=== PATIENT | female | born 1945 | race Caucasian/White ===

== ENCOUNTER 2016-08-27 07:08 | Emergency (ER) | payer MEDICARE, BC ==
[2016-08-27] MEDS ORDERED: Zofran 4 MG/2 ML VIAL IV ONE (07:31)
[2016-08-27] MEDS ORDERED: Sodium Chloride 0.9% 1000 ML 1,000 ML ONE (07:37)
[2016-08-27] MEDS ORDERED: Zofran 4 MG/2 ML VIAL ONE (07:37)
--- NOTE | 2016-08-27 07:38 | ERPHSYRPT ---
- History of Present Illness Time Seen by Provider: 08/27/16 07:25 Historian: patient Exam Limitations: no limitations Patient Subjective Stated Complaint: PT STATES SHE WAS AWAKENED THIS MORNING AT 0200 WITH EPIGASTRIC PAIN. PT STATES SHE HAS A BURNING PAIN AND IS NAUSEATED. Triage Nursing Assessment: PT PINK, WARM, DRY. ABDOMEN SOFT. LUNG SOUNDS CLEAR AND EQUAL. BOWEL SOUNDS PRESENT. Physician History: This is a 71-year-old white female arrives with complaint of pain in the epigastric region described as burning onset at 2:00 this morning associated with nausea no vomiting no diarrhea she denies chest pain she denies shortness of breath Past medical history includes coronary artery disease, hyperlipidemia, high blood pressure old chart shows myocardial infarction but patient denies this, asthma, arthritis, ulcers, breast cancer Past surgical history includes cardiac catheter, bariatric surgery, cholecystectomy, hernia repair, hysterectomy, mastectomy, 2 disks fusion on her neck Timing/Duration: today (2:00 this morning) Activities at Onset: rest Quality: burning Abdominal Pain Onset Location: epigastric Pain Radiation: no radiation Severity of Pain-Max: moderate Severity of Pain-Current: mild Modifying Factors: Improves With: nothing Associated Symptoms: heartburn, nausea, No back, No chest pain, No diaphoresis, No diarrhea, No fever/chills, No fatigue, No headache, No loss of appetite, No neck pain, No rash, No shortness of breath, No syncope, No vomiting, No weakness Previous symptoms: other (patient with history of ulcers) Allergies/Adverse Reactions: naproxen [From Naprosyn] Allergy (Mild, Verified 08/27/16 07:19) Rash adhesive tape Adverse Reaction (Mild, Verified 08/27/16 07:19) BLISTERS Home Medications: Nifedipine [Procardia Xl] 60 mg PO DAILY 11/14/15 [History] Omeprazole [Prilosec] 40 mg PO DAILY 11/14/15 [History] Sertraline HCl 50 mg [Zoloft 50 mg Tablet] 50 mg PO DAILY 11/14/15 [History] Cholecalciferol (Vitamin D3) [Vitamin D] 5,000 unit PO DAILY 01/21/16 [ History] Cyanocobalamin/Folic Acid [Vitamin K76-Nlsse Acid Tablet] 1 each PO DAILY [History] Ped Multivit #43/Iron Fumarate [Flintstones Complete Chew Tab] 36 mg PO DAILY [History] Hx Tetanus, Diphtheria Vaccination/Date Given: Yes (UP TO DATE) Hx Influenza Vaccination/Date Given: Yes Hx Pneumococcal Vaccination/Date Given: Yes Immunizations Up to Date: Yes - Review of Systems Constitutional: No Fever, No Chills Eyes: No Symptoms Ears, Nose, & Throat: No Symptoms Respiratory: No Cough, No Dyspnea Cardiac: No Chest Pain, No Edema, No Syncope Abdominal/Gastrointestinal: Abdominal Pain, Nausea, No Vomiting, No Diarrhea, No Constipation, No Hematemesis, No Hematochezia, No Melena, No Dysphagia, No Appetite Changes Genitourinary Symptoms: No Dysuria Musculoskeletal: No Back Pain, No Neck Pain Skin: No Rash Neurological: No Dizziness, No Focal Weakness, No Sensory Changes Psychological: No Symptoms Endocrine: No Symptoms All Other Systems: Reviewed and Negative - Past Medical History Pertinent Past Medical History: Yes Neurological History: No Pertinent History ENT History: No Pertinent History Cardiac History: Coronary Artery Disease, High Cholesterol, Hypertension Respiratory History: Asthma Endocrine Medical History: No Pertinent History Musculoskeletal History: Arthritis GI Medical History: GERD History: No Pertinent History Psycho-Social History: No Pertinent History Female Reproductive Disorders: Breast Cancer - Past Surgical History Past Surgical History: Yes Neuro Surgical History: No Pertinent History Cardiac: Cardiac Catheterization Respiratory: No Pertinent History Gastrointestinal: Cholecystectomy, Hernia Repair Genitourinary: No Pertinent History Musculoskeletal: Orthopedic Surgery, Other Female Surgical History: Hysterectomy, Mastectomy Other Surgical History: 2 disc fusions in neck, left mastectomy. BERIATRIC SURGERY - Social History Smoking Status: Never smoker Exposure to second hand smoke: No Drug Use: none Patient Lives Alone: No - Nursing Vital Signs Nursing Vital Signs: Initial Vital Signs Temperature 98.8 F Temperature Source Oral Pulse Rate [Bilateral Radial] 79 Pulse Rate 54 Respiratory Rate 16 Blood Pressure [Right Arm] 143/69 Pain Intensity 2 - Physical Exam General Appearance: mild distress Eye Exam: PERRL/EOMI, eyes nml inspection Ears, Nose, Throat Exam: normal ENT inspection, pharynx normal, moist mucous membranes Neck Exam: normal inspection, non-tender, supple, full range of motion Respiratory Exam: normal breath sounds, lungs clear, No respiratory distress Cardiovascular Exam: regular rate/rhythm, normal heart sounds, normal peripheral pulses, capillary refill <2 sec, No murmur, No friction rub, No gallop, No tachycardia, No bradycardia, No irregular, No capillary refill 2-3 sec, No capillary refill >3 sec Gastrointestinal/Abdomen Exam: soft, normal bowel sounds, tenderness ( epigastric tenderness with palpation) Back Exam: normal inspection, normal range of motion, No CVA tenderness, No vertebral tenderness Extremity Exam: normal inspection, normal range of motion, pelvis stable Neurologic Exam: alert, oriented x 3, cooperative, normal mood/affect, nml cerebellar function, sensation nml, No motor deficits Skin Exam: normal color, warm, dry SpO2 Interpretation: normal (100%) SpO2: 100 Oxygen Delivery: Room Air - Course Nursing assessment & vital signs reviewed: Yes EKG Interpreted by Me: RATE (73 bpm), Sinus Rhythm, Left [place] Deviation, Other ( EKG, sinus rhythm 73 bpm left anterior fascicular block left axis deviation no no acute changes as compared to 01/27/2016) Ordered Tests: Active Orders 24 hr Category Date Time Status Lung Splitter STAT Care 08/27/16 07:21 Active EKG-ER Only STAT Care 08/27/16 07:21 Active IV Insertion STAT Care 08/27/16 07:48 Active Pulse Oximetry (ED) STAT Care 08/27/16 07:21 Active AMYLASE Stat Lab 08/27/16 07:40 Completed CBC W DIFF Stat Lab 08/27/16 07:40 Completed CMP Stat Lab 08/27/16 07:40 Completed LIPASE Stat Lab 08/27/16 07:40 Completed TROPONIN Stat Lab 08/27/16 07:40 Completed UA W/ MICROSCOPIC Stat Lab 08/27/16 08:15 Results Medication Summary Generic Name Dose Route Start Last Admin Trade Name Freq PRN Reason Stop Dose Admin Sodium Chloride 1,000 mls @ 100 mls/hr 08/27/16 07:45 08/27/16 07:40 Sodium Chloride 0.9% 1000 Ml IV 09/26/16 07:44 100 mls/hr .Q10H TONJA Administration Discontinued Medications Generic Name Dose Route Start Last Admin Trade Name Freq PRN Reason Stop Dose Admin Ondansetron HCl 4 mg 08/27/16 07:31 08/27/16 07:40 Zofran 4 Mg/2 Ml Vial IV 08/27/16 07:32 4 mg STAT ONE Administration Ondansetron HCl Confirm 08/27/16 07:37 Zofran 4 Mg/2 Ml Vial Administered 08/27/16 07:38 Dose 4 mg .ROUTE .K-MED ONE Pantoprazole Sodium 40 mg 08/27/16 08:46 08/27/16 08:54 Protonix 40 Mg Iv IV 08/27/16 08:47 40 mg STAT ONE Administration Pantoprazole Sodium Confirm 08/27/16 08:52 Protonix 40 Mg Iv Administered 08/27/16 08:53 Dose 40 mg IV .K-MED ONE Lab/Rad Data: Laboratory Result Diagrams 08/27/16 07:40 08/27/16 07:40 Laboratory Results 08/27/16 08/27/16 08/27/16 Range/Units 08:15 07:40 07:40 WBC 5.6 (4.0-10.5) K/mm3 RBC 3.95 L (4.1-5.4) M/mm3 Hgb 12.7 (12.0-16.0) gm/dl Hct 37.7 (35-47) % MCV 95.4 (78-100) fl MCH 32.1 H (26-32) pg MCHC 33.7 (32-36) g/dl RDW 12.9 (11.5-14.0) % Plt Count 204 (150-450) K/mm3 MPV 9.6 H (6-9.5) fl Gran % 72.9 H (36.0-66.0) % Lymphocytes % 20.0 L (24.0-44.0) % Monocytes % 4.7 (0.0-12.0) % Eosinophils % 2.2 (0.00-5.0) % Basophils % 0.2 (0.0-0.4) % Basophils # 0.01 (0-0.4) Sodium 142 (136-145) mEq/L Potassium 4.0 (3.5-5.1) mEq/L Chloride 108 H (98-107) mEq/L Carbon Dioxide 24.6 (21-32) mEq/L Anion Gap 13.6 (5-15) MEQ/L BUN 23 H (9-20) mg/dL Creatinine 1.18 (0.55-1.30) mg/dl Estimated GFR 48 ML/MIN Glucose 114 H (70-110) MG/DL Calcium 9.2 (8.5-10.1) mg/dL Total Bilirubin 0.40 (0.2-1.0) mg/dL AST 32 (15-37) U/L ALT 32 (12-78) U/L Alkaline Phosphatase 119 H (46-116) U/L Troponin I < 0.017 (0.000-0.056) ng/ml Serum Total Protein 6.7 (6.4-8.2) gm/dL Albumin 3.5 (3.4-5.0) g/dL Amylase 65 (25-115) U/L Lipase 273 (73-393) U/L Ur Collection Type VOID Urine Color YELLOW (YELLOW) Urine Appearance HAZY (CLEAR) Urine pH 5.0 (5-6) Ur Specific Carey 1.020 (1.005-1.025) Urine Protein NEGATIVE (Negative) Urine Ketones NEGATIVE (NEGATIVE) Urine Blood 50 (0-5) Reyes/ul Urine Nitrite NEGATIVE (NEGATIVE) Urine Bilirubin NEGATIVE (NEGATIVE) Urine Urobilinogen NORMAL (0-1) mg/dL Ur Leukocyte Esterase NEGATIVE (NEGATIVE) Urine Microscopic RBC 2-5 (0-2) /HPF Urine Microscopic WBC 0-2 (0-5) /HPF Ur Epithelial Cells RARE (FEW) /HPF Urine Bacteria RARE (NEGATIVE) /HPF Urine Glucose NEGATIVE (NEGATIVE) mg/dL Specimen Received 08/27/16 0815 - Progress Progress: improved Progress Note: 08/27/16 08:46 Patient feeling better Slight epigastric pain now with palpation. Labs essentially normal. Patient does not want to wait for repeat troponin and initial torponin is normal. Will give patient Protonix 40 mg IV Will consider discharge with Zofran patient plans to follow-uop with her physician in [place] 08/27/16 08:47 08/27/16 08:52 - Departure Time of Disposition: 08:51 Departure Disposition: Home Clinical Impression: Epigastric abdominal pain Condition: Fair Critical Care Time: No Referrals: NICOLÁS VENEGAS [Primary Care Provider] - Additional Instructions: Return home. Plenty of fluids, clear fluids only 24-48 hours if abdominal pain. Continue Prilosec as prescribed by your family doctor/pneumatic deicer inspector. Zofran 4 mg orally every 4-6 hours as needed for nausea and vomiting. Return for acute distress or for severe symptoms. Prescriptions: Ondansetron [Zofran Odt] 4 mg PO Q4-6HPRN PRN #10 tab.rapdis PRN Reason: nausea and vomiting
[2016-08-27] MEDS ORDERED: Sodium Chloride 0.9% 1000 ML 1,000 ML IV SCH (07:45)
[2016-08-27 08:14] LABS: ALBUMIN 3.5 g/dL (3.4-5.0); ALKALINE PHOSPHATASE 119 U/L (46-116); ANION GAP 13.6 MEQ/L (5-15); BLOOD UREA NITROGEN 23 mg/dL (9-20); CHLORIDE 108 mEq/L (98-107); Carbon Dioxide 24.6 mEq/L (21-32); Glucose 114 MG/DL (70-110); LIPASE 273 U/L (73-393); SGOT/AST 32 U/L (15-37); SGPT/ALT 32 U/L (12-78); SODIUM 142 mEq/L (136-145); Total Protein 6.7 gm/dL (6.4-8.2)
[2016-08-27 08:15] LABS: TROPONIN < 0.017 ng/ml (0.000-0.056)
[2016-08-27 08:29] LABS: Bilirubin NEGATIVE (NEGATIVE); Blood 50 Ery/ul (0-5); COMPLETE URINE MICROSCOPIC? YES; Collection Type VOID; Glucose NEGATIVE (NEGATIVE); Leukocyte Esterase NEGATIVE (NEGATIVE)
[2016-08-27 08:35] LABS: BASOPHIL % 0.2 % (0.0-0.4); Eosinophil % 2.2 % (0.00-5.0); Granulocytes % 72.9 % (36.0-66.0); Mean Cell Volume 95.4 fl (78-100); Mean Platelet Volume 9.6 fl (6-9.5); Monocytes % 4.7 % (0.0-12.0); Platelet Count 204 K/mm3 (150-450); Red Blood Count 3.95 M/mm3 (4.1-5.4); Red Cell Distribution Width 12.9 % (11.5-14.0); White Blood Count 5.6 K/mm3 (4.0-10.5)
[2016-08-27 08:36] LABS: Mean Corpuscular Hemoglobin 32.1 pg (26-32)
[2016-08-27 08:36] LABS: Bacteria RARE /HPF (NEGATIVE); Epithelial Cells RARE /HPF (FEW); WBC 0-2 /HPF (0-5)
[2016-08-27] MEDS ORDERED: PROTONIX 40 MG IV IV ONE ×2 (08:46→08:52)
[2016-08-27 09:19] LABS: ADD URINE CULTURE? NO (NO)
[2016-08-27 09:27] VITALS: BP 142/81; PULSE 56; O2SAT 98
== END 2016-08-27 09:29 | disposition home or self-care (01) ==
LOC: ED 07:08
DX: R10.13 Epigastric pain (principal); Z79.899 Other long term (current) drug therapy; J44.9 Chronic obstructive pulmonary disease, unspecified; E78.00 Pure hypercholesterolemia, unspecified; I10 Essential (primary) hypertension
CPT/HCPCS: 36000; 36415; 80053; 81000; 82150; 83690; 84484; 85025; 93005; 93041; 96360; 96361; 96374; 96375; 99284; J2405

== ENCOUNTER 2017-01-21 16:00 | Observation (INO) | payer MEDICARE, BC ==
[2017-01-21] MEDS ORDERED: DUONEB 0.5-3 MG/3 ml Neb IH PRN (16:50)
[2017-01-21] MEDS ORDERED: MEDICATION INTERVENTION MC PRN (17:08)
[2017-01-21 17:30] LABS: A-aADO2 19; ARTERIAL BLD GAS O2 SATURATION 98.1 % (95-100); ARTERIAL BLOOD GAS BASE EXCESS -1.8 (-2.0-2.0); ARTERIAL BLOOD GAS FIO2 21 %; ARTERIAL BLOOD GAS PO2 92 mmHg (75-100); ARTERIAL BLOOD GAS pH 7.45 (7.35-7.45)
[2017-01-21 17:40] LABS: Mean Cell Volume 96.5 fl (78-100); Mean Platelet Volume 9.4 fl (6-9.5); Platelet Count 182 K/mm3 (150-450); Red Blood Count 3.67 M/mm3 (4.1-5.4); Red Cell Distribution Width 13.4 % (11.5-14.0); White Blood Count 6.4 K/mm3 (4.0-10.5)
[2017-01-21 17:42] LABS: Mean Corpuscular Hemoglobin 32.1 pg (26-32)
[2017-01-21] MEDS: Sodium Chloride 0.9% 1000 ML 1,000 ML IV SCH (17:53)
[2017-01-21] MEDS: ROCEPHIN 1 Gm-D5w 50 ml Bag** 1 G/50 ML IVPB IV SCH (17:53)
[2017-01-21] MEDS: solu-MEDROL 125 MG IV SCH ×2 (17:55→22:44)
[2017-01-21 18:03] LABS: ALBUMIN 3.9 g/dL (3.4-5.0); ANION GAP 13.6 MEQ/L (5-15); BILIRUBIN,TOTAL 0.3 mg/dL (0.2-1.0); Carbon Dioxide 22.9 mEq/L (21-32); Potassium 4.4 mEq/L (3.5-5.1); Total Protein 6.6 gm/dL (6.4-8.2)
[2017-01-21] MEDS: DUONEB 0.5-3 MG/3 ml Neb IH SCH (19:39)
[2017-01-22] MEDS: MOTRIN 400 MG PO PRN ×4 (03:28→21:38)
[2017-01-22] MEDS: solu-MEDROL 125 MG IV SCH ×3 (05:55→21:36)
[2017-01-22] MEDS: DUONEB 0.5-3 MG/3 ml Neb IH SCH ×4 (06:40→20:53)
[2017-01-22] MEDS: THERAGRAN MULTIVITAMIN PO SCH (08:06)
[2017-01-22] MEDS: Protonix 40MG Tablet PO SCH (08:07)
[2017-01-22] MEDS: Adalat CC 30 MG TABLET PO SCH (08:07)
[2017-01-22] MEDS: VITAMIN D PO SCH (08:07)
[2017-01-22] MEDS: ZOLOFT 50 MG TABLET PO SCH (08:07)
--- NOTE | 2017-01-22 08:40 | XRAY ---
Indication: Cough. Pneumonia. Comparison: January 27, 2016. PA/lateral chest unchanged and clear with incidental right lung calcified granuloma and small focal right hemidiaphragm elevation. Heart is not enlarged. Bony thorax intact again with lower cervical fusion surgery. No new/acute findings.
[2017-01-22] MEDS ORDERED: NON-FORMULARY ITEM (Cyanocobalamin/Folic Acid [Vitamin B12-Folic Acid Tablet] 1 EACH) PO SCH (10:00)
[2017-01-22] MEDS ORDERED: NIFEDIPINE 60 MG PO SCH (10:00)
[2017-01-22] MEDS ORDERED: NON-FORMULARY ITEM (Omeprazole [Prilosec] 40 MG) PO SCH (10:00)
[2017-01-22] MEDS ORDERED: IRON FUMARATE PO SCH (10:00)
[2017-01-22] MEDS ORDERED: [UNRECOGNIZED DRUG - OTHER] PO SCH (10:00)
[2017-01-22] MEDS: ROCEPHIN 1 Gm-D5w 50 ml Bag** 1 G/50 ML IVPB IV SCH (10:12)
[2017-01-22] MEDS: Sodium Chloride 0.9% 1000 ML 1,000 ML IV SCH (15:20)
--- NOTE | 2017-01-22 16:45 | PCM.NOTE ---
Date and Time: 01/22/171643 Subjective Assessment: c/o shortness of breath - Review of Systems Constitutional: No Fever, No Chills Eyes: No Symptoms Ears, Nose, & Throat: No Symptoms Respiratory: No Cough, No Short Of Breath Cardiac: No Chest Pain, No Edema, No Syncope Abdominal/Gastrointestinal: No Abdominal Pain, No Nausea, No Vomiting, No Diarrhea Genitourinary Symptoms: No Dysuria Musculoskeletal: No Back Pain, No Neck Pain Skin: No Rash Neurological: No Dizziness, No Focal Weakness, No Sensory Changes Psychological: No Symptoms Endocrine: No Symptoms Hematologic/Lymphatic: No Symptoms Immunological/Allergic: No Symptoms Objective Exam General Appearance: no apparent distress, alert Neurologic Exam: alert, oriented x 3, cooperative, normal mood/affect, nml cerebellar function, sensation nml, No motor deficits Skin Exam: normal color, warm, dry Eye Exam: PERRL, EOMI, eyes nml inspection Ears, Nose, Throat Exam: normal ENT inspection, pharynx normal, moist mucous membranes Neck Exam: normal inspection, non-tender, supple, full range of motion Respiratory Exam: normal breath sounds, lungs clear, No respiratory distress Cardiovascular Exam: regular rate/rhythm, normal heart sounds Gastrointestinal/Abdomen Exam: soft, No tenderness, No mass Extremity Exam: normal inspection, normal range of motion Back Exam: normal inspection, normal range of motion, No CVA tenderness, No vertebral tenderness Pelvic Exam: deferred Rectal Exam: deferred OBJECTIVE DATA Vital Signs: Vital Signs - 24 hr Temp Pulse Resp BP BP Pulse Ox 01/22/17 15:16 100 H 20 98 01/22/17 12:00 22 01/22/17 11:58 97.9 F 104 H 22 139/66 169/76 97 01/22/17 11:04 98 H 18 97 01/22/17 08:00 97.4 F 102 H 20 139/66 147/70 97 01/22/17 06:41 88 16 95 01/22/17 04:00 97.6 F 69 20 139/66 97 01/22/17 03:33 61 18 96 01/22/17 00:00 97.9 F 78 20 139/66 139/66 95 01/21/17 21:54 64 20 96 01/21/17 20:00 98.0 F 62 16 154/68 154/68 96 01/21/17 17:45 53 L 16 98 11/15/17 17:22 97.6 F 52 L 20 170/71 94 L Pain Assessment - Last Documented Pain Intensity 8 Pain Scale Used 0-10 Pain Scale Intake and Output: Intake & Output 01/20/17 01/21/17 01/22/17 01/23/17 11:59 11:59 11:59 11:59 Intake Total 2692 440 Balance 2692 440 Weight 96.615 kg Lab Results: Lab Results-Last 24 Hours 01/21/17 01/21/17 01/21/17 Range/Units 16:37 17:15 17:15 WBC 6.4 (4.0-10.5) K/mm3 RBC 3.67 L (4.1-5.4) M/mm3 Hgb 11.8 L (12.0-16.0) gm/dl Hct 35.4 (35-47) % MCV 96.5 (78-100) fl MCH 32.1 H (26-32) pg MCHC 33.3 (32-36) g/dl RDW 13.4 (11.5-14.0) % Plt Count 182 (150-450) K/mm3 MPV 9.4 (6-9.5) fl Puncture Site RIGHT BRACHIAL pCO2 31 L (35-45) mmHg pO2 92 (75-100) mmHg Base Excess -1.8 (-2.0-2.0) O2 Saturation 94.9 (94-100) g/dF ABG pH 7.45 (7.35-7.45) ABG HCO3 21.5 L (22-28) ABG O2 Sat (Measured) 98.1 (95-100) % Hernan Test NOT APPLICABLE A-a Gradient 19 a/A Ratio 0.83 Hemoglobin 11.1 Carboxyhemoglobin 1.8 (0.0-6.9) % THgb Methemoglobin 1.4 (1.4-1.5) % Potassium 4.1 4.4 (3.5-5.1) Temperature 37.0 C POC O2 Flow Rate 21 % Sodium 141 (136-145) mEq/L Chloride 109 H (98-107) mEq/L Carbon Dioxide 22.9 (21-32) mEq/L Anion Gap 13.6 (5-15) MEQ/L BUN 26 H (9-20) mg/dL Creatinine 1.33 H (0.55-1.30) mg/dl Estimated GFR 42 ML/MIN Glucose 85 (70-110) MG/DL Calcium 8.9 (8.5-10.1) mg/dL Total Bilirubin 0.30 (0.2-1.0) mg/dL AST 26 (15-37) U/L ALT 24 (12-78) U/L Alkaline Phosphatase 116 (46-116) U/L Troponin I (0.000-0.056) ng/ml NT-Pro-B Natriuret Pep 247 H (0-125) pg/ml Serum Total Protein 6.6 (6.4-8.2) gm/dL Albumin 3.9 (3.4-5.0) g/dL 01/21/ Range/Units 17:15 WBC (4.0-10.5) K/mm3 RBC (4.1-5.4) M/mm3 Hgb (12.0-16.0) gm/dl Hct (35-47) % MCV (78-100) fl MCH (26-32) pg MCHC (32-36) g/dl RDW (11.5-14.0) % Plt Count (150-450) K/mm3 MPV (6-9.5) fl Puncture Site pCO2 (35-45) mmHg pO2 (75-100) mmHg Base Excess (-2.0-2.0) O2 Saturation (94-100) g/dF ABG pH (7.35-7.45) ABG HCO3 (22-28) ABG O2 Sat (Measured) (95-100) % Hernan Test A-a Gradient a/A Ratio Hemoglobin Carboxyhemoglobin (0.0-6.9) % THgb Methemoglobin (1.4-1.5) % Potassium (3.5-5.1) Temperature C POC O2 Flow Rate % Sodium (136-145) mEq/L Chloride (98-107) mEq/L Carbon Dioxide (21-32) mEq/L Anion Gap (5-15) MEQ/L BUN (9-20) mg/dL Creatinine (0.55-1.30) mg/dl Estimated GFR ML/MIN Glucose (70-110) MG/DL Calcium (8.5-10.1) mg/dL Total Bilirubin (0.2-1.0) mg/dL AST (15-37) U/L ALT (12-78) U/L Alkaline Phosphatase (46-116) U/L Troponin I < 0.017 (0.000-0.056) ng/ml NT-Pro-B Natriuret Pep (0-125) pg/ml Serum Total Protein (6.4-8.2) gm/dL Albumin (3.4-5.0) g/dL Radiology Exams: Radiology Procedures Category Date Time Status CHEST 2 VIEWS (PA AND LAT) Urgent Exams 01/21/17 17:00 Completed Assessment/Plan (1) Exacerbation of asthma Current Visit: Yes Status: Acute Qualifiers: Asthma severity: moderate Asthma persistence: unspecified Qualified Code( s): J45.901 - Unspecified asthma with (acute) exacerbation Code(s): J45.901 - UNSPECIFIED ASTHMA WITH (ACUTE) EXACERBATION
[2017-01-22] MEDS: PULMICORT 0.5 MG/2 ML RESPULES IH SCH (20:54)
[2017-01-23] MEDS: MOTRIN 400 MG PO PRN (05:07)
[2017-01-23] MEDS: solu-MEDROL 125 MG IV SCH (05:55)
[2017-01-23] MEDS: DUONEB 0.5-3 MG/3 ml Neb IH SCH (06:56)
[2017-01-23] MEDS: PULMICORT 0.5 MG/2 ML RESPULES IH SCH (06:57)
[2017-01-23 07:58] VITALS: BP 139/66; PULSE 66; O2SAT 99
--- NOTE | 2017-01-23 08:53 | PCM.DS ---
Discharge Summary Date of Admission: 01/21/17 16:20 Admitting Physician: NICOLÁS VENEGAS Primary Care Provider: NICOLÁS VENEGAS Allergies Allergies naproxen [From Naprosyn] Allergy (Mild, Verified 08/27/16 07:19) Rash adhesive tape Adverse Reaction (Mild, Verified 08/27/16 07:19) BLISTERS Hospital Summary - Hospital Course Hospital Course: Chief Complaint Diagnosis pneumonia Allergies Allergy/AdvReac Type Severity Reaction Status Date / Time naproxen [From Naprosyn] Allergy Mild Rash Verified 08/27/16 07:19 adhesive tape AdvReac Mild Verified 08/27/16 07:19 Vital Signs (Last 24 hours) Temp Pulse Resp BP BP Pulse Ox 01/23/17 07:57 98.0 F 66 16 139/66 160/72 99 01/23/17 07:01 68 18 97 01/23/17 04:00 98.1 F 71 17 138/64 96 01/23/17 00:00 98.0 F 78 16 144/65 97 01/22/17 20:56 68 18 95 01/22/17 20:39 97.8 F 69 18 181/75 96 01/22/17 20:00 18 01/22/17 16:00 97.8 F 98 H 20 139/66 161/72 98 01/22/17 15:16 100 H 20 98 01/22/17 12:00 22 01/22/17 11:58 97.9 F 104 H 22 139/66 169/76 97 01/22/17 11:04 98 H 18 97 Current Medications Generic Name Dose Route Start Last Admin Trade Name Freq PRN Reason Stop Dose Admin Albuterol/Ipratropium 3 ml 01/21/17 19:00 01/23/17 06:56 Duoneb 0.5-3 Mg/3 Ml Neb IH 02/20/17 18:59 3 ml QIDRT TONJA Administration Albuterol/Ipratropium 3 ml 01/21/17 16:50 01/22/17 03:31 Duoneb 0.5-3 Mg/3 Ml Neb IH 02/20/17 16:49 3 ml Q4HPRN PRN Administration SHORTNESS OF BREATH/WHEEZING Budesonide 0.5 mg 01/22/17 19:00 01/23/17 06:57 Pulmicort 0.5 Mg/2 Ml Respules IH 02/21/17 18:59 0.5 mg BIDRT TONJA Administration Cholecalciferol 5,000 unit 01/22/17 10:00 01/22/17 08:07 Vitamin D PO 02/21/17 09:59 5,000 unit DAILY TONJA Administration Ceftriaxone Sodium/Dextrose 1 g in 50 mls @ 100 mls/hr 01/21/17 17:00 10:12 Rocephin 1 Gm-D5w 50 Ml Bag IV 02/20/17 16:59 100 mls/hr Q24H10 TONJA Administration Sodium Chloride 1,000 mls @ 50 mls/hr 01/21/17 16:45 01/22/17 15:20 Sodium Chloride 0.9% 1000 Ml IV 02/20/17 16:44 50 mls/hr .Q20H TONJA Administration Ibuprofen 400 mg 01/21/17 18:01 01/23/17 05:07 Motrin 400 Mg PO 02/20/17 18:00 400 mg TIDP PRN Administration PAIN Methylprednisolone Sodium Succinate 60 mg 01/21/17 17:00 01/23/17 05:55 Solu-Medrol 125 Mg IV 02/20/17 16:59 60 mg Q8HT TONJA Administration Multivitamins 1 tab 01/22/17 10:00 01/22/17 08:06 Theragran Multivitamin PO 02/21/17 09:59 1 tab DAILY TONJA Administration Nifedipine 60 mg 01/22/17 10:00 01/22/17 08:07 Adalat Cc 30 Mg Tablet PO 02/21/17 09:59 60 mg DAILY TONJA Administration Pantoprazole Sodium 40 mg 01/22/17 10:00 01/22/17 08:07 Protonix 40mg Tablet PO 02/21/17 09:59 40 mg DAILY TONJA Administration Sertraline HCl 50 mg 01/22/17 10:00 01/22/17 08:07 Zoloft 50 Mg Tablet PO 02/21/17 09:59 50 mg DAILY TONJA Administration Intake & Output (Last 24 hours) 01/20/17 01/21/17 01/22/17 01/23/17 11:59 11:59 11:59 11:59 Intake Total 2692 3300 Balance 2692 3300 Weight 96.615 kg Orders (Last 24 hours) Category Date Time Status Budesonide 0.5 mg/2 ml [Pulmicort 0.5 mg/2 ml Med 01/22/17 19:00 Active Respules] 0.5 mg IH BIDRT Cholecalciferol (Vitamin D3) [Vitamin D] Med 01/22/17 10:00 Active 5,000 unit PO DAILY Multivitamins,Therapeutic Tab* [Theragran Multivitamin* Med 01/22/17 10:00 Active ] 1 tab PO DAILY Nifedipine Xl 30 mg [Adalat CC 30 MG TABLET] Med 01/22/17 10:00 Active 60 mg PO DAILY PANTOPRAZOLE 40 mg Tablet [Protonix 40MG Tablet] Med 01/22/17 10:00 Active 40 mg PO DAILY Sertraline HCl 50 mg [Zoloft 50 mg Tablet] Med 01/22/17 10:00 Active 50 mg PO DAILY Patient is doing much better, breathing is easier, will discharge her home today - Vitals & Intake/Output Vital Signs: Vital Signs Temperature 98.0 F 01/23/17 07:57 Pulse Rate 66 01/23/17 07:57 Respiratory Rate 16 01/23/17 07:57 Blood Pressure 139/66 01/23/17 07:57 O2 Sat by Pulse Oximetry 99 01/23/17 07:57 Intake & Output: Intake & Output 01/20/17 01/21/17 01/22/17 01/23/17 11:59 11:59 11:59 11:59 Intake Total 2692 3300 Balance 2692 3300 Weight 96.615 kg - Lab Result Diagrams: 01/21/17 17:15 01/21/17 17:15 - Radiology Exams Ordered Rad Exams-Entire Visit: Radiology Procedures Category Date Time Status CHEST 2 VIEWS (PA AND LAT) Urgent Exams 01/21/17 17:00 Completed - Procedures and Test Procedures and Tests throughout Hospitalization: Therapy Orders & Screens 01/21/17 16:35 EKG ROUTINE Comment: 01/21/17 17:43 RT Screen per Nursing Assess ONCE Comment: Protocol Order Physician Instructions: Greater than 3 points order RT Admission Screen Reason For Exam: Triggered on Admission Diagnosis: pneumonia Diagnosis: pneumonia Pneumonia: Yes Home O2: No Asthma: Yes CHF: No Home CPAP/BIPAP: No Home Nebs/MDI: No Total Points: 7 01/21/17 17:45 Respiratory Nebulizer UD Comment: Diagnosis: pneumonia Discharge Exam General Appearance: no apparent distress, alert Neurologic Exam: alert, oriented x 3, cooperative, normal mood/affect, nml cerebellar function, sensation nml, No motor deficits Skin Exam: normal color, warm, dry Eye Exam: PERRL, EOMI, eyes nml inspection Ears, Nose, Throat Exam: normal ENT inspection, pharynx normal, moist mucous membranes Neck Exam: normal inspection, non-tender, supple, full range of motion Respiratory Exam: normal breath sounds, lungs clear, No respiratory distress Cardiovascular Exam: regular rate/rhythm, normal heart sounds Gastrointestinal/Abdomen Exam: soft, No tenderness, No mass Extremity Exam: normal inspection, normal range of motion Back Exam: normal inspection, normal range of motion, No CVA tenderness, No vertebral tenderness Pelvic Exam: deferred Rectal Exam: deferred Final Diagnosis/Problem List - Final Discharge Diagnosis/Problem (1) Exacerbation of asthma Current Visit: Yes Status: Resolved Assessment & Plan: Last Vital Signs Temp 98.0 F 01/23/17 07:57 Pulse 66 01/23/17 07:57 Resp 16 01/23/17 07:57 BP 139/66 01/23/17 07:57 Pulse Ox 99 01/23/17 07:57 Allergies naproxen [From Naprosyn] Allergy (Mild, Verified 08/27/16 07:19) Rash adhesive tape Adverse Reaction (Mild, Verified 08/27/16 07:19) BLISTERS Active Medications Albuterol/Ipratropium (Duoneb 0.5-3 Mg/3 Ml Neb) 3 ml IH QIDRT TONJA Stop: 02/20/17 18:59 Last Admin: 01/23/17 06:56 Dose: 3 ml Albuterol/Ipratropium (Duoneb 0.5-3 Mg/3 Ml Neb) 3 ml IH Q4HPRN PRN PRN Reason: SHORTNESS OF BREATH/WHEEZING Stop: 02/20/17 16:49 Last Admin: 01/22/17 03:31 Dose: 3 ml Budesonide (Pulmicort 0.5 Mg/2 Ml Respules) 0.5 mg IH BIDRT TONJA Stop: 02/21/17 18:59 Last Admin: 01/23/17 06:57 Dose: 0.5 mg Cholecalciferol (Vitamin D) 5,000 unit PO DAILY TONJA Stop: 02/21/17 09:59 Last Admin: 01/22/17 08:07 Dose: 5,000 unit Ceftriaxone Sodium/Dextrose (Rocephin 1 Gm-D5w 50 Ml Bag) 1 g in 50 mls @ 100 mls/hr IV Q24H10 TONJA Stop: 02/20/17 16:59 Last Admin: 01/22/17 10:12 Dose: 100 mls/hr Sodium Chloride (Sodium Chloride 0.9% 1000 Ml) 1,000 mls @ 50 mls/hr IV .Q20H TONJA Stop: 02/20/17 16:44 Last Admin: 01/22/17 15:20 Dose: 50 mls/hr Ibuprofen (Motrin 400 Mg) 400 mg PO TIDP PRN PRN Reason: PAIN Stop: 02/20/17 18:00 Last Admin: 01/23/17 05:07 Dose: 400 mg Methylprednisolone Sodium Succinate (Solu-Medrol 125 Mg) 60 mg IV Q8HT [facility] Stop: 02/20/17 16:59 Last Admin: 01/23/17 05:55 Dose: 60 mg Multivitamins (Theragran Multivitamin) 1 tab PO DAILY [facility] Stop: 02/21/17 09:59 Last Admin: 01/22/17 08:06 Dose: 1 tab Nifedipine (Adalat Cc 30 Mg Tablet) 60 mg PO DAILY [facility] Stop: 02/21/17 09:59 Last Admin: 01/22/17 08:07 Dose: 60 mg Pantoprazole Sodium (Protonix 40mg Tablet) 40 mg PO DAILY [facility] Stop: 02/21/17 09:59 Last Admin: 01/22/17 08:07 Dose: 40 mg Sertraline HCl (Zoloft 50 Mg Tablet) 50 mg PO DAILY [facility] Stop: 02/21/17 09:59 Last Admin: 01/22/17 08:07 Dose: 50 mg Intake & Output 01/22/17 01/23/17 11:59 11:59 Intake Total 4082 3300 Balance 2692 3300 Weight 96.615 kg Orders 01/22/17 19:00 Budesonide 0.5 mg/2 ml [Pulmicort 0.5 mg/2 ml Respules] 0.5 mg IH BIDRT - Discharge Discharge Date: 01/23/17 Disposition: Home, Self-Care Condition: Stable Prescriptions: New Levofloxacin [Levaquin] 500 mg PO DAILY #5 tablet Methylprednisolone Packet [Medrol Dosepack] 4 mg PO UD #30 packet Budesonide [Pulmicort Flexhaler] 90 mcg IH BID #1 [email or web address] Continue Sertraline HCl 50 mg [Zoloft 50 mg Tablet] 50 mg PO DAILY Nifedipine [Procardia Xl] 60 mg PO DAILY Omeprazole [Prilosec] 40 mg PO DAILY Cholecalciferol (Vitamin D3) [Vitamin D] 5,000 unit PO DAILY Ped Multivit 43/Iron Fumarate [Flintstones Complete Chew Tab] 3 tab PO DAILY Cyanocobalamin/Folic Acid [Vitamin R93-Mwjqt Acid Tablet] 1 each PO DAILY Follow up with: NICOLÁS VENEGAS [Primary Care Provider] - 1 Week
[2017-01-23] MEDS: Adalat CC 30 MG TABLET PO SCH (09:22)
[2017-01-23] MEDS: ZOLOFT 50 MG TABLET PO SCH (09:22)
[2017-01-23] MEDS: ROCEPHIN 1 Gm-D5w 50 ml Bag** 1 G/50 ML IVPB IV SCH (09:23)
[2017-01-23] MEDS: VITAMIN D PO SCH (09:23)
[2017-01-23] MEDS: Protonix 40MG Tablet PO SCH (09:23)
[2017-01-23] MEDS: THERAGRAN MULTIVITAMIN PO SCH (09:23)
== END 2017-01-23 10:30 | disposition home or self-care (01) ==
LOC: MED SURG 16:20
PROVIDERS: ADMIT General Practice; ATTEND General Practice
DX: J45.901 Unspecified asthma with (acute) exacerbation (principal); I11.0 Hypertensive heart disease with heart failure; I50.9 Heart failure, unspecified; E78.5 Hyperlipidemia, unspecified; F41.9 Anxiety disorder, unspecified; Z85.3 Personal history of malignant neoplasm of breast; Z85.828 Personal history of other malignant neoplasm of skin; K21.9 Gastro-esophageal reflux disease without esophagitis; J18.0 Bronchopneumonia, unspecified organism; J06.9 Acute upper respiratory infection, unspecified; R53.83 Other fatigue; F32.9 Major depressive disorder, single episode, unspecified; E55.9 Vitamin D deficiency, unspecified
CPT/HCPCS: 36415; 36600; 71020; 80053; 82375; 82803; 83880; 84484; 85027; 93005; 94640; 94760; G0378; J0696; J2930; A9270-GY

== ENCOUNTER 2017-11-04 14:23 | Inpatient (IN) | payer MEDICARE, BC ==
[2017-11-04 15:21] LABS: A-aADO2 17; ABG HEMOGLOBIN 11.3; ABG POTASSIUM 4.7 (3.5-5.1); ARTERIAL BLD GAS O2 SATURATION 97.6 % (95-100); ARTERIAL BLOOD GAS BASE EXCESS -2.5 (-2.0-2.0); ARTERIAL BLOOD GAS FIO2 21 %; ARTERIAL BLOOD GAS PCO2 34 mmHg (35-45); ARTERIAL BLOOD GAS PO2 90 mmHg (75-100); ARTERIAL BLOOD GAS pH 7.41 (7.35-7.45); CARBOXYHEMOGLOBIN 1.3 % THgb (0.0-6.9); HCO3- 21.6 (22-28); HGB O2 SAT 95.1 g/dF (94-100); Lactic Acid 1.5 (0.4-2.0); Methhemoglobin 1.2 % (1.4-1.5); paO2 pAO1 0.84
[2017-11-04 15:22] LABS: ABG SITE LEFT BRACHIAL; ALLEN TEST OK? Yes
[2017-11-04] MEDS ORDERED: MEDICATION INTERVENTION PO SCH (16:15)
[2017-11-04] MEDS ORDERED: DUONEB 0.5-3 MG/3 ml Neb IH ONE (16:16)
[2017-11-04] MEDS ORDERED: DUONEB 0.5-3 MG/3 ml Neb IH PRN (16:23)
[2017-11-04 16:36] LABS: Hematocrit 35.3 % (35-47); Hemoglobin 11.9 gm/dl (12.0-16.0); Mean Corpuscular Hgb Concent. 33.7 g/dl (32-36); Mean Platelet Volume 9.4 fl (6-9.5); Platelet Count 181 K/mm3 (150-450); Red Blood Count 3.64 M/mm3 (4.1-5.4); Red Cell Distribution Width 12.9 % (11.5-14.0); White Blood Count 6.3 K/mm3 (4.0-10.5)
[2017-11-04 16:42] LABS: INFLUENZA A NEGATIVE (NEGATIVE); INFLUENZA B NEGATIVE (NEGATIVE); RESPIRATORY SYNCTIAL VIRUS NEGATIVE (Negative)
[2017-11-04 16:47] LABS: Mean Corpuscular Hemoglobin 32.6 pg (26-32)
--- NOTE | 2017-11-04 16:48 | XRAY ---
Indication: Short of breath and productive cough. Comparison: January 21, 2017. PA/lateral chest again demonstrates normal heart and lungs with incidental right lung calcified granuloma. Bony thorax intact again with mild degenerative changes, lower cervical fusion surgery, and surgical clips overlying the left breast. No new/acute findings. Impression: Stable nonacute chest with chronic features.
[2017-11-04 17:00] LABS: ALBUMIN 3.8 g/dL (3.5-5.0); ALKALINE PHOSPHATASE 97 U/L (38-126); ANION GAP 11.6 MEQ/L (5-15); BLOOD UREA NITROGEN 25 mg/dL (7-17); CHLORIDE 110 mmol/L (98-107); Calcium 9.1 mg/dL (8.4-10.2); Carbon Dioxide 23 mmol/L (22-30); Creatinine 1 1.11 mg/dL (0.52-1.04); Glucose 102 mg/dL (74-106); NT PRO BNP 135 pg/mL (0-900); Potassium 4.8 mmol/L (3.5-5.1); SGOT/AST 24 U/L (14-36); SGPT/ALT 17 U/L (0-35); SODIUM 140 mmol/L (137-145); Total Protein 6.2 g/dL (6.3-8.2)
[2017-11-04 17:12] LABS: TROPONIN < 0.012 ng/mL (0.000-0.034)
[2017-11-04] MEDS: solu-MEDROL 40 MG IV SCH (17:24)
[2017-11-04] MEDS: Sodium Chloride 0.9% 1000 ML 1,000 ML IV SCH (17:24)
[2017-11-05] MEDS: solu-MEDROL 40 MG IV SCH ×3 (00:52→16:25)
[2017-11-05] MEDS ORDERED: TYLENOL 325 MG PO ONE (03:25)
[2017-11-05] MEDS: VITAMIN D PO SCH (08:28)
[2017-11-05] MEDS: Protonix 40MG Tablet PO SCH (08:29)
[2017-11-05] MEDS: TYLENOL 325 MG PO PRN ×2 (08:29→16:25)
[2017-11-05] MEDS: Adalat CC 30 MG TABLET PO SCH (08:29)
[2017-11-05] MEDS: ZOLOFT 50 MG TABLET PO SCH (08:29)
[2017-11-05] MEDS: THERAGRAN MULTIVITAMIN PO SCH (08:30)
[2017-11-05] MEDS ORDERED: [UNRECOGNIZED DRUG - OTHER] PO SCH (10:00)
[2017-11-05] MEDS ORDERED: NON-FORMULARY ITEM (Omeprazole [Prilosec] 40 MG) PO SCH (10:00)
[2017-11-05] MEDS ORDERED: NON-FORMULARY ITEM (Cyanocobalamin/Folic Acid [Vitamin B12-Folic Acid Tablet] 1 EACH) PO SCH (10:00)
[2017-11-05] MEDS ORDERED: IRON FUMARATE PO SCH (10:00)
[2017-11-05] MEDS ORDERED: NIFEDIPINE 60 MG PO SCH (10:00)
[2017-11-05] MEDS: Sodium Chloride 0.9% 1000 ML 1,000 ML IV SCH (11:43)
[2017-11-05] MEDS: TORAdol 30 mg Injection IV PRN ×2 (13:40→22:55)
[2017-11-05] MEDS: ROCEPHIN 1 Gm-D5w 50 ml Bag** 1 G/50 ML IVPB IV SCH (17:34)
--- NOTE | 2017-11-05 21:32 | PCM.NOTE ---
Date and Time: 11/05/172129 Subjective Assessment: c/o shortness of breath - Review of Systems Constitutional: No Fever, No Chills Eyes: No Symptoms Ears, Nose, & Throat: No Symptoms Respiratory: Orthopnea, Short Of Breath, Wheezing, No Cough Cardiac: No Chest Pain, No Edema, No Syncope Abdominal/Gastrointestinal: No Abdominal Pain, No Nausea, No Vomiting, No Diarrhea Genitourinary Symptoms: No Dysuria Musculoskeletal: No Back Pain, No Neck Pain Skin: No Rash Neurological: No Dizziness, No Focal Weakness, No Sensory Changes Psychological: No Symptoms Endocrine: No Symptoms Hematologic/Lymphatic: No Symptoms Immunological/Allergic: No Symptoms Objective Exam General Appearance: no apparent distress, alert Neurologic Exam: alert, oriented x 3, cooperative, normal mood/affect, nml cerebellar function, sensation nml, No motor deficits Skin Exam: normal color, warm, dry Eye Exam: PERRL, EOMI, eyes nml inspection Ears, Nose, Throat Exam: normal ENT inspection, pharynx normal, moist mucous membranes Neck Exam: normal inspection, non-tender, supple, full range of motion Respiratory Exam: respiratory distress, diminished breath sounds, crackles/rales , rhonchi, wheezing Cardiovascular Exam: regular rate/rhythm, normal heart sounds Gastrointestinal/Abdomen Exam: soft, No tenderness, No mass Extremity Exam: normal inspection, normal range of motion Back Exam: normal inspection, normal range of motion, No CVA tenderness, No vertebral tenderness Pelvic Exam: deferred Rectal Exam: deferred OBJECTIVE DATA Vital Signs: Vital Signs - 24 hr Temp Pulse Resp BP Pulse Ox 11/05/17 20:00 63 16 96 11/05/17 19:48 97.9 F 61 19 144/68 98 11/05/17 16:00 98.7 F 63 16 149/65 97 11/05/17 12:00 16 11/05/17 11:29 98.5 F 67 16 151/75 98 11/05/17 08:00 16 11/05/17 07:19 98.1 F 60 16 174/77 93 L 11/05/17 04:00 98.1 F 61 18 166/72 96 11/05/17 00:00 97.6 F 66 18 143/65 95 Pain Assessment - Last Documented Pain Intensity 2 Pain Scale Used 0-10 Pain Scale Intake and Output: Intake & Output 0811/04/17 11/05/17 11/06/17 11:59 11:59 11:59 11:59 Intake Total 1986 5307 Output Total 2450 700 Balance 121 577 Weight 97 kg Radiology Exams: Radiology Procedures Category Date Time Status CHEST 2 VIEWS (PA AND LAT) Routine Exams 11/04/17 15:15 Completed Multi-Disciplinary Progress Notes: Multi-Disciplinary Progress Notes 11/05/17 12:15 (created 11/05/17 14:40) Case Management Note by Celia Munoz DR. ROUNDED AND EVALUATED, DISCUSSED DX PNEUMONIA AND TREATMENT. PT REPORTS THAT HER ARM IS SORE FROM ALL THE IV STICKS, HAS MULTIPLE BRUISES. DR. BIRMINGHAM DISCUSSED WITH PT THAT THEY WOULD HAVE SURGEON LOOK AT HER FOR POSSIBLE PAC PLACEMENT. PT REPORTS THAT SHE IS STILL NOT FEELING WELL TODAY, REPORTS THAT SHE WAS MORE SICK THAN SHE THOUGHT. DR. BIRMINGHAM DISCUSSED 1-2 DAYS MORE OF I.V. ABX. PT IS AGREEMENT WITH THIS PLAN. DENIES ADDNL NEEDS AT THIS TIME. PLANS TO RETURN HOME TO PRE EPISODIC LEVEL OF FNX ON DISCHARGE. WILL FOLLOW FOR ALL DC NEEDS. Initialized on 11/05/17 14:40 - END OF NOTE Assessment/Plan (1) Exacerbation of asthma Current Visit: No Status: Resolved Qualifiers: Asthma severity: moderate Asthma persistence: unspecified Qualified Code( s): J45.901 - Unspecified asthma with (acute) exacerbation Assessment & Plan: Chief Complaint Diagnosis Bronchial Pneumonia, FAILED OUTPATIENT Allergies Allergy/AdvReac Type Severity Reaction Status Date / Time naproxen [From Naprosyn] Allergy Mild Rash Verified 08/27/16 07:19 adhesive tape AdvReac Mild Verified 08/27/16 07:19 Vital Signs (Last 24 hours) Temp Pulse Resp BP Pulse Ox 11/05/17 20:00 63 16 96 11/05/17 19:48 97.9 F 61 19 144/68 98 11/05/17 16:00 98.7 F 63 16 149/65 97 11/05/17 12:00 16 11/05/17 11:29 98.5 F 67 16 151/75 98 11/05/17 08:00 16 11/05/17 07:19 98.1 F 60 16 174/77 93 L 11/05/17 04:00 98.1 F 61 18 166/72 96 11/05/17 00:00 97.6 F 66 18 143/65 95 Current Medications Generic Name Dose Route Start Last Admin Trade Name Freq PRN Reason Stop Dose Admin Acetaminophen 650 mg 11/05/17 08:02 11/05/17 16:25 Tylenol 325 Mg PO 12/05/17 08:01 650 mg Q4H PRN PRN Administration PAIN AND/OR FEVER Albuterol/Ipratropium 3 ml 11/04/17 16:23 11/04/17 16:20 Duoneb 0.5-3 Mg/3 Ml Neb IH 12/04/17 16:22 3 ml QIDPRN PRN Administration SHORTNESS OF BREATH/WHEEZING Cholecalciferol 5,000 unit 11/05/17 10:00 11/05/17 08:28 Vitamin D PO 12/05/17 09:59 4,000 unit DAILY TONJA Administration Ceftriaxone Sodium/Dextrose 1 g in 50 mls @ 100 mls/hr 11/05/17 17:00 17:34 Rocephin 1 Gm-D5w 50 Ml Bag IV 12/05/17 16:59 100 mls/hr Q24H10 TONJA Administration Sodium Chloride 1,000 mls @ 100 mls/hr 11/04/17 16:30 11/05/17 11:43 Sodium Chloride 0.9% 1000 Ml IV 12/04/17 16:29 100 mls/hr .Q10H TONJA Administration Ketorolac Tromethamine 30 mg 11/05/17 13:23 11/05/17 13:40 Toradol 30 Mg Injection IV 11/10/17 13:22 30 mg Q8HPRN PRN Administration HEADACHE Methylprednisolone Sodium Succinate 40 mg 11/04/17 16:30 11/05/17 16:25 Solu-Medrol 40 Mg IV 12/04/17 16:29 40 mg Q8H TONJA Administration Miscellaneous Information 1 each 11/04/17 16:15 Medication Intervention PO 12/04/17 16:14 .RN TO CHECK ON TONJA Multivitamins Therapeutic 1 tab 11/05/17 10:00 11/05/17 08:30 Theragran Multivitamin PO 12/05/17 09:59 1 tab DAILY TONJA Administration Nifedipine 60 mg 11/05/17 10:00 11/05/17 08:29 Adalat Cc 30 Mg Tablet PO 12/05/17 09:59 60 mg DAILY TONJA Administration Pantoprazole Sodium 40 mg 11/05/17 10:00 11/05/17 08:29 Protonix 40mg Tablet PO 12/05/17 09:59 40 mg DAILY TONJA Administration Sertraline HCl 50 mg 11/05/17 10:00 11/05/17 08:29 Zoloft 50 Mg Tablet PO 12/05/17 09:59 50 mg DAILY TONJA Administration Discontinued Medications Generic Name Dose Route Start Last Admin Trade Name Freq PRN Reason Stop Dose Admin Acetaminophen 650 mg 11/05/17 03:25 11/05/17 03:27 Tylenol 325 Mg PO 11/05/17 03:26 650 mg ONCE ONE Administration Albuterol/Ipratropium Confirm 11/04/17 16:16 Duoneb 0.5-3 Mg/3 Ml Neb Administered 11/04/17 16:17 Dose 3 ml IH .STK-MED ONE Intake & Output (Last 24 hours) 11/03/17 11/04/17 11/05/17 11/06/17 11:59 11:59 11:59 11:59 Intake Total 2571 1277 Output Total 2450 700 Balance 121 577 Weight 97 kg Orders (Last 24 hours) Category Date Time Status Admission Status Change [Change to Full Admit] ROUTINE Care 11/05/17 12:15 Active Consult Surgery ROUTINE Cons 11/05/17 13:24 Active Regular Diet Diet 11/05/17 Dinner Active Acetaminophen 325 mg [Tylenol 325 mg] Med 11/05/17 03:25 Discontinued 650 mg PO ONCE ONE Acetaminophen 325 mg [Tylenol 325 mg] Med 11/05/17 08:02 Active 650 mg PO Q4H PRN PRN Ceftriaxone 1 GM/50 ML PREMIX* [ROCEPHIN 1 Gm-D5w 50 ml Med 11/05/17 17:00 Active Bag] 1 g in 50 ml IV Q24H10 Cholecalciferol (Vitamin D3) [Vitamin D] Med 11/05/17 10:00 Active 5,000 unit PO DAILY KETOROLAC trometh 30 mg Inj [TORAdol 30 mg Injection Med 11/05/17 13:23 Active ] 30 mg IV Q8HPRN PRN Multivitamins,Therapeutic Tab* [Theragran Multivitamin* Med 11/05/17 10:00 Active ] 1 tab PO DAILY Nifedipine Xl 30 mg [Adalat CC 30 MG TABLET] Med 11/05/17 10:00 Active 60 mg PO DAILY PANTOPRAZOLE 40 mg Tablet [Protonix 40MG Tablet] Med 11/05/17 10:00 Active 40 mg PO DAILY Sertraline HCl 50 mg [Zoloft 50 mg Tablet] Med 11/05/17 10:00 Active 50 mg PO DAILY Patient Care Notes (Last 24 hours) 11/05/17 15:54 Nursing Note by Josselyn Mccall Dr to see pt for possible Port a cath placement. MD states he does not suggest port at this time. Initialized on 11/05/17 15:54 - END OF NOTE 11/05/17 12:15 (created 11/05/17 14:40) Case Management Note by Celia Munoz DR. ROUNDED AND EVALUATED, DISCUSSED DX PNEUMONIA AND TREATMENT. PT REPORTS THAT HER ARM IS SORE FROM ALL THE IV STICKS, HAS MULTIPLE BRUISES. DR. BIRMINGHAM DISCUSSED WITH PT THAT THEY WOULD HAVE SURGEON LOOK AT HER FOR POSSIBLE PAC PLACEMENT. PT REPORTS THAT SHE IS STILL NOT FEELING WELL TODAY, REPORTS THAT SHE WAS MORE SICK THAN SHE THOUGHT. DR. BIRMINGHAM DISCUSSED 1-2 DAYS MORE OF I.V. ABX. PT IS AGREEMENT WITH THIS PLAN. DENIES ADDNL NEEDS AT THIS TIME. PLANS TO RETURN HOME TO PRE EPISODIC LEVEL OF FNX ON DISCHARGE. WILL FOLLOW FOR ALL DC NEEDS. Initialized on 11/05/17 14:40 - END OF NOTE Code(s): J45.901 - UNSPECIFIED ASTHMA WITH (ACUTE) EXACERBATION
[2017-11-06] MEDS: solu-MEDROL 40 MG IV SCH ×3 (01:24→17:01)
[2017-11-06] MEDS: TYLENOL 325 MG PO PRN (07:03)
[2017-11-06] MEDS: Sodium Chloride 0.9% 1000 ML 1,000 ML IV SCH (08:58)
[2017-11-06] MEDS: ROCEPHIN 1 Gm-D5w 50 ml Bag** 1 G/50 ML IVPB IV SCH (08:59)
[2017-11-06] MEDS: VITAMIN D PO SCH (09:00)
[2017-11-06] MEDS: THERAGRAN MULTIVITAMIN PO SCH (09:01)
[2017-11-06] MEDS: ZOLOFT 50 MG TABLET PO SCH (09:01)
[2017-11-06] MEDS: Protonix 40MG Tablet PO SCH (09:01)
[2017-11-06] MEDS: Adalat CC 30 MG TABLET PO SCH (09:01)
[2017-11-06] MEDS: TORAdol 30 mg Injection IV PRN (09:05)
[2017-11-06 16:24] VITALS: BP 193/87; PULSE 58; O2SAT 95
--- NOTE | 2017-11-11 10:24 | DS ---
DISCHARGE DIAGNOSES: 1) ACUTE BRONCHOPNEUMONIA. 2) ASTHMA EXACERBATION, CLINICALLY IMPROVED. 3) HISTORY OF HYPERTENSION. 4) DYSTHYMIC DISORDER. 5) OBESITY. HOSPITAL COURSE: Jacey Nayak is a 72 year-old woman with past medical history of asthma, hypertension, dysthymic disorder and obesity. She was seen for office visit on 11/04/2017 with symptoms of worsening shortness of breath, cough, fatigue and dizziness. She was admitted for further work up and management of the same. Upon admission she was placed on nebulization, IV steroids and broad spectrum IV antibiotic. Lab work up on admission showed CBC with hemoglobin 11.9 otherwise unremarkable. ABG showed pH of 7.41, pCO2 34, pO2 of 90. CMP showed BUN 25, creatinine 1.11, chloride 110. Troponin was less than 0.012. BNP 135. Flu A/B and respiratory syncytial virus were negative. Chest x-ray showed stable nonacute chest with chronic features. EKG showed sinus bradycardia at 63 beats/minute, left anterior fascicular block. During her further course was essentially more or less unremarkable. She improved clinically. Symptoms of dizziness had resolved. PHYSICAL EXAMINATION: At the time of this evaluation she is alert, awake and comfortable. She states her shortness of breath has improved. Complains of occasional dry cough. Overall feeling much better and is wishing to go home. She states she has ambulated comfortably. VITAL SIGNS: Blood pressure 185/79, heart rate 54, respiratory rate 16, temperature 98.2F. Oxygen saturation 96%. HEENT: Normocephalic. No pallor or icterus is noted. NECK: No JVD is present. CVS: S1, S2 present. RESPIRATORY: Breath sounds are bilaterally diminished and clear to auscultation. ABDOMEN: Obese, soft, nontender. NEURO: She is alert, oriented x3. EXTREMITIES: No edema on bilateral lower extremities. LABORATORY DATA AND TESTS: There were no new labs today. Medications were reviewed. ASSESSMENT: As outlined in discharge diagnosis. PLAN: A patient with prior history of asthma, hypertension, congestive heart failure, gastroesophageal reflux disease admitted with bronchopneumonia/asthma exacerbation. She underwent work up and treatment as noted. She has improved clinically, remained hemodynamically stable. She ambulated with stable oxygen saturation. Her symptoms of dizziness have resolved. She is otherwise and is wishing to go home. She is being discharged home in stable condition. Please refer to discharge medication list from 11/06/2017 for details of medications on discharge. I have advised the patient to follow up with me next week. Compliance with diet and medications was stressed. Complete cessation of smoking was stressed. I have advised to return to the Emergency [facility] if any new signs and symptoms or reappearance of previous signs and symptoms are noted. The patient's clinical condition, work-up results and plan of management including plan after discharge was discussed with her and her family. They seem to be in understanding and agreement.
== END 2017-11-06 17:10 | disposition home or self-care (01) | DRG 204 ==
LOC: MED SURG 14:48 → OBSVTOIN 11-05 12:15
PROVIDERS: ADMIT General Practice; ATTEND General Practice
DX: J80 Acute respiratory distress syndrome (principal); J45.901 Unspecified asthma with (acute) exacerbation; I10 Essential (primary) hypertension; E66.9 Obesity, unspecified; F34.1 Dysthymic disorder; I11.0 Hypertensive heart disease with heart failure; I50.9 Heart failure, unspecified; K21.9 Gastro-esophageal reflux disease without esophagitis; E78.5 Hyperlipidemia, unspecified; F32.9 Major depressive disorder, single episode, unspecified; F41.9 Anxiety disorder, unspecified; Z85.3 Personal history of malignant neoplasm of breast; Z85.828 Personal history of other malignant neoplasm of skin
CPT/HCPCS: 36415; 36600; 71046; 80053; 82375; 82803; 83605; 83880; 84484; 85027; 87631; 93005; 94150; 94640; 94760; G0378; J0696; J1885; J2920; A9270-GY

== ENCOUNTER 2018-09-02 16:18 | Observation (INO) | payer MEDICARE, BC ==
[2018-09-02] MEDS ORDERED: Zofran 4 MG/2 ML VIAL IV PRN (17:12)
[2018-09-02] MEDS ORDERED: FEVERALL 650 MG PR PRN (17:12)
[2018-09-02] MEDS ORDERED: MEDICATION INTERVENTION MC SCH (17:30)
[2018-09-02 17:36] LABS: BASOPHIL % 0.2 % (0.0-0.4); Basophil (Absolute #) 0.02 (0-0.4); Eosinophil % 3.5 % (0.00-5.0); Eosinophil (Absolute #) 0.29 (0-0.5); Granulocyte Absolute (ANC) 5.72 (1.4-6.9); Granulocytes % 68.2 % (36.0-66.0); Hematocrit 36.7 % (35-47); Lymphocyte (Absolute #) 1.84 (1.0-4.6); Mean Cell Volume 99.2 fl (78-100); Mean Corpuscular Hemoglobin 32.4 pg (26-32); Mean Corpuscular Hgb Concent. 32.7 g/dl (32-36); Mean Platelet Volume 9.4 fl (6-9.5); Monocyte (Absolute #) 0.51 (0.0-1.3); Monocytes % 6.1 % (0.0-12.0); Platelet Count 182 K/mm3 (150-450); White Blood Count 8.4 K/mm3 (4.0-10.5)
[2018-09-02] MEDS: Sodium Chloride 0.9% 1000 ML 1,000 ML IV SCH (17:50)
[2018-09-02] MEDS: ROCEPHIN 1 Gm-D5w 50 ml Bag** 1 G/50 ML IVPB IV SCH (17:52)
[2018-09-02] MEDS: solu-MEDROL 40 MG IV SCH (17:52)
[2018-09-02 17:56] LABS: ANION GAP 12.9 MEQ/L (5-15); BILIRUBIN,TOTAL 0.4 mg/dL (0.2-1.3); Calcium 9.7 mg/dL (8.4-10.2); Potassium 4.7 mmol/L (3.5-5.1); Total Protein 6.8 g/dL (6.3-8.2)
[2018-09-02] MEDS ORDERED: PROVENTIL 2.5 MG/3 ML NEB IH SCH (19:00)
[2018-09-02] MEDS ORDERED: NON-FORMULARY ITEM (Vit C/E/Zn/Coppr/Lutein/Zeaxan [Preservision Areds 2 Softgel] 1 CAP) PO SCH (22:00)
[2018-09-02] MEDS: Ocuvite Tablet PO SCH (22:16)
[2018-09-02] MEDS: DUONEB 0.5-3 MG/3 ml Neb IH SCH (22:20)
[2018-09-03] MEDS: DUONEB 0.5-3 MG/3 ml Neb IH SCH ×4 (01:35→19:46)
[2018-09-03] MEDS: solu-MEDROL 40 MG IV SCH ×4 (02:25→21:22)
[2018-09-03] MEDS: TYLENOL 325 MG PO PRN ×3 (02:28→11:49)
[2018-09-03] MEDS ORDERED: Zithromax 500 MG/ 250 ML NaCl Premix 500 MG/250 ML IVPB IV ONE (05:57)
[2018-09-03] MEDS: Robitussin AC Syrup Unit Dose Cup PO PRN ×3 (06:16→22:31)
[2018-09-03] MEDS: Flonase NASAL NS SCH (06:18)
--- NOTE | 2018-09-03 08:40 | XRAY ---
Indication: Cough. Short of breath. Comparison: July 05, 2017. PA/lateral chest remains clear again with incidental right lung calcified granuloma. Heart and mediastinal structures within normal limits again with calcified nodes. Bony thorax intact again with mild degenerative changes, cervical fusion surgery, and left breast surgical clips. Impression: Stable nonacute chest with chronic features.
[2018-09-03] MEDS: VITAMIN D PO SCH (09:10)
[2018-09-03] MEDS: ZOLOFT 50 MG TABLET PO SCH (09:10)
[2018-09-03] MEDS: Ocuvite Tablet PO SCH ×2 (09:10→21:22)
[2018-09-03] MEDS: THERAGRAN MULTIVITAMIN PO SCH (09:11)
[2018-09-03] MEDS: Acidophilus TABLET PO SCH (09:11)
[2018-09-03] MEDS: Calcium 500MG W/Vit D Tablet PO SCH (09:11)
[2018-09-03] MEDS: FEOSOL 325 MG PO SCH (09:11)
[2018-09-03] MEDS: Adalat CC 30 MG TABLET PO SCH (09:11)
[2018-09-03] MEDS: ROCEPHIN 1 Gm-D5w 50 ml Bag** 1 G/50 ML IVPB IV SCH (09:12)
[2018-09-03] MEDS: Protonix 40MG Tablet PO SCH (09:12)
[2018-09-03] MEDS: ENOXAPARIN SODIUM SQ SCH (09:12)
[2018-09-03] MEDS ORDERED: [UNRECOGNIZED DRUG - OTHER] PO SCH (10:00)
[2018-09-03] MEDS ORDERED: NON-FORMULARY ITEM (Omeprazole [Prilosec] 40 MG) PO SCH (10:00)
[2018-09-03] MEDS ORDERED: NON-FORMULARY ITEM (Calcium Carbonate [Calcium] 600 MG) PO SCH (10:00)
[2018-09-03] MEDS ORDERED: NON-FORMULARY ITEM (Biotin [Biotin] 10,000 MCG) PO SCH (10:00)
[2018-09-03] MEDS ORDERED: NON-FORMULARY ITEM (L.Acidoph,Paracasei, B.Lactis [Probiotic] 1 CAP) PO SCH (10:00)
[2018-09-03] MEDS ORDERED: IRON FUMARATE PO SCH (10:00)
[2018-09-03] MEDS ORDERED: NIFEDIPINE 60 MG PO SCH (10:00)
--- NOTE | 2018-09-03 13:05 | PCM.NOTE ---
Date and Time: 09/03/18 1303 Subjective Assessment: doing ok - Review of Systems Constitutional: No Fever, No Chills Eyes: No Symptoms Ears, Nose, & Throat: No Symptoms Respiratory: Short Of Breath, Wheezing, No Cough Cardiac: No Chest Pain, No Edema, No Syncope Abdominal/Gastrointestinal: No Abdominal Pain, No Nausea, No Vomiting, No Diarrhea Genitourinary Symptoms: No Dysuria Musculoskeletal: No Back Pain, No Neck Pain Skin: No Rash Neurological: No Dizziness, No Focal Weakness, No Sensory Changes Psychological: No Symptoms Endocrine: No Symptoms Hematologic/Lymphatic: No Symptoms Immunological/Allergic: No Symptoms Objective Exam General Appearance: no apparent distress, alert Neurologic Exam: alert, oriented x 3, cooperative, normal mood/affect, nml cerebellar function, sensation nml, No motor deficits Skin Exam: normal color, warm, dry Eye Exam: PERRL, EOMI, eyes nml inspection Ears, Nose, Throat Exam: normal ENT inspection, pharynx normal, moist mucous membranes Neck Exam: normal inspection, non-tender, supple, full range of motion Respiratory Exam: diminished breath sounds, No respiratory distress Cardiovascular Exam: regular rate/rhythm, normal heart sounds Gastrointestinal/Abdomen Exam: soft, No tenderness, No mass Extremity Exam: normal inspection, normal range of motion Back Exam: normal inspection, normal range of motion, No CVA tenderness, No vertebral tenderness Pelvic Exam: deferred Rectal Exam: deferred OBJECTIVE DATA Vital Signs: Vital Signs - 24 hr Temp Pulse Resp BP Pulse Ox 09/03/18 08:33 62 18 98 09/03/18 07:35 98.1 F 74 18 181/87 96 09/03/18 04:00 97.6 F 78 20 136/66 97 09/03/18 01:35 69 20 97 09/03/18 00:00 98.1 F 69 17 132/69 97 09/02/18 20:00 98.4 F 69 16 134/63 98 09/02/18 17:14 87 20 98 09/02/18 16:33 98.6 F 78 18 125/64 98 Pain Assessment - Last Documented Pain Intensity 5 Pain Scale Used 0-10 Pain Scale Intake and Output: Intake & Output 09/01/18 09/02/18 09/03/18 09/04/18 11:59 11:59 11:59 11:59 Intake Total 1100 Output Total 2200 Balance -1100 Weight 97.9 kg Lab Results: Lab Results-Last 24 Hours 09/02/18 09/02/18 Range/Units 17:30 17:30 WBC 8.4 (4.0-10.5) K/mm3 RBC 3.70 L (4.1-5.4) M/mm3 Hgb 12.0 (12.0-16.0) gm/dl Hct 36.7 (35-47) % MCV 99.2 (78-100) fl MCH 32.4 H (26-32) pg MCHC 32.7 (32-36) g/dl RDW 13.0 (11.5-14.0) % Plt Count 182 (150-450) K/mm3 MPV 9.4 (6-9.5) fl Gran % 68.2 H (36.0-66.0) % Eos # (Auto) 0.29 (0-0.5) Absolute Lymphs (auto) 1.84 (1.0-4.6) Absolute Monos (auto) 0.51 (0.0-1.3) Lymphocytes % 22.0 L (24.0-44.0) % Monocytes % 6.1 (0.0-12.0) % Eosinophils % 3.5 (0.00-5.0) % Basophils % 0.2 (0.0-0.4) % Absolute Granulocytes 5.72 (1.4-6.9) Basophils # 0.02 (0-0.4) Sodium 139 (137-145) mmol/L Potassium 4.7 (3.5-5.1) mmol/L Chloride 108 H (98-107) mmol/L Carbon Dioxide 23 (22-30) mmol/L Anion Gap 12.9 (5-15) MEQ/L BUN 26 H (7-17) mg/dL Creatinine 1.00 (0.52-1.04) mg/dL Estimated GFR 58.1 ML/MIN Glucose 96 (74-106) mg/dL Calcium 9.7 (8.4-10.2) mg/dL Total Bilirubin 0.40 (0.2-1.3) mg/dL AST 27 (14-36) U/L ALT 20 (0-35) U/L Alkaline Phosphatase 131 H (38-126) U/L NT-Pro-B Natriuret Pep 300 (0-900) pg/mL Serum Total Protein 6.8 (6.3-8.2) g/dL Albumin 4.0 (3.5-5.0) g/dL Radiology Exams: Radiology Procedures Category Date Time Status CHEST 2 VIEWS (PA AND LAT) Stat Exams 09/02/18 17:45 Completed Assessment/Plan (1) Exacerbation of asthma Current Visit: Yes Status: Acute Qualifiers: Asthma severity: moderate Asthma persistence: unspecified Qualified Code( s): J45.901 - Unspecified asthma with (acute) exacerbation Assessment & Plan: Last Vital Signs Temp 98.1 F 09/03/18 07:35 Pulse 62 09/03/18 08:33 Resp 18 09/03/18 08:33 BP 181/87 09/03/18 07:35 Pulse Ox 98 09/03/18 08:33 Allergies naproxen [From Naprosyn] Allergy (Mild, Verified 08/27/16 07:19) Rash adhesive tape Adverse Reaction (Mild, Verified 08/27/16 07:19) BLISTERS Active Medications Acetaminophen (Feverall 650 Mg) 650 mg RI Q4H PRN PRN PRN Reason: PAIN AND/OR FEVER Stop: 10/02/18 17:11 Acetaminophen (Tylenol 325 Mg) 650 mg PO Q4H PRN PRN PRN Reason: PAIN AND/OR FEVER Stop: 10/03/18 02:25 Last Admin: 09/03/18 11:49 Dose: 650 mg Albuterol/Ipratropium (Duoneb 0.5-3 Mg/3 Ml Neb) 3 ml IH Q6HRT [facility] Stop: 10/02/18 18:59 Last Admin: 09/03/18 08:28 Dose: 3 ml Calcium Carbonate (Calcium 500mg W/Vit D Tablet) 1 tab PO DAILY [facility] Stop: 10/03/18 09:59 Last Admin: 09/03/18 09:11 Dose: 1 tab Cholecalciferol (Vitamin D) 5,000 unit PO DAILY [facility] Stop: 10/03/18 09:59 Last Admin: 09/03/18 09:10 Dose: 5,000 unit Enoxaparin Sodium (Enoxaparin Sodium) 40 mg SQ DAILY [facility] Stop: 10/03/18 09:59 Last Admin: 09/03/18 09:12 Dose: 40 mg Ferrous Sulfate (Feosol 325 Mg) 325 mg PO DAILY [facility] Stop: 10/03/18 09:59 Last Admin: 09/03/18 09:11 Dose: 325 mg Fluticasone Propionate (Flonase Nasal) 1 gm NS DAILY TONJA Stop: 10/03/18 09:59 Last Admin: 09/03/18 06:18 Dose: 1 gm Guaifenesin/Codeine Phosphate (Robitussin Ac Syrup Unit Dose Cup) 5 ml PO Q4H PRN PRN PRN Reason: COUGH Stop: 10/03/18 05:49 Last Admin: 09/03/18 06:16 Dose: 5 ml Ceftriaxone Sodium/Dextrose (Rocephin 1 Gm-D5w 50 Ml Bag) 1 g in 50 mls @ 100 mls/hr IV Q24H10 [facility] Stop: 10/02/18 17:29 Last Admin: 09/03/18 09:12 Dose: 100 mls/hr Sodium Chloride (Sodium Chloride 0.9% 1000 Ml) 1,000 mls @ 100 mls/hr IV .Q10H [facility] Stop: 10/02/18 17:14 Last Admin: 09/02/18 17:50 Dose: 100 mls/hr Azithromycin (Zithromax 500 Mg/ 250 Ml Nacl Premix) 500 mg in 250 mls @ 250 mls /hr IV Q24H [facility] Stop: 10/04/18 05:59 Lactobacillus Acidophilus (Acidophilus Tablet) 2 tab PO DAILY [facility] Stop: 10/03/18 09:59 Last Admin: 09/03/18 09:11 Dose: 2 tab Methylprednisolone Sodium Succinate (Solu-Medrol 40 Mg) 40 mg IV Q8HT [facility]ON[facility] Stop: 10/02/18 17:14 Last Admin: 09/03/18 05:38 Dose: 40 mg Miscellaneous Information (Medication Intervention) 0 each MC .RN TO CHECK WITH PT [facility] Stop: 10/02/18 17:29 Multivitamins Therapeutic (Theragran Multivitamin) 1 tab PO DAILY [facility] Stop: 10/03/18 09:59 Last Admin: 09/03/18 09:11 Dose: 1 tab Multivitamins/Minerals (Ocuvite Tablet) 1 tab PO BID [facility] Stop: 10/02/18 21:59 Last Admin: 09/03/18 09:10 Dose: 1 tab Nifedipine (Adalat Cc 30 Mg Tablet) 60 mg PO DAILY [facility] Stop: 10/03/18 09:59 Last Admin: 09/03/18 09:11 Dose: 60 mg Ondansetron HCl (Zofran 4 Mg/2 Ml Vial) 4 mg IV Q6H PRN PRN PRN Reason: NAUSEA/VOMITING Stop: 10/02/18 17:11 Pantoprazole Sodium (Protonix 40mg Tablet) 40 mg PO DAILY [facility] Stop: 10/03/18 09:59 Last Admin: 09/03/18 09:12 Dose: 40 mg Fluticasone/Salmeterol (Advair Hfa 115/21 Common Canister*) 2 puff IH BIDRT [facility] Stop: 10/03/18 06:59 Sertraline HCl (Zoloft 50 Mg Tablet) 100 mg PO DAILY [facility] Stop: 10/03/18 09:59 Last Admin: 09/03/18 09:10 Dose: 100 mg Intake & Output 09/03/18 09/04/18 11:59 11:59 Intake Total 1100 Output Total 2200 Balance -1100 Weight 97.9 kg Orders 09/02/18 16:51 Inspector Wire Rope/Discharge Plan 09/02/18 17:12 Place in Observation ROUTINE Acetaminophen 650 mg [Feverall 650 mg] 650 mg RI Q4H PRN PRN Ondansetron HCl 4 mg/2 ml [Zofran 4 MG/2 ML VIAL] 4 mg IV Q6H PRN PRN Oxygen Nasal Cannula 2 lpm 09/02/18 17:14 Up Ad Ольга TOLERATED Peak Expiratory Flow Rate ONCE Pulse Oximetry .spot check Respiratory Therapy Assessment DAILY 09/02/18 17:15 Methylprednisolone Sod Suc 40M [solu-MEDROL 40 MG] 40 mg IV Q8HT NaCl 0.9% 1000 ml [Sodium Chloride 0.9% 1000 ML] 1,000 ml IV 100 mls/hr 09/02/18 17:19 Miscellaneous Nursing Order ROUTINE 09/02/18 17:30 Ceftriaxone 1 GM/50 ML PREMIX* [ROCEPHIN 1 Gm-D5w 50 ml Bag] 1 g in 50 ml IV Q24H10 Medication Intervention 0 each MC .RN TO CHECK WITH PT 09/02/18 19:00 Albuterol/Ipratropium 3ml Neb* [DUONEB 0.5-3 MG/3 ml Neb] 3 ml IH Q6HRT 09/02/18 22:00 Beta-Carotene(A) W-C & E/Min [Ocuvite Tablet] 1 tab PO BID 09/02/18 Dinner Regular Diet 09/03/18 02:26 Acetaminophen 325 mg [Tylenol 325 mg] 650 mg PO Q4H PRN PRN 09/03/18 05:50 Guaifenesin/Codeine 5 ml [Robitussin AC Syrup Unit Dose Cup] 5 ml PO Q4H PRN PRN 09/03/18 07:00 Fluticasone/Salmeterol 115/21 [Advair Hfa 115/21 Common canister*] 2 puff IH BIDRT 09/03/18 10:00 Calcium Carb/Vitamin D 500 mg* [Calcium 500MG W/Vit D Tablet] 1 tab PO DAILY Cholecalciferol (Vitamin D3) [Vitamin D] 5,000 unit PO DAILY Enoxaparin Sodium [Enoxaparin Sodium] 40 mg SQ DAILY Ferrous Sulfate 325 mg [Feosol 325 mg] 325 mg PO DAILY Fluticasone Propionate [Flonase NASAL] 1 gm NS DAILY Lactobacillus Acidophilus [Acidophilus TABLET] 2 tab PO DAILY Multivitamins,Therapeutic Tab* [Theragran Multivitamin] 1 tab PO DAILY Nifedipine Xl 30 mg [Adalat CC 30 MG TABLET] 60 mg PO DAILY PANTOPRAZOLE 40 mg Tablet [Protonix 40MG Tablet] 40 mg PO DAILY Sertraline HCl 50 mg [Zoloft 50 mg Tablet] 100 mg PO DAILY 09/04/18 06:00 Azithromycin 500 mg/250 ml [Zithromax 500 MG/ 250 ML NaCl Premix] 500 mg in 250 ml IV Q24H Lab Tests 09/02/18 09/02/18 17:30 17:30 WBC 8.4 RBC 3.70 L Hgb 12.0 Hct 36.7 MCV 99.2 MCH 32.4 H MCHC 32.7 RDW 13.0 Plt Count 182 MPV 9.4 Gran % 68.2 H Eos # (Auto) 0.29 Absolute Lymphs (auto) 1.84 Absolute Monos (auto) 0.51 Lymphocytes % 22.0 L Monocytes % 6.1 Eosinophils % 3.5 Basophils % 0.2 Absolute Granulocytes 5.72 Basophils # 0.02 Sodium 139 Potassium 4.7 Chloride 108 H Carbon Dioxide 23 Anion Gap 12.9 BUN 26 H Creatinine 1.00 Estimated GFR 58.1 Glucose 96 Calcium 9.7 Total Bilirubin 0.40 AST 27 ALT 20 Alkaline Phosphatase 131 H NT-Pro-B Natriuret Pep 300 Serum Total Protein 6.8 Albumin 4.0 Code(s): J45.901 - UNSPECIFIED ASTHMA WITH (ACUTE) EXACERBATION
[2018-09-03] MEDS: Sodium Chloride 0.9% 1000 ML 1,000 ML IV SCH (17:02)
[2018-09-03] MEDS: Advair Hfa 115/21 Common canister IH SCH (19:47)
[2018-09-03] MEDS ORDERED: Zithromax 500 MG/ 250 ML NaCl Premix 500 MG/250 ML IVPB IV SCH (22:00)
[2018-09-04] MEDS: Sodium Chloride 0.9% 1000 ML 1,000 ML IV SCH (01:49)
[2018-09-04] MEDS ORDERED: Zithromax 500 MG/ 250 ML NaCl Premix 500 MG/250 ML IVPB IV SCH (06:00)
[2018-09-04] MEDS: solu-MEDROL 40 MG IV SCH (06:23)
[2018-09-04] MEDS: Flonase NASAL NS SCH (06:28)
[2018-09-04] MEDS: Adalat CC 30 MG TABLET PO SCH (09:16)
[2018-09-04] MEDS: ENOXAPARIN SODIUM SQ SCH (09:16)
[2018-09-04] MEDS: THERAGRAN MULTIVITAMIN PO SCH (09:16)
[2018-09-04] MEDS: VITAMIN D PO SCH (09:16)
[2018-09-04] MEDS: Acidophilus TABLET PO SCH (09:16)
[2018-09-04] MEDS: FEOSOL 325 MG PO SCH (09:17)
[2018-09-04] MEDS: Ocuvite Tablet PO SCH (09:17)
[2018-09-04] MEDS: ZOLOFT 50 MG TABLET PO SCH (09:17)
[2018-09-04] MEDS: Calcium 500MG W/Vit D Tablet PO SCH (09:17)
[2018-09-04] MEDS: Protonix 40MG Tablet PO SCH (09:17)
[2018-09-04] MEDS: ROCEPHIN 1 Gm-D5w 50 ml Bag** 1 G/50 ML IVPB IV SCH (09:18)
[2018-09-04] MEDS: Advair Hfa 115/21 Common canister IH SCH (09:23)
[2018-09-04] MEDS: DUONEB 0.5-3 MG/3 ml Neb IH SCH (09:23)
[2018-09-04 09:37] VITALS: O2SAT 96
--- NOTE | 2018-09-04 10:31 | PCM.DS ---
Discharge Summary Date of Admission: 09/02/18 16:18 Admitting Physician: JENELLE BIRMINGHAM Primary Care Provider: JENELLE BIRMINGHAM Allergies Allergies naproxen [From Naprosyn] Allergy (Mild, Verified 08/27/16 07:19) Rash adhesive tape Adverse Reaction (Mild, Verified 08/27/16 07:19) BLISTERS Hospital Summary - Hospital Course Hospital Course: Last Vital Signs Temp 98.1 F 09/04/18 07:37 Pulse 81 09/04/18 09:28 Resp 18 09/04/18 09:28 BP 170/75 09/04/18 07:37 Pulse Ox 96 09/04/18 09:28 Allergies naproxen [From Naprosyn] Allergy (Mild, Verified 08/27/16 07:19) Rash adhesive tape Adverse Reaction (Mild, Verified 08/27/16 07:19) BLISTERS Active Medications Acetaminophen (Feverall 650 Mg) 650 mg ND Q4H PRN PRN PRN Reason: PAIN AND/OR FEVER Stop: 10/02/18 17:11 Acetaminophen (Tylenol 325 Mg) 650 mg PO Q4H PRN PRN PRN Reason: PAIN AND/OR FEVER Stop: 10/03/18 02:25 Last Admin: 09/03/18 11:49 Dose: 650 mg Albuterol/Ipratropium (Duoneb 0.5-3 Mg/3 Ml Neb) 3 ml IH Q6HRT [facility] Stop: 10/02/18 18:59 Last Admin: 09/04/18 09:23 Dose: 3 ml Calcium Carbonate (Calcium 500mg W/Vit D Tablet) 1 tab PO DAILY [facility] Stop: 10/03/18 09:59 Last Admin: 09/04/18 09:17 Dose: 1 tab Cholecalciferol (Vitamin D) 5,000 unit PO DAILY [facility] Stop: 10/03/18 09:59 Last Admin: 09/04/18 09:16 Dose: 5,000 unit Enoxaparin Sodium (Enoxaparin Sodium) 40 mg SQ DAILY [facility] Stop: 10/03/18 09:59 Last Admin: 09/04/18 09:16 Dose: 40 mg Ferrous Sulfate (Feosol 325 Mg) 325 mg PO DAILY [facility] Stop: 07/28/19 09:59 Last Admin: 09/04/18 09:17 Dose: 325 mg Fluticasone Propionate (Flonase Nasal) 1 gm NS DAILY [facility] Stop: 10/03/18 09:59 Last Admin: 09/04/18 06:28 Dose: 1 gm Guaifenesin/Codeine Phosphate (Robitussin Ac Syrup Unit Dose Cup) 5 ml PO Q4H PRN PRN PRN Reason: COUGH Stop: 10/03/18 05:49 Last Admin: 09/03/18 22:31 Dose: 5 ml Ceftriaxone Sodium/Dextrose (Rocephin 1 Gm-D5w 50 Ml Bag) 1 g in 50 mls @ 100 mls/hr IV Q24H10 [facility] Stop: 10/02/18 17:29 Last Admin: 09/04/18 09:18 Dose: 100 mls/hr Sodium Chloride (Sodium Chloride 0.9% 1000 Ml) 1,000 mls @ 100 mls/hr IV .Q10H [facility] Stop: 10/02/18 17:14 Last Admin: 09/04/18 01:49 Dose: 100 mls/hr Azithromycin (Zithromax 500 Mg/ 250 Ml Nacl Premix) 500 mg in 250 mls @ 250 mls /hr IV Q24H [facility] Stop: 10/04/18 05:59 Last Admin: 09/04/18 06:23 Dose: 250 mls/hr Lactobacillus Acidophilus (Acidophilus Tablet) 2 tab PO DAILY [facility] Stop: 10/03/18 09:59 Last Admin: 09/04/18 09:16 Dose: 2 tab Methylprednisolone Sodium Succinate (Solu-Medrol 40 Mg) 40 mg IV Q8HT [facility] Stop: 10/02/18 17:14 Last Admin: 09/04/18 06:23 Dose: 40 mg Miscellaneous Information (Medication Intervention) 0 each MC .RN TO CHECK WITH PT [facility] Stop: 10/02/18 17:29 Multivitamins Therapeutic (Theragran Multivitamin) 1 tab PO DAILY [facility] Stop: 10/03/18 09:59 Last Admin: 09/04/18 09:16 Dose: 1 tab Multivitamins/Minerals (Ocuvite Tablet) 1 tab PO BID [facility] Stop: 10/02/18 21:59 Last Admin: 09/04/18 09:17 Dose: 1 tab Nifedipine (Adalat Cc 30 Mg Tablet) 60 mg PO DAILY [facility] Stop: 10/03/18 09:59 Last Admin: 09/04/18 09:16 Dose: 60 mg Ondansetron HCl (Zofran 4 Mg/2 Ml Vial) 4 mg IV Q6H PRN PRN PRN Reason: NAUSEA/VOMITING Stop: 10/02/18 17:11 Pantoprazole Sodium (Protonix 40mg Tablet) 40 mg PO DAILY [facility] Stop: 10/03/18 09:59 Last Admin: 09/04/18 09:17 Dose: 40 mg Fluticasone/Salmeterol (Advair Hfa 115/21 Common Canister*) 2 puff IH BIDRT [facility] Stop: 10/03/18 06:59 Last Admin: 09/04/18 09:23 Dose: 2 puff Sertraline HCl (Zoloft 50 Mg Tablet) 100 mg PO DAILY [facility] Stop: 10/03/18 09:59 Last Admin: 09/04/18 09:17 Dose: 100 mg Intake & Output 09/03/18 09/04/18 11:59 11:59 Intake Total 1100 2983 Output Total 2200 1300 Balance -1100 1683 Weight 97.9 kg Orders 09/03/18 10:00 Calcium Carb/Vitamin D 500 mg* [Calcium 500MG W/Vit D Tablet] 1 tab PO DAILY Cholecalciferol (Vitamin D3) [Vitamin D] 5,000 unit PO DAILY Enoxaparin Sodium [Enoxaparin Sodium] 40 mg SQ DAILY Ferrous Sulfate 325 mg [Feosol 325 mg] 325 mg PO DAILY Fluticasone Propionate [Flonase NASAL] 1 gm NS DAILY Lactobacillus Acidophilus [Acidophilus TABLET] 2 tab PO DAILY Multivitamins,Therapeutic Tab* [Theragran Multivitamin] 1 tab PO DAILY Nifedipine Xl 30 mg [Adalat CC 30 MG TABLET] 60 mg PO DAILY PANTOPRAZOLE 40 mg Tablet [Protonix 40MG Tablet] 40 mg PO DAILY Sertraline HCl 50 mg [Zoloft 50 mg Tablet] 100 mg PO DAILY 09/04/18 06:00 Azithromycin 500 mg/250 ml [Zithromax 500 MG/ 250 ML NaCl Premix] 500 mg in 250 ml IV Q24H - Vitals & Intake/Output Vital Signs: Vital Signs Temperature 98.1 F 09/04/18 07:37 Pulse Rate 81 09/04/18 09:28 Respiratory Rate 18 09/04/18 09:28 Blood Pressure 170/75 09/04/18 07:37 O2 Sat by Pulse Oximetry 96 09/04/18 09:28 Intake & Output: Intake & Output 09/01/18 09/02/18 09/03/18 09/04/18 11:59 11:59 11:59 11:59 Intake Total 1100 2983 Output Total 2200 1300 Balance -1100 1683 Weight 97.9 kg - Lab Result Diagrams: 09/02/18 17:30 09/02/18 17:30 - Radiology Exams Ordered Rad Exams-Entire Visit: Radiology Procedures Category Date Time Status CHEST 2 VIEWS (PA AND LAT) Stat Exams 09/02/18 17:45 Completed - Procedures and Test Procedures and Tests throughout Hospitalization: Therapy Orders & Screens 09/02/18 16:51 RT Screen per Nursing Assess ONCE Comment: Protocol Order Physician Instructions: Greater than 3 points order RT Admission Screen Reason For Exam: Triggered on Admission Diagnosis: asthma Diagnosis: asthma Pneumonia: No Home O2: No Asthma: Yes CHF: No Home CPAP/BIPAP: No Home Nebs/MDI: Yes Total Points: 9 09/02/18 17:12 Oxygen Nasal Cannula 2 lpm Comment: Diagnosis: asthma Respiratory Therapy Consult ROUTINE Comment: Reason For Exam: Diagnosis: asthma 09/02/18 17:14 Peak Expiratory Flow Rate ONCE Comment: Reason For Exam: Diagnosis: asthma Respiratory Therapy Assessment DAILY Comment: Diagnosis: asthma Discharge Exam General Appearance: no apparent distress, alert Neurologic Exam: alert, oriented x 3, cooperative, normal mood/affect, nml cerebellar function, sensation nml, No motor deficits Eye Exam: PERRL, EOMI, eyes nml inspection Ears, Nose, Throat Exam: normal ENT inspection, pharynx normal, moist mucous membranes Neck Exam: normal inspection, non-tender, supple, full range of motion Respiratory Exam: normal breath sounds, lungs clear, No respiratory distress Cardiovascular Exam: regular rate/rhythm, normal heart sounds Gastrointestinal/Abdomen Exam: soft, No tenderness, No mass Pelvic Exam: deferred Rectal Exam: deferred Back Exam: normal inspection, normal range of motion, No CVA tenderness, No vertebral tenderness Extremity Exam: normal inspection, normal range of motion Skin Exam: normal color, warm, dry Final Diagnosis/Problem List - Final Discharge Diagnosis/Problem (1) Exacerbation of asthma Current Visit: Yes Status: Resolved Assessment & Plan: Chief Complaint Diagnosis asthma Allergies Allergy/AdvReac Type Severity Reaction Status Date / Time naproxen [From Naprosyn] Allergy Mild Rash Verified 08/27/16 07:19 adhesive tape AdvReac Mild Verified 08/27/16 07:19 Vital Signs (Last 24 hours) Temp Pulse Resp BP Pulse Ox 09/04/18 09:28 81 18 96 09/04/18 07:37 98.1 F 69 16 170/75 92 L 09/04/18 03:53 98.0 F 69 18 178/80 94 L 09/03/18 23:45 97.9 F 70 18 176/83 93 L 09/03/18 20:00 97.9 F 63 19 180/92 94 L 09/03/18 19:48 75 18 96 09/03/18 16:00 98.5 F 75 18 176/76 94 L 09/03/18 13:16 73 18 97 09/03/18 12:00 98.8 F 87 18 176/72 95 Home Medications Medication Instructions Recorded Confirmed Last Taken Type Albuterol Common Canister 2 puff IH Q4-6HPRN PRN 09/02/18 09/02/18 Unknown History [Proventil Common Canister] Biotin 10,000 mcg PO DAILY 09/02/18 09/02/18 09/02/18 History Calcium Carbonate [Calcium] 600 mg PO DAILY 09/02/18 09/02/18 09/02/18 History Ferrous Sulfate [Iron] 325 mg PO DAILY 09/02/18 09/02/18 09/02/18 History Fluticasone/Vilanterol [Breo 1 puff IH DAILY 09/02/18 09/02/18 09/02/18 History Ellipta 100-25 Mcg INH] L.acidoph,Paracasei, B.lactis 1 cap PO DAILY 09/02/18 09/02/18 09/02/18 History [Probiotic] Sertraline HCl 100 mg PO DAILY 09/02/18 09/02/18 09/02/18 History Vit C/E/Zn/Coppr/Lutein/Zeaxan 1 cap PO BID 09/02/18 09/02/18 09/02/18 History [Preservision Areds 2 Softgel] Current Medications Generic Name Dose Route Start Last Admin Trade Name Freq PRN Reason Stop Dose Admin Acetaminophen 650 mg 09/02/18 17:12 Feverall 650 Mg ND 10/02/18 17:11 Q4H PRN PRN PAIN AND/OR FEVER Acetaminophen 650 mg 09/03/18 02:26 09/03/18 11:49 Tylenol 325 Mg PO 10/03/18 02:25 650 mg Q4H PRN PRN Administration PAIN AND/OR FEVER Albuterol/Ipratropium 3 ml 09/02/18 19:00 09/04/18 09:23 Duoneb 0.5-3 Mg/3 Ml Neb IH 10/02/18 18:59 3 ml Q6HRT [facility] Administration Calcium Carbonate 1 tab 09/03/18 10:00 09/04/18 09:17 Calcium 500mg W/Vit D Tablet PO 10/03/18 09:59 1 tab DAILY [facility] Administration Cholecalciferol 5,000 unit 09/03/18 10:00 09/04/18 09:16 Vitamin D PO 10/03/18 09:59 5,000 unit DAILY [facility] Administration Enoxaparin Sodium 40 mg 09/03/18 10:00 09/04/18 09:16 Enoxaparin Sodium SQ 10/03/18 09:59 40 mg DAILY [facility] Administration Ferrous Sulfate 325 mg 09/03/18 10:00 09/04/18 09:17 Feosol 325 Mg PO 10/03/18 09:59 325 mg DAILY [facility] Administration Fluticasone Propionate 1 gm 09/03/18 10:00 09/04/18 06:28 Flonase Nasal NS 10/03/18 09:59 1 gm DAILY [facility] Administration Guaifenesin/Codeine Phosphate 5 ml 09/03/18 05:50 09/03/18 22:31 Robitussin Ac Syrup Unit Dose Cup PO 10/03/18 05:49 5 ml Q4H PRN PRN Administration COUGH Ceftriaxone Sodium/Dextrose 1 g in 50 mls @ 100 mls/hr 09/02/18 17:30 09:18 Rocephin 1 Gm-D5w 50 Ml Bag IV 10/02/18 17:29 100 mls/hr Q24H10 [facility] Administration Sodium Chloride 1,000 mls @ 100 mls/hr 09/02/18 17:15 09/04/18 01:49 Sodium Chloride 0.9% 1000 Ml IV 10/02/18 17:14 100 mls/hr .Q10H [facility] Administration Azithromycin 500 mg in 250 mls @ 250 mls/hr 09/04/18 06:00 09/04/18 06:23 Zithromax 500 Mg/ 250 Ml Nacl Premix IV 10/04/18 05:59 250 mls/hr Q24H [facility] Administration Lactobacillus Acidophilus 2 tab 09/03/18 10:00 09/04/18 09:16 Acidophilus Tablet PO 10/03/18 09:59 2 tab DAILY [facility] Administration Methylprednisolone Sodium Succinate 40 mg 09/02/18 17:15 09/04/18 06:23 Solu-Medrol 40 Mg IV 10/02/18 17:14 40 mg Q8HT [facility] Administration Miscellaneous Information 0 each 09/02/18 17:30 Medication Intervention MC 10/02/18 17:29 .RN TO CHECK WITH PT [facility] Multivitamins Therapeutic 1 tab 09/03/18 10:00 09/04/18 09:16 Theragran Multivitamin PO 10/03/18 09:59 1 tab DAILY [facility] Administration Multivitamins/Minerals 1 tab 09/02/18 22:00 09/04/18 09:17 Ocuvite Tablet PO 10/02/18 21:59 1 tab BID [facility] Administration Nifedipine 60 mg 09/03/18 10:00 09/04/18 09:16 Adalat Cc 30 Mg Tablet PO 10/03/18 09:59 60 mg DAILY [facility] Administration Ondansetron HCl 4 mg 09/02/18 17:12 Zofran 4 Mg/2 Ml Vial IV 10/02/18 17:11 Q6H PRN PRN NAUSEA/VOMITING Pantoprazole Sodium 40 mg 09/03/18 10:00 09/04/18 09:17 Protonix 40mg Tablet PO 10/03/18 09:59 40 mg DAILY [facility] Administration Fluticasone/Salmeterol 2 puff 09/03/18 07:00 09/04/18 09:23 Advair Hfa 115/21 Common Canister* IH 10/03/18 06:59 2 puff BIDRT [facility] Administration Sertraline HCl 100 mg 09/03/18 10:00 09/04/18 09:17 Zoloft 50 Mg Tablet PO 10/03/18 09:59 100 mg DAILY [facility] Administration Discontinued Medications Generic Name Dose Route Start Last Admin Trade Name Faustoq PRN Reason Stop Dose Admin Albuterol Sulfate 2.5 mg 09/02/18 19:00 09/02/18 17:13 Proventil 2.5 Mg/3 Ml Neb IH 10/02/18 18:59 2.5 mg Q4HRT [facility] Administration Azithromycin 500 mg in 250 mls @ 250 mls/hr 09/03/18 22:00 09/03/18 06:17 Zithromax 500 Mg/ 250 Ml Nacl Premix IV 10/03/18 21:59 250 mls/hr Q24H22 [facility] Administration Azithromycin Confirm 09/03/18 05:57 Zithromax 500 Mg/ 250 Ml Nacl Premix Administered 09/03/18 05:58 Dose 500 mg in 250 mls @ ud IV .STK-MED ONE Intake & Output (Last 24 hours) 09/01/18 09/02/18 09/03/18 09/04/18 11:59 11:59 11:59 11:59 Intake Total 1100 2983 Output Total 2200 1300 Balance -1100 1683 Weight 97.9 kg Orders (Last 24 hours) Category Date Time Status Azithromycin 500 mg/250 ml [Zithromax 500 MG/ 250 ML Med 09/04/18 06:00 Active NaCl Premix] 500 mg in 250 ml IV Q24H Azithromycin 500 mg/250 ml [Zithromax 500 MG/ 250 ML Med 09/03/18 22:00 Discontinued NaCl Premix] 500 mg in 250 ml IV Q24H22 Calcium Carb/Vitamin D 500 mg* [Calcium 500MG W/Vit D Med 09/03/18 10:00 Active Tablet] 1 tab PO DAILY Cholecalciferol (Vitamin D3) [Vitamin D] Med 09/03/18 10:00 Active 5,000 unit PO DAILY Enoxaparin Sodium [Enoxaparin Sodium] Med 09/03/18 10:00 Active 40 mg SQ DAILY Ferrous Sulfate 325 mg [Feosol 325 mg] Med 09/03/18 10:00 Active 325 mg PO DAILY Fluticasone Propionate [Flonase NASAL] Med 09/03/18 10:00 Active 1 gm NS DAILY Lactobacillus Acidophilus [Acidophilus TABLET] Med 09/03/18 10:00 Active 2 tab PO DAILY Multivitamins,Therapeutic Tab* [Theragran Multivitamin* Med 09/03/18 10:00 Active ] 1 tab PO DAILY Nifedipine Xl 30 mg [Adalat CC 30 MG TABLET] Med 09/03/18 10:00 Active 60 mg PO DAILY PANTOPRAZOLE 40 mg Tablet [Protonix 40MG Tablet] Med 09/03/18 10:00 Active 40 mg PO DAILY Sertraline HCl 50 mg [Zoloft 50 mg Tablet] Med 09/03/18 10:00 Active 100 mg PO DAILY Code(s): J45.901 - UNSPECIFIED ASTHMA WITH (ACUTE) EXACERBATION - Discharge Discharge Date: 09/04/18 Disposition: Home, Self-Care Condition: Stable Prescriptions: New Codeine Phosphate/Guaifenesin [Cheratussin AC Syrup] 5 ml PO QIDPRN PRN #120 liquid PRN Reason: Cough Levofloxacin [Levaquin] 500 mg PO DAILY #5 tablet Continue Nifedipine [Procardia Xl] 60 mg PO DAILY Omeprazole [Prilosec] 40 mg PO DAILY Cholecalciferol (Vitamin D3) [Vitamin D] 5,000 unit PO DAILY Ped Multivit 43/Iron Fumarate [Flintstones Complete Chew Tab] 2 tab PO DAILY Sertraline HCl 100 mg PO DAILY Fluticasone/Vilanterol [Breo Ellipta 100-25 Mcg INH] 1 puff IH DAILY L.acidoph,Paracasei, B.lactis [Probiotic] 1 cap PO DAILY Vit C/E/Zn/Coppr/Lutein/Zeaxan [Preservision Areds 2 Softgel] 1 cap PO BID Biotin 10,000 mcg PO DAILY Ferrous Sulfate [Iron] 325 mg PO DAILY Albuterol Common Canister [Proventil Common Canister] 2 puff IH Q4- 6HPRN PRN PRN Reason: SOB/Wheezing Calcium Carbonate [Calcium] 600 mg PO DAILY Follow up with: JENELLE BIRMINGHAM MD [Primary Care Provider] - 1 Week
[2018-09-04 13:17] VITALS: BP 173/76; PULSE 79
== END 2018-09-04 12:45 | disposition home or self-care (01) ==
LOC: MED SURG 16:18
PROVIDERS: ADMIT General Practice; ATTEND General Practice
DX: J45.901 Unspecified asthma with (acute) exacerbation (principal); I10 Essential (primary) hypertension; Z79.899 Other long term (current) drug therapy
CPT/HCPCS: 36415; 71046; 80053; 83880; 85025; 94150; 94640; 94760; G0378; J0456; J0696; J1650; J2920; J7609; A9270-GY

== ENCOUNTER 2019-03-09 09:18 | Emergency (ER) | payer MEDICARE, BC ==
--- NOTE | 2019-03-09 09:25 | ERPHSYRPT ---
- History of Present Illness Time Seen by Provider: 03/09/19 09:25 Source: patient Exam Limitations: no limitations Physician History: The patient is a 74-year-old female who presents with a chief complaint of a cough and shortness of breath. She reports having was described as flulike illness for the past week to include cough, rhinorrhea, sinus congestion, sore throat and wheezing. She reportedly has been using albuterol neb at home every 4 hours for relief and her last albuterol neb reportedly was prior to arrival to the emergency department. Chief been on a oral steroids recently nor has she been hospitalized recently for her asthma. The patient denies cigarette smoking. She reports that her influenza vaccine this year he is up-to-date. She denies having chest pain, nausea, vomiting, diarrhea, dizziness or syncope. Associated Symptoms: shortness of breath, cough, chills, fever (Subjective fever ), headaches, No nausea, No vomiting, No abdominal pain, No chest pain Allergies/Adverse Reactions: naproxen [From Naprosyn] Allergy (Mild, Verified 03/09/19 09:37) Rash adhesive tape Adverse Reaction (Mild, Verified 08/27/16 07:19) BLISTERS Home Medications: Nifedipine [Procardia Xl] 60 mg PO DAILY 11/14/15 [History] Omeprazole [Prilosec] 40 mg PO DAILY 11/14/15 [History] Cholecalciferol (Vitamin D3) [Vitamin D] 5,000 unit PO DAILY 01/21/16 [ History] Albuterol Common Canister [Proventil Common Canister] 2 puff IH Q4-6HPRN PRN 09/02/18 [History] Biotin 10,000 mcg PO DAILY 09/02/18 [History] Ferrous Sulfate [Iron] 325 mg PO DAILY 09/02/18 [History] Sertraline HCl 100 mg PO DAILY 09/02/18 [History] Vit C/E/Zn/Coppr/Lutein/Zeaxan [Preservision Areds 2 Softgel] 2 cap PO BID 09/02 [History] Budesonide/Formoterol Fumarate [Symbicort 80-4.5 Mcg Inhaler] 1 inh PO DAILY 03/28 [History] Hx Tetanus, Diphtheria Vaccination/Date Given: Yes (UP TO DATE) Hx Influenza Vaccination/Date Given: Yes Hx Pneumococcal Vaccination/Date Given: Yes - Review of Systems Constitutional: Fever, Chills, Fatigue Eyes: No Symptoms Ears, Nose, & Throat: Nose Congestion, Throat Pain Respiratory: Cough, Dyspnea, Wheezing, No Dyspnea on Exertion (URIBE) Cardiac: No Chest Pain, No Edema, No Palpitations, No Syncope Abdominal/Gastrointestinal: No Abdominal Pain, No Nausea, No Vomiting Genitourinary Symptoms: No Dysuria, No Frequency, No Hematuria Musculoskeletal: Myalgias Neurological: No Symptoms Psychological: No Symptoms Endocrine: No Symptoms Hematologic/Lymphatic: No Symptoms Immunological/Allergic: No Symptoms All Other Systems: Reviewed and Negative - Past Medical History Pertinent Past Medical History: Yes Neurological History: No Pertinent History ENT History: Cataracts Cardiac History: Hypertension, Myocardial Infarction (MS) Respiratory History: Asthma, Bronchitis, Pneumonia Endocrine Medical History: No Pertinent History Musculoskeletal History: Arthritis GI Medical History: No Pertinent History, Hernia, Polyps History: No Pertinent History Psycho-Social History: Anxiety, Depression Female Reproductive Disorders: Breast Cancer Other Medical History: carpal syndrome - Past Surgical History Past Surgical History: No (hysterectomy, Breast L Ca) Neuro Surgical History: No Pertinent History Cardiac: No Pertinent History, Cardiac Catheterization Respiratory: No Pertinent History Gastrointestinal: Appendectomy, Cholecystectomy, Hernia Repair Genitourinary: No Pertinent History Musculoskeletal: Orthopedic Surgery Female Surgical History: Hysterectomy, Mastectomy Other Surgical History: mastecomy.barriactric surgery. neck'C5,C6 fussion. - Social History Smoking Status: Never smoker Exposure to second hand smoke: Yes Drug Use: none Patient Lives Alone: No - Nursing Vital Signs Nursing Vital Signs: Initial Vital Signs Temperature 97.8 F 03/09/19 09:22 Pulse Rate 76 03/09/19 09:22 Respiratory Rate 24 03/09/19 09:22 Blood Pressure 156/63 03/09/19 09:22 O2 Sat by Pulse Oximetry 100 03/09/19 09:22 Pain Scale Pain Intensity 0 - Physical Exam General Appearance: no apparent distress Eye Exam: PERRL/EOMI Ears, Nose, Throat Exam: normal ENT inspection, TMs normal, pharynx normal, moist mucous membranes, No TM abnormal (R), No TM abnormal (L), No pharyngeal erythema, No tonsillar exudate Neck Exam: normal inspection, non-tender, supple Respiratory Exam: normal breath sounds, lungs clear, airway intact, No respiratory distress, No diminished breath sounds, No accessory muscle use, No prolonged expirations, No crackles/rales, No rhonchi, No wheezing Cardiovascular Exam: regular rate/rhythm, normal heart sounds, normal peripheral pulses, capillary refill <2 sec, No murmur, No friction rub, No gallop, No tachycardia Gastrointestinal/Abdomen Exam: soft Back Exam: normal inspection Extremity Exam: normal inspection Neurologic Exam: alert, oriented x 3, cooperative Skin Exam: normal color, warm, dry, No rash, No petechiae SpO2 Interpretation: normal O2 Delivery: Room Air - Course Nursing assessment & vital signs reviewed: Yes - Radiology Exams Chest X-ray Interpretation: Interpreted by me, Reviewed by me, Teleradiologist Report (No evidence of PNA), No Pneumonia (No active process identified) Ordered Tests: Medication Summary Discontinued Medications Generic Name Dose Route Start Last Admin Trade Name Freq PRN Reason Stop Dose Admin Prednisone 40 mg 03/09/19 09:32 03/09/19 09:44 Deltasone 20 Mg PO 03/09/19 09:33 40 mg ONCE STA Administration Prednisone Confirm 03/09/19 09:42 Deltasone 20 Mg Administered 03/09/19 09:43 Dose 40 mg .ROUTE .STK-MED ONE - Progress Progress: unchanged Discussed with DrMamie: Matilda Counseled pt/family regarding: diagnosis, need for follow-up - Departure Departure Disposition: Home, Extended Care Facility Clinical Impression: Viral syndrome Condition: Stable Critical Care Time: No Referrals: JENELLE BIRMINGHAM MD [Primary Care Provider] - Instructions: Asthma in Adults, Viral Syndrome (DC) Additional Instructions: Please follow-up with your primary care provider as scheduled. Plan of Treatment: Nontoxic in appearance. No obvious increased work of breathing or hypoxia. Patient with flu-like illness well over 48 hrs. Antivirals will likely not be beneficial at this point. CXR reviewed and with no evidence of PNA. The was given a dose of prednisone in the ED and dischaged home with a prednisone burst. She stated she did not need a refill on her albuterol nebs and will f/u as scheduled with her PCP. Prescriptions: Prednisone 10 mg [Deltasone 10 mg] 40 mg PO DAILY 4 Days #16 tablet
[2019-03-09] MEDS ORDERED: DELTASONE 20 MG PO STA (09:32)
[2019-03-09] MEDS ORDERED: DELTASONE 20 MG ONE (09:42)
[2019-03-09 11:17] VITALS: BP 126/68; PULSE 68; O2SAT 99
--- NOTE | 2019-03-09 19:32 | XRAY ---
Indication: Cough one week. Comparison: September 02, 2018. PA/lateral chest again demonstrates normal heart and lungs with right lung calcified granuloma. Bony thorax intact again with mild degenerative changes, lower cervical fusion, and left breast surgical clips. Impression: Stable nonacute chest with chronic features. Comment: Preliminary interpretation was made by [facility]. No critical discrepancy.
== END 2019-03-09 11:23 | disposition home or self-care (01) ==
LOC: ED 09:18
DX: B34.9 Viral infection, unspecified (principal); I10 Essential (primary) hypertension; Z79.899 Other long term (current) drug therapy; Z85.3 Personal history of malignant neoplasm of breast
CPT/HCPCS: 71046; 99283; A9270-GY

== ENCOUNTER 2020-10-20 16:04 | Emergency (ER) | payer MEDICARE, BC ==
[2020-10-20] MEDS ORDERED: Zofran 4 MG/2 ML VIAL IV ONE (16:53)
[2020-10-20] MEDS ORDERED: MORPHINE SULFATE 4 MG INJ IV ONE (16:53)
--- NOTE | 2020-10-20 16:58 | ERPHSYRPT ---
- History of Present Illness Time Seen by Provider: 10/20/20 16:07 Historian: patient Exam Limitations: no limitations Patient Subjective Stated Complaint: L flank pain. "I think its my kidneys" Triage Nursing Assessment: pt to ED c/o L flank pain onset yesterday. denies hx kidney stones or freq UTI. only associated urinary sx reported "I'm not going a lot." rates 8/10 sharp pain that radiates to L leg. Physician History: 75 years old female with history of hypertension, GERD presented in the ER with chief complaint of left flank pain since yesterday, continuous, moderate to severe sharp nature pain in the left flank with radiation to left lower leg, aggravated with movement palpation and no significant relieving factors. Denies any associated urinary symptoms except he has a decreased urine output. Denies any associated nausea vomiting fever chills. Denies any fall or trauma, pushing pulling, or lifting heavy objects. No history of UTI or kidney stones. Timing/Duration: yesterday, constant, gradual onset, worse Activities at Onset: rest Quality: sharpness Abdominal Pain Onset Location: flank Pain Radiation: other Severity of Pain-Max: severe Severity of Pain-Current: severe Modifying Factors: Worsens With: movement, palpation Associated Symptoms: back, No fever/chills, No weakness Previous symptoms: no prior history Allergies/Adverse Reactions: naproxen [From Naprosyn] Allergy (Mild, Verified 10/20/20 16:32) Rash adhesive tape Adverse Reaction (Mild, Verified 10/20/20 16:32) BLISTERS Home Medications: Nifedipine [Procardia Xl] 60 mg PO DAILY 11/14/15 [History] Omeprazole [Prilosec] 40 mg PO DAILY 11/14/15 [History] Cholecalciferol (Vitamin D3) [Vitamin D] 5,000 unit PO DAILY 01/21/16 [History] Albuterol Common Canister [Ventolin Common Canister] 2 puff IH Q4-6HPRN PRN 09/02/18 [History] Biotin 10,000 mcg PO DAILY 09/02/18 [History] Ferrous Sulfate [Iron] 325 mg PO DAILY 09/02/18 [History] Sertraline HCl 100 mg PO DAILY 09/02/18 [History] Vit C/E/Zn/Coppr/Lutein/Zeaxan [Preservision Areds 2 Softgel] 2 cap PO BID 09/02/18 [History] Budesonide/Formoterol Fumarate [Symbicort 80-4.5 Mcg Inhaler] 1 inh PO DAILY 03/09/19 [History] Hx Tetanus, Diphtheria Vaccination/Date Given: Yes (UP TO DATE) Hx Influenza Vaccination/Date Given: Yes Hx Pneumococcal Vaccination/Date Given: Yes Immunizations Up to Date: Yes Travel Risk - International Travel Have you traveled outside of the country in past 3 weeks: No - Coronavirus Screening Are you exhibiting any of the following symptoms?: No Close contact with a COVID-19 positive Pt in past 14-21 Days: No - Vaccine Status Have you recieved a Covid-19 vaccination: Yes 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: [employer] - Vaccination Dates Date of 2cond Vaccination (if applicable): months ago - Review of Systems Constitutional: No Symptoms Eyes: No Symptoms Ears, Nose, & Throat: No Symptoms Respiratory: No Symptoms Cardiac: No Symptoms Abdominal/Gastrointestinal: Abdominal Pain Genitourinary Symptoms: No Symptoms Musculoskeletal: Back Pain Skin: No Symptoms Neurological: No Symptoms Psychological: No Symptoms Endocrine: No Symptoms Hematologic/Lymphatic: No Symptoms Immunological/Allergic: No Symptoms - Past Medical History Pertinent Past Medical History: Yes Neurological History: No Pertinent History ENT History: Cataracts Cardiac History: Hypertension, Myocardial Infarction ([place]) Respiratory History: Asthma, Bronchitis, Pneumonia Endocrine Medical History: No Pertinent History Musculoskeletal History: Arthritis GI Medical History: No Pertinent History, Hernia, Polyps History: No Pertinent History Psycho-Social History: Anxiety, Depression Female Reproductive Disorders: Breast Cancer Other Medical History: carpal syndrome - Past Surgical History Past Surgical History: Yes (hysterectomy, Breast L Ca) Neuro Surgical History: No Pertinent History Cardiac: No Pertinent History, Cardiac Catheterization Respiratory: No Pertinent History Gastrointestinal: Appendectomy, Cholecystectomy, Hernia Repair Genitourinary: No Pertinent History Musculoskeletal: Orthopedic Surgery Female Surgical History: Hysterectomy, Mastectomy Other Surgical History: mastecomy.barriactric surgery. neck'C5,C6 fussion. - Social History Smoking Status: Never smoker Exposure to second hand smoke: No Drug Use: none Patient Lives Alone: Yes - Female History Hx Now: No - Nursing Vital Signs Nursing Vital Signs: Initial Vital Signs Temperature 98.7 F 10/20/20 16:25 Pulse Rate 69 10/20/20 16:25 Respiratory Rate 20 10/20/20 16:25 Blood Pressure 187/74 10/20/20 16:25 O2 Sat by Pulse Oximetry 100 10/20/20 16:25 Pain Scale Pain Intensity 3 - Physical Exam General Appearance: no apparent distress, alert Eye Exam: PERRL/EOMI, eyes nml inspection Ears, Nose, Throat Exam: normal ENT inspection, pharynx normal Neck Exam: normal inspection, supple, full range of motion Respiratory Exam: normal breath sounds, lungs clear Cardiovascular Exam: regular rate/rhythm, normal heart sounds Gastrointestinal/Abdomen Exam: soft, normal bowel sounds Back Exam: normal inspection, muscle spasm (Lumbar paraspinal and sacroiliac area tenderness.) Extremity Exam: normal inspection, normal range of motion Neurologic Exam: alert, oriented x 3, cooperative Skin Exam: normal color SpO2 Interpretation: normal SpO2: 100 O2 Delivery: Room Air Ordered Tests: Medication Summary Discontinued Medications Generic Name Dose Route Start Last Admin Trade Name Freq PRN Reason Stop Dose Admin Morphine Sulfate 4 mg 10/20/20 16:53 10/20/20 17:13 Morphine Sulfate 4 Mg Inj IV 10/20/20 16:54 4 mg STAT ONE Administration Morphine Sulfate Confirm 10/20/20 17:09 Morphine Sulfate 4 Mg Inj Administered 10/20/20 17:10 Dose 4 mg .ROUTE .STK-MED ONE Ondansetron HCl 4 mg 10/20/20 16:53 10/20/20 17:12 Zofran 4 Mg/2 Ml Vial IV 10/20/20 16:54 4 mg STAT ONE Administration Ondansetron HCl Confirm 10/20/20 17:09 Zofran 4 Mg/2 Ml Vial Administered 10/20/20 17:10 Dose 4 mg .ROUTE .STK-MED ONE Lab/Rad Data: Laboratory Result Diagrams 10/20/20 17:33 10/20/20 17:33 Laboratory Results 10/20/20 10/20/20 10/20/20 Range/Units 17:33 17:33 17:33 WBC 8.0 (4.0-10.5) K/mm3 RBC 3.07 L (4.1-5.4) M/mm3 Hgb 9.6 L (12.0-16.0) gm/dl Hct 31.5 L (35-47) % MCV 102.6 H (78-100) fl MCH 31.3 (26-32) pg MCHC 30.5 L (32-36) g/dl RDW 13.1 (11.5-14.0) % Plt Count 191 (150-450) K/mm3 MPV 9.6 (7.5-11.0) fl Gran % 70.5 H (36.0-66.0) % Eos # (Auto) 0.17 (0-0.5) Absolute Lymphs (auto) 1.57 (1.0-4.6) Absolute Monos (auto) 0.61 (0.0-1.3) Lymphocytes % 19.6 L (24.0-44.0) % Monocytes % 7.6 (0.0-12.0) % Eosinophils % 2.1 (0.00-5.0) % Basophils % 0.2 (0.0-0.4) % Absolute Granulocytes 5.66 (1.4-6.9) Basophils # 0.02 (0-0.4) Sodium 138 (137-145) mmol/L Potassium 4.5 (3.5-5.1) mmol/L Chloride 110 H (98-107) mmol/L Carbon Dioxide 19 L (22-30) mmol/L Anion Gap 13.7 (5-15) MEQ/L BUN 32 H (7-17) mg/dL Creatinine 1.28 H (0.52-1.04) mg/dL Estimated GFR 43.4 ML/MIN Glucose 91 (74-106) mg/dL Calcium 8.9 (8.4-10.2) mg/dL Total Bilirubin 0.30 (0.2-1.3) mg/dL AST 27 (14-36) U/L ALT 17 (0-35) U/L Alkaline Phosphatase 133 H (38-126) U/L Serum Total Protein 6.7 (6.3-8.2) g/dL Albumin 3.8 (3.5-5.0) g/dL Lipase 278 (23-300) U/L Urine Color YELLOW (YELLOW) Urine Appearance SLIGHTLY CLOUDY (CLEAR) Urine pH 5.0 (5-6) Ur Specific [place] 1.012 (1.005-1.025) Urine Protein NEGATIVE (Negative) Urine Ketones NEGATIVE (NEGATIVE) Urine Blood NEGATIVE (0-5) Reyes/ul Urine Nitrite NEGATIVE (NEGATIVE) Urine Bilirubin NEGATIVE (NEGATIVE) Urine Urobilinogen NEGATIVE (0-1) mg/dL Ur Leukocyte Esterase NEGATIVE (NEGATIVE) Urine WBC (Auto) 3-5 (0-5) /HPF Urine RBC (Auto) NONE (0-2) /HPF U Epithel Cells (Auto) RARE (FEW) /HPF Urine Bacteria (Auto) NONE (NEGATIVE) /HPF Urine Mucus (Auto) SLIGHT (NEGATIVE) /HPF Urine Culture Reflexed NO (NO) Urine Glucose NEGATIVE (NEGATIVE) mg/dL - Progress Progress: improved, pain not gone completely, re-examined Progress Note: 10/20/20 19:01 She is given symptomatic treatment for pain and fluids., On reevaluation feeling better. Work-up is essentially unremarkable including CT. I believe her symptoms are more secondary to musculoskeletal pain. Negative neuro exam in lower extremities and patient is ambulatory in the ER. I recommended supportive/symptomatic care and outpatient follow-up discussed signs symptoms of worsening needing return to ER which she seems understanding Counseled pt/family regarding: lab results, diagnosis, need for follow-up, rad results - Departure Departure Disposition: Home Clinical Impression: Left flank pain Condition: Stable Critical Care Time: No Referrals: JENELLE BIRMINGHAM MD [Primary Care Provider] - Follow Up with PCP/3 days Instructions: Flank Pain, Back Muscle Strain ([place]) Additional Instructions: Take pain medications only as needed. Follow-up with your primary care for reevaluation. Use cane or walker for ambulation to avoid a fall. Return to ER for worsening back pain, numbness tingling weakness of lower extremities/loss of bowel or bladder control. Prescriptions: Hydrocodone/APAP 5/325 [[place] 5/325 mg] 1 each PO Q6H PRN PRN #10 tablet MDD 3 PRN Reason: Pain
[2020-10-20] MEDS ORDERED: Zofran 4 MG/2 ML VIAL ONE (17:09)
[2020-10-20] MEDS ORDERED: MORPHINE SULFATE 4 MG INJ ONE (17:09)
[2020-10-20 17:38] LABS: Absolute Neutrophil Ct (ANC) 5.66 (1.4-6.9); BASOPHIL % 0.2 % (0.0-0.4); Basophil (Absolute #) 0.02 (0-0.4); Eosinophil % 2.1 % (0.00-5.0); Eosinophil (Absolute #) 0.17 (0-0.5); Hematocrit 31.5 % (35-47); Hemoglobin 9.6 gm/dl (12.0-16.0); Lymphocyte (Absolute #) 1.57 (1.0-4.6); Lymphocytes % 19.6 % (24.0-44.0); Mean Cell Volume 102.6 fl (78-100); Mean Corpuscular Hemoglobin 31.3 pg (26-32); Mean Corpuscular Hgb Concent. 30.5 g/dl (32-36); Mean Platelet Volume 9.6 fl (7.5-11.0); Monocyte (Absolute #) 0.61 (0.0-1.3); Monocytes % 7.6 % (0.0-12.0); Neutrophil % 70.5 % (36.0-66.0); Platelet Count 191 K/mm3 (150-450); Red Blood Count 3.07 M/mm3 (4.1-5.4); Red Cell Distribution Width 13.1 % (11.5-14.0)
[2020-10-20 17:48] LABS: ALBUMIN 3.8 g/dL (3.5-5.0); ANION GAP 13.7 MEQ/L (5-15); BILIRUBIN,TOTAL 0.3 mg/dL (0.2-1.3); Calcium 8.9 mg/dL (8.4-10.2); Creatinine 1 1.28 mg/dL (0.52-1.04); EST GLOMERULAR FILTRATION RATE 43.4 ML/MIN; Potassium 4.5 mmol/L (3.5-5.1); Total Protein 6.7 g/dL (6.3-8.2)
[2020-10-20 17:52] LABS: Appearance SLIGHTLY CLOUDY (CLEAR); Bilirubin NEGATIVE (NEGATIVE); Blood NEGATIVE Ery/ul (0-5); Epithelial Cells RARE /HPF (FEW); Glucose NEGATIVE (NEGATIVE); Ketones NEGATIVE (NEGATIVE); Leukocyte Esterase NEGATIVE (NEGATIVE); Mucus SLIGHT /HPF (NEGATIVE); Nitrite NEGATIVE (NEGATIVE); Protein,Urine Dip NEGATIVE (Negative); Specific Gravity 1.012 (1.005-1.025); Urobilinogen NEGATIVE mg/dL (0-1)
[2020-10-20 18:18] VITALS: PULSE 80
[2020-10-20 19:03] VITALS: O2SAT 100
[2020-10-20 19:08] VITALS: BP 163/67
--- NOTE | 2020-10-20 20:24 | XRAY ---
Indication: Left flank pain. Multiple contiguous axial images obtained through the abdomen and pelvis without contrast. Comparison: None Lung bases demonstrates right lower lobe and right infrahilar chunky calcified granulomas. No infiltrate or effusion. Heart is not enlarged. There has been gastric bypass surgery. Noncontrasted stomach and bowel loops nonobstructed. Appendix not seen. Mild diffuse scattered colonic fecal debris throughout. Previous cholecystectomy and hysterectomy. No free fluid/air. Splenic calcified granuloma. Remaining liver, pancreas, spleen, adrenal glands, kidneys, ureters, and bladder appear unremarkable for noncontrast exam. Osseous structures intact with mild degenerative changes throughout the thoracolumbar spine and minimal 2-3 mm L4 spondylolisthesis. Impression: 1. Mild diffuse fecal stasis, chronic bony findings, and old granulomatous disease. 2. Remaining CT abdomen/pelvis without contrast exam is negative. Comment: Preliminary interpretation made by [facility]. No critical discrepancy.
== END 2020-10-20 19:16 | disposition home or self-care (01) ==
LOC: ED 16:04
DX: R10.9 Unspecified abdominal pain (principal)
CPT/HCPCS: 36000; 36415; 74176; 80053; 81001; 83690; 85025; 96374; 96375; 99284; J2270; J2405

== ENCOUNTER 2021-02-06 10:21 | Inpatient (IN) | payer MEDICARE, BC ==
[2021-02-06] MEDS ORDERED: Pepcid 20 MG VIAL IV ONE ×2 (10:31→10:33)
[2021-02-06] MEDS ORDERED: BENADRYL 50 MG/ML IV ONE (10:31)
[2021-02-06] MEDS ORDERED: solu-MEDROL 125 MG, Sterile H2O 10 ml 2 ML IV ONE ×2 (10:31)
[2021-02-06] MEDS ORDERED: Racepinephrine INH Solution 2.25% IH ONE ×2 (10:32→10:34)
[2021-02-06] MEDS ORDERED: BENADRYL 50 MG/ML ONE (10:33)
[2021-02-06] MEDS ORDERED: solu-MEDROL ONE ×2 (10:34→17:45)
[2021-02-06] MEDS ORDERED: Sterile H2O 10 ml IJ ONE (10:34)
--- NOTE | 2021-02-06 11:41 | ERPHSYRPT ---
- History of Present Illness Time Seen by Provider: 02/06/21 10:25 Source: patient Exam Limitations: no limitations Patient Subjective Stated Complaint: pt here for allergic reaction a new medication, trilogy mecidation she has been on meds for a week now , woke up this am with swollen tongue Triage Nursing Assessment: pt has swelling to tongue, and sob, resp easy,skin w/d/p. face mask in place, no drooling, chest clear Physician History: 76 years old female with history of asthma on albuterol/Trelegy for a week woke up this morning with right side tongue swelling and some swelling/soreness in the throat, constant, gradually worsening without any difficulty breathing. Because of swollen tongue has difficulty talking/articulation. Has been having minimal productive cough of clear sputum without fever chills. Denies any chest pain or palpitations. No previous history of angioedema. Timing/Duration: today, constant, worse Severity: moderate Modifying Factors: Improves With: nothing Associated Symptoms: denies symptoms Allergies/Adverse Reactions: naproxen [From Naprosyn] Allergy (Mild, Verified 02/06/21 10:30) Rash fluticasone furoate [From Trelegy Ellipta] Adverse Reaction (Severe, Verified 02/06/21 13:21) Anaphylactic Reaction umeclidinium [From Trelegy Ellipta] Adverse Reaction (Severe, Verified 02/06/21 13:21) Anaphylactic Reaction vilanterol [From Trelegy Ellipta] Adverse Reaction (Severe, Verified 02/06/21 13:21) Anaphylactic Reaction adhesive tape Adverse Reaction (Mild, Verified 02/06/21 10:30) BLISTERS Home Medications: Omeprazole [Prilosec] 40 mg PO DAILY 11/14/15 [History] Cholecalciferol (Vitamin D3) [Vitamin D] 5,000 unit PO DAILY 01/21/16 [History] Albuterol Common Canister [Ventolin Common Canister] 2 puff IH Q4-6HPRN PRN 09/02/18 [History] Ferrous Sulfate [Iron] 325 mg PO DAILY 09/02/18 [History] Sertraline HCl 100 mg PO DAILY 09/02/18 [History] Vit C/E/Zn/Coppr/Lutein/Zeaxan [Preservision Areds 2 Softgel] 2 cap PO BID 09/02/18 [History] Amlodipine Besylate/Benazepril [Amlodipine-Benazepril 2.5-10] 1 tab PO DAILY 02/06/21 [History] Budesonide/Formoterol Fumarate [Budesonide-Formoterol 80-4.5] 1 adh.patch IH TID 02/06/21 [History] Hx Tetanus, Diphtheria Vaccination/Date Given: Yes (UP TO DATE) Hx Influenza Vaccination/Date Given: Yes Hx Pneumococcal Vaccination/Date Given: Yes Immunizations Up to Date: Yes Travel Risk - International Travel Have you traveled outside of the country in past 3 weeks: No - Coronavirus Screening Are you exhibiting any of the following symptoms?: No Close contact with a COVID-19 positive Pt in past 14-21 Days: No - Vaccine Status Have you recieved a Covid-19 vaccination: Yes 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 - Review of Systems Constitutional: No Symptoms Eyes: No Symptoms Ears, Nose, & Throat: Mouth Swelling, Throat Swelling Respiratory: Cough Cardiac: No Symptoms Abdominal/Gastrointestinal: No Symptoms Genitourinary Symptoms: No Symptoms Musculoskeletal: No Symptoms - Past Medical History Pertinent Past Medical History: Yes Neurological History: No Pertinent History ENT History: Cataracts Cardiac History: Hypertension, Myocardial Infarction ([place]) Respiratory History: Asthma, Pneumonia Endocrine Medical History: No Pertinent History Musculoskeletal History: Arthritis GI Medical History: No Pertinent History, Hernia, Polyps History: No Pertinent History Psycho-Social History: Anxiety, Depression Female Reproductive Disorders: Breast Cancer Other Medical History: Heart attack is disagreed on by different doctors. Cholecystectomy, Hysterectomy, Mastectomy with reconstruction, Gastric bypass - Past Surgical History Past Surgical History: Yes (hysterectomy, Breast L Ca) Neuro Surgical History: No Pertinent History Cardiac: No Pertinent History, Cardiac Catheterization Respiratory: No Pertinent History Gastrointestinal: Appendectomy, Cholecystectomy, Hernia Repair Genitourinary: No Pertinent History Musculoskeletal: Orthopedic Surgery Female Surgical History: Hysterectomy, Mastectomy Other Surgical History: mastecomy.barriactric surgery. neck'C5,C6 fussion. - Social History Smoking Status: Never smoker Exposure to second hand smoke: No Drug Use: none Patient Lives Alone: Yes - Female History Hx Last Menstrual Period: psot Hx Now: No - Nursing Vital Signs Nursing Vital Signs: Initial Vital Signs Temperature 97.3 F 02/06/21 10:22 Pulse Rate 68 02/06/21 10:22 Respiratory Rate 18 02/06/21 10:22 Blood Pressure 156/73 02/06/21 10:22 O2 Sat by Pulse Oximetry 100 02/06/21 10:22 Pain Scale Pain Intensity 2 - Physical Exam SpO2: 100 Procedures - Central Line Time Of Procedure: 13:28 Timeout: Performed Central Line Lumen: triple Lumen Size: 7 Tam[place] Central Line Procedure: chlorahexadine prep Central Line Postion: femoral (R) Ultrasound Guided Placement: Yes Complications: none Central Line Post Position: sutured, good blood return - Intubation Time of Intubation: 13:02 Intubation Indications: airway protection Intubation Method: glidescope Tube Size (cm): 7.5 Medications: Etomidate, Succinylcholine Endotracheal Tube Confirmation: bilateral breath sounds, positive end tidal CO2, good rise & fall of chest, stable or inc of O2 sat Intubation Complications: no complications Performed By: ED Physician Post Intubation Xray: Yes Ordered Tests: Active Orders 24 hr Category Date Time Status IV Insertion STAT Care 02/06/21 10:31 Active Oxygen-ED Only Nasal Cannula 2 lpm Care 02/06/21 10:31 Active POCT Glucose Check STAT Care 02/06/21 10:31 Active CHEST 1 VIEW (PORTABLE) Stat Exams 02/06/21 11:23 Completed CHEST 1 VIEW (PORTABLE) Stat Exams 02/06/21 13:03 Completed CBC W DIFF Stat Lab 02/06/21 11:52 Completed CMP Stat Lab 02/06/21 11:52 Completed Respiratory Therapy Assessment DAILY RT 02/06/21 10:39 Completed Transfer Order Routine Transfer 02/06/21 Ordered Medication Summary Generic Name Dose Route Start Last Admin Trade Name Freq PRN Reason Stop Dose Admin Fentanyl Citrate 1,500 mcg/ 150 mls @ 8.754 mls/hr 02/06/21 13:30 02/06/21 13:55 Sodium Chloride IV 02/11/21 13:29 1 mcg/kg/hr .Q17H9M TONJA 8.754 mls/hr Administration Protocol 1 MCG/KG/HR Discontinued Medications Generic Name Dose Route Start Last Admin Trade Name Freq PRN Reason Stop Dose Admin Methylprednisolone Sodium 0 mg 02/06/21 10:31 02/06/21 10:35 Succinate 125 mg/ Sterile IV 02/06/21 10:32 125 mg Water 2 ml STAT ONE Administration Diphenhydramine HCl 25 mg 02/06/21 10:31 02/06/21 10:36 Diphenhydramine Hcl 50 Mg/Ml Vial IV 02/06/21 10:32 25 mg STAT ONE Administration Diphenhydramine HCl Confirm 02/06/21 10:33 Diphenhydramine Hcl 50 Mg/Ml Vial Administered 02/06/21 10:34 Dose 50 mg .ROUTE .STK-MED ONE Epinephrine 0.5 ml 02/06/21 10:32 02/06/21 10:40 Racepinephrine Inh Goldie 0.5 Ml Neb IH 02/06/21 10:33 0.5 ml STAT ONE Administration Epinephrine Confirm 02/06/21 10:34 Racepinephrine Inh Goldie 0.5 Ml Neb Administered 02/06/21 10:35 Dose 0.5 ml IH .STK-MED ONE Famotidine 20 mg 02/06/21 10:31 02/06/21 10:36 Famotidine 20 Mg/1 Vial IV 02/06/21 10:32 20 mg STAT ONE Administration Famotidine Confirm 02/06/21 10:33 Famotidine 20 Mg/1 Vial Administered 02/06/21 10:34 Dose 20 mg IV .STK-MED ONE Fentanyl Citrate Confirm 02/06/21 13:11 Fentanyl Citrate 100 Mcg/2 Ml* Vial Administered 02/06/21 13:12 Dose 100 mcg .ROUTE .STK-MED ONE Fentanyl Citrate Confirm 02/06/21 13:16 Fentanyl Citrate 100 Mcg/2 Ml* Vial Administered 02/06/21 13:17 Dose 100 mcg .ROUTE .STK-MED ONE Propofol Confirm 02/06/21 12:59 Propofol 1000 Mg/100 Ml Bottle Administered 02/06/21 13:00 Dose 100 mls @ ud IV .STK-MED ONE Methylprednisolone Sodium Succinate Confirm 02/06/21 10:34 Methylprednis Sod Succ 125 Mg/2 Ml Vial Administered 02/06/21 10:35 Dose 125 mg .ROUTE .STK-MED ONE Sterile Water Confirm 02/06/21 10:34 Water For Injection,Sterile 10 Ml Vial Administered 02/06/21 10:35 Dose 10 ml IJ .STK-MED ONE Lab/Rad Data: Laboratory Result Diagrams 02/06/21 11:52 02/06/21 11:52 Laboratory Results 02/06/21 02/06/21 02/06/21 Range/Units 12:18 11:52 11:52 WBC 7.3 (4.0-10.5) K/mm3 RBC 3.10 L (4.1-5.4) M/mm3 Hgb 9.4 L (12.0-16.0) gm/dl Hct 31.4 L (35-47) % MCV 101.3 H (78-100) fl MCH 30.3 (26-32) pg MCHC 29.9 L (32-36) g/dl RDW 15.2 H (11.5-14.0) % Plt Count 167 (150-450) K/mm3 MPV 9.9 (7.5-11.0) fl Gran % 63.3 (36.0-66.0) % Eos # (Auto) 0.15 (0-0.5) Absolute Lymphs (auto) 1.84 (1.0-4.6) Absolute Monos (auto) 0.67 (0.0-1.3) Lymphocytes % 25.3 (24.0-44.0) % Monocytes % 9.2 (0.0-12.0) % Eosinophils % 2.1 (0.00-5.0) % Basophils % 0.1 (0.0-0.4) % Absolute Granulocytes 4.59 (1.4-6.9) Basophils # 0.01 (0-0.4) Sodium 139 (137-145) mmol/L Potassium 4.9 (3.5-5.1) mmol/L Chloride 114 H (98-107) mmol/L Carbon Dioxide 18 L (22-30) mmol/L Anion Gap 11.6 (5-15) MEQ/L BUN 30 H (7-17) mg/dL Creatinine 1.39 H (0.52-1.04) mg/dL Estimated GFR 39.4 ML/MIN Glucose 86 (74-106) mg/dL Calcium 8.7 (8.4-10.2) mg/dL Total Bilirubin 0.40 (0.2-1.3) mg/dL AST 20 (14-36) U/L ALT 15 (0-35) U/L Alkaline Phosphatase 97 (38-126) U/L Serum Total Protein 5.5 L (6.3-8.2) g/dL Albumin 3.1 L (3.5-5.0) g/dL Influenza Type A Ag NEGATIVE (NEGATIVE) Influenza Type B Ag NEGATIVE (NEGATIVE) RSV (PCR) NEGATIVE (Negative) SARS-CoV-2 (PCR) NEGATIVE (NEGATIVE) - Progress Progress: improved, re-examined Progress Note: 02/06/21 12:02 She is given Solu-Medrol/Benadryl/Pepcid and racemic epi, on reevaluation feeling some improvement. No difficulty breathing. Posterior pharynx well visible. Discussed with , patient is admitted for observation. 02/06/21 13:56 On reevaluation patient reported increased swelling of tongue and it did look getting worse. Went over risk and benefits of intubation and patient is electively intubated to protect airway. Central line is placed as patient is a hard stick. Family is counseled. Discussed with again, reviewed changes in status and agreed with keeping patient in here and Dr. Alegria draw off worker would be consulted. Discussed with : Matilda Will see patient in: hospital (observation) Counseled pt/family regarding: lab results, diagnosis, need for follow-up, rad results - Departure Departure Disposition: Observation Clinical Impression: Angioedema Qualifiers: Encounter type: initial encounter Qualified Code(s): T78.3XXA - Angioneurotic edema, initial encounter Condition: Stable Critical Care Time: Yes Critical Care Time(excluding separately billable procedures): Critical 30-74 mins Referrals: JENELLE BIRMINGHAM MD [Primary Care Provider] - Follow up/PCP as directed
--- NOTE | 2021-02-06 11:41 | XRAY ---
Indication: Short of breath and hoarseness. Right tongue swelling. Comparison: March 09, 2019. Portable chest remains clear again with incidental right lung calcified granuloma. Heart not enlarged. Bony thorax intact again with osteopenia, degenerative changes, lower cervical fusion, and left breast surgical clips. Impression: Continued nonacute chest with chronic features.
[2021-02-06 12:12] LABS: Absolute Neutrophil Ct (ANC) 4.59 (1.4-6.9); BASOPHIL % 0.1 % (0.0-0.4); Basophil (Absolute #) 0.01 (0-0.4); Eosinophil % 2.1 % (0.00-5.0); Eosinophil (Absolute #) 0.15 (0-0.5); Hematocrit 31.4 % (35-47); Hemoglobin 9.4 gm/dl (12.0-16.0); Lymphocyte (Absolute #) 1.84 (1.0-4.6); Lymphocytes % 25.3 % (24.0-44.0); Mean Cell Volume 101.3 fl (78-100); Mean Corpuscular Hemoglobin 30.3 pg (26-32); Mean Corpuscular Hgb Concent. 29.9 g/dl (32-36); Mean Platelet Volume 9.9 fl (7.5-11.0); Monocyte (Absolute #) 0.67 (0.0-1.3); Monocytes % 9.2 % (0.0-12.0); Neutrophil % 63.3 % (36.0-66.0); Platelet Count 167 K/mm3 (150-450); Red Cell Distribution Width 15.2 % (11.5-14.0); White Blood Count 7.3 K/mm3 (4.0-10.5)
[2021-02-06 12:17] LABS: ALBUMIN 3.1 g/dL (3.5-5.0); ANION GAP 11.6 MEQ/L (5-15); BILIRUBIN,TOTAL 0.4 mg/dL (0.2-1.3); Calcium 8.7 mg/dL (8.4-10.2); Creatinine 1 1.39 mg/dL (0.52-1.04); EST GLOMERULAR FILTRATION RATE 39.4 ML/MIN; Potassium 4.9 mmol/L (3.5-5.1); Total Protein 5.5 g/dL (6.3-8.2)
[2021-02-06] MEDS ORDERED: DIPRIVAN 200 MG/20 ML IV ONE (12:50)
[2021-02-06] MEDS ORDERED: Quelicin Fliptop 200 MG/10 ML ONE (12:50)
[2021-02-06] MEDS ORDERED: Amidate 20 MG/10 ML IV ONE (12:50)
[2021-02-06 12:58] LABS: INFLUENZA A NEGATIVE (NEGATIVE); INFLUENZA B NEGATIVE (NEGATIVE); RESPIRATORY SYNCTIAL VIRUS NEGATIVE (Negative); SARS-CoV-2 Xpert Express NEGATIVE (NEGATIVE)
[2021-02-06] MEDS ORDERED: Propofol 1000 mg/100 ml Bottle 100 ML IV ONE (12:59)
[2021-02-06] MEDS ORDERED: SUBLIMAZE 100 MCG/2 ML ONE ×2 (13:11→13:16)
--- NOTE | 2021-02-06 13:29 | XRAY ---
Indication: Tube placement. Comparison: Taken earlier in the day. Portable chest demonstrates new endotracheal tube tip 4 cm above tosha. Also new NG tube folded distally with tip directed superiorly in the distal esophagus. Recommend readjustment. Remaining heart and lungs unchanged again with incidental old granulomatous disease.
[2021-02-06] MEDS: SUBLIMAZE 1000 Mcg/ 20 Ml*** 1,500 MCG in Sodium Chloride 0.9% 150 ML 120 ML IV SCH (13:55)
[2021-02-06] MEDS ORDERED: Sodium Chloride 0.9% 1000 ML 1,000 ML ONE (13:57)
[2021-02-06] MEDS ORDERED: Sodium Chloride 0.9% 1000 ML 1,000 ML IV SCH (14:15)
[2021-02-06] MEDS ORDERED: Sodium Chloride 0.9% 1000 ML 1,000 ML IV STA (14:29)
[2021-02-06] MEDS ORDERED: TYLENOL 325 MG PO PRN (14:46)
[2021-02-06] MEDS ORDERED: Racepinephrine INH Solution 2.25% IH PRN (14:46)
[2021-02-06 15:19] LABS: A-aADO2 122; ABG HEMOGLOBIN 9.3; ABG POTASSIUM 4.8 (3.5-5.1); ARTERIAL BLD GAS TIDAL VOLUME 550 cc; ARTERIAL BLOOD GAS BASE EXCESS -8.8 (-2.0-2.0); ARTERIAL BLOOD GAS FIO2 50 %; ARTERIAL BLOOD GAS PCO2 34 mmHg (35-45); ARTERIAL BLOOD GAS PO2 192 mmHg (75-100); ARTERIAL BLOOD GAS VENT MODE A/C; CARBOXYHEMOGLOBIN 1.2 % THgb (0.0-6.9); HCO3- 16.7 (22-28); HGB O2 SAT 95.5 g/dF (94-100); Methhemoglobin 1.4 % (1.4-1.5)
[2021-02-06 15:20] LABS: ABG SITE RIGHT BRACHIAL; ALLEN TEST OK? YES
[2021-02-06] MEDS: solu-MEDROL 80 MG, Sterile H2O 10 ml 2 ML IV SCH ×2 (18:05)
[2021-02-06] MEDS: Propofol 1000 mg/100 ml Bottle 100 ML IV PRN ×2 (18:07→23:22)
[2021-02-06] MEDS: BENADRYL 50 MG/ML IV PRN (21:51)
[2021-02-06] MEDS: Pepcid 20 MG VIAL IV SCH (21:51)
[2021-02-06] MEDS: Sodium Chloride 0.9% 10 ML FLUSH Syringe IV SCH (21:52)
[2021-02-07] MEDS: DUONEB 0.5-3 MG/3 ml Neb IH SCH ×6 (00:01→19:01)
[2021-02-07] MEDS: solu-MEDROL 80 MG, Sterile H2O 10 ml 2 ML IV SCH ×4 (00:25→05:48)
[2021-02-07] MEDS: Propofol 1000 mg/100 ml Bottle 100 ML IV PRN ×4 (05:11→20:18)
[2021-02-07] MEDS: BENADRYL 50 MG/ML IV PRN ×3 (05:46→19:57)
[2021-02-07 06:05] LABS: Basophil (Absolute #) 0 (0-0.4); Eosinophil (Absolute #) 0 (0-0.5); Hematocrit 31.3 % (35-47); Hemoglobin 9.3 gm/dl (12.0-16.0); Lymphocyte (Absolute #) 0.67 (1.0-4.6); Lymphocytes % 10.4 % (24.0-44.0); Mean Cell Volume 101.3 fl (78-100); Mean Corpuscular Hemoglobin 30.1 pg (26-32); Mean Corpuscular Hgb Concent. 29.7 g/dl (32-36); Mean Platelet Volume 9.9 fl (7.5-11.0); Monocytes % 1.5 % (0.0-12.0); Neutrophil % 88.1 % (36.0-66.0); Platelet Count 154 K/mm3 (150-450); Red Blood Count 3.09 M/mm3 (4.1-5.4); Red Cell Distribution Width 14.9 % (11.5-14.0); White Blood Count 6.5 K/mm3 (4.0-10.5)
[2021-02-07 06:22] LABS: ANION GAP 12.7 MEQ/L (5-15); Creatinine 1 1.31 mg/dL (0.52-1.04); EST GLOMERULAR FILTRATION RATE 42.2 ML/MIN
--- NOTE | 2021-02-07 08:50 | XRAY ---
Indication: Patient on ventilator. Comparison: One day earlier. Portable chest demonstrates interval manipulation of NG tube with tip now in stomach. Stable endotracheal tube tip 4 cm above tosha. Remaining heart and lungs unremarkable again with incidental old granulomatous disease. No new/acute abnormalities.
[2021-02-07] MEDS ORDERED: Sodium Chloride 0.9% 1000 ML 1,000 ML ONE (09:19)
[2021-02-07] MEDS: Sodium Chloride 0.9% 10 ML FLUSH Syringe IV SCH ×3 (09:36→21:24)
[2021-02-07] MEDS ORDERED: VENTOLIN COMMON CANISTER IH PRN (09:37)
[2021-02-07] MEDS: Pepcid 20 MG VIAL IV SCH ×2 (09:37→21:24)
[2021-02-07] MEDS ORDERED: AMLODIPINE BESYLATE PO SCH ×2 (10:00)
[2021-02-07] MEDS ORDERED: [UNRECOGNIZED DRUG - OTHER] PO SCH ×2 (10:00)
[2021-02-07] MEDS ORDERED: NON-FORMULARY ITEM (Sertraline Hcl [Sertraline Hcl] 100 MG Tablet) PO SCH (10:00)
[2021-02-07] MEDS ORDERED: MEDICATION INTERVENTION PO SCH ×2 (10:00)
[2021-02-07] MEDS ORDERED: NON-FORMULARY ITEM (Multivitamin [Multivitamin] 1 EACH Tablet) PO SCH (10:00)
[2021-02-07] MEDS ORDERED: CYANOCOBALAMIN 5000 MCG PO SCH (10:00)
[2021-02-07] MEDS ORDERED: Cyanocobalamin B-12 1000 MCG/ML IM SCH (10:00)
[2021-02-07] MEDS ORDERED: NON-FORMULARY ITEM (Omeprazole [Prilosec] 40 MG Cap) PO SCH (10:00)
[2021-02-07] MEDS ORDERED: NON-FORMULARY ITEM (Vit C/E/Zn/Coppr/Lutein/Zeaxan [Preservision Areds 2 Softgel] 1 EACH C PO SCH (10:00)
--- NOTE | 2021-02-07 11:08 | CONS ---
CONSULT DATE: 02/06/2021 HISTORY: Jacey Nayak is a 76-year-old woman with history of obstructive airways disease, who has been experiencing recent exacerbation. She was seen and started on Trelegy by her primary care provider, Dr. Vega. She called her daughter this morning waking her up reporting her tongue was swollen. She was brought to the emergency room where she was intubated for airway protection. The patient is being treated with steroids and Benadryl with clinical improvement already. She is currently sedated with Diprivan and Fentanyl, appears comfortable without obvious tongue swelling. PAST MEDICAL HISTORY: Positive for history of asthma, hypertension, gastroesophageal reflux. PAST SURGICAL HISTORY: No recent surgeries. She has had mastectomy, bariatric surgery and neck fusion of C5-C6. PERSONAL AND SOCIAL HISTORY: She is a nonsmoker. MEDICATIONS: Home and current medications are reviewed. ALLERGIES: NOTED. PHYSICAL EXAMINATION: This is an elderly woman who is intubated, sedated but arousable. Vital signs noted. HEENT: Normocephalic. Oral exam is limited. ET tube is in place. NECK: Supple. No swelling is noted. CVS: First and second heart sounds are normal, regular, rhythmic. RESPIRATORY: Shows diminished breath sounds. No rhonchi heard. Chest is fairly clear. ABDOMEN: Soft. EXTREMITIES: No edema is noted. LABORATORY DATA AND TESTS: White count 7.3, hemoglobin 9.4, hematocrit 31.4, PLT 167,000. Sodium 139, potassium 4.9, chloride 114, bicarb 18, BUN 30, creatinine 1.4. The pH is 7.30, pCO2 of 34 and pO2 of 192. COVID test and influenza are negative. Chest x-ray noted. ASSESSMENT: This is a 76-year-old woman admitted with: 1) Acute respiratory failure. 2) Anaphylactoid reaction with swelling of tongue; secondary to new initiation of Trelegy? 3) History of hypertension. RECOMMENDATIONS: 1) The patient remains calm, comfortable. 2) Continue IV steroids, Benadryl and Pepcid. 3) Deep vein thrombosis prophylaxis. 4) Will reduce and hold sedation in the morning followed by awakening trials. Will check for ET tube leak test, if positive will extubate. The patient will certainly have to hold Trelegy for the time being and may require allergy testing down the road. 5) Further recommendations awaiting clinical improvement this was discussed with the patient's daughter.
[2021-02-07] MEDS ORDERED: Zofran 4 MG/2 ML VIAL IV PRN (11:09)
[2021-02-07 11:57] LABS: A-aADO2 59; ABG HEMOGLOBIN 9.7; ABG SITE RIGHT RADIAL; ALLEN TEST OK? YES; ARTERIAL BLD GAS O2 SATURATION 97.9 % (95-100); ARTERIAL BLOOD GAS BASE EXCESS -7.9 (-2.0-2.0); ARTERIAL BLOOD GAS FIO2 35 %; ARTERIAL BLOOD GAS PCO2 31 mmHg (35-45); ARTERIAL BLOOD GAS PO2 152 mmHg (75-100); ARTERIAL BLOOD GAS VENT MODE CPAP; ARTERIAL BLOOD GAS pH 7.34 (7.35-7.45); CARBOXYHEMOGLOBIN 0.9 % THgb (0.0-6.9); HCO3- 16.7 (22-28); HGB O2 SAT 95.7 g/dF (94-100); Methhemoglobin 1.3 % (1.4-1.5)
[2021-02-07] MEDS ORDERED: Racepinephrine INH Solution 2.25% IH ONE (12:32)
[2021-02-07] MEDS: FEOSOL 325 MG PO SCH (13:03)
[2021-02-07] MEDS: Lotensin 10 MG PO SCH (13:03)
[2021-02-07] MEDS: NORVASC 5 MG PO SCH (13:03)
[2021-02-07] MEDS: Protonix 40MG Tablet PO SCH (13:04)
[2021-02-07] MEDS: Tums EX 750 MG PO SCH (13:04)
[2021-02-07] MEDS: Ocuvite Tablet PO SCH ×2 (13:04→23:20)
[2021-02-07] MEDS: VITAMIN D PO SCH (13:04)
[2021-02-07] MEDS: THERAGRAN MULTIVITAMIN PO SCH (13:04)
[2021-02-07] MEDS: ZOLOFT 50 MG TABLET PO SCH (13:04)
[2021-02-07] MEDS ORDERED: SUBLIMAZE 100 MCG/2 ML IV PRN (13:21)
[2021-02-07] MEDS ORDERED: DIPRIVAN 200 MG/20 ML IV PRN (13:21)
[2021-02-07] MEDS: solu-MEDROL IV SCH ×2 (13:33→17:41)
--- NOTE | 2021-02-07 18:54 | PCM.HP ---
History of Present Illness - Chief Complaint Chief Complaint: difficulty breathing and choking for 1 day History of Present Illness: is a 76 year old female.with history of asthma on albuterol/Trelegy for a week woke up this morning with right side tongue swelling and some swelling/soreness in the throat, constant, gradually worsening without any difficulty breathing. Because of swollen tongue has difficulty talking/articulation. Has been having minimal productive cough of clear sputum without fever chills. Denies any chest pain or palpitations. No previous history of angioedema. Timing/Duration: today, constant, worse Severity: moderate Modifying Factors: Improves With: nothing Associated Symptoms: denies symptoms - Review of Systems Constitutional: No Fever, No Chills Eyes: No Symptoms Ears, Nose, & Throat: Throat Pain, Throat Swelling, Painful Swallowing Respiratory: Short Of Breath, Stridor, Wheezing, No Cough Cardiac: No Chest Pain, No Edema, No Syncope Abdominal/Gastrointestinal: No Abdominal Pain, No Nausea, No Vomiting, No Diarrhea Genitourinary Symptoms: No Dysuria Musculoskeletal: No Back Pain, No Neck Pain Skin: No Rash Neurological: No Dizziness, No Focal Weakness, No Sensory Changes Psychological: No Symptoms Endocrine: No Symptoms Hematologic/Lymphatic: No Symptoms Immunological/Allergic: No Symptoms Medications & Allergies Home Medications: Home Medication List Omeprazole [Prilosec] 40 mg PO DAILY 11/14/15 [History Confirmed 02/06/21] Cholecalciferol (Vitamin D3) [Vitamin D] 5,000 unit PO DAILY 01/21/16 [History Confirmed 02/06/21] Albuterol Common Canister [Ventolin Common Canister] 2 puff IH Q4-6HPRN PRN 09/02/18 [History Confirmed 02/06/21] Ferrous Sulfate [Iron] 325 mg PO DAILY 09/02/18 [History Confirmed 02/06/21] Sertraline HCl 100 mg PO DAILY 09/02/18 [History Confirmed 02/06/21] Vit C/E/Zn/Coppr/Lutein/Zeaxan [Preservision Areds 2 Softgel] 2 cap PO BID 09/02/18 [History Confirmed 02/06/21] Amlodipine Besylate/Benazepril [Amlodipine-Benazepril 2.5-10] 1 tab PO DAILY 02/06/21 [History Confirmed 02/06/21] Amlodipine Besylate/Benazepril [Amlodipine-Benazepril 2.5-10] 1 tab PO DAILY 02/06/21 [History Confirmed 02/06/21] Budesonide/Formoterol Fumarate [Budesonide-Formoterol 80-4.5] 1 adh.patch IH TID 02/06/21 [History Confirmed 02/06/21] Calcium Carbonate [Tums] 600 mg PO DAILY 02/06/21 [History Confirmed 02/06/21] Cyanocobalamin (Vitamin B-12) [Cyanocobalamin Injection] 1,000 mcg IJ UD 02/06/21 [History Confirmed 02/06/21] Cyanocobalamin (Vitamin B-12) [Vitamin B12] 5,000 mcg PO DAILY 02/06/21 [History Confirmed 02/06/21] Multivitamin 1 each PO DAILY 02/06/21 [History Confirmed 02/06/21] Allergies/Adverse Reactions: Allergies Allergy/AdvReac Type Severity Reaction Status Date / Time naproxen [From Naprosyn] Allergy Mild Rash Verified 02/06/21 10:30 fluticasone furoate AdvReac Severe Anaphylactic Verified 02/06/21 13:21 [From Trelegy Ellipta] Reaction umeclidinium AdvReac Severe Anaphylactic Verified 02/06/21 13:21 [From Trelegy Ellipta] Reaction vilanterol AdvReac Severe Anaphylactic Verified 02/06/21 13:21 [From Trelegy Ellipta] Reaction adhesive tape AdvReac Mild Verified 02/06/21 10:30 - Past Medical History Past Medical History: Yes Neurological History: No Pertinent History ENT History: Cataracts Cardiac History: Hypertension, Myocardial Infarction (NH) Respiratory History: Asthma, Pneumonia Endocrine Medical History: No Pertinent History Musculoskelatal History: Arthritis GI Medical History: No Pertinent History, Hernia, Polyps History: No Pertinent History Pyscho-Social History: Anxiety, Depression Reproductive Disorders: Breast Cancer Comment: Heart attack is disagreed on by different doctors. Cholecystectomy, Hysterectomy, Mastectomy with reconstruction, Gastric bypass. HX RECALLED FROM PREVIOUS STAY - Female History Hx Last Menstrual Period: psot Are you now?: No - Past Surgical History Past Surgical History: Yes (hysterectomy, Breast L Ca) Neuro Surgical History: No Pertinent History Cardiac History: No Pertinent History, Cardiac Catheterization Respiratory Surgery: No Pertinent History GI Surgical History: Appendectomy, Cholecystectomy, Hernia Repair Genitourinary Surgical Hx: No Pertinent History Musculskeletal Surgical Hx: Orthopedic Surgery Female Surgical History: Hysterectomy, Mastectomy Other Surgical History: mastecomy.barriactric surgery. neck'C5,C6 fussion. HX RECALLED FROM PREVIOUS STAY - Social History Smoking Status: Unknown if ever smoked Exposure to second hand smoke: No Alcohol: None Drug Use: none - Physical Exam Vital Signs: Vital Signs - 24 hr Temp Pulse Resp BP Pulse Ox 02/07/21 18:00 47 L 14 151/57 98 02/07/21 17:00 97.6 F 47 L 14 160/63 95 02/07/21 16:00 48 L 14 147/61 100 02/07/21 15:00 48 L 14 137/56 100 02/07/21 14:00 53 L 14 143/60 100 02/07/21 13:57 60 14 100 02/07/21 13:00 56 L 16 145/65 100 02/07/21 12:00 56 L 16 180/71 100 02/07/21 11:00 55 L 15 146/67 100 02/07/21 10:00 51 L 12 154/57 100 02/07/21 09:00 54 L 16 163/75 100 02/07/21 08:27 51 L 12 153/69 100 02/07/21 08:00 96.9 F 53 L 18 147/60 99 02/07/21 07:29 56 L 02/07/21 07:00 96.8 F 53 L 16 147/60 98 02/07/21 06:00 97.2 F 54 L 16 158/66 98 02/07/21 05:51 49 L 14 99 02/07/21 05:00 49 L 20 165/72 98 02/07/21 04:00 48 L 14 164/69 98 02/07/21 03:00 49 L 14 169/68 98 02/07/21 02:00 50 L 14 177/80 99 02/07/21 01:00 51 L 14 157/66 02/07/21 00:05 49 L 14 99 02/07/21 00:01 51 L 02/07/21 00:00 97.3 F 51 L 14 170/68 02/06/21 23:00 49 L 14 172/78 02/06/21 22:00 50 L 14 169/69 99 02/06/21 21:00 46 L 14 159/64 02/06/21 20:00 97.2 F 46 L 14 149/70 99 02/06/21 19:00 48 L 14 163/70 99 General Appearance: severe distress, alert, anxiety Neurologic Exam: alert, oriented x 3, No motor deficits Eye Exam: PERRL/EOMI, eyes nml inspection Ears, Nose, Throat Exam: normal ENT inspection, TMs normal, pharynx normal, moist mucous membranes Neck Exam: normal inspection, non-tender, supple, full range of motion Respiratory Exam: diminished breath sounds, accessory muscle use, wheezing, No respiratory distress Cardiovascular Exam: normal peripheral pulses, tachycardia Gastrointestinal/Abdomen Exam: soft, normal bowel sounds, No tenderness, No mass Back Exam: normal inspection, normal range of motion, No CVA tenderness, No vertebral tenderness Extremity Exam: normal inspection, normal range of motion, pelvis stable Skin Exam: normal color, warm, dry, No rash Lymphatic Exam: No adenopathy Results - Labs Lab/Micro Results: Lab Results-Last 24 Hours 02/07/21 02/07/21 02/07/21 Range/Units 05:51 05:51 11:50 WBC 6.5 (4.0-10.5) K/mm3 RBC 3.09 L (4.1-5.4) M/mm3 Hgb 9.3 L (12.0-16.0) gm/dl Hct 31.3 L (35-47) % MCV 101.3 H (78-100) fl MCH 30.1 (26-32) pg MCHC 29.7 L (32-36) g/dl RDW 14.9 H (11.5-14.0) % Plt Count 154 (150-450) K/mm3 MPV 9.9 (7.5-11.0) fl Gran % 88.1 H (36.0-66.0) % Eos # (Auto) 0 (0-0.5) Absolute Lymphs (auto) 0.67 L (1.0-4.6) Absolute Monos (auto) 0.10 (0.0-1.3) Lymphocytes % 10.4 L (24.0-44.0) % Monocytes % 1.5 (0.0-12.0) % Eosinophils % 0.0 (0.00-5.0) % Basophils % 0.0 (0.0-0.4) % Absolute Granulocytes 5.70 (1.4-6.9) Basophils # 0 (0-0.4) Puncture Site RIGHT RADIAL pCO2 31 L (35-45) mmHg pO2 152 H* (75-100) mmHg Base Excess -7.9 L (-2.0-2.0) O2 Saturation 95.7 (94-100) g/dF ABG pH 7.34 L (7.35-7.45) ABG HCO3 16.7 L* (22-28) ABG O2 Sat (Measured) 97.9 (95-100) % Hernan Test YES A-a Gradient 59 a/A Ratio 0.72 Hemoglobin 9.7 Carboxyhemoglobin 0.9 (0.0-6.9) % THgb Methemoglobin 1.3 L (1.4-1.5) % Temperature 37.0 C POC O2 Flow Rate 35 % Vent Mode CPAP Inspiratory BiPAP 6 Expiratory BiPAP 4 Sodium 138 (137-145) mmol/L Potassium 5.0 5.0 (3.5-5.1) mmol/L Chloride 115 H (98-107) mmol/L Carbon Dioxide 16 L* (22-30) mmol/L Anion Gap 12.7 (5-15) MEQ/L BUN 30 H (7-17) mg/dL Creatinine 1.31 H (0.52-1.04) mg/dL Estimated GFR 42.2 ML/MIN Glucose 132 H (74-106) mg/dL Calcium 9.0 (8.4-10.2) mg/dL - Radiology Impressions Radiology Exams & Impressions: Radiology Procedures Category Date Time Status CHEST 1 VIEW (PORTABLE) Stat Exams 02/06/21 11:23 Completed CHEST 1 VIEW (PORTABLE) Stat Exams 02/06/21 13:03 Completed CHEST 1 VIEW (PORTABLE) Stat Exams 02/07/21 07:18 Completed RAD/CHEST 1 VIEW (PORTABLE) Indication: Short of breath and hoarseness. Right tongue swelling. Comparison: March 09, 2019. Portable chest remains clear again with incidental right lung calcified granuloma. Heart not enlarged. Bony thorax intact again with osteopenia, degenerative changes, lower cervical fusion, and left breast surgical clips. Impression: Continued nonacute chest with chronic features. - Other Procedures and Tests Respiratory Therapy 02/06/21 23:25 Respiratory Therapy Assessment DAILY Assessment/Plan (1) Angioedema Current Visit: Yes Status: Acute Qualifiers: Encounter type: initial encounter Qualified Code(s): T78.3XXA - Angioneurotic edema, initial encounter Assessment & Plan: Chief Complaint Diagnosis ANGIOEDEMA Allergies Allergy/AdvReac Type Severity Reaction Status Date / Time naproxen [From Naprosyn] Allergy Mild Rash Verified 02/06/21 10:30 fluticasone furoate AdvReac Severe Anaphylactic Verified 02/06/21 13:21 [From Trelegy Ellipta] Reaction umeclidinium AdvReac Severe Anaphylactic Verified 02/06/21 13:21 [From Trelegy Ellipta] Reaction vilanterol AdvReac Severe Anaphylactic Verified 02/06/21 13:21 [From Trelegy Ellipta] Reaction adhesive tape AdvReac Mild Verified 02/06/21 10:30 Vital Signs (Last 24 hours) Temp Pulse Resp BP Pulse Ox 02/07/21 18:00 47 L 14 151/57 98 02/07/21 17:00 97.6 F 47 L 14 160/63 95 02/07/21 16:00 48 L 14 147/61 100 02/07/21 15:00 48 L 14 137/56 100 02/07/21 14:00 53 L 14 143/60 100 02/07/21 13:57 60 14 100 02/07/21 13:00 56 L 16 145/65 100 02/07/21 12:00 56 L 16 180/71 100 02/07/21 11:00 55 L 15 146/67 100 02/07/21 10:00 51 L 12 154/57 100 02/07/21 09:00 54 L 16 163/75 100 02/07/21 08:27 51 L 12 153/69 100 02/07/21 08:00 96.9 F 53 L 18 147/60 99 02/07/21 07:29 56 L 02/07/21 07:00 96.8 F 53 L 16 147/60 98 02/07/21 06:00 97.2 F 54 L 16 158/66 98 02/07/21 05:51 49 L 14 99 02/07/21 05:00 49 L 20 165/72 98 02/07/21 04:00 48 L 14 164/69 98 02/07/21 03:00 49 L 14 169/68 98 02/07/21 02:00 50 L 14 177/80 99 02/07/21 01:00 51 L 14 157/66 02/07/21 00:05 49 L 14 99 02/07/21 00:01 51 L 02/07/21 00:00 97.3 F 51 L 14 170/68 02/06/21 23:00 49 L 14 172/78 02/06/21 22:00 50 L 14 169/69 99 02/06/21 21:00 46 L 14 159/64 02/06/21 20:00 97.2 F 46 L 14 149/70 99 02/06/21 19:00 48 L 14 163/70 99 Home Medications Medication Instructions Recorded Confirmed Last Taken Type Amlodipine Besylate/Benazepril 1 tab PO DAILY 02/06/21 02/06/21 Unknown History [Amlodipine-Benazepril 2.5-10] Amlodipine Besylate/Benazepril 1 tab PO DAILY 02/06/21 02/06/21 Unknown History [Amlodipine-Benazepril 2.5-10] Budesonide/Formoterol Fumarate 1 adh.patch IH TID 02/06/21 02/06/21 Unknown History [Budesonide-Formoterol 80-4.5] Calcium Carbonate [Tums] 600 mg PO DAILY 02/06/21 02/06/21 Unknown History Cyanocobalamin (Vitamin B-12) 1,000 mcg IJ UD 02/06/21 02/06/21 01/07/21 History [Cyanocobalamin Injection] Cyanocobalamin (Vitamin B-12) 5,000 mcg PO DAILY 02/06/21 02/06/21 Unknown History [Vitamin B12] Multivitamin 1 each PO DAILY 02/06/21 02/06/21 Unknown History Current Medications Generic Name Dose Route Start Last Admin Trade Name Freq PRN Reason Stop Dose Admin Acetaminophen 650 mg 02/06/21 14:46 Acetaminophen 325 Mg Tablet PO 03/08/21 14:45 Q4H PRN PRN PAIN AND/OR FEVER Albuterol Sulfate 2 puff 02/07/21 09:37 Albuterol Common Canister Inhaler IH 03/09/21 09:36 Q4H PRN PRN SOB/Wheezing Albuterol/Ipratropium 3 ml 02/06/21 14:46 02/07/21 13:56 Ipratropium/Albuterol Sulfate 3 Ml Ampul.[facility] 03/08/21 14:45 3 ml Q6HRT TONJA Administration Amlodipine Besylate 2.5 mg 02/07/21 10:00 02/07/21 13:03 Amlodipine Besylate 5 Mg Tablet PO 03/09/21 09:59 Not Given DAILY TONJA Benazepril HCl 10 mg 02/07/21 10:00 02/07/21 13:03 Benazepril Hcl 10 Mg Tablet PO 03/09/21 09:59 Not Given DAILY TONJA Calcium Carbonate/Glycine 750 mg 02/07/21 10:00 02/07/21 13:04 Calcium Carbonate 750 Mg 750 Mg Tab.Chew PO 03/09/21 09:59 Not Given DAILY TONJA Cholecalciferol 5,000 unit 02/07/21 10:00 02/07/21 13:04 Cholecalciferol (Vitamin D3) 1000 Unit Tablet PO 03/09/21 09:59 Not Given DAILY TONJA Cyanocobalamin 1,000 mcg 02/07/21 10:00 02/07/21 15:20 Cyanocobalamin 1000 Mcg/Ml Vial IM 03/09/21 09:59 1,000 mcg Q30D TONJA Administration Diphenhydramine HCl 25 mg 02/06/21 14:46 02/07/21 12:21 Diphenhydramine Hcl 50 Mg/Ml Vial IV 03/08/21 14:45 25 mg Q6H PRN PRN Administration Epinephrine 0.5 ml 02/06/21 14:46 Racepinephrine Inh Goldie 0.5 Ml [facility] 03/08/21 14:45 Q6H PRN PRN SHORTNESS OF BREATH Famotidine 20 mg 02/06/21 22:00 02/07/21 09:37 Famotidine 20 Mg/1 Vial IV 03/08/21 21:59 20 mg Q12HT TONJA Administration Ferrous Sulfate 325 mg 02/07/21 10:00 02/07/21 13:03 Ferrous Sulfate 325 Mg Tablet PO 03/09/21 09:59 Not Given DAILY TONJA Fentanyl Citrate 1,500 mcg/ 150 mls @ 8.754 mls/hr 02/06/21 13:30 02/06/21 13:55 Sodium Chloride IV 02/11/21 13:29 1 mcg/kg/hr .Q17H9M TONJA 8.754 mls/hr Administration Protocol 1 MCG/KG/HR Propofol 100 mls @ 15.606 mls/hr 02/06/21 15:09 02/07/21 15:20 Propofol 1000 Mg/100 Ml Bottle IV 03/08/21 15:08 35 mcg/kg/min .Q6H25M PRN 18.207 mls/hr SEDATION Administration Protocol 30 MCG/KG/MIN Methylprednisolone Sodium Succinate 80 mg 02/07/21 12:00 02/07/21 17:41 Methylprednis Sod Succ 125 Mg/2 Ml Vial IV 03/09/21 11:59 80 mg Q6HT TONJA Administration Miscellaneous Information 1 each 02/07/21 10:00 Medication Intervention 1 Each Each PO 03/09/21 09:59 .RN TO CHECK ON TONJA Miscellaneous Information 1 each 02/07/21 10:00 Medication Intervention 1 Each Each PO 03/09/21 09:59 .RT TO CHECK ON TONJA Multivitamins Therapeutic 1 tab 02/07/21 10:00 02/07/21 13:04 Multivitamins,Therapeutic 1 Tab Tab PO 03/09/21 09:59 Not Given DAILY TONJA Multivitamins/Minerals 2 tab 02/07/21 10:00 02/07/21 13:04 Beta-Carotene(A) W-C And E/Min 1 Tab Tablet PO 03/09/21 09:59 Not Given BID TONJA Ondansetron HCl 4 mg 02/07/21 11:09 02/07/21 11:29 Ondansetron Hcl 4 Mg/2 Ml Vial IV 03/09/21 11:08 4 mg Q4H PRN PRN Administration NAUSEA/VOMITING Pantoprazole Sodium 40 mg 02/07/21 10:00 02/07/21 13:04 Protonix (Pantoprazole) 40 Mg Tablet PO 03/09/21 09:59 Not Given DAILY TONJA Propofol 50 mg 02/07/21 13:21 02/07/21 13:29 Propofol 10 Mg/Ml 20ml Vial IV 03/09/21 13:20 50 mg .Q10MIN PRN Administration Sertraline HCl 100 mg 02/07/21 10:00 02/07/21 13:04 Sertraline Hcl 50 Mg Tab PO 03/09/21 09:59 Not Given DAILY TONJA Sodium Chloride 10 ml 02/06/21 22:00 02/07/21 17:57 Normal Saline 10 Ml Flush IV 03/08/21 21:59 10 ml Q8HT TONJA Administration Discontinued Medications Generic Name Dose Route Start Last Admin Trade Name Dom PRN Reason Stop Dose Admin Methylprednisolone Sodium 0 mg 02/06/21 10:31 02/06/21 10:35 Succinate 125 mg/ Sterile IV 02/06/21 10:32 125 mg Water 2 ml STAT ONE Administration Methylprednisolone Sodium 0 mg 02/06/21 18:00 02/07/21 05:48 Succinate 80 mg/ Sterile Water IV 03/08/21 17:59 80 mg 2 ml Q6HT TONJA Administration Diphenhydramine HCl 25 mg 02/06/21 10:31 02/06/21 10:36 Diphenhydramine Hcl 50 Mg/Ml Vial IV 02/06/21 10:32 25 mg STAT ONE Administration Diphenhydramine HCl Confirm 02/06/21 10:33 Diphenhydramine Hcl 50 Mg/Ml Vial Administered 02/06/21 10:34 Dose 50 mg .ROUTE .STK-MED ONE Epinephrine 0.5 ml 02/06/21 10:32 02/06/21 10:40 Racepinephrine Inh Goldie 0.5 Ml Neb IH 02/06/21 10:33 0.5 ml STAT ONE Administration Epinephrine Confirm 02/06/21 10:34 Racepinephrine Inh Goldie 0.5 Ml Neb Administered 02/06/21 10:35 Dose 0.5 ml IH .STK-MED ONE Epinephrine Confirm 02/07/21 12:32 Racepinephrine Inh Golide 0.5 Ml Neb Administered 02/07/21 12:33 Dose 0.5 ml IH .STK-MED ONE Etomidate 20 mg 02/06/21 12:50 Etomidate 20 Mg/10 Ml Amp IV 02/06/21 12:51 .STK-MED ONE Famotidine 20 mg 02/06/21 10:31 02/06/21 10:36 Famotidine 20 Mg/1 Vial IV 02/06/21 10:32 20 mg STAT ONE Administration Famotidine Confirm 02/06/21 10:33 Famotidine 20 Mg/1 Vial Administered 02/06/21 10:34 Dose 20 mg IV .STK-MED ONE Fentanyl Citrate Confirm 02/06/21 13:11 Fentanyl Citrate 100 Mcg/2 Ml* Vial Administered 02/06/21 13:12 Dose 100 mcg .ROUTE .STK-MED ONE Fentanyl Citrate Confirm 02/06/21 13:16 Fentanyl Citrate 100 Mcg/2 Ml* Vial Administered 02/06/21 13:17 Dose 100 mcg .ROUTE .STK-MED ONE Fentanyl Citrate 50 mcg 02/07/21 13:21 Fentanyl Citrate 100 Mcg/2 Ml* Vial IV 02/07/21 15:00 .Q15MIN PRN Propofol Confirm 02/06/21 12:59 Propofol 1000 Mg/100 Ml Bottle Administered 02/06/21 13:00 Dose 100 mls @ ud IV .STK-MED ONE Sodium Chloride Confirm 02/06/21 13:57 Sodium Chloride 0.9% 1000 Ml Administered 02/06/21 13:58 Dose 1,000 mls @ ud .ROUTE .STK-MED ONE Sodium Chloride 1,000 mls @ 100 mls/hr 02/06/21 14:15 02/06/21 14:28 Sodium Chloride 0.9% 1000 Ml IV 03/08/21 14:14 100 mls/hr .Q10H TONJA Administration Sodium Chloride 1,000 mls @ 999 mls/hr 02/06/21 14:29 02/06/21 14:29 Sodium Chloride 0.9% 1000 Ml IV 02/06/21 15:29 999 mls/hr .Q1H1M STA Administration Sodium Chloride Confirm 02/07/21 09:19 Sodium Chloride 0.9% 1000 Ml Administered 02/07/21 09:20 Dose 1,000 mls @ ud .ROUTE .STK-MED ONE Methylprednisolone Sodium Succinate Confirm 02/06/21 10:34 Methylprednis Sod Succ 125 Mg/2 Ml Vial Administered 02/06/21 10:35 Dose 125 mg .ROUTE .STK-MED ONE Methylprednisolone Sodium Succinate Confirm 02/06/21 17:45 Methylprednis Sod Succ 125 Mg/2 Ml Vial Administered 02/06/21 17:46 Dose 125 mg .ROUTE .STK-MED ONE Propofol 200 mg 02/06/21 12:50 Propofol 10 Mg/Ml 20ml Vial IV 02/06/21 12:51 .STK-MED ONE Sterile Water Confirm 02/06/21 10:34 Water For Injection,Sterile 10 Ml Vial Administered 02/06/21 10:35 Dose 10 ml IJ .STK-MED ONE Succinylcholine Chloride 1 mg 02/06/21 12:50 Succinylcholine Chloride 200mg/10 Ml Vial .ROUTE 02/06/21 12:51 .STK-MED ONE Intake & Output (Last 24 hours) 02/05/21 02/06/21 02/07/21 02/08/21 11:59 11:59 11:59 11:59 Intake Total 2299 2299 Output Total 1100 350 Balance 1199 1949 Weight 87.543 kg 87.3 kg Laboratory Results (Last 24 hours) 02/07/21 02/07/21 02/07/21 11:50 05:51 05:51 WBC 6.5 RBC 3.09 L Hgb 9.3 L Hct 31.3 L MCV 101.3 H MCH 30.1 MCHC 29.7 L RDW 14.9 H Plt Count 154 MPV 9.9 Gran % 88.1 H Eos # (Auto) 0 Absolute Lymphs (auto) 0.67 L Absolute Monos (auto) 0.10 Lymphocytes % 10.4 L Monocytes % 1.5 Eosinophils % 0.0 Basophils % 0.0 Absolute Granulocytes 5.70 Basophils # 0 Puncture Site RIGHT RADIAL pCO2 31 L pO2 152 H* Base Excess -7.9 L O2 Saturation 95.7 ABG pH 7.34 L ABG HCO3 16.7 L* ABG O2 Sat (Measured) 97.9 Hernan Test YES A-a Gradient 59 a/A Ratio 0.72 Hemoglobin 9.7 Carboxyhemoglobin 0.9 Methemoglobin 1.3 L Temperature 37.0 POC O2 Flow Rate 35 Vent Mode CPAP Inspiratory BiPAP 6 Expiratory BiPAP 4 Sodium 138 Potassium 5.0 5.0 Chloride 115 H Carbon Dioxide 16 L* Anion Gap 12.7 BUN 30 H Creatinine 1.31 H Estimated GFR 42.2 Glucose 132 H Calcium 9.0 Orders (Last 24 hours) Category Date Time Status Nursing [Miscellaneous Nursing Order] ROUTINE Care 02/06/21 22:00 Active Nursing [Miscellaneous Nursing Order] ROUTINE Care 02/07/21 06:00 Active CHEST 1 VIEW (PORTABLE) Stat Exams 02/07/21 07:18 Completed ARTERIAL BLOOD GASES Urgent Lab 02/07/21 11:50 Completed BMP AM.LAB Lab 02/07/21 05:51 Completed CBC W DIFF AM.LAB Lab 02/07/21 05:51 Completed Albuterol Common Canister [Ventolin Common Canister* Med 02/07/21 09:37 Active ] 2 puff IH Q4H PRN PRN Amlodipine Besylate 5 mg [Norvasc 5 mg] Med 02/07/21 10:00 Active 2.5 mg PO DAILY Benazepril HCl 10 mg [Lotensin 10 MG] Med 02/07/21 10:00 Active 10 mg PO DAILY Beta-Carotene(A) W-C & E/Min [Ocuvite Tablet] Med 02/07/21 10:00 Active 2 tab PO BID Calcium Carbonate 750 mg [Tums EX 750 MG] Med 02/07/21 10:00 Active 750 mg PO DAILY Cholecalciferol (Vitamin D3) [Vitamin D] Med 02/07/21 10:00 Active 5,000 unit PO DAILY Cyanocobalamin 1000 Mcg/ml [Cyanocobalamin B-12 1000 Med 02/07/21 10:00 Active MCG/ML] 1,000 mcg IM Q30D Epinephrine-Rac 2.25% [Racepinephrine INH Solution 2 Med 02/07/21 12:32 Discontinued .25%] 0.5 ml IH .STK-MED ONE Famotidine 20 mg Vial [Pepcid 20 MG VIAL] Med 02/06/21 22:00 Active 20 mg IV Q12HT Fentanyl Citrate 100 Mcg/2 ml* [Sublimaze 100 Mcg/2 ml* Med 02/07/21 13:21 Discontinued ] 50 mcg IV .Q15MIN PRN Ferrous Sulfate 325 mg [Feosol 325 mg] Med 02/07/21 10:00 Active 325 mg PO DAILY Medication Intervention Med 02/07/21 10:00 Active 1 each PO .RN TO CHECK ON Medication Intervention Med 02/07/21 10:00 Active 1 each PO .RT TO CHECK ON Methylprednis Sod Succ 125 mg* [solu-MEDROL] Med 02/07/21 12:00 Active 80 mg IV Q6HT Methylprednis Sod Succ 125 mg* [solu-MEDROL] 80 mg Med 02/06/21 18:00 Discontinued Water For Injection,Sterile [Sterile H2O 10 ml] 2 ml IV Q6HT Multivitamins,Therapeutic Tab* [Theragran Multivitamin* Med 02/07/21 10:00 Active ] 1 tab PO DAILY NaCl 0.9% 10 ML FLUSH [Sodium Chloride 0.9% 10 ML FLUSH Med 02/06/21 22:00 Active Syringe] 10 ml IV Q8HT NaCl 0.9% 1000 ml [Sodium Chloride 0.9% 1000 ML] 1,000 Med 02/07/21 09:19 Discontinued ml .ROUTE UD Ondansetron HCl 4 mg/2 ml [Zofran 4 MG/2 ML VIAL] Med 02/07/21 11:09 Active 4 mg IV Q4H PRN PRN PANTOPRAZOLE 40 mg Tablet [Protonix 40MG Tablet] Med 02/07/21 10:00 Active 40 mg PO DAILY Propofol 200 mg/20 ml [Diprivan 200 mg/20 ml] Med 02/07/21 13:21 Active 50 mg IV .Q10MIN PRN Sertraline HCl 50 mg [Zoloft 50 mg Tablet] Med 02/07/21 10:00 Active 100 mg PO DAILY Respiratory Therapy Assessment DAILY RT 02/06/21 23:25 Active Patient Care Notes (Last 24 hours) 02/07/21 17:17 Late Entry Note by Jade Weathers FAMILY REQUESTED TO BE TRANSFERRED OUT. THIS NURSE CALLED [facility] IN [place] WHO RESPONDED WITH NO THEY WEREN'T ABLE TO TAKE PATIENT. TRANSFER CENTER STATED THAT SHE WOULD BE PUT ON THE LIST AND STILL WAITING ON BED. Initialized on 02/07/21 17:17 - END OF NOTE 02/07/21 13:41 Respiratory Note by Sara Chiu This am decreased patient sedation and vent down to attempt extubation. Had checked air movement with cuff deflated twice while weaning. Both times could hear air movement with stethoscope and without Had weaned to 6 pressure support and 4 of peep with 35% patient was alert and oriented and abg were normal. Clement stated that airway felt more swollen but considered that it was just where she could now feel the tube since her sedation was decreased. Sent all results to Dr. Alegria who agreed to extubat and do a racemic treatment. Before extubating I suctioned patient and then deflated cuff on ET tube again and listened. I did not hear air movement with stethoscope or audilbe. I placed patient back on a rate on vent and listened a second time. Still did not hear air movement. At that time placed cuff back in tube and contacted dr. alegria who requested that she be placed back on sedation and a rate. the family had requested her to be transferred to [facility] and Dr. Alegria was okay with that or jesus haashley so that she could sese and ent. Nurse Jade was in room for this scenario and aware and was checking for a bed else where. [email or web address] remy Initialized on 02/07/21 13:41 - END OF NOTE 02/07/21 12:30 Nursing Note by Jade Weathers ATTEMPTED TO EXTUBATE PATIENT. AT 1215. PATIENT TOLERATED PROCEDURE FAIRLY. NO AIR MOVEMENT HEARD. PATIENT REMAINS INTUBATED, VITALS STABLE Initialized on 02/07/21 12:30 - END OF NOTE 02/07/21 10:59 Nursing Note by Jade Weathers ROUNDED WITH DR. [place] THIS AM, CONTINUE TO LET PULMONOGY WEAN PATIENT OFF VENT. ADDRESSED FAMILY CONCERNS WITH B/P. STATED THAT THEY WOULD ADDRESS THE BLOOD PRESSURE SITUATION WHEN PATIENT IS OFF THE VENT AND THAT BLOOD PRESSURE WAS STABLE FROM HIS STAND POINT. Initialized on 02/07/21 10:59 - END OF NOTE 02/07/21 06:30 (created 02/07/21 06:45) Nursing Note by Brigitte Kaiser This nurse stopped the Fentanyl drip at 0625. Nursing order stated to stop at 0600. Respiratory asked to wait until 0630 to stop the drip. Stopped drip will continue with the 35mcg of propofol at this time until ready to wean. Will continue to monitor the patient at this time. Initialized on 02/07/21 06:45 - END OF NOTE 02/06/21 19:51 Respiratory Note by Sanjana Kaiser PT CONTINUES TO REST ON SEDATION. B/S CLEAR DAUGHTERS AT BEDSIDE Initialized on 02/06/21 19:51 - END OF NOTE Code(s): T78.3XXA - ANGIONEUROTIC EDEMA, INITIAL ENCOUNTER (2) Acute respiratory distress syndrome Current Visit: Yes Status: Acute Code(s): J80 - ACUTE RESPIRATORY DISTRESS SYNDROME
[2021-02-07] MEDS: SUBLIMAZE 1000 Mcg/ 20 Ml*** 1,500 MCG in Sodium Chloride 0.9% 150 ML 120 ML IV SCH (20:54)
[2021-02-08] MEDS: solu-MEDROL IV SCH ×3 (00:53→11:57)
[2021-02-08] MEDS: DUONEB 0.5-3 MG/3 ml Neb IH SCH ×2 (01:10→07:54)
[2021-02-08] MEDS: Propofol 1000 mg/100 ml Bottle 100 ML IV PRN ×3 (01:31→13:09)
[2021-02-08] MEDS: Sodium Chloride 0.9% 10 ML FLUSH Syringe IV SCH (06:17)
--- NOTE | 2021-02-08 07:30 | PCM.NOTE ---
Date and Time: 02/08/21723 Subjective Assessment: failed intubation yesterday, Dr José Alegria advised ENT consult. We donothave a ENT consult on site and family have opted patient to be transferred to [place]. [facility] contacted. Awaiting bed. - Review of Systems Constitutional: No Fever, No Chills Eyes: No Symptoms Ears, Nose, & Throat: No Symptoms Respiratory: Other (intubated), No Cough, No Short Of Breath Cardiac: No Chest Pain, No Edema, No Syncope Abdominal/Gastrointestinal: No Abdominal Pain, No Nausea, No Vomiting, No Diarrhea Genitourinary Symptoms: No Dysuria Musculoskeletal: No Back Pain, No Neck Pain Skin: No Rash Neurological: No Dizziness, No Focal Weakness, No Sensory Changes Psychological: No Symptoms Endocrine: No Symptoms Hematologic/Lymphatic: No Symptoms Immunological/Allergic: No Symptoms Objective Exam General Appearance: no apparent distress, alert Neurologic Exam: alert, other (intubated), No motor deficits Skin Exam: normal color, warm, dry Eye Exam: PERRL, EOMI, eyes nml inspection Ears, Nose, Throat Exam: normal ENT inspection, pharynx normal, moist mucous membranes Neck Exam: normal inspection, non-tender, supple Respiratory Exam: wheezing, No respiratory distress Cardiovascular Exam: regular rate/rhythm, normal heart sounds Gastrointestinal/Abdomen Exam: soft, No tenderness, No mass Extremity Exam: normal inspection, normal range of motion Back Exam: normal inspection, normal range of motion, No CVA tenderness, No vertebral tenderness Pelvic Exam: deferred Rectal Exam: deferred OBJECTIVE DATA Vital Signs: Vital Signs - 24 hr Temp Pulse Resp BP Pulse Ox 02/08/21 06:00 43 L 14 153/60 99 02/08/21 05:00 45 L 14 144/58 99 02/08/21 04:00 46 L 14 140/52 99 02/08/21 03:00 97.1 F 46 L 14 139/56 98 02/08/21 02:00 50 L 14 131/52 99 02/08/21 01:10 49 L 14 99 02/08/21 01:00 48 L 14 154/60 99 02/08/21 00:01 46 L 02/08/21 00:00 97.2 F 46 L 14 153/59 99 02/07/21 23:00 47 L 14 147/61 99 02/07/21 22:00 46 L 16 145/58 100 02/07/21 21:00 49 L 16 141/55 97 02/07/21 20:00 51 L 14 144/73 02/07/21 19:20 51 L 14 98 02/07/21 19:01 51 L 14 98 02/07/21 19:00 97 F 48 L 14 152/58 97 02/07/21 18:00 47 L 14 151/57 98 02/07/21 17:00 97.6 F 47 L 14 160/63 95 02/07/21 16:00 48 L 14 147/61 100 02/07/21 15:00 48 L 14 137/56 100 02/07/21 14:00 53 L 14 143/60 100 02/07/21 13:57 60 14 100 02/07/21 13:00 56 L 16 145/65 100 02/07/21 12:00 56 L 16 180/71 100 02/07/21 11:00 55 L 15 146/67 100 02/07/21 10:00 51 L 12 154/57 100 02/07/21 09:00 54 L 16 163/75 100 02/07/21 08:27 51 L 12 153/69 100 02/07/21 08:00 96.9 F 53 L 18 147/60 99 02/07/21 07:29 56 L Pain Assessment - Last Documented Pain Intensity 0 Pain Scale Used FLACC Intake and Output: Intake & Output 02/05/21 02/06/21 02/07/21 02/08/21 11:59 11:59 11:59 11:59 Intake Total 2299 2693 Output Total 1100 850 Balance 1199 1843 Weight 87.543 kg 87.3 kg 87.5 kg Lab Results: Lab Results-Last 24 Hours 02/07/21 Range/Units 11:50 Puncture Site RIGHT RADIAL pCO2 31 L (35-45) mmHg pO2 152 H* (75-100) mmHg Base Excess -7.9 L (-2.0-2.0) O2 Saturation 95.7 (94-100) g/dF ABG pH 7.34 L (7.35-7.45) ABG HCO3 16.7 L* (22-28) ABG O2 Sat (Measured) 97.9 (95-100) % Hernan Test YES A-a Gradient 59 a/A Ratio 0.72 Hemoglobin 9.7 Carboxyhemoglobin 0.9 (0.0-6.9) % THgb Methemoglobin 1.3 L (1.4-1.5) % Potassium 5.0 (3.5-5.1) Temperature 37.0 C POC O2 Flow Rate 35 % Vent Mode CPAP Inspiratory BiPAP 6 Expiratory BiPAP 4 Radiology Exams: Radiology Procedures Category Date Time Status CHEST 1 VIEW (PORTABLE) Stat Exams 02/06/21 11:23 Completed CHEST 1 VIEW (PORTABLE) Stat Exams 02/06/21 13:03 Completed CHEST 1 VIEW (PORTABLE) Stat Exams 02/07/21 07:18 Completed RAD/CHEST 1 VIEW (PORTABLE) Indication: Patient on ventilator. Comparison: One day earlier. Portable chest demonstrates interval manipulation of NG tube with tip now in stomach. Stable endotracheal tube tip 4 cm above tosha. Remaining heart and lungs unremarkable again with incidental old granulomatous disease. No new/acute abnormalities. Multi-Disciplinary Progress Notes: Multi-Disciplinary Progress Notes 02/07/21 13:41 Respiratory Note by Sara Chiu This am decreased patient sedation and vent down to attempt extubation. Had checked air movement with cuff deflated twice while weaning. Both times could hear air movement with stethoscope and without Had weaned to 6 pressure support and 4 of peep with 35% patient was alert and oriented and abg were normal. Clement stated that airway felt more swollen but considered that it was just where she could now feel the tube since her sedation was decreased. Sent all results to Dr. Alegria who agreed to extubat and do a racemic treatment. Before extubating I suctioned patient and then deflated cuff on ET tube again and listened. I did not hear air movement with stethoscope or audilbe. I placed patient back on a rate on vent and listened a second time. Still did not hear air movement. At that time placed cuff back in tube and contacted dr. alegria who requested that she be placed back on sedation and a rate. the family had requested her to be transferred to [facility] and Dr. Alegria was okay with that or jesus haashley so that she could sese and ent. Nurse Hansen was in room for this scenario and aware and was checking for a bed else where. [email or web address] Initialized on 02/07/21 13:41 - END OF NOTE Assessment/Plan (1) Angioedema Current Visit: Yes Status: Acute Qualifiers: Encounter type: initial encounter Qualified Code(s): T78.3XXA - Angioneurotic edema, initial encounter Code(s): T78.3XXA - ANGIONEUROTIC EDEMA, INITIAL ENCOUNTER (2) Acute respiratory distress syndrome Current Visit: Yes Status: Acute Assessment & Plan: Last Vital Signs Temp 97.1 F 02/08/21 03:00 Pulse 43 L 02/08/21 06:00 Resp 14 02/08/21 06:00 BP 153/60 02/08/21 06:00 Pulse Ox 99 02/08/21 06:00 Allergies naproxen [From Naprosyn] Allergy (Mild, Verified 02/06/21 10:30) Rash fluticasone furoate [From Trelegy Ellipta] Adverse Reaction (Severe, Verified 02/06/21 13:21) Anaphylactic Reaction umeclidinium [From Trelegy Ellipta] Adverse Reaction (Severe, Verified 02/06/21 13:21) Anaphylactic Reaction vilanterol [From Trelegy Ellipta] Adverse Reaction (Severe, Verified 02/06/21 13:21) Anaphylactic Reaction adhesive tape Adverse Reaction (Mild, Verified 02/06/21 10:30) BLISTERS Active Medications Acetaminophen (Acetaminophen 325 Mg Tablet) 650 mg PO Q4H PRN PRN PRN Reason: PAIN AND/OR FEVER Stop: 03/08/21 14:45 Albuterol Sulfate (Albuterol Common Canister Inhaler) 2 puff IH Q4H PRN PRN PRN Reason: SOB/Wheezing Stop: 03/09/21 09:36 Albuterol/Ipratropium (Ipratropium/Albuterol Sulfate 3 Ml Ampul.Neb) 3 ml IH Q6HRT [facility] Stop: 03/08/21 14:45 Last Admin: 02/08/21 01:10 Dose: 3 ml Amlodipine Besylate (Amlodipine Besylate 5 Mg Tablet) 2.5 mg PO DAILY TONJA Stop: 03/09/21 09:59 Last Admin: 02/07/21 13:03 Dose: Not Given Artificial Tears (Lanolin/Min Oil/Petrolat Wht 3.5 Gm Tube) 1 gm OP BID [facility] Stop: 03/10/21 09:59 Benazepril HCl (Benazepril Hcl 10 Mg Tablet) 10 mg PO DAILY [facility] Stop: 03/09/21 09:59 Last Admin: 02/07/21 13:03 Dose: Not Given Calcium Carbonate/Glycine (Calcium Carbonate 750 Mg 750 Mg Tab.Chew) 750 mg PO DAILY [facility] Stop: 03/09/21 09:59 Last Admin: 02/07/21 13:04 Dose: Not Given Chlorhexidine Gluconate (Chlorhexidine Gluconate 15 Ml Mouthwash) 15 ml MM BID [facility] Stop: 03/10/21 09:59 Cholecalciferol (Cholecalciferol (Vitamin D3) 1000 Unit Tablet) 5,000 unit PO DAILY [facility] Stop: 03/09/21 09:59 Last Admin: 02/07/21 13:04 Dose: Not Given Cyanocobalamin (Cyanocobalamin 1000 Mcg/Ml Vial) 1,000 mcg IM Q30D [facility] Stop: 03/09/21 09:59 Last Admin: 02/07/21 15:20 Dose: 1,000 mcg Diphenhydramine HCl (Diphenhydramine Hcl 50 Mg/Ml Vial) 25 mg IV Q6H PRN PRN Stop: 03/08/21 14:45 Last Admin: 02/07/21 19:57 Dose: 25 mg Epinephrine (Racepinephrine Inh Goldie 0.5 Ml Neb) 0.5 ml IH Q6H PRN PRN PRN Reason: SHORTNESS OF BREATH Stop: 03/08/21 14:45 Famotidine (Famotidine 20 Mg/1 Vial) 20 mg IV Q12HT [facility] Stop: 03/08/21 21:59 Last Admin: 02/07/21 21:24 Dose: 20 mg Ferrous Sulfate (Ferrous Sulfate 325 Mg Tablet) 325 mg PO DAILY [facility] Stop: 03/09/21 09:59 Last Admin: 02/07/21 13:03 Dose: Not Given Fentanyl Citrate 1,500 mcg/ (Sodium Chloride) 150 mls @ 8.754 mls/hr IV .Q17H9M TONJA; Protocol Stop: 02/11/21 13:29 Last Admin: 02/07/21 20:54 Dose: 1 mcg/kg/hr, 8.754 mls/hr Propofol (Propofol 1000 Mg/100 Ml Bottle) 100 mls @ 15.606 mls/hr IV .Q6H25M PRN; Protocol PRN Reason: SEDATION Stop: 03/08/21 15:08 Last Admin: 02/08/21 06:20 Dose: 35 mcg/kg/min, 18.207 mls/hr Methylprednisolone Sodium Succinate (Methylprednis Sod Succ 125 Mg/2 Ml Vial) 80 mg IV Q6HT [facility] Stop: 03/09/21 11:59 Last Admin: 02/08/21 06:16 Dose: 80 mg Miscellaneous Information (Medication Intervention 1 Each Each) 1 each PO .RN TO CHECK ON [facility] Stop: 03/09/21 09:59 Miscellaneous Information (Medication Intervention 1 Each Each) 1 each PO .RT TO CHECK ON [facility] Stop: 03/09/21 09:59 Multivitamins Therapeutic (Multivitamins,Therapeutic 1 Tab Tab) 1 tab PO DAILY [facility] Stop: 03/09/21 09:59 Last Admin: 02/07/21 13:04 Dose: Not Given Multivitamins/Minerals (Beta-Carotene(A) W-C And E/Min 1 Tab Tablet) 2 tab PO BID [facility] Stop: 03/09/21 09:59 Last Admin: 02/07/21 23:20 Dose: Not Given Ondansetron HCl (Ondansetron Hcl 4 Mg/2 Ml Vial) 4 mg IV Q4H PRN PRN PRN Reason: NAUSEA/VOMITING Stop: 03/09/21 11:08 Last Admin: 02/07/21 11:29 Dose: 4 mg Pantoprazole Sodium (Protonix (Pantoprazole) 40 Mg Tablet) 40 mg PO DAILY [facility] Stop: 03/09/21 09:59 Last Admin: 02/07/21 13:04 Dose: Not Given Propofol (Propofol 10 Mg/Ml 20ml Vial) 50 mg IV .Q10MIN PRN Stop: 03/09/21 13:20 Last Admin: 02/07/21 13:29 Dose: 50 mg Sertraline HCl (Sertraline Hcl 50 Mg Tab) 100 mg PO DAILY [facility] Stop: 03/09/21 09:59 Last Admin: 02/07/21 13:04 Dose: Not Given Sodium Chloride (Normal Saline 10 Ml Flush) 10 ml IV Q8HT [facility] Stop: 03/08/21 21:59 Last Admin: 02/08/21 06:17 Dose: 10 ml Intake & Output 02/07/21 02/08/21 11:59 11:59 Intake Total 2803 7029 Output Total 5326 844 Balance 1199 1843 Weight 87.3 kg 87.5 kg Orders 02/07/21 09:37 Albuterol Common Canister [Ventolin Common Canister] 2 puff IH Q4H PRN PRN 02/07/21 10:00 Amlodipine Besylate 5 mg [Norvasc 5 mg] 2.5 mg PO DAILY Benazepril HCl 10 mg [Lotensin 10 MG] 10 mg PO DAILY Beta-Carotene(A) W-C & E/Min [Ocuvite Tablet] 2 tab PO BID [facility] Carbonate 750 mg [Tums EX 750 MG] 750 mg PO DAILY Cholecalciferol (Vitamin D3) [Vitamin D] 5,000 unit PO DAILY Cyanocobalamin 1000 Mcg/ml [Cyanocobalamin B-12 1000 MCG/ML] 1,000 mcg IM Q30D Ferrous Sulfate 325 mg [Feosol 325 mg] 325 mg PO DAILY Medication Intervention 1 each PO .RN TO CHECK ON Medication Intervention 1 each PO .RT TO CHECK ON Multivitamins,Therapeutic Tab* [Theragran Multivitamin] 1 tab PO DAILY PANTOPRAZOLE 40 mg Tablet [Protonix 40MG Tablet] 40 mg PO DAILY Sertraline HCl 50 mg [Zoloft 50 mg Tablet] 100 mg PO DAILY 02/07/21 11:09 Ondansetron HCl 4 mg/2 ml [Zofran 4 MG/2 ML VIAL] 4 mg IV Q4H PRN PRN 02/07/21 12:00 Methylprednis Sod Succ 125 mg* [solu-MEDROL] 80 mg IV Q6HT 02/07/21 13:21 Propofol 200 mg/20 ml [Diprivan 200 mg/20 ml] 50 mg IV .Q10MIN PRN 02/08/21 07:07 NPO (ED) STAT 02/08/21 07:15 ARTERIAL BLOOD GASES DAILY CBC DAILY CMP/HFII DAILY 02/08/21 10:00 Chlorhexidine Gluconate [Peridex] 15 ml MM BID Lanolin/Min Oil/Petrolat Wht [Lubrifresh P.M. 3.5 gm Ointment] 1 gm OP BID 02/09/21 07:15 ARTERIAL BLOOD GASES DAILY CBC DAILY CMP/HFII DAILY 02/10/21 07:15 ARTERIAL BLOOD GASES DAILY CBC DAILY CMP/HFII DAILY 02/11/21 07:15 ARTERIAL BLOOD GASES DAILY CBC DAILY CMP/HFII DAILY 02/12/21 07:15 ARTERIAL BLOOD GASES DAILY CBC DAILY CMP/HFII DAILY 02/13/21 07:15 ARTERIAL BLOOD GASES DAILY CBC DAILY CMP/HFII DAILY 02/14/21 07:15 ARTERIAL BLOOD GASES DAILY CBC DAILY CMP/HFII DAILY Lab Tests 02/07/21 11:50 Puncture Site RIGHT RADIAL pCO2 31 L pO2 152 H* Base Excess -7.9 L O2 Saturation 95.7 ABG pH 7.34 L ABG HCO3 16.7 L* ABG O2 Sat (Measured) 97.9 Hernan Test YES A-a Gradient 59 a/A Ratio 0.72 Hemoglobin 9.7 Carboxyhemoglobin 0.9 Methemoglobin 1.3 L Potassium 5.0 Temperature 37.0 POC O2 Flow Rate 35 Vent Mode CPAP Inspiratory BiPAP 6 Expiratory BiPAP 4 Code(s): J80 - ACUTE RESPIRATORY DISTRESS SYNDROME
[2021-02-08 07:53] LABS: Hematocrit 30.2 % (35-47); Hemoglobin 9.2 gm/dl (12.0-16.0); Mean Cell Volume 100.3 fl (78-100); Mean Corpuscular Hemoglobin 30.6 pg (26-32); Mean Corpuscular Hgb Concent. 30.5 g/dl (32-36); Mean Platelet Volume 9.6 fl (7.5-11.0); Platelet Count 159 K/mm3 (150-450); Red Blood Count 3.01 M/mm3 (4.1-5.4); Red Cell Distribution Width 14.8 % (11.5-14.0); White Blood Count 8.8 K/mm3 (4.0-10.5)
[2021-02-08 09:29] LABS: ALBUMIN 2.8 g/dL (3.5-5.0); ANION GAP 11.7 MEQ/L (5-15); BILIRUBIN,TOTAL 0.1 mg/dL (0.2-1.3); Calcium 8.6 mg/dL (8.4-10.2); Creatinine 1 1.7 mg/dL (0.52-1.04); EST GLOMERULAR FILTRATION RATE 31.2 ML/MIN; Potassium 5.3 mmol/L (3.5-5.1); Total Protein 5.2 g/dL (6.3-8.2)
[2021-02-08] MEDS ORDERED: Lubrifresh P.M. 3.5 gm Ointment OP SCH ×2 (10:00)
[2021-02-08] MEDS ORDERED: PERIDEX MM SCH (10:00)
[2021-02-08] MEDS: Pepcid 20 MG VIAL IV SCH (10:02)
[2021-02-08] MEDS: FEOSOL 325 MG PO SCH (10:36)
[2021-02-08] MEDS: VITAMIN D PO SCH (10:39)
[2021-02-08] MEDS: Tums EX 750 MG PO SCH (10:39)
[2021-02-08] MEDS: ZOLOFT 50 MG TABLET PO SCH (10:39)
[2021-02-08] MEDS: THERAGRAN MULTIVITAMIN PO SCH (10:39)
[2021-02-08] MEDS: Protonix 40MG Tablet PO SCH (10:39)
[2021-02-08] MEDS: Ocuvite Tablet PO SCH (10:39)
[2021-02-08] MEDS ORDERED: APRESOLINE 20 MG/ML INJ IV PRN (11:52)
[2021-02-08] MEDS: BENADRYL 50 MG/ML IV PRN (11:58)
[2021-02-08] MEDS: Lotensin 10 MG PO SCH (12:48)
[2021-02-08] MEDS: NORVASC 5 MG PO SCH (12:49)
[2021-02-08] MEDS ORDERED: DIPRIVAN 200 MG/20 ML IV PRN (13:13)
[2021-02-08] MEDS ORDERED: SUBLIMAZE 100 MCG/2 ML IV PRN (13:14)
[2021-02-08 14:14] LABS: VBG BASE EXCESS -7.9 (-2.0-2.0); VBG CARBOXYHEMOGLOBIN 0.9 % T HGB (0.0-6.9); VBG HCO3- 16.7 meq/L (22-28); VBG HEMOGLOBIN 9.3; VBG O2 SATURATION 96.1 (95-100); VBG POTASSIUM 5.2 (3.5-5.1)
[2021-02-08 14:15] LABS: VBG pH 7.34 (7.32-7.42)
[2021-02-08 16:08] VITALS: BP 117/39; PULSE 49; O2SAT 98
--- NOTE | 2021-02-10 07:58 | PCM.DS ---
Discharge Summary Date of Admission: 02/06/21 14:39 Admitting Physician: JENELLE BIRMINGHAM Consults: Consults on Case 02/06/21 16:46 Consult Pulmonology ROUTINE Primary Care Provider: JENELLE BIRMINGHAM Allergies Allergies naproxen [From Naprosyn] Allergy (Mild, Verified 02/06/21 10:30) Rash fluticasone furoate [From Trelegy Ellipta] Adverse Reaction (Severe, Verified 02/06/21 13:21) Anaphylactic Reaction umeclidinium [From Trelegy Ellipta] Adverse Reaction (Severe, Verified 02/06/21 13:21) Anaphylactic Reaction vilanterol [From Trelegy Ellipta] Adverse Reaction (Severe, Verified 02/06/21 13:21) Anaphylactic Reaction adhesive tape Adverse Reaction (Mild, Verified 02/06/21 10:30) BLISTERS Hospital Summary - Hospital Course Hospital Course: Chief Complaint Diagnosis difficulty breathing and choking for 1 day Allergies Allergy/AdvReac Type Severity Reaction Status Date / Time naproxen [From Naprosyn] Allergy Mild Rash Verified 02/06/21 10:30 fluticasone furoate AdvReac Severe Anaphylactic Verified 02/06/21 13:21 [From Trelegy Ellipta] Reaction umeclidinium AdvReac Severe Anaphylactic Verified 02/06/21 13:21 [From Trelegy Ellipta] Reaction vilanterol AdvReac Severe Anaphylactic Verified 02/06/21 13:21 [From Trelegy Ellipta] Reaction adhesive tape AdvReac Mild Verified 02/06/21 10:30 Home Medications Medication Instructions Recorded Confirmed Last Taken Type Amlodipine Besylate/Benazepril 1 tab PO DAILY 02/06/21 02/06/21 Unknown History [Amlodipine-Benazepril 2.5-10] Amlodipine Besylate/Benazepril 1 tab PO DAILY 02/06/21 02/06/21 Unknown History [Amlodipine-Benazepril 2.5-10] Budesonide/Formoterol Fumarate 1 adh.patch IH TID 02/06/21 02/06/21 Unknown History [Budesonide-Formoterol 80-4.5] Calcium Carbonate [Tums] 600 mg PO DAILY 02/06/21 02/06/21 Unknown History Cyanocobalamin (Vitamin B-12) 1,000 mcg IJ UD 02/06/21 02/06/21 01/07/21 History [Cyanocobalamin Injection] Cyanocobalamin (Vitamin B-12) 5,000 mcg PO DAILY 02/06/21 02/06/21 Unknown History [Vitamin B12] Multivitamin 1 each PO DAILY 02/06/21 02/06/21 Unknown History Current Medications Discontinued Medications Generic Name Dose Route Start Last Admin Trade Name Freq PRN Reason Stop Dose Admin Acetaminophen 650 mg 02/06/21 14:46 Acetaminophen 325 Mg Tablet PO 03/08/21 14:45 Q4H PRN PRN PAIN AND/OR FEVER Albuterol Sulfate 2 puff 02/07/21 09:37 Albuterol Common Canister Inhaler IH 03/09/21 09:36 Q4H PRN PRN SOB/Wheezing Albuterol/Ipratropium 3 ml 02/06/21 14:46 02/08/21 07:54 Ipratropium/Albuterol Sulfate 3 Ml Ampul.Neb IH 03/08/21 14:45 3 ml Q6HRT TONJA Administration Amlodipine Besylate 2.5 mg 02/07/21 10:00 02/08/21 12:49 Amlodipine Besylate 5 Mg Tablet PO 03/09/21 09:59 Not Given DAILY TONJA Artificial Tears 1 gm 02/08/21 10:00 02/08/21 10:52 Lanolin/Min Oil/Petrolat Wht 3.5 Gm Tube OP 03/10/21 09:59 1 gm BID TONJA Administration Artificial Tears 0 gm 02/08/21 10:00 02/08/21 12:48 Lanolin/Min Oil/Petrolat Wht 3.5 Gm Tube OP 03/10/21 09:59 1 gm BID TONJA Administration Benazepril HCl 10 mg 02/07/21 10:00 02/08/21 12:48 Benazepril Hcl 10 Mg Tablet PO 03/09/21 09:59 Not Given DAILY TONJA Calcium Carbonate/Glycine 750 mg 02/07/21 10:00 02/08/21 10:39 Calcium Carbonate 750 Mg 750 Mg Tab.Chew PO 03/09/21 09:59 Not Given DAILY TONJA Chlorhexidine Gluconate 15 ml 02/08/21 10:00 02/08/21 10:02 Chlorhexidine Gluconate 15 Ml Mouthwash MM 03/10/21 09:59 15 ml BID TONJA Administration Cholecalciferol 5,000 unit 02/07/21 10:00 02/08/21 10:39 Cholecalciferol (Vitamin D3) 1000 Unit Tablet PO 03/09/21 09:59 Not Given DAILY [facility] Methylprednisolone Sodium 0 mg 02/06/21 10:31 02/06/21 10:35 Succinate 125 mg/ Sterile IV 02/06/21 10:32 125 mg Water 2 ml STAT ONE Administration Methylprednisolone Sodium 0 mg 02/06/21 18:00 02/07/21 05:48 Succinate 80 mg/ Sterile Water IV 03/08/21 17:59 80 mg 2 ml Q6HT TONJA Administration Cyanocobalamin 1,000 mcg 02/07/21 10:00 02/07/21 15:20 Cyanocobalamin 1000 Mcg/Ml Vial IM 03/09/21 09:59 1,000 mcg Q30D TONJA Administration Diphenhydramine HCl 25 mg 02/06/21 10:31 02/06/21 10:36 Diphenhydramine Hcl 50 Mg/Ml Vial IV 02/06/21 10:32 25 mg STAT ONE Administration Diphenhydramine HCl Confirm 02/06/21 10:33 Diphenhydramine Hcl 50 Mg/Ml Vial Administered 02/06/21 10:34 Dose 50 mg .ROUTE .STK-MED ONE Diphenhydramine HCl 25 mg 02/06/21 14:46 02/08/21 11:58 Diphenhydramine Hcl 50 Mg/Ml Vial IV 03/08/21 14:45 25 mg Q6H PRN PRN Administration Epinephrine 0.5 ml 02/06/21 10:32 02/06/21 10:40 Racepinephrine Inh Goldie 0.5 Ml Neb IH 02/06/21 10:33 0.5 ml STAT ONE Administration Epinephrine Confirm 02/06/21 10:34 Racepinephrine Inh Goldie 0.5 Ml Neb Administered 02/06/21 10:35 Dose 0.5 ml IH .STK-MED ONE Epinephrine 0.5 ml 02/06/21 14:46 Racepinephrine Inh Goldie 0.5 Ml Neb IH 03/08/21 14:45 Q6H PRN PRN SHORTNESS OF BREATH Epinephrine Confirm 02/07/21 12:32 Racepinephrine Inh Goldie 0.5 Ml Neb Administered 02/07/21 12:33 Dose 0.5 ml IH .STK-MED ONE Etomidate 20 mg 02/06/21 12:50 Etomidate 20 Mg/10 Ml Amp IV 02/06/21 12:51 .STK-MED ONE Famotidine 20 mg 02/06/21 10:31 02/06/21 10:36 Famotidine 20 Mg/1 Vial IV 02/06/21 10:32 20 mg STAT ONE Administration Famotidine Confirm 02/06/21 10:33 Famotidine 20 Mg/1 Vial Administered 02/06/21 10:34 Dose 20 mg IV .STK-MED ONE Famotidine 20 mg 02/06/21 22:00 02/08/21 10:02 Famotidine 20 Mg/1 Vial IV 03/08/21 21:59 20 mg Q12HT TONJA Administration Fentanyl Citrate Confirm 02/06/21 13:11 Fentanyl Citrate 100 Mcg/2 Ml* Vial Administered 02/06/21 13:12 Dose 100 mcg .ROUTE .STK-MED ONE Fentanyl Citrate Confirm 02/06/21 13:16 Fentanyl Citrate 100 Mcg/2 Ml* Vial Administered 02/06/21 13:17 Dose 100 mcg .ROUTE .STK-MED ONE Fentanyl Citrate 50 mcg 02/07/21 13:21 Fentanyl Citrate 100 Mcg/2 Ml* Vial IV 02/07/21 15:00 .Q15MIN PRN Fentanyl Citrate 50 mcg 02/08/21 13:14 02/08/21 13:45 Fentanyl Citrate 100 Mcg/2 Ml* Vial IV 02/08/21 16:00 50 mcg .Q15MIN PRN Administration Ferrous Sulfate 325 mg 02/07/21 10:00 02/08/21 10:36 Ferrous Sulfate 325 Mg Tablet PO 03/09/21 09:59 Not Given DAILY [facility] Hydralazine HCl 20 mg 02/08/21 11:52 02/08/21 12:12 Hydralazine Hcl 20 Mg/Ml Vial IV 03/10/21 11:51 20 mg Q6HPRN PRN Administration HYPERTENSION Propofol Confirm 02/06/21 12:59 Propofol 1000 Mg/100 Ml Bottle Administered 02/06/21 13:00 Dose 100 mls @ ud IV .STK-MED ONE Fentanyl Citrate 1,500 mcg/ 150 mls @ 8.754 mls/hr 02/06/21 13:30 02/07/21 20:54 Sodium Chloride IV 02/11/21 13:29 1 mcg/kg/hr .Q17H9M TONJA 8.754 mls/hr Administration Protocol 1 MCG/KG/HR Sodium Chloride Confirm 02/06/21 13:57 Sodium Chloride 0.9% 1000 Ml Administered 02/06/21 13:58 Dose 1,000 mls @ ud .ROUTE .STK-MED ONE Sodium Chloride 1,000 mls @ 100 mls/hr 02/06/21 14:15 02/06/21 14:28 Sodium Chloride 0.9% 1000 Ml IV 03/08/21 14:14 100 mls/hr .Q10H TONJA Administration Sodium Chloride 1,000 mls @ 999 mls/hr 02/06/21 14:29 02/06/21 14:29 Sodium Chloride 0.9% 1000 Ml IV 02/06/21 15:29 999 mls/hr .Q1H1M STA Administration Propofol 100 mls @ 15.606 mls/hr 02/06/21 15:09 02/08/21 13:09 Propofol 1000 Mg/100 Ml Bottle IV 03/08/21 15:08 30 mcg/kg/min .Q6H25M PRN 15.606 mls/hr SEDATION Administration Protocol 30 MCG/KG/MIN Sodium Chloride Confirm 02/07/21 09:19 Sodium Chloride 0.9% 1000 Ml Administered 02/07/21 09:20 Dose 1,000 mls @ ud .ROUTE .STK-MED ONE Methylprednisolone Sodium Succinate Confirm 02/06/21 10:34 Methylprednis Sod Succ 125 Mg/2 Ml Vial Administered 02/06/21 10:35 Dose 125 mg .ROUTE .STK-MED ONE Methylprednisolone Sodium Succinate Confirm 02/06/21 17:45 Methylprednis Sod Succ 125 Mg/2 Ml Vial Administered 02/06/21 17:46 Dose 125 mg .ROUTE .STK-MED ONE Methylprednisolone Sodium Succinate 80 mg 02/07/21 12:00 02/08/21 11:57 Methylprednis Sod Succ 125 Mg/2 Ml Vial IV 03/09/21 11:59 80 mg Q6HT TONJA Administration Miscellaneous Information 1 each 02/07/21 10:00 Medication Intervention 1 Each Each PO 03/09/21 09:59 .RN TO CHECK ON [facility] Miscellaneous Information 1 each 02/07/21 10:00 Medication Intervention 1 Each Each PO 03/09/21 09:59 .RT TO CHECK ON [facility] Multivitamins Therapeutic 1 tab 02/07/21 10:00 02/08/21 10:39 Multivitamins,Therapeutic 1 Tab Tab PO 03/09/21 09:59 Not Given DAILY TONJA Multivitamins/Minerals 2 tab 02/07/21 10:00 02/08/21 10:39 Beta-Carotene(A) W-C And E/Min 1 Tab Tablet PO 03/09/21 09:59 Not Given BID TONJA Ondansetron HCl 4 mg 02/07/21 11:09 02/07/21 11:29 Ondansetron Hcl 4 Mg/2 Ml Vial IV 03/09/21 11:08 4 mg Q4H PRN PRN Administration NAUSEA/VOMITING Pantoprazole Sodium 40 mg 02/07/21 10:00 02/08/21 10:39 Protonix (Pantoprazole) 40 Mg Tablet PO 03/09/21 09:59 Not Given DAILY TONJA Propofol 200 mg 02/06/21 12:50 Propofol 10 Mg/Ml 20ml Vial IV 02/06/21 12:51 .STK-MED ONE Propofol 50 mg 02/07/21 13:21 02/07/21 13:29 Propofol 10 Mg/Ml 20ml Vial IV 03/09/21 13:20 50 mg .Q10MIN PRN Administration Propofol 50 mg 02/08/21 13:13 02/08/21 13:23 Propofol 10 Mg/Ml 20ml Vial IV 02/08/21 16:00 50 mg .Q10MIN PRN Administration Sertraline HCl 100 mg 02/07/21 10:00 02/08/21 10:39 Sertraline Hcl 50 Mg Tab PO 03/09/21 09:59 Not Given DAILY [facility]ONJA Sodium Chloride 10 ml 02/06/21 22:00 02/08/21 06:17 Normal Saline 10 Ml Flush IV 03/08/21 21:59 10 ml Q8HT TONJA Administration Sterile Water Confirm 02/06/21 10:34 Water For Injection,Sterile 10 Ml Vial Administered 02/06/21 10:35 Dose 10 ml IJ .STK-MED ONE Succinylcholine Chloride 1 mg 02/06/21 12:50 Succinylcholine Chloride 200mg/10 Ml Vial .ROUTE 02/06/21 12:51 .STK-MED ONE Intake & Output (Last 24 hours) 02/07/21 02/08/21 02/09/21 02/10/21 11:59 11:59 11:59 11:59 Intake Total 2299 2693 Output Total 1100 850 Balance 1199 1843 Weight 87.3 kg 87.5 kg 87.5 kg - Vitals & Intake/Output Vital Signs: Vital Signs Temperature 97.7 F 02/08/21 16:00 Pulse Rate 49 L 02/08/21 16:00 Respiratory Rate 14 02/08/21 16:00 Blood Pressure 117/39 02/08/21 16:00 O2 Sat by Pulse Oximetry 98 02/08/21 16:00 Intake & Output: Intake & Output 02/07/21 02/08/21 02/09/21 02/10/21 11:59 11:59 11:59 11:59 Intake Total 2299 2693 Output Total 1100 850 Balance 1199 1843 Weight 87.3 kg 87.5 kg 87.5 kg - Lab Result Diagrams: 02/08/21 07:50 02/08/21 07:50 - Procedures and Test Procedures and Tests throughout Hospitalization: Therapy Orders & Screens 02/06/21 10:39 Respiratory Therapy Assessment DAILY Comment: 02/06/21 15:17 Intubate Patient STAT Comment: Diagnosis: ANGIODEMA Ventilator Management Q4H Comment: Diagnosis: ANGIODEMA 02/06/21 15:23 Standby ROUTINE Comment: Diagnosis: ANGIODEMA 02/06/21 23:25 Respiratory Therapy Assessment DAILY Comment: Diagnosis: ANGIODEMA 02/08/21 08:00 Oxygen Non-rebreather 15% Comment: Diagnosis: difficulty breathing and choking for 1 day Discharge Exam General Appearance: moderate distress Neurologic Exam: other Eye Exam: eyes nml inspection Ears, Nose, Throat Exam: normal ENT inspection Neck Exam: normal inspection Respiratory Exam: diminished breath sounds Cardiovascular Exam: regular rate/rhythm Gastrointestinal/Abdomen Exam: soft Extremity Exam: normal inspection Skin Exam: normal color Final Diagnosis/Problem List - Final Discharge Diagnosis/Problem (1) Angioedema Status: Acute Code(s): T78.3XXA - ANGIONEUROTIC EDEMA, INITIAL ENCOUNTER (2) Acute respiratory distress syndrome Status: Acute Code(s): J80 - ACUTE RESPIRATORY DISTRESS SYNDROME - Discharge Discharge Date: 02/08/21 Disposition: DC TO OTHER HOSP Condition: Stable Prescriptions: No Action Omeprazole [Prilosec] 40 mg PO DAILY Cholecalciferol (Vitamin D3) [Vitamin D] 5,000 unit PO DAILY Sertraline HCl 100 mg PO DAILY Vit C/E/Zn/Coppr/Lutein/Zeaxan [Preservision Areds 2 Softgel] 2 cap PO BID Ferrous Sulfate [Iron] 325 mg PO DAILY Albuterol Common Canister [Ventolin Common Canister] 2 puff IH Q4-6HPRN PRN PRN Reason: SOB/Wheezing Amlodipine Besylate/Benazepril [Amlodipine-Benazepril 2.5-10] 1 tab PO DAILY Budesonide/Formoterol Fumarate [Budesonide-Formoterol 80-4.5] 1 adh.patch IH TID Cyanocobalamin (Vitamin B-12) [Vitamin B12] 5,000 mcg PO DAILY Calcium Carbonate [Tums] 600 mg PO DAILY Multivitamin 1 each PO DAILY Amlodipine Besylate/Benazepril [Amlodipine-Benazepril 2.5-10] 1 tab PO DAILY Cyanocobalamin (Vitamin B-12) [Cyanocobalamin Injection] 1,000 mcg IJ UD Instructions: Anaphylaxis
== END 2021-02-08 16:32 | DRG 915 ==
LOC: ED 10:21 → OBSVTOIN 14:39 → ICU 14:39
PROVIDERS: ADMIT General Practice; ATTEND General Practice
DX: T78.3XXA Angioneurotic edema, initial encounter (principal); J80 Acute respiratory distress syndrome; I10 Essential (primary) hypertension; I25.2 Old myocardial infarction; Z79.899 Other long term (current) drug therapy; Z20.828 Contact with and (suspected) exposure to other viral communicable diseases
CPT/HCPCS: 0241U; 31500; 36000; 36415; 36556; 36600; 51702; 71045; 80048; 80053; 82248; 82375; 82803; 82805; 85025; 85027; 93041; 94002; 94003; 94640; 94760; 94799; 96360; 96361; 96374; 96375; 99285; 99291; J0330; J0360; J1200; J2405; J2704; J2930; J3010; J3420; A9270-GY

== ENCOUNTER 2021-08-28 20:17 | Inpatient (IN) | payer MEDICARE, BC ==
[2021-08-28 21:25] LABS: Absolute Neutrophil Ct (ANC) 4.24 x10^3/uL (1.4-6.9); Basophil (Absolute #) 0.02 x10^3/uL (0-0.4); Eosinophil % 3.4 % (0.00-5.0); Eosinophil (Absolute #) 0.17 x10^3/uL (0-0.5); Hematocrit 32.2 % (35-47); Hemoglobin 10.5 g/dL (12.0-16.0); Lymphocyte (Absolute #) 0.36 x10^3/uL (1.0-4.6); Lymphocytes % 7.2 % (24.0-44.0); Mean Cell Volume 101.6 fL (78-100); Mean Corpuscular Hemoglobin 33.1 pg (26-32); Mean Corpuscular Hgb Concent. 32.6 g/dL (32-36); Mean Platelet Volume 9.3 fL (7.5-11.0); Monocyte (Absolute #) 0.22 x10^3/uL (0.0-1.3); Monocytes % 4.4 % (0.0-12.0); Neutrophil % 84.2 % (36.0-66.0); Platelet Count 141 x10^3/uL (150-450); Red Blood Count 3.17 x10^6/uL (4.1-5.4); Red Cell Distribution Width 13.4 % (11.5-14.0)
[2021-08-28 21:31] LABS: Appearance CLEAR (CLEAR); Bilirubin NEGATIVE (NEGATIVE); Dipstick done @ ? MAIN LAB; Glucose NEGATIVE (NEGATIVE); Ketones NEGATIVE (NEGATIVE); Nitrite NEGATIVE (NEGATIVE); Ph 5.5 (5-6); Protein,Urine Dip NEGATIVE (Negative); RBC NEGATIVE Ery/ul (0-5); Specific Gravity 1.015 (1.005-1.025); Urobilinogen 0.2 mg/dL (0-1)
--- NOTE | 2021-08-28 21:35 | ERPHSYRPT ---
- History of Present Illness Time Seen by Provider: 08/28/21 20:55 Source: patient Exam Limitations: no limitations Patient Subjective Stated Complaint: pt states "I have been weak for a week. I have been shaking today." Triage Nursing Assessment: pt came into the er via wheelchair; pt is axo x4; c/o weakness; pt denies pain; pt states chills; pt denies fever; pt febrile 101; clear lung sounds in all lobes; clear heart tones; c/o sorethroat; tonsils pink and moist no excudate present; hypertensive Physician History: Patient is a 76-year-old female presents to emergency department for evaluation of weakness chills sore throat that has been progressive over 1 week. Patient observed to be shaking in the treatment room. Patient states he feels cold. Triage vitals reveals a fever of 101. Patient denies cough. No diarrhea. No rash. No nausea no vomiting. No chest pain or shortness of breath. Patient denies history of the same. Patient's weakness is generalized. No focal or lateralizing symptoms. No numbness tingling or focal weakness. Daughter at bedside. They voiced no other complaints or concerns at this time. Timing/Duration: week(s) (1 week) Severity: moderate Modifying Factors: Improves With: nothing Associated Symptoms: No nausea, No vomiting, No abdominal pain, No shortness of breath, No loss of appetite, No syncope, No seizure Allergies/Adverse Reactions: naproxen [From Naprosyn] Allergy (Mild, Verified 08/28/21 20:37) Rash fluticasone furoate [From Trelegy Ellipta] Adverse Reaction (Severe, Verified 08/28/21 20:37) Anaphylactic Reaction umeclidinium [From Trelegy Ellipta] Adverse Reaction (Severe, Verified 08/28/21 20:37) Anaphylactic Reaction vilanterol [From Trelegy Ellipta] Adverse Reaction (Severe, Verified 08/28/21 20:37) Anaphylactic Reaction adhesive tape Adverse Reaction (Mild, Verified 08/28/21 20:37) BLISTERS lisinopril Adverse Reaction (Verified 08/28/21 20:43) Anaphylactic Reaction Home Medications: Omeprazole [Prilosec] 40 mg PO DAILY 11/14/15 [History] Cholecalciferol (Vitamin D3) [Vitamin D] 5,000 unit PO DAILY 01/21/16 [History] Albuterol Common Canister [Ventolin Common Canister] 2 puff IH Q4-6HPRN PRN 09/02/18 [History] Ferrous Sulfate [Iron] 325 mg PO DAILY 09/02/18 [History] Sertraline HCl 100 mg PO DAILY 09/02/18 [History] Vit C/E/Zn/Coppr/Lutein/Zeaxan [Preservision Areds 2 Softgel] 2 cap PO BID 09/02/18 [History] Amlodipine Besylate/Benazepril [Amlodipine-Benazepril 2.5-10] 1 tab PO DAILY 02/06/21 [History] Amlodipine Besylate/Benazepril [Amlodipine-Benazepril 2.5-10] 1 tab PO DAILY 02/06/21 [History] Budesonide/Formoterol Fumarate [Budesonide-Formoterol 80-4.5] 1 adh.patch IH TID 02/06/21 [History] Calcium Carbonate [Tums] 600 mg PO DAILY 02/06/21 [History] Cyanocobalamin (Vitamin B-12) [Cyanocobalamin Injection] 1,000 mcg IJ UD 02/06/21 [History] Cyanocobalamin (Vitamin B-12) [Vitamin B12] 5,000 mcg PO DAILY 02/06/21 [History] Multivitamin 1 each PO DAILY 02/06/21 [History] Hx Tetanus, Diphtheria Vaccination/Date Given: Yes (UP TO DATE) Hx Influenza Vaccination/Date Given: Yes Hx Pneumococcal Vaccination/Date Given: Yes Travel Risk - International Travel Have you traveled outside of the country in past 3 weeks: No - Coronavirus Screening Are you exhibiting any of the following symptoms?: Yes Symptoms: Headaches/Body Aches/Fatigue Close contact with a COVID-19 positive Pt in past 14-21 Days: No - Vaccine Status Have you recieved a Covid-19 vaccination: (unknown) [employer]: [employer] - Vaccination Dates Date of 2cond Vaccination (if applicable): 11/28 - Review of Systems Constitutional: No Symptoms, No Fever, No Chills Eyes: No Symptoms Ears, Nose, & Throat: No Symptoms Respiratory: No Symptoms, No Cough, No Dyspnea Cardiac: No Symptoms, No Chest Pain, No Edema, No Syncope Abdominal/Gastrointestinal: No Symptoms, No Abdominal Pain, No Nausea, No Vomiting, No Diarrhea Genitourinary Symptoms: No Symptoms, No Dysuria Musculoskeletal: No Symptoms, No Back Pain, No Neck Pain Skin: No Symptoms, No Rash Neurological: No Symptoms, No Dizziness, No Focal Weakness, No Sensory Changes Psychological: No Symptoms Endocrine: No Symptoms Hematologic/Lymphatic: No Symptoms Immunological/Allergic: No Symptoms All Other Systems: Reviewed and Negative - Past Medical History Pertinent Past Medical History: Yes Neurological History: TIA ENT History: Cataracts Cardiac History: Hypertension, Myocardial Infarction ([place]) Respiratory History: Asthma, Pneumonia Endocrine Medical History: No Pertinent History Musculoskeletal History: Arthritis GI Medical History: No Pertinent History, Hernia, Polyps History: No Pertinent History Psycho-Social History: Anxiety, Depression Female Reproductive Disorders: Breast Cancer Other Medical History: Heart attack is disagreed on by different doctors. Cholecystectomy, Hysterectomy, Mastectomy with reconstruction, Gastric bypass. HX RECALLED FROM PREVIOUS STAY - Past Surgical History Past Surgical History: Yes (hysterectomy, Breast L Ca) Neuro Surgical History: No Pertinent History Cardiac: Cardiac Catheterization Respiratory: No Pertinent History Gastrointestinal: Appendectomy, Cholecystectomy, Hernia Repair Genitourinary: No Pertinent History Musculoskeletal: Orthopedic Surgery Female Surgical History: Hysterectomy, Mastectomy Other Surgical History: mastecomy.barriactric surgery. neck'C5,C6 fussion. HX RECALLED FROM PREVIOUS STAY - Social History Smoking Status: Unknown if ever smoked Exposure to second hand smoke: No Drug Use: none Patient Lives Alone: Yes - Nursing Vital Signs Nursing Vital Signs: Initial Vital Signs Temperature 101 F 08/28/21 20:46 Pulse Rate 73 08/28/21 20:46 Respiratory Rate 20 08/28/21 20:46 Blood Pressure 172/97 08/28/21 20:46 O2 Sat by Pulse Oximetry 98 08/28/21 20:46 Pain Scale Pain Intensity 5 - Physical Exam General Appearance: no apparent distress, alert Eye Exam: PERRL/EOMI, eyes nml inspection Ears, Nose, Throat Exam: normal ENT inspection, TMs normal, moist mucous membranes, other (Erythematous oropharynx), No tonsillar exudate (No tonsillar exudate. No anterior cervical lymphadenopathy.) Neck Exam: normal inspection, non-tender, supple, full range of motion Respiratory Exam: normal breath sounds, lungs clear, airway intact, No chest tenderness, No respiratory distress Cardiovascular Exam: regular rate/rhythm, normal heart sounds, normal peripheral pulses Gastrointestinal/Abdomen Exam: soft, normal bowel sounds, No tenderness, No mass Back Exam: normal inspection, normal range of motion, No CVA tenderness, No vertebral tenderness Extremity Exam: normal inspection, normal range of motion, pelvis stable Neurologic Exam: alert, oriented x 3, cooperative, normal mood/affect, nml cerebellar function, nml station & gait, sensation nml, No motor deficits Skin Exam: normal color, warm, dry, No rash Lymphatic Exam: No adenopathy SpO2 Interpretation: normal SpO2: 97 O2 Delivery: Room Air - Course Nursing assessment & vital signs reviewed: Yes - Radiology Exams Chest X-ray Interpretation: Interpreted by me (Right lung granuloma. Left basilar atelectasis. No consolidation no infiltrate. Normal cardiac silhouette. Intact bony thorax) Ordered Tests: Active Orders 24 hr Category Date Time Status IV Insertion STAT Care 08/28/21 20:55 Active Pulse Oximetry (ED) STAT Care 08/28/21 20:55 Active CHEST 1 VIEW (PORTABLE) Stat Exams 08/28/21 20:55 Ordered BLOOD CULTURE Stat Lab 08/28/21 21:15 Received CBC W DIFF Stat Lab 08/28/21 20:55 Completed CMP Stat Lab 08/28/21 20:55 Completed Lactic Acid Stat Lab 08/28/21 20:55 Completed TROPONIN Q3H Lab 08/28/21 20:55 Completed TROPONIN Q3H Lab 08/29/21 00:00 Ordered TROPONIN Q3H Lab 08/29/21 03:00 Ordered TROPONIN Q3H Lab 08/29/21 06:00 Ordered TROPONIN Q3H Lab 08/29/21 09:00 Ordered UA W/RFX CULTURE Stat Lab 08/28/21 20:59 Completed Transfer Order Routine Transfer 08/28/21 Ordered Medication Summary Generic Name Dose Route Start Last Admin Trade Name Freq PRN Reason Stop Dose Admin Remdesivir 200 mg/ Sodium 250 mls @ 125 mls/hr 08/28/21 23:37 Chloride IV 08/29/21 01:36 ONCE ONE Discontinued Medications Generic Name Dose Route Start Last Admin Trade Name Freq PRN Reason Stop Dose Admin Acetaminophen Confirm 08/28/21 21:56 Acetaminophen 325 Mg Tablet Administered 08/28/21 21:57 Dose 975 mg .ROUTE .STK-MED ONE Acetaminophen 975 mg 08/28/21 22:00 08/28/21 22:01 Acetaminophen 325 Mg Tablet PO 08/28/21 22:01 975 mg STAT STA Administration Enoxaparin Sodium 40 mg 08/28/21 23:34 Enoxaparin Sodium 40 Mg/0.4 Ml Syringe SQ 08/28/21 23:35 STAT ONE Sodium Chloride 1,000 mls @ 999 mls/hr 08/28/21 21:54 08/28/21 22:58 Sodium Chloride 0.9% 1000 Ml IV 08/28/21 22:54 Infused .Q1H1M STA Infusion Sodium Chloride Confirm 08/28/21 21:56 Sodium Chloride 0.9% 1000 Ml Administered 08/28/21 21:57 Dose 1,000 mls @ ud .ROUTE .K-MED ONE Lab/Rad Data: Laboratory Result Diagrams 08/28/21 20:55 08/28/21 20:55 Laboratory Results 08/28/21 08/28/21 08/28/21 Range/Units 21:20 20:59 20:55 WBC (4.0-10.5) x10^3/uL RBC (4.1-5.4) x10^6/uL Hgb (12.0-16.0) g/dL Hct (35-47) % MCV (78-100) fL MCH (26-32) pg MCHC (32-36) g/dL RDW (11.5-14.0) % Plt Count (150-450) x10^3/uL MPV (7.5-11.0) fL Gran % (36.0-66.0) % Immature Gran % (Auto) (0.00-0.4) % Nucleat RBC Rel Count (0.00-0.1) % Eos # (Auto) (0-0.5) x10^3/uL Immature Gran # (Auto) (0.00-0.03) x10^3u/L Absolute Lymphs (auto) (1.0-4.6) x10^3/uL Absolute Monos (auto) (0.0-1.3) x10^3/uL Absolute Nucleated RBC (0.00-0.01) x10^3u/L Lymphocytes % (24.0-44.0) % Monocytes % (0.0-12.0) % Eosinophils % (0.00-5.0) % Basophils % (0.0-0.4) % Absolute Granulocytes (1.4-6.9) x10^3/uL Basophils # (0-0.4) x10^3/uL Sodium (137-145) mmol/L Potassium (3.5-5.1) mmol/L Chloride (98-107) mmol/L Carbon Dioxide (22-30) mmol/L Anion Gap (5-15) MEQ/L BUN (7-17) mg/dL Creatinine (0.52-1.04) mg/dL Estimated GFR ML/MIN Glucose (74-106) mg/dL Lactic Acid (0.4-2.0) Calcium (8.4-10.2) mg/dL Total Bilirubin (0.2-1.3) mg/dL AST (14-36) U/L ALT (0-35) U/L Alkaline Phosphatase (38-126) U/L Troponin I < 0.012 (0.000-0.034) ng/mL Serum Total Protein (6.3-8.2) g/dL Albumin (3.5-5.0) g/dL Urinalys Dipstick Clnc MAIN LAB Urine Color YELLOW (YELLOW) Urine Appearance CLEAR (CLEAR) Urine pH 5.5 (5-6) Ur Specific [place] 1.015 (1.005-1.025) POC Urine Protein Conf NEGATIVE (Negative) Urine Ketones NEGATIVE (NEGATIVE) Urine Nitrite NEGATIVE (NEGATIVE) Urine Bilirubin NEGATIVE (NEGATIVE) Urine Urobilinogen 0.2 (0-1) mg/dL Urine Leukocytes NEGATIVE (NEGATIVE) Urine WBC (Auto) NONE (0-5) /HPF Urine RBC (Auto) NONE (0-2) /HPF U Epithel Cells (Auto) NONE (FEW) /HPF Urine Bacteria (Auto) NONE (NEGATIVE) /HPF Urine RBC NEGATIVE (0-5) Reyes/ul Urine Mucus (Auto) SLIGHT (NEGATIVE) /HPF Ur Culture Indicated? NO Urine Glucose NEGATIVE (NEGATIVE) mg/dL Influenza Type A Ag NEGATIVE (NEGATIVE) Influenza Type B Ag NEGATIVE (NEGATIVE) RSV (PCR) NEGATIVE (Negative) SARS-CoV-2 (PCR) POSITIVE A (NEGATIVE) 06/22/22 06/22/22 06/22/22 Range/Units 20:55 20:55 20:55 WBC 5.0 (4.0-10.5) x10^3/uL RBC 3.17 L (4.1-5.4) x10^6/uL Hgb 10.5 L (12.0-16.0) g/dL Hct 32.2 L (35-47) % MCV 101.6 H (78-100) fL MCH 33.1 H (26-32) pg MCHC 32.6 (32-36) g/dL RDW 13.4 (11.5-14.0) % Plt Count 141 L (150-450) x10^3/uL MPV 9.3 (7.5-11.0) fL Gran % 84.2 H (36.0-66.0) % Immature Gran % (Auto) 0.4 (0.00-0.4) % Nucleat RBC Rel Count 0.0 (0.00-0.1) % Eos # (Auto) 0.17 (0-0.5) x10^3/uL Immature Gran # (Auto) 0.02 (0.00-0.03) x10^3u/L Absolute Lymphs (auto) 0.36 L (1.0-4.6) x10^3/uL Absolute Monos (auto) 0.22 (0.0-1.3) x10^3/uL Absolute Nucleated RBC 0.00 (0.00-0.01) x10^3u/L Lymphocytes % 7.2 L (24.0-44.0) % Monocytes % 4.4 (0.0-12.0) % Eosinophils % 3.4 (0.00-5.0) % Basophils % 0.4 (0.0-0.4) % Absolute Granulocytes 4.24 (1.4-6.9) x10^3/uL Basophils # 0.02 (0-0.4) x10^3/uL Sodium 137 (137-145) mmol/L Potassium 3.7 (3.5-5.1) mmol/L Chloride 109 H (98-107) mmol/L Carbon Dioxide 20 L (22-30) mmol/L Anion Gap 11.5 (5-15) MEQ/L BUN 51 H (7-17) mg/dL Creatinine 2.22 H (0.52-1.04) mg/dL Estimated GFR 22.9 ML/MIN Glucose 95 (74-106) mg/dL Lactic Acid 0.9 (0.4-2.0) Calcium 9.0 (8.4-10.2) mg/dL Total Bilirubin 0.30 (0.2-1.3) mg/dL AST 33 (14-36) U/L ALT 25 (0-35) U/L Alkaline Phosphatase 90 (38-126) U/L Troponin I (0.000-0.034) ng/mL Serum Total Protein 6.3 (6.3-8.2) g/dL Albumin 3.6 (3.5-5.0) g/dL Urinalys Dipstick Clnc Urine Color (YELLOW) Urine Appearance (CLEAR) Urine pH (5-6) Ur Specific [place] (1.005-1.025) POC Urine Protein Conf (Negative) Urine Ketones (NEGATIVE) Urine Nitrite (NEGATIVE) Urine Bilirubin (NEGATIVE) Urine Urobilinogen (0-1) mg/dL Urine Leukocytes (NEGATIVE) Urine WBC (Auto) (0-5) /HPF Urine RBC (Auto) (0-2) /HPF U Epithel Cells (Auto) (FEW) /HPF Urine Bacteria (Auto) (NEGATIVE) /HPF Urine RBC (0-5) Reyes/ul Urine Mucus (Auto) (NEGATIVE) /HPF Ur Culture Indicated? Urine Glucose (NEGATIVE) mg/dL Influenza Type A Ag (NEGATIVE) Influenza Type B Ag (NEGATIVE) RSV (PCR) (Negative) SARS-CoV-2 (PCR) (NEGATIVE) - Progress Progress: improved Progress Note: Patient reassessed. She feels better however she states she is too weak to go home. Work-up reveals dehydration acute renal injury. Patient is COVID- positive. Patient requesting admission. Case discussed with Dr. [place] who accepts admission to observation. Patient will be admitted to the COVID unit. Patient voices no other complaints or concerns at this time. Portions of this note were created with voice recognition technology. There may be grammatical, spelling, punctuation or sound alike errors 08/28/21 23:38 Counseled pt/family regarding: lab results, diagnosis - Departure Departure Disposition: Home Clinical Impression: Sore throat, Fever, Chills, Acute renal injury, Dehydration, COVID, Megaloblastic anemia Condition: Stable Critical Care Time: No Referrals: JENELLE BIRMINGHAM MD [Primary Care Provider] - Follow up/PCP as directed
[2021-08-28 21:38] LABS: Mucus SLIGHT /HPF (NEGATIVE)
[2021-08-28 21:39] LABS: Urine Cultured Indicated? NO
[2021-08-28 21:40] LABS: ALBUMIN 3.6 g/dL (3.5-5.0); ANION GAP 11.5 MEQ/L (5-15); BILIRUBIN,TOTAL 0.3 mg/dL (0.2-1.3); Creatinine 1 2.22 mg/dL (0.52-1.04); EST GLOMERULAR FILTRATION RATE 22.9 ML/MIN; Potassium 3.7 mmol/L (3.5-5.1); Total Protein 6.3 g/dL (6.3-8.2)
[2021-08-28] MEDS ORDERED: Sodium Chloride 0.9% 1000 ML 1,000 ML IV STA (21:54)
[2021-08-28] MEDS ORDERED: Sodium Chloride 0.9% 1000 ML 1,000 ML ONE (21:56)
[2021-08-28] MEDS ORDERED: TYLENOL 325 MG ONE (21:56)
[2021-08-28] MEDS ORDERED: TYLENOL 325 MG PO STA (22:00)
[2021-08-28 22:03] LABS: INFLUENZA A NEGATIVE (NEGATIVE); INFLUENZA B NEGATIVE (NEGATIVE); RESPIRATORY SYNCTIAL VIRUS NEGATIVE (Negative)
[2021-08-28 22:13] LABS: SARS-CoV-2 Xpert Express POSITIVE (NEGATIVE)
[2021-08-28] MEDS ORDERED: ENOXAPARIN SODIUM SQ ONE (23:34)
[2021-08-28] MEDS ORDERED: REMDESIVIR 200 MG in Sodium Chloride 0.9% 250 ML 250 ML IV ONE (23:37)
[2021-08-28 23:44] LABS: Slide Review 1 YES
[2021-08-29] MEDS ORDERED: TYLENOL 325 MG PO ONE (00:22)
[2021-08-29] MEDS ORDERED: Sodium Chloride 0.9% 250 ML 250 ML IV ONE (00:47)
[2021-08-29] MEDS ORDERED: REMDESIVIR IV ONE (00:47)
[2021-08-29] MEDS: Sodium Chloride 0.9% 1000 ML 1,000 ML IV SCH ×3 (00:50→20:41)
[2021-08-29] MEDS ORDERED: PROVENTIL 2.5 MG/3 ML NEB IH PRN (02:44)
[2021-08-29] MEDS: TYLENOL 325 MG PO PRN ×5 (02:57→20:41)
[2021-08-29 04:55] LABS: Absolute Neutrophil Ct (ANC) 3.29 x10^3/uL (1.4-6.9); Basophil (Absolute #) 0.01 x10^3/uL (0-0.4); Eosinophil % 3.1 % (0.00-5.0); Eosinophil (Absolute #) 0.13 x10^3/uL (0-0.5); Hematocrit 27.7 % (35-47); Hemoglobin 9.2 g/dL (12.0-16.0); Lymphocyte (Absolute #) 0.46 x10^3/uL (1.0-4.6); Lymphocytes % 11.1 % (24.0-44.0); Mean Cell Volume 99.6 fL (78-100); Mean Corpuscular Hemoglobin 33.1 pg (26-32); Mean Corpuscular Hgb Concent. 33.2 g/dL (32-36); Mean Platelet Volume 9.6 fL (7.5-11.0); Monocyte (Absolute #) 0.25 x10^3/uL (0.0-1.3); Neutrophil % 79.4 % (36.0-66.0); Platelet Count 127 x10^3/uL (150-450); Red Blood Count 2.78 x10^6/uL (4.1-5.4); Red Cell Distribution Width 13.2 % (11.5-14.0); White Blood Count 4.2 x10^3/uL (4.0-10.5)
[2021-08-29 05:11] LABS: ALBUMIN 2.8 g/dL (3.5-5.0); ANION GAP 10.5 MEQ/L (5-15); BILIRUBIN,TOTAL 0.2 mg/dL (0.2-1.3); Calcium 8.6 mg/dL (8.4-10.2); Creatinine 1 1.78 mg/dL (0.52-1.04); EST GLOMERULAR FILTRATION RATE 29.6 ML/MIN; Potassium 3.8 mmol/L (3.5-5.1); Total Protein 5.2 g/dL (6.3-8.2)
[2021-08-29 07:26] LABS: Slide Review 1 YES
--- NOTE | 2021-08-29 08:56 | XRAY ---
Indication: Pneumonia. Comparison: February 07, 2021. Portable chest remains clear again with incidental tiny calcified granulomas. Heart not enlarged. Bony thorax intact again with osteopenia, degenerative changes, and lower cervical fusion hardware. Impression: Continued nonacute chest with chronic features.
[2021-08-29] MEDS ORDERED: VENTOLIN COMMON CANISTER IH PRN (09:42)
[2021-08-29] MEDS ORDERED: ENOXAPARIN SODIUM SQ SCH (10:00)
[2021-08-29] MEDS ORDERED: NON-FORMULARY ITEM (Torsemide [Torsemide] 10 MG Tablet) PO SCH (10:00)
[2021-08-29] MEDS ORDERED: NON-FORMULARY ITEM (Multivitamin [Multivitamin] 1 EACH Tablet) PO SCH (10:00)
[2021-08-29] MEDS ORDERED: NON-FORMULARY ITEM (Sertraline Hcl [Sertraline Hcl] 100 MG Tablet) PO SCH (10:00)
[2021-08-29] MEDS ORDERED: NON-FORMULARY ITEM (Vit C/E/Zn/Coppr/Lutein/Zeaxan [Preservision Areds 2 Softgel] 1 EACH C PO SCH (10:00)
[2021-08-29] MEDS ORDERED: MEDICATION INTERVENTION MC SCH (10:15)
[2021-08-29] MEDS: VITAMIN D PO SCH (10:24)
[2021-08-29] MEDS: THERAGRAN MULTIVITAMIN PO SCH (10:24)
[2021-08-29] MEDS: ZOLOFT 50 MG TABLET PO SCH ×2 (10:24→10:51)
[2021-08-29] MEDS: Ocuvite Tablet PO SCH ×2 (10:24→20:40)
[2021-08-29] MEDS: Protonix 40MG Tablet PO SCH ×2 (10:24→20:41)
[2021-08-29] MEDS: FEOSOL 325 MG PO SCH (10:24)
[2021-08-29] MEDS: Tums EX 750 MG PO SCH (10:25)
[2021-08-29] MEDS: Pepcid 20 MG VIAL IV SCH ×2 (10:25→20:40)
[2021-08-29] MEDS: DEMADEX 20 MG PO SCH (10:27)
[2021-08-29] MEDS: Zofran 4 MG/2 ML VIAL IV PRN ×2 (12:00→23:46)
--- NOTE | 2021-08-29 12:16 | PCM.HP ---
History of Present Illness - Chief Complaint Chief Complaint: COVID-19, ACUTE RENAL FAILURE History of Present Illness: is a 76 year old female.presents to emergency department for evaluation of weakness chills sore throat that has been progressive over 1 week. Patient observed to be shaking in the treatment room. Patient states he feels cold. Triage vitals reveals a fever of 101. Patient denies cough. No diarrhea. No rash. No nausea no vomiting. No chest pain or shortness of breath. Patient denies history of the same. Patient's weakness is generalized. No focal or lateralizing symptoms. No numbness tingling or focal weakness. Daughter at bedside. They voiced no other complaints or concerns at this time. Timing/Duration: week(s) (1 week) Severity: moderate Modifying Factors: Improves With: nothing Associated Symptoms: No nausea, No vomiting, No abdominal pain, No shortness of breath, No loss of appetite, No syncope, No seizure - Review of Systems Constitutional: Fever, Chills, Weakness Eyes: No Symptoms Ears, Nose, & Throat: No Symptoms Respiratory: No Cough, No Short Of Breath Cardiac: No Chest Pain, No Edema, No Syncope Abdominal/Gastrointestinal: No Abdominal Pain, No Nausea, No Vomiting, No Diarrhea Genitourinary Symptoms: No Dysuria Musculoskeletal: No Back Pain, No Neck Pain Skin: No Rash Neurological: No Dizziness, No Focal Weakness, No Sensory Changes Psychological: No Symptoms Endocrine: No Symptoms Hematologic/Lymphatic: No Symptoms Immunological/Allergic: No Symptoms Medications & Allergies Home Medications: Home Medication List Cholecalciferol (Vitamin D3) [Vitamin D] 5,000 unit PO DAILY 01/21/16 [History Confirmed 08/29/21] Albuterol Common Canister [Ventolin Common Canister] 2 puff IH Q4-6HPRN PRN 09/02/18 [History Confirmed 02/06/21] Ferrous Sulfate [Iron] 325 mg PO DAILY 09/02/18 [History Confirmed 08/29/21] Vit C/E/Zn/Coppr/Lutein/Zeaxan [Preservision Areds 2 Softgel] 2 cap PO BID 09/02/18 [History Confirmed 08/29/21] Calcium Carbonate [Tums] 600 mg PO DAILY 02/06/21 [History Confirmed 08/29/21] Cyanocobalamin (Vitamin B-12) [Cyanocobalamin Injection] 1,000 mcg IJ UD 02/06/21 [History Confirmed 08/29/21] Multivitamin 1 each PO DAILY 02/06/21 [History Confirmed 08/29/21] Diltiazem HCl [Cardizem LA] 120 mg PO HS 08/29/21 [History Confirmed 08/29/21] Metoprolol Succinate 25 mg PO DAILY 08/29/21 [History Confirmed 08/29/21] PANTOPRAZOLE 40 mg Tablet [Protonix 40MG Tablet] 40 mg PO BID 08/29/21 [History Confirmed 08/29/21] Torsemide 10 mg PO DAILY 08/29/21 [History Confirmed 08/29/21] Allergies/Adverse Reactions: Allergies Allergy/AdvReac Type Severity Reaction Status Date / Time naproxen [From Naprosyn] Allergy Mild Rash Verified 08/28/21 20:37 fluticasone furoate AdvReac Severe Anaphylactic Verified 08/28/21 20:37 [From Trelegy Ellipta] Reaction umeclidinium AdvReac Severe Anaphylactic Verified 08/28/21 20:37 [From Trelegy Ellipta] Reaction vilanterol AdvReac Severe Anaphylactic Verified 08/28/21 20:37 [From Trelegy Ellipta] Reaction adhesive tape AdvReac Mild Verified 08/28/21 20:37 lisinopril AdvReac Anaphylactic Verified 08/28/21 20:43 Reaction - Past Medical History Past Medical History: Yes Neurological History: TIA ENT History: Cataracts Cardiac History: Hypertension, Myocardial Infarction (MD) Respiratory History: Asthma, Pneumonia Endocrine Medical History: No Pertinent History Musculoskelatal History: Arthritis GI Medical History: Hernia, Polyps History: No Pertinent History Pyscho-Social History: Anxiety, Depression Reproductive Disorders: Breast Cancer Comment: Heart attack is disagreed on by different doctors. Cholecystectomy, Hysterectomy, Mastectomy with reconstruction, Gastric bypass. HX RECALLED FROM PREVIOUS STAY - Female History Are you now?: No - Past Surgical History Past Surgical History: Yes (hysterectomy, Breast L Ca) Neuro Surgical History: No Pertinent History Cardiac History: Cardiac Catheterization Respiratory Surgery: No Pertinent History GI Surgical History: Appendectomy, Cholecystectomy, Hernia Repair Genitourinary Surgical Hx: No Pertinent History Musculskeletal Surgical Hx: Orthopedic Surgery Female Surgical History: Hysterectomy, Mastectomy Other Surgical History: mastecomy.barriactric surgery. neck'C5,C6 fussion. HX RECALLED FROM PREVIOUS STAY - Social History Smoking Status: Never smoker Exposure to second hand smoke: No Alcohol: None Drug Use: none - Physical Exam Vital Signs: Vital Signs - 24 hr Temp Pulse Resp BP Pulse Ox 08/29/21 12:00 98.2 F 63 16 145/67 96 08/29/21 10:00 60 13 98 08/29/21 09:45 16 08/29/21 08:00 98.4 F 66 16 149/62 98 08/29/21 07:32 68 16 98 08/29/21 06:00 16 08/29/21 04:00 97.9 F 16 97/47 95 08/29/21 02:45 83 18 95 08/29/21 02:00 99.1 F 78 12 125/62 99 08/29/21 01:46 100.4 F 91 H 18 155/71 98 08/29/21 00:22 98 08/29/21 00:03 87 16 141/76 96 08/28/21 23:39 97 08/28/21 23:00 84 16 98 08/28/21 22:00 88 16 142/71 97 08/28/21 21:21 76 18 97 08/28/21 20:59 98 08/28/21 20:46 101 F 73 20 172/97 98 General Appearance: no apparent distress, alert Neurologic Exam: alert, oriented x 3, cooperative, normal mood/affect, nml cerebellar function, nml station & gait, sensation nml, No motor deficits Eye Exam: PERRL/EOMI, eyes nml inspection Ears, Nose, Throat Exam: normal ENT inspection, TMs normal, pharynx normal, moist mucous membranes Neck Exam: normal inspection, non-tender, supple, full range of motion Respiratory Exam: normal breath sounds, lungs clear, No respiratory distress Cardiovascular Exam: regular rate/rhythm, normal heart sounds, normal peripheral pulses Gastrointestinal/Abdomen Exam: soft, normal bowel sounds, No tenderness, No mass Back Exam: normal inspection, normal range of motion, No CVA tenderness, No vertebral tenderness Extremity Exam: normal inspection, normal range of motion, pelvis stable Skin Exam: normal color, warm, dry, No rash Lymphatic Exam: No adenopathy Results - Labs Lab/Micro Results: Lab Results-Last 24 Hours 08/28/21 08/28/21 08/28/21 Range/Units 20:55 20:55 20:55 WBC 5.0 (4.0-10.5) x10^3/uL RBC 3.17 L (4.1-5.4) x10^6/uL Hgb 10.5 L (12.0-16.0) g/dL Hct 32.2 L (35-47) % MCV 101.6 H (78-100) fL MCH 33.1 H (26-32) pg MCHC 32.6 (32-36) g/dL RDW 13.4 (11.5-14.0) % Plt Count 141 L (150-450) x10^3/uL MPV 9.3 (7.5-11.0) fL Gran % 84.2 H (36.0-66.0) % Immature Gran % (Auto) 0.4 (0.00-0.4) % Nucleat RBC Rel Count 0.0 (0.00-0.1) % Eos # (Auto) 0.17 (0-0.5) x10^3/uL Immature Gran # (Auto) 0.02 (0.00-0.03) x10^3u/L Absolute Lymphs (auto) 0.36 L (1.0-4.6) x10^3/uL Absolute Monos (auto) 0.22 (0.0-1.3) x10^3/uL Absolute Nucleated RBC 0.00 (0.00-0.01) x10^3u/L Lymphocytes % 7.2 L (24.0-44.0) % Monocytes % 4.4 (0.0-12.0) % Eosinophils % 3.4 (0.00-5.0) % Basophils % 0.4 (0.0-0.4) % Absolute Granulocytes 4.24 (1.4-6.9) x10^3/uL Basophils # 0.02 (0-0.4) x10^3/uL Sodium 137 (137-145) mmol/L Potassium 3.7 (3.5-5.1) mmol/L Chloride 109 H (98-107) mmol/L Carbon Dioxide 20 L (22-30) mmol/L Anion Gap 11.5 (5-15) MEQ/L BUN 51 H (7-17) mg/dL Creatinine 2.22 H (0.52-1.04) mg/dL Estimated GFR 22.9 ML/MIN Glucose 95 (74-106) mg/dL Lactic Acid 0.9 (0.4-2.0) Calcium 9.0 (8.4-10.2) mg/dL Total Bilirubin 0.30 (0.2-1.3) mg/dL AST 33 (14-36) U/L ALT 25 (0-35) U/L Alkaline Phosphatase 90 (38-126) U/L Troponin I (0.000-0.034) ng/mL Serum Total Protein 6.3 (6.3-8.2) g/dL Albumin 3.6 (3.5-5.0) g/dL Urinalys Dipstick Clnc Urine Color (YELLOW) Urine Appearance (CLEAR) Urine pH (5-6) Ur Specific [place] (1.005-1.025) POC Urine Protein Conf (Negative) Urine Ketones (NEGATIVE) Urine Nitrite (NEGATIVE) Urine Bilirubin (NEGATIVE) Urine Urobilinogen (0-1) mg/dL Urine Leukocytes (NEGATIVE) Urine WBC (Auto) (0-5) /HPF Urine RBC (Auto) (0-2) /HPF U Epithel Cells (Auto) (FEW) /HPF Urine Bacteria (Auto) (NEGATIVE) /HPF Urine RBC (0-5) Reyes/ul Urine Mucus (Auto) (NEGATIVE) /HPF Ur Culture Indicated? Urine Glucose (NEGATIVE) mg/dL Influenza Type A Ag (NEGATIVE) Influenza Type B Ag (NEGATIVE) RSV (PCR) (Negative) SARS-CoV-2 (PCR) (NEGATIVE) Group A Strep Antibody (NEGATIVE) Slides for Path Review YES 08/28/21 08/28/21 08/28/21 Range/Units 20:55 20:59 21:20 WBC (4.0-10.5) x10^3/uL RBC (4.1-5.4) x10^6/uL Hgb (12.0-16.0) g/dL Hct (35-47) % MCV (78-100) fL MCH (26-32) pg MCHC (32-36) g/dL RDW (11.5-14.0) % Plt Count (150-450) x10^3/uL MPV (7.5-11.0) fL Gran % (36.0-66.0) % Immature Gran % (Auto) (0.00-0.4) % Nucleat RBC Rel Count (0.00-0.1) % Eos # (Auto) (0-0.5) x10^3/uL Immature Gran # (Auto) (0.00-0.03) x10^3u/L Absolute Lymphs (auto) (1.0-4.6) x10^3/uL Absolute Monos (auto) (0.0-1.3) x10^3/uL Absolute Nucleated RBC (0.00-0.01) x10^3u/L Lymphocytes % (24.0-44.0) % Monocytes % (0.0-12.0) % Eosinophils % (0.00-5.0) % Basophils % (0.0-0.4) % Absolute Granulocytes (1.4-6.9) x10^3/uL Basophils # (0-0.4) x10^3/uL Sodium (137-145) mmol/L Potassium (3.5-5.1) mmol/L Chloride (98-107) mmol/L Carbon Dioxide (22-30) mmol/L Anion Gap (5-15) MEQ/L BUN (7-17) mg/dL Creatinine (0.52-1.04) mg/dL Estimated GFR ML/MIN Glucose (74-106) mg/dL Lactic Acid (0.4-2.0) Calcium (8.4-10.2) mg/dL Total Bilirubin (0.2-1.3) mg/dL AST (14-36) U/L ALT (0-35) U/L Alkaline Phosphatase (38-126) U/L Troponin I < 0.012 (0.000-0.034) ng/mL Serum Total Protein (6.3-8.2) g/dL Albumin (3.5-5.0) g/dL Urinalys Dipstick Clnc MAIN LAB Urine Color YELLOW (YELLOW) Urine Appearance CLEAR (CLEAR) Urine pH 5.5 (5-6) Ur Specific [place] 1.015 (1.005-1.025) POC Urine Protein Conf NEGATIVE (Negative) Urine Ketones NEGATIVE (NEGATIVE) Urine Nitrite NEGATIVE (NEGATIVE) Urine Bilirubin NEGATIVE (NEGATIVE) Urine Urobilinogen 0.2 (0-1) mg/dL Urine Leukocytes NEGATIVE (NEGATIVE) Urine WBC (Auto) NONE (0-5) /HPF Urine RBC (Auto) NONE (0-2) /HPF U Epithel Cells (Auto) NONE (FEW) /HPF Urine Bacteria (Auto) NONE (NEGATIVE) /HPF Urine RBC NEGATIVE (0-5) Reyes/ul Urine Mucus (Auto) SLIGHT (NEGATIVE) /HPF Ur Culture Indicated? NO Urine Glucose NEGATIVE (NEGATIVE) mg/dL Influenza Type A Ag NEGATIVE (NEGATIVE) Influenza Type B Ag NEGATIVE (NEGATIVE) RSV (PCR) NEGATIVE (Negative) SARS-CoV-2 (PCR) POSITIVE A (NEGATIVE) Group A Strep Antibody (NEGATIVE) Slides for Path Review 08/28/21 08/29/21 08/29/21 Range/Units 22:50 00:42 04:24 WBC 4.2 (4.0-10.5) x10^3/uL RBC 2.78 L (4.1-5.4) x10^6/uL Hgb 9.2 L (12.0-16.0) g/dL Hct 27.7 L (35-47) % MCV 99.6 (78-100) fL MCH 33.1 H (26-32) pg MCHC 33.2 (32-36) g/dL RDW 13.2 (11.5-14.0) % Plt Count 127 L (150-450) x10^3/uL MPV 9.6 (7.5-11.0) fL Gran % 79.4 H (36.0-66.0) % Immature Gran % (Auto) 0.2 (0.00-0.4) % Nucleat RBC Rel Count 0.0 (0.00-0.1) % Eos # (Auto) 0.13 (0-0.5) x10^3/uL Immature Gran # (Auto) 0.01 (0.00-0.03) x10^3u/L Absolute Lymphs (auto) 0.46 L (1.0-4.6) x10^3/uL Absolute Monos (auto) 0.25 (0.0-1.3) x10^3/uL Absolute Nucleated RBC 0.00 (0.00-0.01) x10^3u/L Lymphocytes % 11.1 L (24.0-44.0) % Monocytes % 6.0 (0.0-12.0) % Eosinophils % 3.1 (0.00-5.0) % Basophils % 0.2 (0.0-0.4) % Absolute Granulocytes 3.29 (1.4-6.9) x10^3/uL Basophils # 0.01 (0-0.4) x10^3/uL Sodium (137-145) mmol/L Potassium (3.5-5.1) mmol/L Chloride (98-107) mmol/L Carbon Dioxide (22-30) mmol/L Anion Gap (5-15) MEQ/L BUN (7-17) mg/dL Creatinine (0.52-1.04) mg/dL Estimated GFR ML/MIN Glucose (74-106) mg/dL Lactic Acid (0.4-2.0) Calcium (8.4-10.2) mg/dL Total Bilirubin (0.2-1.3) mg/dL AST (14-36) U/L ALT (0-35) U/L Alkaline Phosphatase (38-126) U/L Troponin I < 0.012 (0.000-0.034) ng/mL Serum Total Protein (6.3-8.2) g/dL Albumin (3.5-5.0) g/dL Urinalys Dipstick Clnc Urine Color (YELLOW) Urine Appearance (CLEAR) Urine pH (5-6) Ur Specific [place] (1.005-1.025) POC Urine Protein Conf (Negative) Urine Ketones (NEGATIVE) Urine Nitrite (NEGATIVE) Urine Bilirubin (NEGATIVE) Urine Urobilinogen (0-1) mg/dL Urine Leukocytes (NEGATIVE) Urine WBC (Auto) (0-5) /HPF Urine RBC (Auto) (0-2) /HPF U Epithel Cells (Auto) (FEW) /HPF Urine Bacteria (Auto) (NEGATIVE) /HPF Urine RBC (0-5) Reyes/ul Urine Mucus (Auto) (NEGATIVE) /HPF Ur Culture Indicated? Urine Glucose (NEGATIVE) mg/dL Influenza Type A Ag (NEGATIVE) Influenza Type B Ag (NEGATIVE) RSV (PCR) (Negative) SARS-CoV-2 (PCR) (NEGATIVE) Group A Strep Antibody NOT DETECTED (NEGATIVE) Slides for Path Review YES 08/29/21 Range/Units 04:24 WBC (4.0-10.5) x10^3/uL RBC (4.1-5.4) x10^6/uL Hgb (12.0-16.0) g/dL Hct (35-47) % MCV (78-100) fL MCH (26-32) pg MCHC (32-36) g/dL RDW (11.5-14.0) % Plt Count (150-450) x10^3/uL MPV (7.5-11.0) fL Gran % (36.0-66.0) % Immature Gran % (Auto) (0.00-0.4) % Nucleat RBC Rel Count (0.00-0.1) % Eos # (Auto) (0-0.5) x10^3/uL Immature Gran # (Auto) (0.00-0.03) x10^3u/L Absolute Lymphs (auto) (1.0-4.6) x10^3/uL Absolute Monos (auto) (0.0-1.3) x10^3/uL Absolute Nucleated RBC (0.00-0.01) x10^3u/L Lymphocytes % (24.0-44.0) % Monocytes % (0.0-12.0) % Eosinophils % (0.00-5.0) % Basophils % (0.0-0.4) % Absolute Granulocytes (1.4-6.9) x10^3/uL Basophils # (0-0.4) x10^3/uL Sodium 137 (137-145) mmol/L Potassium 3.8 (3.5-5.1) mmol/L Chloride 112 H (98-107) mmol/L Carbon Dioxide 18 L (22-30) mmol/L Anion Gap 10.5 (5-15) MEQ/L BUN 48 H (7-17) mg/dL Creatinine 1.78 H (0.52-1.04) mg/dL Estimated GFR 29.6 ML/MIN Glucose 88 (74-106) mg/dL Lactic Acid (0.4-2.0) Calcium 8.6 (8.4-10.2) mg/dL Total Bilirubin 0.20 (0.2-1.3) mg/dL AST 30 (14-36) U/L ALT 22 (0-35) U/L Alkaline Phosphatase 83 (38-126) U/L Troponin I (0.000-0.034) ng/mL Serum Total Protein 5.2 L (6.3-8.2) g/dL Albumin 2.8 L (3.5-5.0) g/dL Urinalys Dipstick Clnc Urine Color (YELLOW) Urine Appearance (CLEAR) Urine pH (5-6) Ur Specific [place] (1.005-1.025) POC Urine Protein Conf (Negative) Urine Ketones (NEGATIVE) Urine Nitrite (NEGATIVE) Urine Bilirubin (NEGATIVE) Urine Urobilinogen (0-1) mg/dL Urine Leukocytes (NEGATIVE) Urine WBC (Auto) (0-5) /HPF Urine RBC (Auto) (0-2) /HPF U Epithel Cells (Auto) (FEW) /HPF Urine Bacteria (Auto) (NEGATIVE) /HPF Urine RBC (0-5) Reyes/ul Urine Mucus (Auto) (NEGATIVE) /HPF Ur Culture Indicated? Urine Glucose (NEGATIVE) mg/dL Influenza Type A Ag (NEGATIVE) Influenza Type B Ag (NEGATIVE) RSV (PCR) (Negative) SARS-CoV-2 (PCR) (NEGATIVE) Group A Strep Antibody (NEGATIVE) Slides for Path Review - Radiology Impressions Radiology Exams & Impressions: Radiology Procedures Category Date Time Status CHEST 1 VIEW (PORTABLE) Stat Exams 08/28/21 20:55 Completed RAD/CHEST 1 VIEW (PORTABLE) Indication: Pneumonia. Comparison: February 07, 2021. Portable chest remains clear again with incidental tiny calcified granulomas. Heart not enlarged. Bony thorax intact again with osteopenia, degenerative changes, and lower cervical fusion hardware. Impression: Continued nonacute chest with chronic features. - Other Procedures and Tests Respiratory Therapy 08/29/21 02:43 Oxygen Nasal Cannula 2 lpm 08/29/21 02:48 Respiratory Therapy Assessment DAILY Assessment/Plan (1) Acute renal injury Current Visit: Yes Status: Acute Assessment & Plan: Chief Complaint Diagnosis COVID-19, ACUTE RENAL FAILURE Allergies Allergy/AdvReac Type Severity Reaction Status Date / Time naproxen [From Naprosyn] Allergy Mild Rash Verified 08/28/21 20:37 fluticasone furoate AdvReac Severe Anaphylactic Verified 08/28/21 20:37 [From Trelegy Ellipta] Reaction umeclidinium AdvReac Severe Anaphylactic Verified 08/28/21 20:37 [From Trelegy Ellipta] Reaction vilanterol AdvReac Severe Anaphylactic Verified 08/28/21 20:37 [From Trelegy Ellipta] Reaction adhesive tape AdvReac Mild Verified 08/28/21 20:37 lisinopril AdvReac Anaphylactic Verified 08/28/21 20:43 Reaction Vital Signs (Last 24 hours) Temp Pulse Resp BP Pulse Ox 08/29/21 12:00 98.2 F 63 16 145/67 96 08/29/21 10:00 60 13 98 08/29/21 09:45 16 08/29/21 08:00 98.4 F 66 16 149/62 98 08/29/21 07:32 68 16 98 08/29/21 06:00 16 08/29/21 04:00 97.9 F 16 97/47 95 08/29/21 02:45 83 18 95 08/29/21 02:00 99.1 F 78 12 125/62 99 08/29/21 01:46 100.4 F 91 H 18 155/71 98 08/29/21 00:22 98 08/29/21 00:03 87 16 141/76 96 08/28/21 23:39 97 08/28/21 23:00 84 16 98 08/28/21 22:00 88 16 142/71 97 08/28/21 21:21 76 18 97 08/28/21 20:59 98 08/28/21 20:46 101 F 73 20 172/97 98 Home Medications Medication Instructions Recorded Confirmed Last Taken Type Diltiazem HCl [Cardizem LA] 120 mg PO HS 08/29/21 08/29/21 Unknown History Metoprolol Succinate 25 mg PO DAILY 08/29/21 08/29/21 Unknown History PANTOPRAZOLE 40 mg Tablet 40 mg PO BID 08/29/21 08/29/21 Unknown History [Protonix 40MG Tablet] Torsemide 10 mg PO DAILY 08/29/21 08/29/21 Unknown History Current Medications Generic Name Dose Route Start Last Admin Trade Name Freq PRN Reason Stop Dose Admin Acetaminophen 650 mg 08/29/21 02:52 08/29/21 08:19 Acetaminophen 325 Mg Tablet PO 09/28/21 02:51 650 mg Q4H PRN PRN Administration PAIN AND/OR FEVER Albuterol Sulfate 2.5 mg 08/29/21 02:44 Albuterol Sulfate 2.5 Mg/3 Ml Neb 09/28/21 02:43 Q4H PRN PRN SHORTNESS OF BREATH/WHEEZING Albuterol Sulfate 2 puff 08/29/21 09:42 Albuterol Common Canister Inhaler 09/28/21 09:41 Q4HPRN PRN SOB/Wheezing Calcium Carbonate/Glycine 750 mg 08/29/21 10:00 08/29/21 10:25 Calcium Carbonate 750 Mg 750 Mg Tab.Chew PO 09/28/21 09:59 750 mg DAILY TONJA Administration Cholecalciferol 5,000 unit 08/29/21 10:00 08/29/21 10:24 Cholecalciferol (Vitamin D3) 1000 Unit Tablet PO 09/28/21 09:59 5,000 unit DAILY TONJA Administration Cyanocobalamin 1,000 mcg 09/06/21 10:00 Cyanocobalamin 1000 Mcg/Ml Vial IM 10/06/21 09:59 Q30D TONJA Diltiazem HCl 120 mg 08/29/21 22:00 Diltiazem Hcl Cd 120 Mg Cap.Sr.24h PO 09/28/21 21:59 HS [facility] Enoxaparin Sodium 40 mg 08/29/21 22:00 Enoxaparin Sodium 40 Mg/0.4 Ml Syringe SQ 09/28/21 21:59 Q24H22 TONJA Famotidine 20 mg 08/29/21 10:00 08/29/21 10:25 Famotidine 20 Mg/1 Vial IV 09/28/21 09:59 20 mg Q12HT TONJA Administration Ferrous Sulfate 325 mg 08/29/21 10:00 08/29/21 10:24 Ferrous Sulfate 325 Mg Tablet PO 09/28/21 09:59 325 mg DAILY TONJA Administration Sodium Chloride 1,000 mls @ 125 mls/hr 08/29/21 00:22 08/29/21 00:50 Sodium Chloride 0.9% 1000 Ml IV 09/28/21 00:21 125 mls/hr .Q8H TONJA Administration Remdesivir 100 mg/ Sodium 100 mls @ 100 mls/hr 08/29/21 22:00 Chloride IV 09/01/21 22:59 Q24H22 TONJA Metoprolol Succinate 25 mg 08/29/21 10:00 Metoprolol Succinate 25 Mg Xl Tab PO 09/28/21 09:59 DAILY TONJA Multivitamins Therapeutic 1 tab 08/29/21 10:00 08/29/21 10:24 Multivitamins,Therapeutic 1 Tab Tab PO 09/28/21 09:59 1 tab DAILY TONJA Administration Multivitamins/Minerals 2 tab 08/29/21 10:00 08/29/21 10:24 Beta-Carotene(A) W-C And E/Min 1 Tab Tablet PO 09/28/21 09:59 2 tab BID TONJA Administration Ondansetron HCl 4 mg 08/29/21 00:22 08/29/21 12:00 Ondansetron Hcl 4 Mg/2 Ml Vial IV 09/28/21 00:21 4 mg Q6H PRN PRN Administration NAUSEA/VOMITING Pantoprazole Sodium 40 mg 08/29/21 10:00 08/29/21 10:24 Protonix (Pantoprazole) 40 Mg Tablet PO 09/28/21 09:59 40 mg BID TONJA Administration Sertraline HCl 100 mg 08/29/21 10:00 08/29/21 10:51 Sertraline Hcl 50 Mg Tab PO 09/28/21 09:59 Not Given DAILY TONJA Torsemide 10 mg 08/29/21 10:00 08/29/21 10:27 Torsemide 20 Mg Tablet PO 09/28/21 09:59 10 mg DAILY TONJA Administration Discontinued Medications Generic Name Dose Route Start Last Admin Trade Name Freq PRN Reason Stop Dose Admin Acetaminophen Confirm 08/28/21 21:56 Acetaminophen 325 Mg Tablet Administered 08/28/21 21:57 Dose 975 mg .ROUTE .STK-MED ONE Acetaminophen 975 mg 08/28/21 22:00 08/28/21 22:01 Acetaminophen 325 Mg Tablet PO 08/28/21 22:01 975 mg STAT STA Administration Acetaminophen 975 mg 08/29/21 00:22 08/29/21 02:51 Acetaminophen 325 Mg Tablet PO 08/29/21 00:23 Not Given STAT ONE Enoxaparin Sodium 40 mg 08/28/21 23:34 08/29/21 00:50 Enoxaparin Sodium 40 Mg/0.4 Ml Syringe SQ 08/28/21 23:35 40 mg STAT ONE Administration Enoxaparin Sodium 40 mg 08/29/21 10:00 08/29/21 11:09 Enoxaparin Sodium 40 Mg/0.4 Ml Syringe SQ 09/28/21 09:59 Not Given DAILY TONJA Sodium Chloride 1,000 mls @ 999 mls/hr 08/28/21 21:54 08/28/21 22:58 Sodium Chloride 0.9% 1000 Ml IV 08/28/21 22:54 Infused .Q1H1M STA Infusion Sodium Chloride Confirm 08/28/21 21:56 Sodium Chloride 0.9% 1000 Ml Administered 08/28/21 21:57 Dose 1,000 mls @ ud .ROUTE .STK-MED ONE Remdesivir 200 mg/ Sodium 250 mls @ 125 mls/hr 08/28/21 23:37 08/29/21 00:52 Chloride IV 08/29/21 01:36 125 mls/hr ONCE ONE Administration Sodium Chloride Confirm 08/29/21 00:47 Sodium Chloride 0.9% 250 Ml Administered 08/29/21 00:48 Dose 250 mls @ ud IV .STK-MED ONE Remdesivir 100 mg/ Sodium 100 mls @ 100 mls/hr 08/30/21 22:00 Chloride IV 09/02/21 22:59 Q24H TONJA Miscellaneous Information 1 each 08/29/21 10:15 Medication Intervention 1 Each Each 09/28/21 10:14 .RT TO CHECK TONJA Remdesivir Confirm 08/29/21 00:47 Remdesivir 100 Mg Vial Administered 08/29/21 00:48 Dose 200 mg IV .STK-MED ONE Intake & Output (Last 24 hours) 08/27/21 08/28/21 08/29/21 08/30/21 11:59 11:59 11:59 11:59 Intake Total 626 Output Total 950 Balance -324 Weight 85.3 kg Microbiology Results (Last 24 hours) 08/28/21 21:15 Blood Blood Culture Gram Stain - Pending 08/28/21 21:15 Blood Blood Culture - Pending 08/28/21 20:55 Blood Blood Culture Gram Stain - Pending 08/28/21 20:55 Blood Blood Culture - Pending Laboratory Results (Last 24 hours) 08/29/21 08/29/21 08/29/21 04:24 04:24 00:42 WBC 4.2 RBC 2.78 L Hgb 9.2 L Hct 27.7 L MCV 99.6 MCH 33.1 H MCHC 33.2 RDW 13.2 Plt Count 127 L MPV 9.6 Gran % 79.4 H Immature Gran % (Auto) 0.2 Nucleat RBC Rel Count 0.0 Eos # (Auto) 0.13 Immature Gran # (Auto) 0.01 Absolute Lymphs (auto) 0.46 L Absolute Monos (auto) 0.25 Absolute Nucleated RBC 0.00 Lymphocytes % 11.1 L Monocytes % 6.0 Eosinophils % 3.1 Basophils % 0.2 Absolute Granulocytes 3.29 Basophils # 0.01 Sodium 137 Potassium 3.8 Chloride 112 H Carbon Dioxide 18 L Anion Gap 10.5 BUN 48 H Creatinine 1.78 H Estimated GFR 29.6 Glucose 88 Lactic Acid Calcium 8.6 Total Bilirubin 0.20 AST 30 ALT 22 Alkaline Phosphatase 83 Troponin I < 0.012 Serum Total Protein 5.2 L Albumin 2.8 L Urinalys Dipstick Clnc Urine Color Urine Appearance Urine pH Ur Specific [place] POC Urine Protein Conf Urine Ketones Urine Nitrite Urine Bilirubin Urine Urobilinogen Urine Leukocytes Urine WBC (Auto) Urine RBC (Auto) U Epithel Cells (Auto) Urine Bacteria (Auto) Urine RBC Urine Mucus (Auto) Ur Culture Indicated? Urine Glucose Influenza Type A Ag Influenza Type B Ag RSV (PCR) SARS-CoV-2 (PCR) Group A Strep Antibody Slides for Path Review YES 08/28/21 08/28/21 08/28/21 22:50 21:20 20:59 WBC RBC Hgb Hct MCV MCH MCHC RDW Plt Count MPV Gran % Immature Gran % (Auto) Nucleat RBC Rel Count Eos # (Auto) Immature Gran # (Auto) Absolute Lymphs (auto) Absolute Monos (auto) Absolute Nucleated RBC Lymphocytes % Monocytes % Eosinophils % Basophils % Absolute Granulocytes Basophils # Sodium Potassium Chloride Carbon Dioxide Anion Gap BUN Creatinine Estimated GFR Glucose Lactic Acid Calcium Total Bilirubin AST ALT Alkaline Phosphatase Troponin I Serum Total Protein Albumin Urinalys Dipstick Clnc MAIN LAB Urine Color YELLOW Urine Appearance CLEAR Urine pH 5.5 Ur Specific [place] 1.015 POC Urine Protein Conf NEGATIVE Urine Ketones NEGATIVE Urine Nitrite NEGATIVE Urine Bilirubin NEGATIVE Urine Urobilinogen 0.2 Urine Leukocytes NEGATIVE Urine WBC (Auto) NONE Urine RBC (Auto) NONE U Epithel Cells (Auto) NONE Urine Bacteria (Auto) NONE Urine RBC NEGATIVE Urine Mucus (Auto) SLIGHT Ur Culture Indicated? NO Urine Glucose NEGATIVE Influenza Type A Ag NEGATIVE Influenza Type B Ag NEGATIVE RSV (PCR) NEGATIVE SARS-CoV-2 (PCR) POSITIVE A Group A Strep Antibody NOT DETECTED Slides for Path Review 08/28/21 08/28/21 08/28/21 20:55 20:55 20:55 WBC RBC Hgb Hct MCV MCH MCHC RDW Plt Count MPV Gran % Immature Gran % (Auto) Nucleat RBC Rel Count Eos # (Auto) Immature Gran # (Auto) Absolute Lymphs (auto) Absolute Monos (auto) Absolute Nucleated RBC Lymphocytes % Monocytes % Eosinophils % Basophils % Absolute Granulocytes Basophils # Sodium 137 Potassium 3.7 Chloride 109 H Carbon Dioxide 20 L Anion Gap 11.5 BUN 51 H Creatinine 2.22 H Estimated GFR 22.9 Glucose 95 Lactic Acid 0.9 Calcium 9.0 Total Bilirubin 0.30 AST 33 ALT 25 Alkaline Phosphatase 90 Troponin I < 0.012 Serum Total Protein 6.3 Albumin 3.6 Urinalys Dipstick Clnc Urine Color Urine Appearance Urine pH Ur Specific [place] POC Urine Protein Conf Urine Ketones Urine Nitrite Urine Bilirubin Urine Urobilinogen Urine Leukocytes Urine WBC (Auto) Urine RBC (Auto) U Epithel Cells (Auto) Urine Bacteria (Auto) Urine RBC Urine Mucus (Auto) Ur Culture Indicated? Urine Glucose Influenza Type A Ag Influenza Type B Ag RSV (PCR) SARS-CoV-2 (PCR) Group A Strep Antibody Slides for Path Review 08/28/21 20:55 WBC 5.0 RBC 3.17 L Hgb 10.5 L Hct 32.2 L MCV 101.6 H MCH 33.1 H MCHC 32.6 RDW 13.4 Plt Count 141 L MPV 9.3 Gran % 84.2 H Immature Gran % (Auto) 0.4 Nucleat RBC Rel Count 0.0 Eos # (Auto) 0.17 Immature Gran # (Auto) 0.02 Absolute Lymphs (auto) 0.36 L Absolute Monos (auto) 0.22 Absolute Nucleated RBC 0.00 Lymphocytes % 7.2 L Monocytes % 4.4 Eosinophils % 3.4 Basophils % 0.4 Absolute Granulocytes 4.24 Basophils # 0.02 Sodium Potassium Chloride Carbon Dioxide Anion Gap BUN Creatinine Estimated GFR Glucose Lactic Acid Calcium Total Bilirubin AST ALT Alkaline Phosphatase Troponin I Serum Total Protein Albumin Urinalys Dipstick Clnc Urine Color Urine Appearance Urine pH Ur Specific [place] [facility] Urine Protein Conf Urine Ketones Urine Nitrite Urine Bilirubin Urine Urobilinogen Urine Leukocytes Urine WBC (Auto) Urine RBC (Auto) U Epithel Cells (Auto) Urine Bacteria (Auto) Urine RBC Urine Mucus (Auto) Ur Culture Indicated? Urine Glucose Influenza Type A Ag Influenza Type B Ag RSV (PCR) SARS-CoV-2 (PCR) Group A Strep Antibody Slides for Path Review YES Orders (Last 24 hours) Category Date Time Status Bedrest with BRP/BSC ROUTINE Activity 08/29/21 00:22 Active Admission Status Change [Change to Full Admit] ROUTINE Care 08/29/21 08:50 Active IV Insertion STAT Care 08/28/21 20:55 Completed Isolation, Initiate & Maintain Q6H Care 08/29/21 00:22 Active Neuro Checks Q4H Care 08/29/21 00:[address] in Observation ROUTINE Care 08/29/21 00:22 Active Pulse Oximetry (ED) STAT Care 08/28/21 20:55 Completed Telemetry Q6H Care 08/29/21 00:22 Active Vital Signs Q2H Care 08/29/21 00:22 Active Used Car Lot [employer]/Discharge Plan ROUTINE Cons 08/29/21 02:12 Active House Regular Diet Diet 08/29/21 Breakfast Active CHEST 1 VIEW (PORTABLE) Stat Exams 08/28/21 20:55 Completed BLOOD CULTURE Stat Lab 08/28/21 21:15 Received CBC W DIFF AM.LAB Lab 08/29/21 04:24 Completed CBC W DIFF Stat Lab 08/28/21 20:55 Completed CMP AM.LAB Lab 08/29/21 04:24 Completed CMP Stat Lab 08/28/21 20:55 Completed COVID/FLU/RSV Panel Stat Lab 08/28/21 21:20 Completed Lactic Acid Stat Lab 08/28/21 20:55 Completed Strep Swab [Group A Strep] Stat Lab 08/28/21 22:50 Completed TROPONIN Q3H Lab 08/28/21 20:55 Completed TROPONIN Q3H Lab 08/29/21 00:42 Completed UA W/RFX CULTURE Stat Lab 08/28/21 20:59 Completed Acetaminophen 325 mg [Tylenol 325 mg] Med 08/29/21 02:52 Active 650 mg PO Q4H PRN PRN Acetaminophen 325 mg [Tylenol 325 mg] Med 08/28/21 21:56 Discontinued 975 mg .ROUTE .STK-MED ONE Acetaminophen 325 mg [Tylenol 325 mg] Med 08/29/21 00:22 Discontinued 975 mg PO STAT ONE Acetaminophen 325 mg [Tylenol 325 mg] Med 08/28/21 22:00 Discontinued 975 mg PO STAT STA Albuterol 2.5 mg/3 ml Neb [Proventil 2.5 mg/3 ml Neb Med 08/29/21 02:44 Active ] 2.5 mg IH Q4H PRN PRN Albuterol Common Canister [Ventolin Common Canister* Med 08/29/21 09:42 Active ] 2 puff IH Q4HPRN PRN Beta-Carotene(A) W-C & E/Min [Ocuvite Tablet] Med 08/29/21 10:00 Active 2 tab PO BID Calcium Carbonate 750 mg [Tums EX 750 MG] Med 08/29/21 10:00 Active 750 mg PO DAILY Cholecalciferol (Vitamin D3) [Vitamin D] Med 08/29/21 10:00 Active 5,000 unit PO DAILY Cyanocobalamin 1000 Mcg/ml [Cyanocobalamin B-12 1000 Med 09/06/21 10:00 Active MCG/ML] 1,000 mcg IM Q30D Diltiazem HCl Cd [Cardizem CD ] Med 08/29/21 22:00 Active 120 mg PO HS Enoxaparin Sodium [Enoxaparin Sodium] Med 08/29/21 10:00 Discontinued 40 mg SQ DAILY Enoxaparin Sodium [Enoxaparin Sodium] Med 08/29/21 22:00 Active 40 mg SQ Q24H22 Enoxaparin Sodium [Enoxaparin Sodium] Med 08/28/21 23:34 Discontinued 40 mg SQ STAT ONE Famotidine 20 mg Vial [Pepcid 20 MG VIAL] Med 08/29/21 10:00 Active 20 mg IV Q12HT Ferrous Sulfate 325 mg [Feosol 325 mg] Med 08/29/21 10:00 Active 325 mg PO DAILY Medication Intervention Med 08/29/21 10:15 Discontinued 1 each MC .RT TO CHECK Metoprolol Succinate 25 mg Xl* [Toprol-Xl 25MG Tablets* Med 08/29/21 10:00 Active ] 25 mg PO DAILY Multivitamins,Therapeutic Tab* [Theragran Multivitamin* Med 08/29/21 10:00 Active ] 1 tab PO DAILY NaCl 0.9% 1000 ml [Sodium Chloride 0.9% 1000 ML] 1,000 Med 08/28/21 21:56 Discontinued ml .ROUTE UD NaCl 0.9% 1000 ml [Sodium Chloride 0.9% 1000 ML] 1,000 Med 08/29/21 00:22 Active ml IV 125 mls/hr NaCl 0.9% 1000 ml [Sodium Chloride 0.9% 1000 ML] 1,000 Med 08/28/21 21:54 Discontinued ml IV 999 mls/hr NaCl 0.9% 250 ml [Sodium Chloride 0.9% 250 ML] 250 ml Med 08/29/21 00:47 Discontinued IV UD Ondansetron HCl 4 mg/2 ml [Zofran 4 MG/2 ML VIAL] Med 08/29/21 00:22 Active 4 mg IV Q6H PRN PRN PANTOPRAZOLE 40 mg Tablet [Protonix 40MG Tablet] Med 08/29/21 10:00 Active 40 mg PO BID Remdesivir Med 08/29/21 00:47 Discontinued 200 mg IV .STK-MED ONE Remdesivir 100 mg Med 08/30/21 22:00 Discontinued NaCl 0.9% [Sodium Chloride 0.9%] 100 ml IV Q24H Remdesivir 100 mg Med 08/29/21 22:00 Active NaCl 0.9% [Sodium Chloride 0.9%] 100 ml IV Q24H22 Remdesivir 200 mg Med 08/28/21 23:37 Discontinued NaCl 0.9% 250 ml [Sodium Chloride 0.9% 250 ML] 250 ml IV ONCE Sertraline HCl 50 mg [Zoloft 50 mg Tablet] Med 08/29/21 10:00 Active 100 mg PO DAILY Torsemide 20 mg [Demadex 20 mg] Med 08/29/21 10:00 Active 10 mg PO DAILY Oxygen Nasal Cannula 2 lpm RT 08/29/21 02:43 Active Pulse Oximetry ROUTINE RT 08/29/21 00:22 Active Respiratory Therapy Assessment DAILY RT 08/29/21 02:48 Active Respiratory Therapy Consult ROUTINE RT 08/29/21 00:22 Completed Patient Care Notes (Last 24 hours) 08/29/21 03:27 Nursing Note by Nettie Espana--Pt sleeping. O2 sat dropped to 88% on room air. 2L NC applied. Sats increased to 94% on 2L. Will cont to monitorl Initialized on 08/29/21 03:27 - END OF NOTE Code(s): N17.9 - ACUTE KIDNEY FAILURE, UNSPECIFIED (2) COVID Current Visit: Yes Status: Acute Code(s): U07.1 - COVID-19 (3) Dehydration Current Visit: Yes Status: Acute Code(s): E86.0 - DEHYDRATION
[2021-08-29] MEDS: Toprol-Xl 25MG Tablets PO SCH (13:59)
[2021-08-29] MEDS: ENOXAPARIN SODIUM SQ SCH (20:40)
[2021-08-29] MEDS: Cardizem CD PO SCH (20:41)
[2021-08-29] MEDS: REMDESIVIR 100 MG in Sodium Chloride 0.9% 100 ML IV SCH (20:45)
[2021-08-29] MEDS ORDERED: DILTIAZEM HCL 120 MG PO SCH (22:00)
[2021-08-30] MEDS: TYLENOL 325 MG PO PRN ×5 (01:38→21:07)
[2021-08-30] MEDS: Sodium Chloride 0.9% 1000 ML 1,000 ML IV SCH ×3 (03:17→15:05)
[2021-08-30] MEDS: Zofran 4 MG/2 ML VIAL IV PRN (09:35)
[2021-08-30] MEDS: VITAMIN D PO SCH (09:58)
[2021-08-30] MEDS: Protonix 40MG Tablet PO SCH ×2 (09:59→21:59)
[2021-08-30] MEDS: Toprol-Xl 25MG Tablets PO SCH (09:59)
[2021-08-30] MEDS: DEMADEX 20 MG PO SCH (10:00)
[2021-08-30] MEDS: FEOSOL 325 MG PO SCH (10:00)
[2021-08-30] MEDS: Ocuvite Tablet PO SCH ×2 (10:00→21:59)
[2021-08-30] MEDS: Pepcid 20 MG VIAL IV SCH ×2 (10:01→21:59)
[2021-08-30] MEDS: THERAGRAN MULTIVITAMIN PO SCH (10:01)
[2021-08-30] MEDS: Tums EX 750 MG PO SCH (10:02)
[2021-08-30 10:19] LABS: Hematocrit 33.4 % (35-47); Hemoglobin 10.6 g/dL (12.0-16.0); Mean Cell Volume 103.7 fL (78-100); Mean Corpuscular Hemoglobin 32.9 pg (26-32); Mean Corpuscular Hgb Concent. 31.7 g/dL (32-36); Mean Platelet Volume 9.9 fL (7.5-11.0); Platelet Count 100 x10^3/uL (150-450); Red Blood Count 3.22 x10^6/uL (4.1-5.4); Red Cell Distribution Width 13.2 % (11.5-14.0); White Blood Count 2.3 x10^3/uL (4.0-10.5)
[2021-08-30 10:27] LABS: ALBUMIN 3.1 g/dL (3.5-5.0); ANION GAP 12.6 MEQ/L (5-15); BILIRUBIN,TOTAL 0.3 mg/dL (0.2-1.3); Calcium 8.8 mg/dL (8.4-10.2); Creatinine 1 1.59 mg/dL (0.52-1.04); EST GLOMERULAR FILTRATION RATE 33.7 ML/MIN; Potassium 3.7 mmol/L (3.5-5.1); Total Protein 5.6 g/dL (6.3-8.2)
[2021-08-30] MEDS: REMDESIVIR 100 MG in Sodium Chloride 0.9% 100 ML IV SCH (21:58)
[2021-08-30] MEDS: ENOXAPARIN SODIUM SQ SCH (21:59)
[2021-08-30] MEDS: Cardizem CD PO SCH (21:59)
[2021-08-30] MEDS ORDERED: REMDESIVIR 100 MG in Sodium Chloride 0.9% 100 ML IV SCH (22:00)
[2021-08-31] MEDS: Sodium Chloride 0.9% 1000 ML 1,000 ML IV SCH (00:16)
[2021-08-31] MEDS: TYLENOL 325 MG PO PRN (03:44)
[2021-08-31 06:38] LABS: ALBUMIN 2.7 g/dL (3.5-5.0); ANION GAP 8.8 MEQ/L (5-15); BILIRUBIN,TOTAL 0.2 mg/dL (0.2-1.3); Calcium 8.1 mg/dL (8.4-10.2); Creatinine 1 1.51 mg/dL (0.52-1.04); EST GLOMERULAR FILTRATION RATE 35.8 ML/MIN; Potassium 3.5 mmol/L (3.5-5.1); Total Protein 5.1 g/dL (6.3-8.2)
--- NOTE | 2021-08-31 07:39 | PCM.DS ---
Discharge Summary Date of Admission: 08/29/21 08:50 Admitting Physician: JENELLE BIRMINGHAM Primary Care Provider: JENELLE BIRMINGHAM Allergies Allergies naproxen [From Naprosyn] Allergy (Mild, Verified 08/28/21 20:37) Rash fluticasone furoate [From Trelegy Ellipta] Adverse Reaction (Severe, Verified 08/28/21 20:37) Anaphylactic Reaction umeclidinium [From Trelegy Ellipta] Adverse Reaction (Severe, Verified 08/28/21 20:37) Anaphylactic Reaction vilanterol [From Trelegy Ellipta] Adverse Reaction (Severe, Verified 08/28/21 20:37) Anaphylactic Reaction adhesive tape Adverse Reaction (Mild, Verified 08/28/21 20:37) BLISTERS lisinopril Adverse Reaction (Verified 08/28/21 20:43) Anaphylactic Reaction Hospital Summary - Hospital Course Hospital Course: Chief Complaint Diagnosis COVID-19, ACUTE RENAL FAILURE Allergies Allergy/AdvReac Type Severity Reaction Status Date / Time naproxen [From Naprosyn] Allergy Mild Rash Verified 08/28/21 20:37 fluticasone furoate AdvReac Severe Anaphylactic Verified 08/28/21 20:37 [From Trelegy Ellipta] Reaction umeclidinium AdvReac Severe Anaphylactic Verified 08/28/21 20:37 [From Trelegy Ellipta] Reaction vilanterol AdvReac Severe Anaphylactic Verified 08/28/21 20:37 [From Trelegy Ellipta] Reaction adhesive tape AdvReac Mild Verified 08/28/21 20:37 lisinopril AdvReac Anaphylactic Verified 08/28/21 20:43 Reaction Vital Signs (Last 24 hours) Temp Pulse Resp BP Pulse Ox 08/31/21 06:00 57 L 16 94 L 08/31/21 04:00 57 L 16 90 L 08/31/21 02:00 96.2 F 44 L 16 151/62 95 08/30/21 23:59 46 L 17 92 L 08/30/21 22:00 59 L 18 92 L 08/30/21 20:00 97.3 F 49 L 18 175/71 93 L 08/30/21 19:35 58 L 16 96 08/30/21 18:00 53 L 18 90 L 08/30/21 16:00 98.6 F 45 L 18 159/69 98 08/30/21 14:00 64 15 92 L 08/30/21 12:00 98.6 F 44 L 18 176/73 96 08/30/21 10:00 75 18 95 08/30/21 08:00 100.0 F 53 L 16 179/74 95 Home Medications Medication Instructions Recorded Confirmed Last Taken Type Diltiazem HCl [Cardizem LA] 120 mg PO HS 08/29/21 08/29/21 Unknown History Metoprolol Succinate 25 mg PO DAILY 08/29/21 08/29/21 Unknown History PANTOPRAZOLE 40 mg Tablet 40 mg PO BID 08/29/21 08/29/21 Unknown History [Protonix 40MG Tablet] Torsemide 10 mg PO DAILY 08/29/21 08/29/21 Unknown History Current Medications Generic Name Dose Route Start Last Admin Trade Name Freq PRN Reason Stop Dose Admin Acetaminophen 650 mg 08/29/21 02:52 08/31/21 03:44 Acetaminophen 325 Mg Tablet PO 09/28/21 02:51 650 mg Q4H PRN PRN Administration PAIN AND/OR FEVER Albuterol Sulfate 2.5 mg 08/29/21 02:44 Albuterol Sulfate 2.5 Mg/3 Ml Neb 09/28/21 02:43 Q4H PRN PRN SHORTNESS OF BREATH/WHEEZING Albuterol Sulfate 2 puff 08/29/21 09:42 Albuterol Common Canister Inhaler 09/28/21 09:41 Q4HPRN PRN SOB/Wheezing Calcium Carbonate/Glycine 750 mg 08/29/21 10:00 08/30/21 10:02 Calcium Carbonate 750 Mg 750 Mg Tab.Chew PO 09/28/21 09:59 750 mg DAILY TONJA Administration Cholecalciferol 5,000 unit 08/29/21 10:00 08/30/21 09:58 Cholecalciferol (Vitamin D3) 1000 Unit Tablet PO 09/28/21 09:59 5,000 unit DAILY TONJA Administration Cyanocobalamin 1,000 mcg 09/06/21 10:00 Cyanocobalamin 1000 Mcg/Ml Vial IM 10/06/21 09:59 Q30D TONJA Diltiazem HCl 120 mg 08/29/21 22:00 08/30/21 21:59 Diltiazem Hcl Cd 120 Mg Cap.Sr.24h PO 09/28/21 21:59 120 mg HS TONJA Administration Enoxaparin Sodium 40 mg 08/29/21 22:00 08/30/21 21:59 Enoxaparin Sodium 40 Mg/0.4 Ml Syringe SQ 09/28/21 21:59 40 mg Q24H22 TONJA Administration Famotidine 20 mg 08/29/21 10:00 08/30/21 21:59 Famotidine 20 Mg/1 Vial IV 09/28/21 09:59 20 mg Q12HT TONJA Administration Ferrous Sulfate 325 mg 08/29/21 10:00 08/30/21 10:00 Ferrous Sulfate 325 Mg Tablet PO 09/28/21 09:59 325 mg DAILY TONJA Administration Sodium Chloride 1,000 mls @ 125 mls/hr 08/29/21 00:22 08/31/21 00:16 Sodium Chloride 0.9% 1000 Ml IV 09/28/21 00:21 125 mls/hr .Q8H TONJA Administration Remdesivir 100 mg/ Sodium 100 mls @ 100 mls/hr 08/29/21 22:00 08/30/21 21:58 Chloride IV 09/01/21 22:59 100 mls/hr Q24H22 TONJA Administration Metoprolol Succinate 25 mg 08/29/21 10:00 08/30/21 09:59 Metoprolol Succinate 25 Mg Xl Tab PO 09/28/21 09:59 25 mg DAILY TONJA Administration Multivitamins Therapeutic 1 tab 08/29/21 10:00 08/30/21 10:01 Multivitamins,Therapeutic 1 Tab Tab PO 09/28/21 09:59 1 tab DAILY TONJA Administration Multivitamins/Minerals 2 tab 08/29/21 10:00 08/30/21 21:59 Beta-Carotene(A) W-C And E/Min 1 Tab Tablet PO 09/28/21 09:59 2 tab BID TONJA Administration Ondansetron HCl 4 mg 08/29/21 00:22 08/30/21 09:35 Ondansetron Hcl 4 Mg/2 Ml Vial IV 09/28/21 00:21 4 mg Q6H PRN PRN Administration NAUSEA/VOMITING Pantoprazole Sodium 40 mg 08/29/21 10:00 08/30/21 21:59 Protonix (Pantoprazole) 40 Mg Tablet PO 09/28/21 09:59 40 mg BID TONJA Administration Torsemide 10 mg 08/29/21 10:00 08/30/21 10:00 Torsemide 20 Mg Tablet PO 09/28/21 09:59 10 mg DAILY TONJA Administration Discontinued Medications Generic Name Dose Route Start Last Admin Trade Name Dom PRN Reason Stop Dose Admin Acetaminophen Confirm 08/28/21 21:56 Acetaminophen 325 Mg Tablet Administered 08/28/21 21:57 Dose 975 mg .ROUTE .STK-MED ONE Acetaminophen 975 mg 08/28/21 22:00 08/28/21 22:01 Acetaminophen 325 Mg Tablet PO 08/28/21 22:01 975 mg STAT STA Administration Acetaminophen 975 mg 08/29/21 00:22 08/29/21 02:51 Acetaminophen 325 Mg Tablet PO 08/29/21 00:23 Not Given STAT ONE Enoxaparin Sodium 40 mg 08/28/21 23:34 08/29/21 00:50 Enoxaparin Sodium 40 Mg/0.4 Ml Syringe SQ 08/28/21 23:35 40 mg STAT ONE Administration Enoxaparin Sodium 40 mg 08/29/21 10:00 08/29/21 11:09 Enoxaparin Sodium 40 Mg/0.4 Ml Syringe SQ 09/28/21 09:59 Not Given DAILY TONJA Sodium Chloride 1,000 mls @ 999 mls/hr 08/28/21 21:54 08/28/21 22:58 Sodium Chloride 0.9% 1000 Ml IV 08/28/21 22:54 Infused .Q1H1M STA Infusion Sodium Chloride Confirm 08/28/21 21:56 Sodium Chloride 0.9% 1000 Ml Administered 08/28/21 21:57 Dose 1,000 mls @ ud .ROUTE .STK-MED ONE Remdesivir 200 mg/ Sodium 250 mls @ 125 mls/hr 08/28/21 23:37 08/29/21 00:52 Chloride IV 08/29/21 01:36 125 mls/hr ONCE ONE Administration Sodium Chloride Confirm 08/29/21 00:47 Sodium Chloride 0.9% 250 Ml Administered 08/29/21 00:48 Dose 250 mls @ ud IV .STK-MED ONE Remdesivir 100 mg/ Sodium 100 mls @ 100 mls/hr 08/30/21 22:00 Chloride IV 09/02/21 22:59 Q24H TONJA Miscellaneous Information 1 each 08/29/21 10:15 Medication Intervention 1 Each Each 09/28/21 10:14 .RT TO CHECK TONJA Remdesivir Confirm 08/29/21 00:47 Remdesivir 100 Mg Vial Administered 08/29/21 00:48 Dose 200 mg IV .STK-MED ONE Sertraline HCl 100 mg 08/29/21 10:00 08/29/21 10:51 Sertraline Hcl 50 Mg Tab PO 09/28/21 09:59 Not Given DAILY TONJA Intake & Output (Last 24 hours) 08/28/21 08/29/21 08/30/21 08/31/21 11:59 11:59 11:59 11:59 Intake Total 626 2289 3874 Output Total 950 1000 Balance -324 1289 3874 Weight 85.3 kg 85.3 kg Microbiology Results (Last 24 hours) 08/28/21 21:15 Blood Blood Culture Gram Stain - Pending 08/28/21 21:15 Blood Blood Culture - Preliminary NO GROWTH TO DATE 08/28/21 20:55 Blood Blood Culture Gram Stain - Pending 08/28/21 20:55 Blood Blood Culture - Preliminary NO GROWTH TO DATE Laboratory Results (Last 24 hours) 08/31/21 08/30/21 08/30/21 06:05 09:45 09:45 WBC 2.3 L RBC 3.22 L Hgb 10.6 L Hct 33.4 L MCV 103.7 H MCH 32.9 H MCHC 31.7 L RDW 13.2 Plt Count 100 L MPV 9.9 Sodium 138 140 Potassium 3.5 3.7 Chloride 114 H 112 H Carbon Dioxide 18 L 19 L Anion Gap 8.8 12.6 BUN 27 H 35 H Creatinine 1.51 H 1.59 H Estimated GFR 35.8 33.7 Glucose 78 138 H Calcium 8.1 L 8.8 Total Bilirubin 0.20 0.30 AST 84 H 51 H ALT 57 H 34 Alkaline Phosphatase 87 97 Serum Total Protein 5.1 L 5.6 L Albumin 2.7 L 3.1 L Orders (Last 24 hours) Category Date Time Status CBC Urgent Lab 08/30/21 09:45 Completed CMP AM.LAB Lab 08/31/21 06:05 Completed CMP Urgent Lab 08/30/21 09:45 Completed Cyanocobalamin 1000 Mcg/ml [Cyanocobalamin B-12 1000 Med 09/06/21 10:00 Active MCG/ML] 1,000 mcg IM Q30D Remdesivir 100 mg Med 08/30/21 22:00 Discontinued NaCl 0.9% [Sodium Chloride 0.9%] 100 ml IV Q24H Patient Care Notes (Last 24 hours) 08/30/21 08:26 Case Management Note by Erica Brewer S/W PATIENT- SHE CONTINUES TO DENY ANY NEW NEEDS AT TIME OF DC. SHE REPORTS HER KIDS CAN HELP HER IF NEEDED. PATIENT WILL NEED PULSE OX SENT HOME WITH HER AT TIME OF DC Initialized on 08/30/21 08:26 - END OF NOTE - Vitals & Intake/Output Vital Signs: Vital Signs Temperature 96.2 F 08/31/21 02:00 Pulse Rate 57 L 08/31/21 06:00 Respiratory Rate 16 08/31/21 06:00 Blood Pressure 151/62 08/31/21 02:00 O2 Sat by Pulse Oximetry 94 L 08/31/21 06:00 Intake & Output: Intake & Output 08/28/21 08/29/21 08/30/21 08/31/21 11:59 11:59 11:59 11:59 Intake Total 626 2289 3874 Output Total 950 1000 Balance -324 1289 3874 Weight 85.3 kg 85.3 kg - Lab Result Diagrams: 08/30/21 09:45 08/31/21 06:05 Lab Results-Last 24 Hrs: Lab Results-Last 24 Hours 08/30/21 08/30/21 08/31/21 Range/Units 09:45 09:45 06:05 WBC 2.3 L (4.0-10.5) x10^3/uL RBC 3.22 L (4.1-5.4) x10^6/uL Hgb 10.6 L (12.0-16.0) g/dL Hct 33.4 L (35-47) % MCV 103.7 H (78-100) fL MCH 32.9 H (26-32) pg MCHC 31.7 L (32-36) g/dL RDW 13.2 (11.5-14.0) % Plt Count 100 L (150-450) x10^3/uL MPV 9.9 (7.5-11.0) fL Sodium 140 138 (137-145) mmol/L Potassium 3.7 3.5 (3.5-5.1) mmol/L Chloride 112 H 114 H (98-107) mmol/L Carbon Dioxide 19 L 18 L (22-30) mmol/L Anion Gap 12.6 8.8 (5-15) MEQ/L BUN 35 H 27 H (7-17) mg/dL Creatinine 1.59 H 1.51 H (0.52-1.04) mg/dL Estimated GFR 33.7 35.8 ML/MIN Glucose 138 H 78 (74-106) mg/dL Calcium 8.8 8.1 L (8.4-10.2) mg/dL Total Bilirubin 0.30 0.20 (0.2-1.3) mg/dL AST 51 H 84 H (14-36) U/L ALT 34 57 H (0-35) U/L Alkaline Phosphatase 97 87 (38-126) U/L Serum Total Protein 5.6 L 5.1 L (6.3-8.2) g/dL Albumin 3.1 L 2.7 L (3.5-5.0) g/dL Micro Results-Entire Visit: Microbiology 08/28/21 21:15 Blood Culture - Preliminary Blood NO GROWTH TO DATE 08/28/21 20:55 Blood Culture - Preliminary Blood NO GROWTH TO DATE - Procedures and Test Procedures and Tests throughout Hospitalization: Therapy Orders & Screens 08/29/21 00:22 Respiratory Therapy Consult ROUTINE Comment: Reason For Exam: 08/29/21 02:43 Oxygen Nasal Cannula 2 lpm Comment: Diagnosis: Covid 08/29/21 02:48 Respiratory Therapy Assessment DAILY Comment: Diagnosis: Covid Discharge Exam General Appearance: no apparent distress, alert Neurologic Exam: alert, oriented x 3, cooperative, normal mood/affect, nml c erebellar function, sensation nml, No motor deficits Eye Exam: PERRL, EOMI, eyes nml inspection Ears, Nose, Throat Exam: normal ENT inspection, pharynx normal, moist mucous membranes Neck Exam: normal inspection, non-tender, supple, full range of motion Respiratory Exam: normal breath sounds, lungs clear, No respiratory distress Cardiovascular Exam: regular rate/rhythm, normal heart sounds Gastrointestinal/Abdomen Exam: soft, No tenderness, No mass Pelvic Exam: deferred Rectal Exam: deferred Back Exam: normal inspection, normal range of motion, No CVA tenderness, No ve rtebral tenderness Extremity Exam: normal inspection, normal range of motion Skin Exam: normal color, warm, dry Final Diagnosis/Problem List - Final Discharge Diagnosis/Problem (1) COVID Current Visit: Yes Status: Resolved Code(s): U07.1 - COVID-19 (2) Acute renal injury Current Visit: Yes Status: Resolved Code(s): N17.9 - ACUTE KIDNEY FAILURE, UNSPECIFIED (3) Dehydration Current Visit: Yes Status: Resolved Code(s): E86.0 - DEHYDRATION - Discharge Discharge Date: 08/31/21 Disposition: Home, Self-Care Condition: Stable Prescriptions: Continue Cholecalciferol (Vitamin D3) [Vitamin D] 5,000 unit PO DAILY Vit C/E/Zn/Coppr/Lutein/Zeaxan [Preservision Areds 2 Softgel] 2 cap PO BID Ferrous Sulfate [Iron] 325 mg PO DAILY Albuterol Common Canister [Ventolin Common Canister] 2 puff IH Q4-6HPRN PRN PRN Reason: SOB/Wheezing Calcium Carbonate [Tums] 600 mg PO DAILY Multivitamin 1 each PO DAILY Cyanocobalamin (Vitamin B-12) [Cyanocobalamin Injection] 1,000 mcg IJ UD Diltiazem HCl [Cardizem LA] 120 mg PO HS Metoprolol Succinate 25 mg PO DAILY PANTOPRAZOLE 40 mg Tablet [Protonix 40MG Tablet] 40 mg PO BID Torsemide 10 mg PO DAILY Follow up with: JENELLE BIRMINGHAM MD [Primary Care Provider] - 2 weeks
[2021-08-31 08:25] VITALS: PULSE 60; O2SAT 95
[2021-08-31 08:41] VITALS: BP 155/81
[2021-08-31] MEDS: VITAMIN D PO SCH (09:18)
[2021-08-31] MEDS: DEMADEX 20 MG PO SCH (09:19)
[2021-08-31] MEDS: THERAGRAN MULTIVITAMIN PO SCH (09:20)
[2021-08-31] MEDS: Ocuvite Tablet PO SCH (09:21)
[2021-08-31] MEDS: Toprol-Xl 25MG Tablets PO SCH (09:21)
[2021-08-31] MEDS: Protonix 40MG Tablet PO SCH (09:22)
[2021-08-31] MEDS: FEOSOL 325 MG PO SCH (09:22)
[2021-08-31] MEDS: Zofran 4 MG/2 ML VIAL IV PRN (09:23)
[2021-08-31] MEDS: Pepcid 20 MG VIAL IV SCH (09:23)
[2021-09-06] MEDS ORDERED: Cyanocobalamin B-12 1000 MCG/ML IM SCH (10:00)
== END 2021-08-31 10:10 | disposition home or self-care (01) | DRG 178 ==
LOC: ED 20:17 → MED SURG 08-29 00:21 → OBSVTOIN 08-29 08:50
PROVIDERS: ADMIT General Practice; ATTEND General Practice
DX: U07.1 COVID-19 (principal); N17.9 Acute kidney failure, unspecified; E86.0 Dehydration; I10 Essential (primary) hypertension; I25.2 Old myocardial infarction; Z20.828 Contact with and (suspected) exposure to other viral communicable diseases; Z79.899 Other long term (current) drug therapy; Z85.3 Personal history of malignant neoplasm of breast
CPT/HCPCS: 0241U; 36000; 36415; 71045; 80053; 81015; 83605; 84484; 85025; 85027; 87040; 87651; 94760; 94762; 96360; 99285; 93268; J0248; J1650; J2405; A9270-GY

== ENCOUNTER 2021-12-01 09:23 | Emergency (ER) | payer MEDICARE, BC ==
[2021-12-01 09:46] VITALS: O2SAT 100
[2021-12-01 10:11] LABS: Hematocrit 31.3 % (35-47); Hemoglobin 10.1 g/dL (12.0-16.0); Mean Cell Volume 102.3 fL (78-100); Mean Corpuscular Hgb Concent. 32.3 g/dL (32-36); Mean Platelet Volume 9.3 fL (7.5-11.0); Platelet Count 150 x10^3/uL (150-450); Red Blood Count 3.06 x10^6/uL (4.1-5.4); Red Cell Distribution Width 13.1 % (11.5-14.0); White Blood Count 6.2 x10^3/uL (4.0-10.5)
[2021-12-01] MEDS ORDERED: NORCO 7.5/325 MG TAB PO ONE (10:14)
--- NOTE | 2021-12-01 10:20 | ERPHSYRPT ---
- History of Present Illness Time Seen by Provider: 12/01/21 09:31 Source: patient Exam Limitations: no limitations Patient Subjective Stated Complaint: Wrist pain Triage Nursing Assessment: Patient ambulated back to ED and transferred self to bed. Patient A+O X 3. Patient's skin pink, warm and dry. Patient states she woke up yesterday with left sided wrist pain. Patient denies injury or trauma to left wrist. Patient's left wrist noted to be swollen. Patient complains of pain 6/10. Physician History: Patient woke up with left wrist pain. No falls no trauma. Feels it is slightly swollen. No other fevers or chills. Patient states that she has not immunocompromise. She has not tried anything to make it better or worse. She has no history of septic joint, gout, other neurological issues. Timing/Duration: yesterday Severity: mild Allergies/Adverse Reactions: naproxen [From Naprosyn] Allergy (Mild, Verified 12/01/21 09:31) Rash fluticasone furoate [From Trelegy Ellipta] Adverse Reaction (Severe, Verified 12/01/21 09:31) Anaphylactic Reaction umeclidinium [From Trelegy Ellipta] Adverse Reaction (Severe, Verified 12/01/21 09:31) Anaphylactic Reaction vilanterol [From Trelegy Ellipta] Adverse Reaction (Severe, Verified 12/01/21 09:31) Anaphylactic Reaction adhesive tape Adverse Reaction (Mild, Verified 12/01/21 09:31) BLISTERS lisinopril Adverse Reaction (Verified 12/01/21 09:31) Anaphylactic Reaction Home Medications: Cholecalciferol (Vitamin D3) [Vitamin D] 5,000 unit PO DAILY 01/21/16 [History] Albuterol Common Canister [Ventolin Common Canister] 2 puff IH Q4-6HPRN FL N 09/02/18 [History] Ferrous Sulfate [Iron] 325 mg PO DAILY 09/02/18 [History] Vit C/E/Zn/Coppr/Lutein/Zeaxan [Preservision Areds 2 Softgel] 2 cap PO BID 09/02/18 [History] Calcium Carbonate [Tums] 600 mg PO DAILY 02/06/21 [History] Cyanocobalamin (Vitamin B-12) [Cyanocobalamin Injection] 1,000 mcg IJ UD 02/06/21 [History] Multivitamin 1 each PO DAILY 02/06/21 [History] Diltiazem HCl [Cardizem LA] 120 mg PO HS 08/29/21 [History] Metoprolol Succinate 25 mg PO DAILY 08/29/21 [History] PANTOPRAZOLE 40 mg Tablet [Protonix 40MG Tablet] 40 mg PO BID 08/29/21 [History] Torsemide 10 mg PO DAILY 08/29/21 [History] Hx Tetanus, Diphtheria Vaccination/Date Given: Yes (UP TO DATE) Hx Influenza Vaccination/Date Given: Yes Hx Pneumococcal Vaccination/Date Given: Yes Immunizations Up to Date: Yes Travel Risk - International Travel Have you traveled outside of the country in past 3 weeks: No - Coronavirus Screening Are you exhibiting any of the following symptoms?: No Close contact with a COVID-19 positive Pt in past 14-21 Days: No - Vaccine Status Have you recieved a Covid-19 vaccination: Yes 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 - Vaccination Dates Date of 2cond Vaccination (if applicable): unknown - Review of Systems Constitutional: No Fever, No Chills Eyes: No Symptoms Ears, Nose, & Throat: No Symptoms Respiratory: No Cough, No Dyspnea Cardiac: No Chest Pain, No Edema, No Syncope Abdominal/Gastrointestinal: No Abdominal Pain, No Nausea, No Vomiting, No Diarrhea Genitourinary Symptoms: No Dysuria Musculoskeletal: No Symptoms (left wrist pain), No Back Pain, No Neck Pain Skin: No Rash Neurological: No Dizziness, No Focal Weakness, No Sensory Changes Psychological: No Symptoms Endocrine: No Symptoms All Other Systems: Reviewed and Negative - Past Medical History Pertinent Past Medical History: Yes Neurological History: No Pertinent History ENT History: Cataracts Cardiac History: Hypertension, Myocardial Infarction ([place]) Respiratory History: Asthma, Pneumonia Endocrine Medical History: No Pertinent History Musculoskeletal History: Arthritis GI Medical History: Hernia, Polyps History: No Pertinent History Psycho-Social History: Anxiety, Depression Female Reproductive Disorders: Breast Cancer Other Medical History: Heart attack is disagreed on by different doctors. Cholecystectomy, Hysterectomy, Mastectomy with reconstruction, Gastric bypass. HX RECALLED FROM PREVIOUS STAY - Past Surgical History Past Surgical History: Yes (hysterectomy, Breast L Ca) Neuro Surgical History: No Pertinent History Cardiac: No Pertinent History, Cardiac Catheterization Respiratory: No Pertinent History Gastrointestinal: Appendectomy, Cholecystectomy, Hernia Repair Genitourinary: No Pertinent History Musculoskeletal: Orthopedic Surgery Female Surgical History: Hysterectomy, Mastectomy Other Surgical History: mastecomy.barriactric surgery. neck'C5,C6 fussion. HX RECALLED FROM PREVIOUS STAY - Social History Smoking Status: Never smoker Exposure to second hand smoke: No Drug Use: none Patient Lives Alone: Yes - Nursing Vital Signs Nursing Vital Signs: Initial Vital Signs Temperature 97.5 F 12/01/21 09:32 Pulse Rate 55 L 12/01/21 09:32 Respiratory Rate 18 12/01/21 09:32 Blood Pressure 160/65 12/01/21 09:32 O2 Sat by Pulse Oximetry 100 12/01/21 09:32 Pain Scale Pain Intensity 6 - Physical Exam General Appearance: no apparent distress, alert Eye Exam: PERRL/EOMI, eyes nml inspection Ears, Nose, Throat Exam: normal ENT inspection, TMs normal, pharynx normal, moist mucous membranes Neck Exam: normal inspection, non-tender, supple, full range of motion Respiratory Exam: normal breath sounds, lungs clear, No respiratory distress Cardiovascular Exam: regular rate/rhythm, normal heart sounds, normal peripheral pulses Gastrointestinal/Abdomen Exam: soft, normal bowel sounds, No tenderness, No mass Back Exam: normal inspection, normal range of motion, No CVA tenderness, No vertebral tenderness Extremity Exam: normal inspection, normal range of motion, pelvis stable, other (Left wrist tenderness. Very minimal swelling. Full range of motion with minimal pain. No redness or warmth to the touch.) Neurologic Exam: alert, oriented x 3, cooperative, normal mood/affect, nml cerebellar function, nml station & gait, sensation nml, No motor deficits Skin Exam: normal color, warm, dry, No rash Lymphatic Exam: No adenopathy SpO2: 100 - Course Nursing assessment & vital signs reviewed: Yes Ordered Tests: Active Orders 24 hr Category Date Time Status WRIST (MIN 3 VIEWS) Stat Exams 12/01/21 10:08 Taken BMP Stat Lab 12/01/21 10:08 Completed CBC Stat Lab 12/01/21 10:08 Completed ESR [Erythrocyte Sedimentation Rate] Stat Lab 12/01/21 10:08 Completed Uric Acid Stat Lab 12/01/21 10:39 Completed Medication Summary Discontinued Medications Generic Name Dose Route Start Last Admin Trade Name Freq PRN Reason Stop Dose Admin Hydrocodone Bitart/Acetaminophen 1 tab 12/01/21 10:14 12/01/21 10:27 Hydrocodone /Apap 7.5/325 Mg 1 Each Tablet PO 12/01/21 10:15 1 tab STAT ONE Administration Lab/Rad Data: Laboratory Result Diagrams 12/01/21 10:08 12/01/21 10:08 Laboratory Results 12/01/21 12/01/21 12/01/21 Range/Units 10:39 10:08 10:08 WBC (4.0-10.5) x10^3/uL RBC (4.1-5.4) x10^6/uL Hgb (12.0-16.0) g/dL Hct (35-47) % MCV (78-100) fL MCH (26-32) pg MCHC (32-36) g/dL RDW (11.5-14.0) % Plt Count (150-450) x10^3/uL MPV (7.5-11.0) fL ESR 48 H (0-20) mm/hr Sodium 138 (137-145) mmol/L Potassium 4.1 (3.5-5.1) mmol/L Chloride 113 H (98-107) mmol/L Carbon Dioxide 19 L (22-30) mmol/L Anion Gap 9.8 (5-15) MEQ/L BUN 36 H (7-17) mg/dL Creatinine 1.99 H (0.52-1.04) mg/dL Estimated GFR 26.0 ML/MIN Glucose 93 (74-106) mg/dL Uric Acid 6.7 H (2.6-6.0) mg/dL Calcium 8.9 (8.4-10.2) mg/dL 12/01/21 Range/Units 10:08 WBC 6.2 (4.0-10.5) x10^3/uL RBC 3.06 L (4.1-5.4) x10^6/uL Hgb 10.1 L (12.0-16.0) g/dL Hct 31.3 L (35-47) % MCV 102.3 H (78-100) fL MCH 33.0 H (26-32) pg MCHC 32.3 (32-36) g/dL RDW 13.1 (11.5-14.0) % Plt Count 150 (150-450) x10^3/uL MPV 9.3 (7.5-11.0) fL ESR (0-20) mm/hr Sodium (137-145) mmol/L Potassium (3.5-5.1) mmol/L Chloride (98-107) mmol/L Carbon Dioxide (22-30) mmol/L Anion Gap (5-15) MEQ/L BUN (7-17) mg/dL Creatinine (0.52-1.04) mg/dL Estimated GFR ML/MIN Glucose (74-106) mg/dL Uric Acid (2.6-6.0) mg/dL Calcium (8.4-10.2) mg/dL - Progress Progress: improved Progress Note: 12/01/21 10:20 We will obtain an x-ray of the left wrist. Given that there was no trauma I will also obtain a CRP, ESR, CBC, BMP. Certainly gout or septic arthritis could be on her differential although less likely. 12/01/21 11:15 X-ray shows no obvious fractures. ESR slightly elevated. Uric acid slightly elevated. Patient has no leukocytosis. Patient does have elevated creatinine with a history of elevated creatinines. At this point in time differential diagnosis is septic joint versus gout versus soft tissue swelling from trauma. I did discuss the risks and benefits of obtaining a joint aspiration of fluid today. This would be looking for infection or gout. In the setting of infection this would lead us to a septic arthritis diagnosis with most likely admission for IV antibiotics. Ultimately, the patient decided she would rather have watchful waiting. She did not want to undergo a needle aspiration today. We will empirically treat her as gout today with splinting. She will have a reexam tomorrow morning at 8 AM with orthopedic surgery. She is welcome to return here at any point time for new or changing symptoms should she want to be treated for potential septic joint. Patient is with her adult daughter I did explain all of this to her as well. They understand the risks and benefits and would like to be discharged home today. Counseled pt/family regarding: lab results, diagnosis, need for follow-up - Departure Departure Disposition: Home Clinical Impression: Left wrist pain Condition: Stable Critical Care Time: No Referrals: JENELLE BIRMINGHAM MD [Primary Care Provider] - Follow up/PCP as directed Additional Instructions: You should go to [facility] tomorrow morning at 8 AM. You may return here at any point time for new or changing symptoms and reevaluation.
[2021-12-01 10:29] LABS: ANION GAP 9.8 MEQ/L (5-15); Calcium 8.9 mg/dL (8.4-10.2); Creatinine 1 1.99 mg/dL (0.52-1.04); Potassium 4.1 mmol/L (3.5-5.1)
[2021-12-01 11:18] VITALS: BP 130/74; PULSE 52
--- NOTE | 2021-12-01 18:44 | XRAY ---
Indication: Pain. No known injury. Comparison: None 3 view left wrist demonstrates osteopenia and moderate 1st metacarpal multangular degenerative changes with tiny heterotopic ossification. No other bony, articular, or soft tissue abnormalities. Comment: Preliminary interpretation made by [facility]. No critical discrepancy.
== END 2021-12-01 11:28 | disposition home or self-care (01) ==
LOC: ED 09:23
DX: M25.532 Pain in left wrist (principal); I10 Essential (primary) hypertension; Z79.899 Other long term (current) drug therapy
CPT/HCPCS: 29125; 36415; 73110; 80048; 84550; 85027; 85652; 86140; 99283; A9270-GY

== ENCOUNTER 2022-02-05 15:30 | Emergency (ER) | payer MEDICARE, BC ==
--- NOTE | 2022-02-05 15:36 | ERPHSYRPT ---
- History of Present Illness Time Seen by Provider: 02/05/22 15:36 Source: patient, family Exam Limitations: no limitations Physician History: This is a 77-year-old white female patient of Dr. [place] who fell prior to arrival and hit her head on the concrete. She tripped over a broom. She is not on any anticoagulation therapy. She has had cervical spine fusion in the past (C5-6). She has a history of hypertension, asthma, coronary disease, and anxiety. She has no visual changes. She did not lose consciousness per her report. Occurred: just prior to arrival Injuries/Pain Location: head Loss of Consciousness: no loss of consciousness Severity of Pain-Max: mild Severity of Pain-Current: mild Modifying Factors: Improves With: nothing Associated Symptoms (Fall): denies symptoms Allergies/Adverse Reactions: naproxen [From Naprosyn] Allergy (Mild, Verified 02/05/22 15:46) Rash fluticasone furoate [From Trelegy Ellipta] Adverse Reaction (Severe, Verified 02/05/22 15:46) Anaphylactic Reaction umeclidinium [From Trelegy Ellipta] Adverse Reaction (Severe, Verified 02/05/22 15:46) Anaphylactic Reaction vilanterol [From Trelegy Ellipta] Adverse Reaction (Severe, Verified 02/05/22 15:46) Anaphylactic Reaction adhesive tape Adverse Reaction (Mild, Verified 02/05/22 15:46) BLISTERS lisinopril Adverse Reaction (Verified 02/05/22 15:46) Anaphylactic Reaction Home Medications: Cholecalciferol (Vitamin D3) [Vitamin D] 5,000 unit PO DAILY 01/21/16 [History] Albuterol Common Canister [Ventolin Common Canister] 2 puff IH Q4-6HPRN PRN 09/02/18 [History] Ferrous Sulfate [Iron] 325 mg PO DAILY 09/02/18 [History] Vit C/E/Zn/Coppr/Lutein/Zeaxan [Preservision Areds 2 Softgel] 2 cap PO BID 09/02/18 [History] Calcium Carbonate [Tums] 600 mg PO DAILY 02/06/21 [History] Cyanocobalamin (Vitamin B-12) [Cyanocobalamin Injection] 1,000 mcg IJ UD 02/06/21 [History] Multivitamin 1 each PO DAILY 02/06/21 [History] Diltiazem HCl [Cardizem LA] 120 mg PO HS 08/29/21 [History] Metoprolol Succinate 25 mg PO DAILY 08/29/21 [History] PANTOPRAZOLE 40 mg Tablet [Protonix 40MG Tablet] 40 mg PO BID 08/29/21 [History] Torsemide 10 mg PO DAILY 08/29/21 [History] Hx Tetanus, Diphtheria Vaccination/Date Given: Yes (UP TO DATE) Hx Influenza Vaccination/Date Given: Yes Hx Pneumococcal Vaccination/Date Given: Yes Travel Risk - International Travel Have you traveled outside of the country in past 3 weeks: No - Coronavirus Screening Are you exhibiting any of the following symptoms?: No Close contact with a COVID-19 positive Pt in past 14-21 Days: No - Vaccine Status Have you recieved a Covid-19 vaccination: Yes Infection Prevention Specialist: Moderna - Vaccination Dates Date of 2cond Vaccination (if applicable): unknown - Review of Systems Constitutional: No Symptoms Eyes: No Symptoms Ears, Nose, & Throat: No Symptoms Respiratory: No Symptoms Cardiac: No Symptoms Abdominal/Gastrointestinal: No Symptoms Genitourinary Symptoms: No Symptoms Musculoskeletal: No Symptoms Skin: No Symptoms Neurological: No Symptoms Psychological: No Symptoms Endocrine: No Symptoms Hematologic/Lymphatic: No Symptoms Immunological/Allergic: No Symptoms All Other Systems: Reviewed and Negative - Past Medical History Pertinent Past Medical History: Yes Neurological History: No Pertinent History ENT History: Cataracts Cardiac History: Hypertension, Myocardial Infarction ([place]) Respiratory History: Asthma, Pneumonia Endocrine Medical History: No Pertinent History Musculoskeletal History: Arthritis GI Medical History: Hernia, Polyps History: No Pertinent History Psycho-Social History: Anxiety, Depression Female Reproductive Disorders: Breast Cancer Other Medical History: Heart attack is disagreed on by different doctors. Cholecystectomy, Hysterectomy, Mastectomy with reconstruction, Gastric bypass. HX RECALLED FROM PREVIOUS STAY - Past Surgical History Past Surgical History: Yes (hysterectomy, Breast L Ca) Neuro Surgical History: No Pertinent History Cardiac: No Pertinent History, Cardiac Catheterization Respiratory: No Pertinent History Gastrointestinal: Appendectomy, Cholecystectomy, Hernia Repair Genitourinary: No Pertinent History Musculoskeletal: Orthopedic Surgery Female Surgical History: Hysterectomy, Mastectomy Other Surgical History: mastecomy.barriactric surgery. neck'C5,C6 fussion. HX RECALLED FROM PREVIOUS STAY - Social History Smoking Status: Never smoker Exposure to second hand smoke: No Drug Use: none Patient Lives Alone: Yes - Nursing Vital Signs Nursing Vital Signs: Initial Vital Signs Temperature 97.0 F 02/05/22 15:46 Pulse Rate 80 02/05/22 15:46 Respiratory Rate 18 02/05/22 15:46 Blood Pressure 132/86 02/05/22 15:46 O2 Sat by Pulse Oximetry 99 02/05/22 15:46 Pain Scale Pain Intensity 6 - Tricia Coma Score Best Eye Response (Tricia): (4) open spontaneously Best Verbal Response (Bostic): (5) oriented Best Motor Response (Bostic): (6) obeys commands Bostic Total: 15 - Physical Exam General Appearance: no apparent distress, alert, anxiety Head Injury: contusions (With abrasion right forehead. No laceration present.) Eye Exam: PERRL/EOMI ( ), eyes nml inspection ENT Exam: airway nml, nml ext.inspection, No clear fluid (ears), No clear fluid (nose) Neck Exam: supple, trachea midline, full range of motion, normal alignment, normal inspection Respiratory/Chest Exam: normal breath sounds, No chest tenderness, No respiratory distress, No ecchymosis, No crepitus Cardiovascular Exam: normal heart sounds, regular rate/rhythm Gastrointestinal Exam: soft, normal bowel sounds, No tenderness Rectal Exam: not done Back Exam: normal inspection, normal range of motion, No CVA tenderness, No vertebral tenderness Extremity Exam: normal inspection, normal range of motion, capillary refill <3 sec, pelvis stable Neurologic Exam: alert, oriented x 3, cooperative, director of gift planning II-XII nml as tested, normal mood/affect, nml cerebellar function, nml station & gait, sensation nml Skin Exam: abrasion (Right forehead), other (Mild bruising and contusion right forehead. No bleeding) SpO2 Interpretation: normal O2 Delivery: Room Air - Course Nursing assessment & vital signs reviewed: Yes Ordered Tests: Active Orders 24 hr Category Date Time Status CERVICAL SPINE WO CONTRAST [CT] Stat Exams 02/05/22 15:46 Completed HEAD WITHOUT CONTRAST [CT] Stat Exams 02/05/22 15:45 Completed Medication Summary Discontinued Medications Generic Name Dose Route Start Last Admin Trade Name Freq PRN Reason Stop Dose Admin Hydrocodone Bitart/Acetaminophen 1 tab 02/05/22 17:30 Hydrocodone/Apap 5/325 1 Tab Tablet PO 02/05/22 17:31 STAT ONE - Progress Progress: unchanged, pain not gone completely Progress Note: 02/05/22 17:31 CT scan of the head without contrast shows no intracranial abnormality. There is no skull fracture present. CT scan of the cervical spine without evidence of acute fracture or subluxation. Counseled pt/family regarding: diagnosis, need for follow-up, rad results - Departure Departure Disposition: Home Clinical Impression: Head injury Condition: Stable Critical Care Time: No Referrals: JENELLE BIRMINGHAM MD [Primary Care Provider] - Follow up/PCP as directed Additional Instructions: Ice pack to head injury site 2-3 times a day for the next 48 hours. May apply antibiotic ointment of choice to the abrasion site 1-2 times a day. Keep abrasion site clean with soap and water. May use Tylenol for pain control.
--- NOTE | 2022-02-05 17:13 | XRAY ---
Exam: CT of the head without IV contrast from 02/05/2022. CTDI: 53.92 mGy Comparison: CT of the head without IV contrast 03/18/2019. Indication: 77-year-old female with fall/injury striking head. She has swelling and bruising on the right side of her forehead according to the information sheet. Technique: Non-IV contrast axial images were obtained through the brain. Reconstructed coronal and sagittal images were created and reviewed. Findings: The ventricles are within normal limits of size with the right lateral ventricle being slightly larger than the left lateral ventricle, representing no change. A small cavum septum pellucidum is seen between the frontal horns of the lateral ventricles representing a normal variant, also no change. There is no focal mass effect or midline shift. No acute intracranial bleed or abnormal extra-axial fluid collection is seen. Mild scattered deep white matter changes are seen, likely due to mild chronic small vessel ischemic white matter disease. This is unchanged. Ferreira matter-white matter differentiation is preserved. A low attenuation infarct is not seen. The cortical sulci and basilar cisterns appear unremarkable. The calvarium of the skull appears intact. 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 There is some minimal mucoperiosteal thickening within the inferior-posterior margin of the left maxillary sinus. This is probably chronic. No air-fluid level is seen. The remainder of the paranasal sinuses are unremarkable. Mild intracranial arterial calcifications are seen within the carotid siphons. The mastoid air cells are clear without effusion. The orbits appear grossly unremarkable. I note a mild scalp hematoma overlying the high right lateral frontal region. This is new since the previous CT exam. Impression: 1. I see no acute intracranial bleed. 2. Mild chronic deep white matter ischemic changes are again seen consistent with mild chronic microvascular disease. A discrete low attenuation infarct is not seen. 3. There is a mild scalp hematoma overlying the upper right lateral frontal region. No underlying fracture of the calvarium of the skull is seen. 4. 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 5. Minimal chronic appearing mucoperiosteal thickening is seen at the inferior-posterior margin of the left maxillary sinus. No air-fluid levels are seen.
[2022-02-05] MEDS ORDERED: NORCO 5/325 MG PO ONE ×2 (17:30→17:38)
--- NOTE | 2022-02-05 17:31 | XRAY ---
Exam: CT of the head without IV contrast from 02/05/2022. CTDI: 44.39 mGy Comparison: [None.] Indication: 77-year-old female fell today hitting head; has soft tissue swelling/knot in right frontal region. Technique: Non-IV contrast axial images were obtained through the cervical spine. Reconstructed coronal and sagittal images were created and reviewed. Findings: There appears to be surgical fusion at C6-C7 with an anterior metallic plate and 4 adjoining threaded screws. A spacer device is seen at C6-C7. There also appears to be bony fusion at C5-C6. The C2-C3, C3-C4, and C4-C5 interspaces are adequately maintained. Small anterior vertebral endplate spurs are seen at C3-C4 and C4-C5. The preodontoid space is normal. I see no evidence of acute cervical spine fracture or AP subluxation. No prevertebral soft tissue swelling is seen. No obvious significant cervical spine canal stenosis is seen. I note moderate degenerative changes of the upper cervical facet joints, most pronounced at C4-C5 on the right and at C3-C4 on the left. There is also mild osteoarthritic degenerative change of the right C3-C4 and C4-C5 uncovertebral joints. No cervical ribs are seen. There is moderate narrowing of the C2-C3 neural foramen bilaterally, moderate to marked narrowing of the C3-C4 neural foramen bilaterally, left greater than right, and mild narrowing of the right C4-C5 neural foramen due to spurring. The lower cervical neural foramen appear unremarkable. Some atherosclerotic vascular calcification is seen at both carotid bulbs. There appears to be a partially calcified lymph node within the base of the neck on the right on axial images #67 through #69. No abnormal cervical lymphadenopathy is seen. The thyroid gland appears grossly unremarkable. The visualized lung apices appear clear. Impression: 1. I see no acute cervical spine fracture or AP subluxation. 2. Evidence of prior surgical anterior fusion at C6-C7. There also appears to be bony fusion at C5-C6. 3. Degenerative changes are seen, primarily within the upper cervical spine. This causes some compromise of the C2-C3 through C4-C5 lateral neural foramen, as discussed above.
[2022-02-05] MEDS ORDERED: NORCO 5/325 MG ONE ×2 (17:33→17:38)
[2022-02-05 17:37] VITALS: BP 194/83; PULSE 63; O2SAT 100
== END 2022-02-05 17:53 | disposition home or self-care (01) ==
LOC: ED 15:30
DX: S09.90XA Unspecified injury of head, initial encounter (principal); W01.0XXA Fall on same level from slipping, tripping and stumbling without subsequent striking against object, initial encounter; I10 Essential (primary) hypertension; Z79.899 Other long term (current) drug therapy
CPT/HCPCS: 70450; 72125; 99283; A9270-GY

== ENCOUNTER 2022-02-26 23:24 | Observation (INO) | payer MEDICARE, BC ==
[2022-02-27 00:44] LABS: Absolute Neutrophil Ct (ANC) 5.18 x10^3/uL (1.4-6.9); Basophil (Absolute #) 0.03 x10^3/uL (0-0.4); Eosinophil % 2.9 % (0.00-5.0); Eosinophil (Absolute #) 0.23 x10^3/uL (0-0.5); Hematocrit 35.3 % (35-47); Hemoglobin 11.5 g/dL (12.0-16.0); Lymphocytes % 22.9 % (24.0-44.0); Mean Corpuscular Hemoglobin 32.6 pg (26-32); Mean Corpuscular Hgb Concent. 32.6 g/dL (32-36); Mean Platelet Volume 9.3 fL (7.5-11.0); Monocyte (Absolute #) 0.61 x10^3/uL (0.0-1.3); Monocytes % 7.8 % (0.0-12.0); Neutrophil % 65.7 % (36.0-66.0); Platelet Count 185 x10^3/uL (150-450); Red Blood Count 3.53 x10^6/uL (4.1-5.4); Red Cell Distribution Width 13.6 % (11.5-14.0); White Blood Count 7.9 x10^3/uL (4.0-10.5)
[2022-02-27 00:59] LABS: ANION GAP 10.8 MEQ/L (5-15); BILIRUBIN,TOTAL 0.3 mg/dL (0.2-1.3); Calcium 8.9 mg/dL (8.4-10.2); Creatinine 1 2.18 mg/dL (0.52-1.04); EST GLOMERULAR FILTRATION RATE 23.4 ML/MIN; Potassium 3.9 mmol/L (3.5-5.1); Total Protein 6.5 g/dL (6.3-8.2)
--- NOTE | 2022-02-27 01:34 | ERPHSYRPT ---
- History of Present Illness Time Seen by Provider: 02/26/22 23:45 Source: patient Exam Limitations: no limitations Patient Subjective Stated Complaint: pt states for the last week she has been having some weakness, shortness of breath and dizziness. states symptoms have b een getting worse and she passed out twice today after standing up Triage Nursing Assessment: pt alert and oriented answers questions approp. pt back to room per wheelchair, transfers to stretcher with assist of 1. skin warm and dry. heart rate 50, sinus anel on monitor. pupils equal and reactive. bilat upper and lower ext strength equal and wnl. no facial droop. Physician History: Patient is a 77-year-old female presents to our ED for evaluation of syncope x2. Patient states she has been feeling progressively weak over the past 7 days. Patient has been experiencing intermittent episodes of shortness of breath dizziness. Patient symptoms have been progressive leading up to today when she experienced syncope x2. No injury reported. No BHT. No neck pain. Cervical spine cleared clinically. Patient's daughter at bedside very concerned. EKG today observed a bradycardia in the 50s. Daughter states patient has never had a heart rate that low. It is unclear whether or not this bradycardia has contributed to patient's symptoms. Patient is currently on a beta-debra and a calcium channel debra. No chest pain. Patient voices no other complaints or concerns at this time. Portions of this note were created with voice recognition technology. There may be grammatical, spelling, punctuation or sound alike errors Timing/Duration: week(s) (1 week) Severity: moderate Modifying Factors: Improves With: nothing Associated Symptoms: denies symptoms Allergies/Adverse Reactions: naproxen [From Naprosyn] Allergy (Mild, Verified 02/27/22 00:04) Rash fluticasone furoate [From Trelegy Ellipta] Adverse Reaction (Severe, Verified 02/27/22 00:04) Anaphylactic Reaction umeclidinium [From Trelegy Ellipta] Adverse Reaction (Severe, Verified 02/27/22 00:04) Anaphylactic Reaction vilanterol [From Trelegy Ellipta] Adverse Reaction (Severe, Verified 02/27/22 00:04) Anaphylactic Reaction adhesive tape Adverse Reaction (Mild, Verified 02/27/22 00:04) BLISTERS lisinopril Adverse Reaction (Verified 02/27/22 00:04) Anaphylactic Reaction Home Medications: Cholecalciferol (Vitamin D3) [Vitamin D] 5,000 unit PO DAILY 01/21/16 [History] Albuterol Common Canister [Ventolin Common Canister] 2 puff IH Q4-6HPRN PRN 09/02/18 [History] Ferrous Sulfate [Iron] 325 mg PO DAILY 09/02/18 [History] Vit C/E/Zn/Coppr/Lutein/Zeaxan [Preservision Areds 2 Softgel] 2 cap PO BID 09/02/18 [History] Calcium Carbonate [Tums] 600 mg PO DAILY 02/06/21 [History] Cyanocobalamin (Vitamin B-12) [Cyanocobalamin Injection] 1,000 mcg IJ UD 02/06/21 [History] Multivitamin 1 each PO DAILY 02/06/21 [History] Diltiazem HCl [Cardizem LA] 120 mg PO HS 08/29/21 [History] Metoprolol Succinate 25 mg PO DAILY 08/29/21 [History] PANTOPRAZOLE 40 mg Tablet [Protonix 40MG Tablet] 40 mg PO BID 08/29/21 [History] Torsemide 10 mg PO DAILY 08/29/21 [History] Hx Tetanus, Diphtheria Vaccination/Date Given: Yes (UP TO DATE) Hx Influenza Vaccination/Date Given: No Hx Pneumococcal Vaccination/Date Given: Yes Immunizations Up to Date: Yes Travel Risk - International Travel Have you traveled outside of the country in past 3 weeks: No - Coronavirus Screening Are you exhibiting any of the following symptoms?: No Close contact with a COVID-19 positive Pt in past 14-21 Days: No - Vaccine Status Have you recieved a Covid-19 vaccination: Yes Paper Baler: Moderna - Vaccination Dates Date of 2cond Vaccination (if applicable): unknown - Review of Systems Constitutional: No Symptoms, No Fever, No Chills Eyes: No Symptoms Ears, Nose, & Throat: No Symptoms Respiratory: No Symptoms, No Cough, No Dyspnea Cardiac: No Symptoms, No Chest Pain, No Edema, No Syncope Abdominal/Gastrointestinal: No Symptoms, No Abdominal Pain, No Nausea, No Vomiting, No Diarrhea Genitourinary Symptoms: No Symptoms, No Dysuria Musculoskeletal: No Symptoms, No Back Pain, No Neck Pain Skin: No Symptoms, No Rash Neurological: No Symptoms, No Dizziness, No Focal Weakness, No Sensory Changes Psychological: No Symptoms Endocrine: No Symptoms Hematologic/Lymphatic: No Symptoms Immunological/Allergic: No Symptoms All Other Systems: Reviewed and Negative - Past Medical History Pertinent Past Medical History: Yes Neurological History: No Pertinent History ENT History: Cataracts Cardiac History: Hypertension Respiratory History: Asthma Endocrine Medical History: No Pertinent History Musculoskeletal History: Osteoarthritis GI Medical History: Hernia, Polyps History: No Pertinent History Psycho-Social History: Anxiety, Depression Female Reproductive Disorders: Breast Cancer Other Medical History: Heart attack is disagreed on by different doctors. hx of anemia. Cholecystectomy, Hysterectomy, Mastectomy with reconstruction, Gastric bypass. - Past Surgical History Past Surgical History: Yes (hysterectomy, Breast L Ca) Neuro Surgical History: No Pertinent History Cardiac: No Pertinent History, Cardiac Catheterization Respiratory: No Pertinent History Gastrointestinal: Appendectomy, Cholecystectomy, Hernia Repair Genitourinary: No Pertinent History Musculoskeletal: Orthopedic Surgery Female Surgical History: Hysterectomy, Mastectomy Other Surgical History: mastecomy.barriactric surgery. neck'C5,C6 fusion. - Social History Smoking Status: Never smoker Exposure to second hand smoke: No Drug Use: none Patient Lives Alone: Yes - Nursing Vital Signs Nursing Vital Signs: Initial Vital Signs Temperature 97.6 F 02/26/22 23:37 Pulse Rate 53 L 02/26/22 23:37 Respiratory Rate 16 02/26/22 23:37 Blood Pressure 134/74 02/26/22 23:37 O2 Sat by Pulse Oximetry 100 02/26/22 23:37 Pain Scale Pain Intensity 0 - Physical Exam General Appearance: no apparent distress, alert Eye Exam: PERRL/EOMI, eyes nml inspection Ears, Nose, Throat Exam: normal ENT inspection, TMs normal, pharynx normal, moist mucous membranes Neck Exam: normal inspection, non-tender, supple, full range of motion Respiratory Exam: normal breath sounds, lungs clear, airway intact, No respiratory distress Cardiovascular Exam: regular rate/rhythm, normal heart sounds, normal peripheral pulses Gastrointestinal/Abdomen Exam: soft, normal bowel sounds, No tenderness, No mass Back Exam: normal inspection, normal range of motion, No CVA tenderness, No vertebral tenderness Extremity Exam: normal inspection, normal range of motion, pelvis stable Neurologic Exam: alert, oriented x 3, cooperative, normal mood/affect, nml cerebellar function, nml station & gait, sensation nml, No motor deficits Skin Exam: normal color, warm, dry, No rash Lymphatic Exam: No adenopathy SpO2 Interpretation: normal SpO2: 100 O2 Delivery: Room Air - Course Nursing assessment & vital signs reviewed: Yes EKG Interpreted by Me: RATE (50), Sinus Rhythm, NORMAL AXIS, NORMAL INTERVALS - CT Exams Head CT Interpretation: Tele-radiologist Report (No acute intracranial abnormalities.) Ordered Tests: Active Orders 24 hr Category Date Time Status Head Up Operator Helper STAT Care 02/26/22 23:59 Active EKG-ER Only STAT Care 02/26/22 23:57 Active IV Insertion STAT Care 02/26/22 23:57 Active Pulse Oximetry (ED) STAT Care 02/26/22 23:57 Active HEAD WITHOUT CONTRAST [CT] Stat Exams 02/27/22 00:39 Taken TROPONIN Q4H Lab 02/27/22 03:59 Ordered TROPONIN Q4H Lab 02/27/22 07:59 Ordered TSH [TSH, 3RD Generation] Stat Lab 02/27/22 02:34 Ordered Transfer Order Routine Transfer 02/27/22 Ordered Medication Summary Generic Name Dose Route Start Last Admin Trade Name Freq PRN Reason Stop Dose Admin Remdesivir 200 mg/ Sodium 250 mls @ 125 mls/hr 02/27/22 02:58 Chloride IV 02/27/22 04:57 ONCE ONE Discontinued Medications Generic Name Dose Route Start Last Admin Trade Name Freq PRN Reason Stop Dose Admin Enoxaparin Sodium 40 mg 02/27/22 02:59 Enoxaparin Sodium 40 Mg/0.4 Ml Syringe SQ 02/27/22 03:00 STAT ONE Lab/Rad Data: Laboratory Result Diagrams 02/26/22 00:35 02/26/22 00:35 Laboratory Results 02/27/22 02/26/22 02/26/22 Range/Units 00:01 00:35 00:35 WBC (4.0-10.5) x10^3/uL RBC (4.1-5.4) x10^6/uL Hgb (12.0-16.0) g/dL Hct (35-47) % MCV (78-100) fL MCH (26-32) pg MCHC (32-36) g/dL RDW (11.5-14.0) % Plt Count (150-450) x10^3/uL MPV (7.5-11.0) fL Gran % (36.0-66.0) % Immature Gran % (Auto) (0.00-0.4) % Nucleat RBC Rel Count (0.00-0.1) % Eos # (Auto) (0-0.5) x10^3/uL Immature Gran # (Auto) (0.00-0.03) x10^3u/L Absolute Lymphs (auto) (1.0-4.6) x10^3/uL Absolute Monos (auto) (0.0-1.3) x10^3/uL Absolute Nucleated RBC (0.00-0.01) x10^3u/L Lymphocytes % (24.0-44.0) % Monocytes % (0.0-12.0) % Eosinophils % (0.00-5.0) % Basophils % (0.0-0.4) % Absolute Granulocytes (1.4-6.9) x10^3/uL Basophils # (0-0.4) x10^3/uL Sodium 136 L (137-145) mmol/L Potassium 3.9 (3.5-5.1) mmol/L Chloride 109 H (98-107) mmol/L Carbon Dioxide 20 L (22-30) mmol/L Anion Gap 10.8 (5-15) MEQ/L BUN 79 H (7-17) mg/dL Creatinine 2.18 H (0.52-1.04) mg/dL Estimated GFR 23.4 ML/MIN Glucose 100 (74-106) mg/dL Calcium 8.9 (8.4-10.2) mg/dL Total Bilirubin 0.30 (0.2-1.3) mg/dL AST 29 (14-36) U/L ALT 25 (0-35) U/L Alkaline Phosphatase 133 H (38-126) U/L Troponin I < 0.012 (0.000-0.034) ng/mL Serum Total Protein 6.5 (6.3-8.2) g/dL Albumin 4.0 (3.5-5.0) g/dL Influenza Type A Ag NEGATIVE (NEGATIVE) Influenza Type B Ag NEGATIVE (NEGATIVE) RSV (PCR) NEGATIVE (Negative) SARS-CoV-2 (PCR) POSITIVE A (NEGATIVE) 02/26/22 Range/Units 00:35 WBC 7.9 (4.0-10.5) x10^3/uL RBC 3.53 L (4.1-5.4) x10^6/uL Hgb 11.5 L (12.0-16.0) g/dL Hct 35.3 (35-47) % MCV 100.0 (78-100) fL MCH 32.6 H (26-32) pg MCHC 32.6 (32-36) g/dL RDW 13.6 (11.5-14.0) % Plt Count 185 (150-450) x10^3/uL MPV 9.3 (7.5-11.0) fL Gran % 65.7 (36.0-66.0) % Immature Gran % (Auto) 0.3 (0.00-0.4) % Nucleat RBC Rel Count 0.0 (0.00-0.1) % Eos # (Auto) 0.23 (0-0.5) x10^3/uL Immature Gran # (Auto) 0.02 (0.00-0.03) x10^3u/L Absolute Lymphs (auto) 1.80 (1.0-4.6) x10^3/uL Absolute Monos (auto) 0.61 (0.0-1.3) x10^3/uL Absolute Nucleated RBC 0.00 (0.00-0.01) x10^3u/L Lymphocytes % 22.9 L (24.0-44.0) % Monocytes % 7.8 (0.0-12.0) % Eosinophils % 2.9 (0.00-5.0) % Basophils % 0.4 (0.0-0.4) % Absolute Granulocytes 5.18 (1.4-6.9) x10^3/uL Basophils # 0.03 (0-0.4) x10^3/uL Sodium (137-145) mmol/L Potassium (3.5-5.1) mmol/L Chloride (98-107) mmol/L Carbon Dioxide (22-30) mmol/L Anion Gap (5-15) MEQ/L BUN (7-17) mg/dL Creatinine (0.52-1.04) mg/dL Estimated GFR ML/MIN Glucose (74-106) mg/dL Calcium (8.4-10.2) mg/dL Total Bilirubin (0.2-1.3) mg/dL AST (14-36) U/L ALT (0-35) U/L Alkaline Phosphatase (38-126) U/L Troponin I (0.000-0.034) ng/mL Serum Total Protein (6.3-8.2) g/dL Albumin (3.5-5.0) g/dL Influenza Type A Ag (NEGATIVE) Influenza Type B Ag (NEGATIVE) RSV (PCR) (Negative) SARS-CoV-2 (PCR) (NEGATIVE) - Progress Progress: improved Progress Note: Patient reassessed. She is stable. Patient is bradycardic with a heart rate of 50. Patient had 2 syncopal episodes. Daughter reported patient has been weak for the past 7 days. Patient currently COVID-positive. TSH pending. In light of patient's age risk factors and 2 syncopal episodes we will admit for further evaluation and treatment. Plan of care discussed with patient. She agrees to admission [facility] for further evaluation and treatment. Portions of this note were created with voice recognition technology. There may be grammatical, spelling, punctuation or sound alike errors 02/27/22 03:[address] Enrique Will see patient in: hospital (observation) Counseled pt/family regarding: lab results, diagnosis, need for follow-up, rad results - Departure Departure Disposition: Observation Clinical Impression: Bradycardia, Syncope, Creatinine elevation, Generalized weakness, SARS-CoV-2 positive Condition: Stable Critical Care Time: No Referrals: JENELLE BIRMINGHAM MD [Primary Care Provider] - Follow up/PCP as directed
[2022-02-27 01:53] LABS: INFLUENZA A NEGATIVE (NEGATIVE); INFLUENZA B NEGATIVE (NEGATIVE); RESPIRATORY SYNCTIAL VIRUS NEGATIVE (Negative)
[2022-02-27 02:05] LABS: SARS-CoV-2 Xpert Express POSITIVE (NEGATIVE)
[2022-02-27] MEDS ORDERED: REMDESIVIR 200 MG in Sodium Chloride 0.9% 250 ML 250 ML IV ONE (02:58)
[2022-02-27] MEDS ORDERED: ENOXAPARIN SODIUM SQ ONE (02:59)
[2022-02-27] MEDS ORDERED: MAALOX ES 30 ML UNIT DOSE PO PRN (04:05)
[2022-02-27] MEDS ORDERED: Senokot-S Tablet PO PRN (04:05)
[2022-02-27] MEDS ORDERED: TYLENOL 325 MG PO PRN (04:05)
[2022-02-27] MEDS ORDERED: Zofran 4 MG/2 ML VIAL IV PRN (04:05)
[2022-02-27] MEDS ORDERED: MILK OF MAGNESIA 30 ML PO PRN (04:05)
--- NOTE | 2022-02-27 08:42 | PCM.HP ---
History of Present Illness - Chief Complaint Chief Complaint: Syncope History of Present Illness: is a 77 year old female who has been weak for the last several days, she had 2 syncopal episodes at home so came to ER for evaluation. she feels tired and found to be bradycardic. - Review of Systems Constitutional: No Fever, No Chills Respiratory: No Cough Cardiac: Syncope, No Chest Pain, No Edema, No Palpitations Abdominal/Gastrointestinal: No Abdominal Pain, No Nausea, No Vomiting, No Diarrhea Genitourinary Symptoms: No Dysuria Skin: No Symptoms Medications & Allergies Home Medications: Home Medication List Ferrous Sulfate [Iron] 325 mg PO DAILY 09/02/18 [History Confirmed 02/27/22] Vit C/E/Zn/Coppr/Lutein/Zeaxan [Preservision Areds 2 Softgel] 2 cap PO BID 09/02/18 [History Confirmed 02/27/22] Cyanocobalamin (Vitamin B-12) [Cyanocobalamin Injection] 1,000 mcg IJ UD 02/06/21 [History Confirmed 02/27/22] Multivitamin 1 each PO DAILY 02/06/21 [History Confirmed 02/27/22] Diltiazem HCl [Cardizem LA] 120 mg PO HS 08/29/21 [History Confirmed 02/27/22] Metoprolol Succinate 12.5 mg PO DAILY 08/29/21 [History Confirmed 02/27/22] PANTOPRAZOLE 40 mg Tablet [Protonix 40MG Tablet] 40 mg PO BID 08/29/21 [History Confirmed 02/27/22] Torsemide 10 mg PO DAILY 08/29/21 [History Confirmed 02/27/22] Allergies/Adverse Reactions: Allergies Allergy/AdvReac Type Severity Reaction Status Date / Time naproxen [From Naprosyn] Allergy Mild Rash Verified 02/27/22 00:04 fluticasone furoate AdvReac Severe Anaphylactic Verified 02/27/22 00:04 [From Trelegy Ellipta] Reaction umeclidinium AdvReac Severe Anaphylactic Verified 02/27/22 00:04 [From Trelegy Ellipta] Reaction vilanterol AdvReac Severe Anaphylactic Verified 02/27/22 00:04 [From Trelegy Ellipta] Reaction adhesive tape AdvReac Mild Verified 02/27/22 00:04 lisinopril AdvReac Anaphylactic Verified 02/27/22 00:04 Reaction - Past Medical History Past Medical History: Yes Neurological History: TIA ENT History: Cataracts Cardiac History: Hypertension Respiratory History: Asthma Endocrine Medical History: No Pertinent History Musculoskelatal History: Osteoarthritis GI Medical History: Hernia, Polyps History: No Pertinent History Pyscho-Social History: Anxiety, Depression Reproductive Disorders: Breast Cancer Comment: Heart attack is disagreed on by different doctors. hx of anemia. Cholecystectomy, Hysterectomy, Mastectomy with reconstruction, Gastric bypass. - Female History Are you now?: No - Past Surgical History Past Surgical History: Yes (hysterectomy, Breast L Ca) Neuro Surgical History: No Pertinent History Cardiac History: No Pertinent History, Cardiac Catheterization Respiratory Surgery: No Pertinent History GI Surgical History: Appendectomy, Cholecystectomy, Hernia Repair Genitourinary Surgical Hx: No Pertinent History Musculskeletal Surgical Hx: Orthopedic Surgery Female Surgical History: Hysterectomy, Mastectomy Other Surgical History: mastecomy.barriactric surgery. neck'C5,C6 fusion. - Social History Smoking Status: Never smoker Exposure to second hand smoke: No Alcohol: None Drug Use: none - Physical Exam Vital Signs: Vital Signs - 24 hr Temp Pulse Resp BP Pulse Ox 02/27/22 08:00 15 02/27/22 07:23 97.9 F 53 L 15 114/59 96 02/27/22 06:30 96 02/27/22 05:06 97.9 F 51 L 18 159/70 96 02/27/22 03:08 51 L 16 142/71 98 02/27/22 03:03 100 02/27/22 02:00 50 L 12 140/64 99 02/27/22 01:11 50 L 16 166/87 100 02/27/22 00:06 55 L 15 157/52 02/26/22 23:59 100 02/26/22 23:37 97.6 F 53 L 16 134/74 100 General Appearance: no apparent distress Neurologic Exam: alert, oriented x 3 Neck Exam: normal inspection, non-tender, supple, full range of motion Respiratory Exam: normal breath sounds, lungs clear, No respiratory distress Cardiovascular Exam: bradycardia Extremity Exam: normal inspection, normal range of motion, pelvis stable Skin Exam: normal color, warm, dry, No rash Results - Labs Lab/Micro Results: Lab Results-Last 24 Hours 02/26/22 02/26/22 02/26/22 Range/Units 00:35 00:35 00:35 WBC 7.9 (4.0-10.5) x10^3/uL RBC 3.53 L (4.1-5.4) x10^6/uL Hgb 11.5 L (12.0-16.0) g/dL Hct 35.3 (35-47) % MCV 100.0 (78-100) fL MCH 32.6 H (26-32) pg MCHC 32.6 (32-36) g/dL RDW 13.6 (11.5-14.0) % Plt Count 185 (150-450) x10^3/uL MPV 9.3 (7.5-11.0) fL Gran % 65.7 (36.0-66.0) % Immature Gran % (Auto) 0.3 (0.00-0.4) % Nucleat RBC Rel Count 0.0 (0.00-0.1) % Eos # (Auto) 0.23 (0-0.5) x10^3/uL Immature Gran # (Auto) 0.02 (0.00-0.03) x10^3u/L Absolute Lymphs (auto) 1.80 (1.0-4.6) x10^3/uL Absolute Monos (auto) 0.61 (0.0-1.3) x10^3/uL Absolute Nucleated RBC 0.00 (0.00-0.01) x10^3u/L Lymphocytes % 22.9 L (24.0-44.0) % Monocytes % 7.8 (0.0-12.0) % Eosinophils % 2.9 (0.00-5.0) % Basophils % 0.4 (0.0-0.4) % Absolute Granulocytes 5.18 (1.4-6.9) x10^3/uL Basophils # 0.03 (0-0.4) x10^3/uL Sodium 136 L (137-145) mmol/L Potassium 3.9 (3.5-5.1) mmol/L Chloride 109 H (98-107) mmol/L Carbon Dioxide 20 L (22-30) mmol/L Anion Gap 10.8 (5-15) MEQ/L BUN 79 H (7-17) mg/dL Creatinine 2.18 H (0.52-1.04) mg/dL Estimated GFR 23.4 ML/MIN Glucose 100 (74-106) mg/dL Calcium 8.9 (8.4-10.2) mg/dL Total Bilirubin 0.30 (0.2-1.3) mg/dL AST 29 (14-36) U/L ALT 25 (0-35) U/L Alkaline Phosphatase 133 H (38-126) U/L Troponin I < 0.012 (0.000-0.034) ng/mL Serum Total Protein 6.5 (6.3-8.2) g/dL Albumin 4.0 (3.5-5.0) g/dL TSH 3rd Generation (0.47-4.68) mIU/L Influenza Type A Ag (NEGATIVE) Influenza Type B Ag (NEGATIVE) RSV (PCR) (Negative) SARS-CoV-2 (PCR) (NEGATIVE) 02/27/22 02/27/22 02/27/22 Range/Units 00:01 02:34 04:25 WBC (4.0-10.5) x10^3/uL RBC (4.1-5.4) x10^6/uL Hgb (12.0-16.0) g/dL Hct (35-47) % MCV (78-100) fL MCH (26-32) pg MCHC (32-36) g/dL RDW (11.5-14.0) % Plt Count (150-450) x10^3/uL MPV (7.5-11.0) fL Gran % (36.0-66.0) % Immature Gran % (Auto) (0.00-0.4) % Nucleat RBC Rel Count (0.00-0.1) % Eos # (Auto) (0-0.5) x10^3/uL Immature Gran # (Auto) (0.00-0.03) x10^3u/L Absolute Lymphs (auto) (1.0-4.6) x10^3/uL Absolute Monos (auto) (0.0-1.3) x10^3/uL Absolute Nucleated RBC (0.00-0.01) x10^3u/L Lymphocytes % (24.0-44.0) % Monocytes % (0.0-12.0) % Eosinophils % (0.00-5.0) % Basophils % (0.0-0.4) % Absolute Granulocytes (1.4-6.9) x10^3/uL Basophils # (0-0.4) x10^3/uL Sodium (137-145) mmol/L Potassium (3.5-5.1) mmol/L Chloride (98-107) mmol/L Carbon Dioxide (22-30) mmol/L Anion Gap (5-15) MEQ/L BUN (7-17) mg/dL Creatinine (0.52-1.04) mg/dL Estimated GFR ML/MIN Glucose (74-106) mg/dL Calcium (8.4-10.2) mg/dL Total Bilirubin (0.2-1.3) mg/dL AST (14-36) U/L ALT (0-35) U/L Alkaline Phosphatase (38-126) U/L Troponin I < 0.012 (0.000-0.034) ng/mL Serum Total Protein (6.3-8.2) g/dL Albumin (3.5-5.0) g/dL TSH 3rd Generation 1.190 (0.47-4.68) mIU/L Influenza Type A Ag NEGATIVE (NEGATIVE) Influenza Type B Ag NEGATIVE (NEGATIVE) RSV (PCR) NEGATIVE (Negative) SARS-CoV-2 (PCR) POSITIVE A (NEGATIVE) - Radiology Impressions Radiology Exams & Impressions: Radiology Procedures Category Date Time Status CHEST 1 VIEW (PORTABLE) Routine Exams 02/27/22 08:39 Ordered ECHO W/2D AND DOPPLER [US] Routine Exams 02/27/22 08:39 Ordered HEAD WITHOUT CONTRAST [CT] Stat Exams 02/27/22 00:39 Taken Assessment/Plan (1) Syncope Current Visit: Yes Status: Acute Assessment & Plan: will r/o ND, check echo. will hold cardizem and metoprolol due to bradycardia at this time. will replace with amlodipine Code(s): R55 - SYNCOPE AND COLLAPSE (2) Bradycardia Current Visit: Yes Status: Acute Assessment & Plan: secondary to covid most likely, hold beta debra and cardizem Code(s): R00.1 - BRADYCARDIA, UNSPECIFIED (3) SARS-CoV-2 positive Current Visit: Yes Status: Acute Assessment & Plan: minimal symptoms, no oxygen. check chest xray Code(s): U07.1 - COVID-19
--- NOTE | 2022-02-27 08:50 | XRAY ---
Indication: Syncope. Multiple contiguous axial images obtained through the head without contrast. Comparison: February 05, 2022 Again age-appropriate global atrophy and mild periventricular degenerative micro-ischemia. No acute intracranial hemorrhage, abnormal extra-axial fluid collection, or mass effect. Fourth ventricle is midline without hydrocephalus. Bony calvarium intact again with incidental hyperostosis frontalis interna. Visualized paranasal sinuses and mastoid air cells are clear. Impression: Continued nonacute senile brain. Comment: Preliminary interpretation made by [facility]. No critical discrepancy.
--- NOTE | 2022-02-27 09:06 | XRAY ---
Indication: Cough and short of breath. Suspect Covid 19. Comparison: August 28, 2021 Portable chest remains inflated and clear again with incidental right lung calcified granuloma. Heart not enlarged again with subcarinal calcified nodes. Bony thorax intact again with osteopenia, degenerative changes, lower cervical fusion hardware, and surgical clips overlying left chest. Impression: Continued nonacute chest with chronic features.
[2022-02-27] MEDS ORDERED: ENOXAPARIN SODIUM SQ SCH ×2 (10:00→22:00)
[2022-02-27] MEDS: Protonix 40MG Tablet PO SCH ×2 (10:48→22:03)
[2022-02-28 06:13] LABS: Absolute Neutrophil Ct (ANC) 2.81 x10^3/uL (1.4-6.9); Basophil (Absolute #) 0.03 x10^3/uL (0-0.4); Eosinophil % 4.1 % (0.00-5.0); Eosinophil (Absolute #) 0.23 x10^3/uL (0-0.5); Hematocrit 36.7 % (35-47); Hemoglobin 11.6 g/dL (12.0-16.0); Lymphocyte (Absolute #) 2.12 x10^3/uL (1.0-4.6); Lymphocytes % 38.1 % (24.0-44.0); Mean Cell Volume 102.5 fL (78-100); Mean Corpuscular Hemoglobin 32.4 pg (26-32); Mean Corpuscular Hgb Concent. 31.6 g/dL (32-36); Mean Platelet Volume 9.4 fL (7.5-11.0); Monocyte (Absolute #) 0.36 x10^3/uL (0.0-1.3); Monocytes % 6.5 % (0.0-12.0); Neutrophil % 50.6 % (36.0-66.0); Platelet Count 153 x10^3/uL (150-450); Red Blood Count 3.58 x10^6/uL (4.1-5.4); Red Cell Distribution Width 13.6 % (11.5-14.0); White Blood Count 5.6 x10^3/uL (4.0-10.5)
[2022-02-28 06:35] LABS: Risk Ratio 2.7
[2022-02-28 06:38] LABS: ALBUMIN 3.5 g/dL (3.5-5.0); ANION GAP 9.5 MEQ/L (5-15); BILIRUBIN,TOTAL 0.4 mg/dL (0.2-1.3); Calcium 8.9 mg/dL (8.4-10.2); Creatinine 1 1.62 mg/dL (0.52-1.04); EST GLOMERULAR FILTRATION RATE 32.9 ML/MIN; MAGNESIUM 2.5 mg/dL (1.6-2.3); Potassium 4.5 mmol/L (3.5-5.1); Total Protein 6.2 g/dL (6.3-8.2)
[2022-02-28 06:54] VITALS: BP 141/96; PULSE 48
[2022-02-28 07:31] VITALS: O2SAT 96
--- NOTE | 2022-02-28 09:01 | PCM.DS ---
Discharge Summary Date of Admission: 02/27/22 03:46 Admitting Physician: MANDA CARDENAS Primary Care Provider: VINNIE,JENELLE Allergies Allergies naproxen [From Naprosyn] Allergy (Mild, Verified 02/27/22 00:04) Rash fluticasone furoate [From Trelegy Ellipta] Adverse Reaction (Severe, Verified 02/27/22 00:04) Anaphylactic Reaction umeclidinium [From Trelegy Ellipta] Adverse Reaction (Severe, Verified 02/27/22 00:04) Anaphylactic Reaction vilanterol [From Trelegy Ellipta] Adverse Reaction (Severe, Verified 02/27/22 00:04) Anaphylactic Reaction adhesive tape Adverse Reaction (Mild, Verified 02/27/22 00:04) BLISTERS lisinopril Adverse Reaction (Verified 02/27/22 00:04) Anaphylactic Reaction Hospital Summary - Hospital Course Hospital Course: patient admitted with syncopal episode, found to have covid-19 and bradycardia. discontinued her metoprolol and cardizem, she has minimal respiratory symptoms and no oxygen requirement. she is feeling much more alert and better with the change in her meds. prelim echo shows normal EF and no effusion, formal read is pending by cardiology. - Vitals & Intake/Output Vital Signs: Vital Signs Temperature 97.1 F 02/28/22 06:53 Pulse Rate 48 L 02/28/22 06:53 Respiratory Rate 15 02/28/22 06:53 Blood Pressure 141/96 02/28/22 06:53 O2 Sat by Pulse Oximetry 96 02/28/22 07:30 Intake & Output: Intake & Output 02/25/22 02/26/22 02/27/22 02/28/22 11:59 11:59 11:59 11:59 Intake Total 360 600 Output Total 600 Balance 360 0 Weight 77.5 kg 77.5 kg - Lab Result Diagrams: 02/28/22 06:05 02/28/22 06:05 Lab Results-Last 24 Hrs: Lab Results-Last 24 Hours 02/28/22 02/28/22 02/28/22 Range/Units 06:05 06:05 06:05 WBC 5.6 (4.0-10.5) x10^3/uL RBC 3.58 L (4.1-5.4) x10^6/uL Hgb 11.6 L (12.0-16.0) g/dL Hct 36.7 (35-47) % MCV 102.5 H (78-100) fL MCH 32.4 H (26-32) pg MCHC 31.6 L (32-36) g/dL RDW 13.6 (11.5-14.0) % Plt Count 153 (150-450) x10^3/uL MPV 9.4 (7.5-11.0) fL Gran % 50.6 (36.0-66.0) % Immature Gran % (Auto) 0.2 (0.00-0.4) % Nucleat RBC Rel Count 0.0 (0.00-0.1) % Eos # (Auto) 0.23 (0-0.5) x10^3/uL Immature Gran # (Auto) 0.01 (0.00-0.03) x10^3u/L Absolute Lymphs (auto) 2.12 (1.0-4.6) x10^3/uL Absolute Monos (auto) 0.36 (0.0-1.3) x10^3/uL Absolute Nucleated RBC 0.00 (0.00-0.01) x10^3u/L Lymphocytes % 38.1 (24.0-44.0) % Monocytes % 6.5 (0.0-12.0) % Eosinophils % 4.1 (0.00-5.0) % Basophils % 0.5 (0.0-0.4) % Absolute Granulocytes 2.81 (1.4-6.9) x10^3/uL Basophils # 0.03 (0-0.4) x10^3/uL Sodium 139 (137-145) mmol/L Potassium 4.5 (3.5-5.1) mmol/L Chloride 115 H (98-107) mmol/L Carbon Dioxide 18 L (22-30) mmol/L Anion Gap 9.5 (5-15) MEQ/L BUN 62 H (7-17) mg/dL Creatinine 1.62 H (0.52-1.04) mg/dL Estimated GFR 32.9 ML/MIN Glucose 92 (74-106) mg/dL Calcium 8.9 (8.4-10.2) mg/dL Magnesium 2.5 H (1.6-2.3) mg/dL Total Bilirubin 0.40 (0.2-1.3) mg/dL AST 34 (14-36) U/L ALT 27 (0-35) U/L Alkaline Phosphatase 112 (38-126) U/L Serum Total Protein 6.2 L (6.3-8.2) g/dL Albumin 3.5 (3.5-5.0) g/dL Triglycerides 81 (30-150) mg/dL Cholesterol 146 (50-200) mg/dL LDL Cholesterol 55 (30-100) mg/dL HDL Cholesterol 54 (40-60) mg/dL Heart Disease Risk Ratio 2.7 - Radiology Exams Ordered Rad Exams-Entire Visit: Radiology Procedures Category Date Time Status CHEST 1 VIEW (PORTABLE) Routine Exams 02/27/22 08:39 Completed ECHO W/2D AND DOPPLER [US] Routine Exams 02/27/22 08:39 Taken HEAD WITHOUT CONTRAST [CT] Stat Exams 02/27/22 00:39 Completed - Procedures and Test Procedures and Tests throughout Hospitalization: Therapy Orders & Screens 02/27/22 04:05 EKG Q8HX2,QAMX3,PRN Comment: Discharge Exam General Appearance: no apparent distress Respiratory Exam: normal breath sounds, lungs clear, No respiratory distress Cardiovascular Exam: bradycardia Gastrointestinal/Abdomen Exam: soft, No tenderness, No mass Extremity Exam: normal inspection, normal range of motion Skin Exam: normal color, warm, dry Final Diagnosis/Problem List - Final Discharge Diagnosis/Problem (1) Syncope Current Visit: Yes Status: Acute Assessment & Plan: secondary to covid and bradycardia, will d/c metoprolol and cardizem. will f/u with Dr Crystal as outpatient Code(s): R55 - SYNCOPE AND COLLAPSE (2) Bradycardia Current Visit: Yes Status: Acute Code(s): R00.1 - BRADYCARDIA, UNSPECIFIED (3) SARS-CoV-2 positive Current Visit: Yes Status: Acute Code(s): U07.1 - COVID-19 - Discharge Disposition: Home, Self-Care Condition: Stable Prescriptions: Continue Vit C/E/Zn/Coppr/Lutein/Zeaxan [Preservision Areds 2 Softgel] 2 cap PO BID Ferrous Sulfate [Iron] 325 mg PO DAILY Multivitamin 1 each PO DAILY Cyanocobalamin (Vitamin B-12) [Cyanocobalamin Injection] 1,000 mcg IJ UD PANTOPRAZOLE 40 mg Tablet [Protonix 40MG Tablet] 40 mg PO BID Torsemide 10 mg PO DAILY Discontinued Diltiazem HCl [Cardizem LA] 120 mg PO HS Metoprolol Succinate 12.5 mg PO DAILY Instructions: COVID-19 (DC) Follow up with: Marin Crystal MD [CONSULTING PHYSICIAN] - Call for Appointment JENELLE BIRMINGHAM MD [Primary Care Provider] - Call for Appointment
[2022-02-28] MEDS: Protonix 40MG Tablet PO SCH (09:05)
[2022-02-28] MEDS ORDERED: FLUZONE HIGH-DOSE QUAD 2022-23 IM ONE (10:00)
== END 2022-02-28 11:23 | disposition home or self-care (01) ==
LOC: ED 23:24 → INTOOBSV 02-27 03:46 → MED SURG 02-27 03:46
PROVIDERS: ADMIT Family Medicine; ATTEND General Practice
DX: R55 Syncope and collapse (principal); R00.1 Bradycardia, unspecified; U07.1 COVID-19; I10 Essential (primary) hypertension; Z79.899 Other long term (current) drug therapy; Z20.828 Contact with and (suspected) exposure to other viral communicable diseases; Z85.3 Personal history of malignant neoplasm of breast
CPT/HCPCS: 0241U; 36000; 36415; 70450; 71045; 80053; 80061; 83721; 83735; 84443; 84484; 85025; 93005; 93041; 93306; 94760; 94762; 99284; 93268; J0248; J1650; J2405; A9270-GY; G0378

== ENCOUNTER 2022-05-19 17:44 | Emergency (ER) | payer MEDICARE, BC ==
--- NOTE | 2022-05-19 18:16 | ERPHSYRPT ---
- History of Present Illness Time Seen by Provider: 05/19/22 18:00 Source: patient, family Exam Limitations: no limitations Patient Subjective Stated Complaint: High Blood Pressure. Patient states that she has had a headache for a few hours today and noticed that her B/P was high approx 20 minutes prior to coming to the ER. Patient states Dr. Birmingham stopped her Toprol approx one month ago to see if she could go without it. Also recently stopped her torsemide. Triage Nursing Assessment: Patient ambulated back to ER. No SOB. She is alert and oriented. RM WNL. Skin tone normal. Physician History: Patient is a 77-year-old female who presents with a complaint of headache and increased blood pressure. She has been treated for her blood pressure for an extended period of time approximately 1 month ago her negotiations director whose name she cannot remember stop Toprol because she was getting a heart rate into the 40s at times. Her family doctor also recently stopped her turosemide because she was getting dehydrated. Timing/Duration: today Severity: moderate Modifying Factors: Improves With: medication, acetaminophen (Patient did take Tylenol about 2 PM and 5 PM for headache.) Allergies/Adverse Reactions: naproxen [From Naprosyn] Allergy (Mild, Verified 05/19/22 17:50) Rash fluticasone furoate [From Trelegy Ellipta] Adverse Reaction (Severe, Verified 05/19/22 17:50) Anaphylactic Reaction umeclidinium [From Trelegy Ellipta] Adverse Reaction (Severe, Verified 05/19/22 17:50) Anaphylactic Reaction vilanterol [From Trelegy Ellipta] Adverse Reaction (Severe, Verified 05/19/22 17:50) Anaphylactic Reaction adhesive tape Adverse Reaction (Mild, Verified 05/19/22 17:50) BLISTERS lisinopril Adverse Reaction (Verified 05/19/22 17:50) Anaphylactic Reaction Home Medications: Ferrous Sulfate [Iron] 325 mg PO DAILY 09/02/18 [History] Vit C/E/Zn/Coppr/Lutein/Zeaxan [Preservision Areds 2 Softgel] 2 cap PO BID 09/02/18 [History] Cyanocobalamin (Vitamin B-12) [Cyanocobalamin Injection] 1,000 mcg IJ UD 02/06/21 [History] Multivitamin 1 each PO DAILY 02/06/21 [History] PANTOPRAZOLE 40 mg Tablet [Protonix 40MG Tablet] 40 mg PO BID 08/29/21 [History] Hx Tetanus, Diphtheria Vaccination/Date Given: Yes Hx Influenza Vaccination/Date Given: Yes Hx Pneumococcal Vaccination/Date Given: Yes Immunizations Up to Date: Yes Travel Risk - International Travel Have you traveled outside of the country in past 3 weeks: No - Coronavirus Screening Are you exhibiting any of the following symptoms?: No Close contact with a COVID-19 positive Pt in past 14-21 Days: No - Vaccine Status Have you recieved a Covid-19 vaccination: Yes Supply Crib 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: Moderna - Vaccination Dates Date of 2cond Vaccination (if applicable): unknown - Review of Systems Constitutional: No Fever, No Chills Eyes: No Symptoms Ears, Nose, & Throat: No Symptoms Respiratory: No Cough, No Dyspnea Cardiac: No Chest Pain, No Edema, No Syncope Abdominal/Gastrointestinal: No Abdominal Pain, No Nausea, No Vomiting, No Diarrhea Genitourinary Symptoms: No Dysuria Musculoskeletal: No Back Pain, No Neck Pain Skin: No Rash Neurological: No Dizziness, No Focal Weakness, No Sensory Changes Psychological: No Symptoms Endocrine: No Symptoms All Other Systems: Reviewed and Negative - Past Medical History Pertinent Past Medical History: Yes Neurological History: TIA ENT History: Cataracts Cardiac History: Hypertension Respiratory History: Asthma Endocrine Medical History: No Pertinent History Musculoskeletal History: Osteoarthritis GI Medical History: Hernia, Polyps History: No Pertinent History Psycho-Social History: Anxiety, Depression Female Reproductive Disorders: Breast Cancer Other Medical History: Heart attack is disagreed on by different doctors. hx of anemia. Cholecystectomy, Hysterectomy, Mastectomy with reconstruction, Gastric bypass. - Past Surgical History Past Surgical History: Yes Neuro Surgical History: No Pertinent History Cardiac: Cardiac Catheterization Respiratory: No Pertinent History Gastrointestinal: Cholecystectomy, Hernia Repair Genitourinary: No Pertinent History Musculoskeletal: Orthopedic Surgery Female Surgical History: Hysterectomy, Mastectomy Other Surgical History: barriactric surgery. neck'C5,C6 fusion. - Social History Smoking Status: Never smoker Exposure to second hand smoke: No Drug Use: none Patient Lives Alone: No - Nursing Vital Signs Nursing Vital Signs: Initial Vital Signs Temperature 98.3 F 05/19/22 17:51 Pulse Rate 64 05/19/22 17:51 Respiratory Rate 18 05/19/22 17:51 Blood Pressure 187/72 05/19/22 17:51 O2 Sat by Pulse Oximetry 99 05/19/22 17:51 Pain Scale Pain Intensity 4 - Physical Exam General Appearance: mild distress, alert Eye Exam: PERRL/EOMI, eyes nml inspection Ears, Nose, Throat Exam: normal ENT inspection, TMs normal, pharynx normal, moist mucous membranes Neck Exam: normal inspection, non-tender, supple, full range of motion Respiratory Exam: normal breath sounds, lungs clear, No respiratory distress Cardiovascular Exam: regular rate/rhythm, normal heart sounds, normal peripheral pulses Gastrointestinal/Abdomen Exam: soft, normal bowel sounds, No tenderness, No mass Back Exam: normal inspection, normal range of motion, No CVA tenderness, No vertebral tenderness Extremity Exam: normal inspection, normal range of motion, pelvis stable Neurologic Exam: alert, oriented x 3, cooperative, normal mood/affect, nml cerebellar function, nml station & gait, sensation nml, No motor deficits Skin Exam: normal color, warm, dry, No rash Lymphatic Exam: No adenopathy SpO2: 99 - Course Nursing assessment & vital signs reviewed: Yes EKG Interpreted by Me: RATE (56), Sinus Rhythm, NORMAL AXIS, Other (Borderline prolonged FL interval LVH by voltage and nonspecific ST-T wave changes) Ordered Tests: Active Orders 24 hr Category Date Time Status EKG-ER Only STAT Care 05/19/22 18:21 Active CBC W DIFF Stat Lab 05/19/22 18:35 Completed CMP Stat Lab 05/19/22 18:35 Completed CULTURE,URINE Stat Lab 05/19/22 18:51 Received TROPONIN Q4H Lab 05/19/22 18:35 Completed TROPONIN Q4H Lab 05/19/22 22:30 Ordered TROPONIN Q4H Lab 05/20/22 02:30 Ordered UA W/RFX UR CULTURE Stat Lab 05/19/22 18:51 Completed Medication Summary Discontinued Medications Generic Name Dose Route Start Last Admin Trade Name Freq PRN Reason Stop Dose Admin Amlodipine Besylate 10 mg 05/19/22 18:22 05/19/22 18:50 Amlodipine Besylate 5 Mg Tablet PO 05/19/22 18:23 Not Given STAT ONE Clonidine 0.1 mg 05/19/22 18:23 05/19/22 18:43 Clonidine Hcl 0.1 Mg Tablet PO 05/19/22 18:24 0.1 mg STAT ONE Administration Clonidine Confirm 05/19/22 18:42 Clonidine Hcl 0.1 Mg Tablet Administered 05/19/22 18:43 Dose 0.1 mg .ROUTE .STK-MED ONE Clonidine 0.1 mg 05/19/22 19:05 05/19/22 19:19 Clonidine Hcl 0.1 Mg Tablet PO 05/19/22 19:06 0.1 mg STAT ONE Administration Clonidine Confirm 05/19/22 19:19 Clonidine Hcl 0.1 Mg Tablet Administered 05/19/22 19:20 Dose 0.1 mg .ROUTE .STK-MED ONE Clonidine 0.1 mg 05/19/22 19:59 05/19/22 20:27 Clonidine Hcl 0.1 Mg Tablet PO 05/19/22 20:00 0.1 mg STAT ONE Administration Clonidine Confirm 05/19/22 20:26 Clonidine Hcl 0.1 Mg Tablet Administered 05/19/22 20:27 Dose 0.1 mg .ROUTE .STK-MED ONE Metoprolol Tartrate 25 mg 05/19/22 20:07 Metoprolol Tartrate 25 Mg Tab PO 05/19/22 20:08 STAT ONE Lab/Rad Data: Laboratory Result Diagrams 05/19/22 18:35 05/19/22 18:35 Laboratory Results 05/19/22 05/19/22 05/19/22 Range/Units 20:00 18:51 18:35 WBC (4.0-10.5) x10^3/uL RBC (4.1-5.4) x10^6/uL Hgb (12.0-16.0) g/dL Hct (35-47) % MCV (78-100) fL MCH (26-32) pg MCHC (32-36) g/dL RDW (11.5-14.0) % Plt Count (150-450) x10^3/uL MPV (7.5-11.0) fL Gran % (36.0-66.0) % Immature Gran % (Auto) (0.00-0.4) % Nucleat RBC Rel Count (0.00-0.1) % Eos # (Auto) (0-0.5) x10^3/uL Immature Gran # (Auto) (0.00-0.03) x10^3u/L Absolute Lymphs (auto) (1.0-4.6) x10^3/uL Absolute Monos (auto) (0.0-1.3) x10^3/uL Absolute Nucleated RBC (0.00-0.01) x10^3u/L Lymphocytes % (24.0-44.0) % Monocytes % (0.0-12.0) % Eosinophils % (0.00-5.0) % Basophils % (0.0-0.4) % Absolute Granulocytes (1.4-6.9) x10^3/uL Basophils # (0-0.4) x10^3/uL Sodium (137-145) mmol/L Potassium (3.5-5.1) mmol/L Chloride (98-107) mmol/L Carbon Dioxide (22-30) mmol/L Anion Gap (5-15) MEQ/L BUN (7-17) mg/dL Creatinine (0.52-1.04) mg/dL Estimated GFR ML/MIN Glucose (74-106) mg/dL Calcium (8.4-10.2) mg/dL Total Bilirubin (0.2-1.3) mg/dL AST (14-36) U/L ALT (0-35) U/L Alkaline Phosphatase (38-126) U/L Troponin I < 0.012 (0.000-0.034) ng/mL Serum Total Protein (6.3-8.2) g/dL Albumin (3.5-5.0) g/dL Urine Color Yellow (Yellow) Urine Appearance Clear (Clear) Urine pH 5.0 (4.6-8.0) Ur Specific [place] 1.015 (1.005-1.030) Urine Protein Negative (Negative) Urine Glucose (UA) Negative (Negative) mg/dL Urine Ketones Negative (Negative) Urine Blood Negative (Negative) Urine Nitrite Positive A (Negative) Urine Bilirubin Negative (Negative) Urine Urobilinogen 0.2 (0.2) mg/dL Ur Leukocyte Esterase Negative (Negative) U Hyaline Cast (Auto) NONE SEEN (0-2) /LPF Urine Microscopic RBC 0-2 (0-5) /HPF Urine Microscopic WBC 3-5 (0-5) /HPF Ur Epithelial Cells Rare (None Seen) /HPF Urine Bacteria Many A (None Seen) /HPF Urine Culture Reflexed YES (NO) Influenza Type A Ag NEGATIVE (NEGATIVE) Influenza Type B Ag NEGATIVE (NEGATIVE) RSV (PCR) NEGATIVE (Negative) SARS-CoV-2 (PCR) NEGATIVE (NEGATIVE) 05/19/22 05/19/22 Range/Units 18:35 18:35 WBC 5.6 (4.0-10.5) x10^3/uL RBC 2.87 L (4.1-5.4) x10^6/uL Hgb 9.4 L (12.0-16.0) g/dL Hct 30.1 L (35-47) % MCV 104.9 H (78-100) fL MCH 32.8 H (26-32) pg MCHC 31.2 L (32-36) g/dL RDW 12.4 (11.5-14.0) % Plt Count 164 (150-450) x10^3/uL MPV 9.2 (7.5-11.0) fL Gran % 59.5 (36.0-66.0) % Immature Gran % (Auto) 0.2 (0.00-0.4) % Nucleat RBC Rel Count 0.0 (0.00-0.1) % Eos # (Auto) 0.19 (0-0.5) x10^3/uL Immature Gran # (Auto) 0.01 (0.00-0.03) x10^3u/L Absolute Lymphs (auto) 1.64 (1.0-4.6) x10^3/uL Absolute Monos (auto) 0.41 (0.0-1.3) x10^3/uL Absolute Nucleated RBC 0.00 (0.00-0.01) x10^3u/L Lymphocytes % 29.1 (24.0-44.0) % Monocytes % 7.3 (0.0-12.0) % Eosinophils % 3.4 (0.00-5.0) % Basophils % 0.5 (0.0-0.4) % Absolute Granulocytes 3.36 (1.4-6.9) x10^3/uL Basophils # 0.03 (0-0.4) x10^3/uL Sodium 141 (137-145) mmol/L Potassium 4.8 (3.5-5.1) mmol/L Chloride 116 H (98-107) mmol/L Carbon Dioxide 19 L (22-30) mmol/L Anion Gap 10.2 (5-15) MEQ/L BUN 28 H (7-17) mg/dL Creatinine 1.54 H (0.52-1.04) mg/dL Estimated GFR 34.9 ML/MIN Glucose 107 H (74-106) mg/dL Calcium 8.1 L (8.4-10.2) mg/dL Total Bilirubin 0.20 (0.2-1.3) mg/dL AST 23 (14-36) U/L ALT 19 (0-35) U/L Alkaline Phosphatase 94 (38-126) U/L Troponin I (0.000-0.034) ng/mL Serum Total Protein 5.4 L (6.3-8.2) g/dL Albumin 3.0 L (3.5-5.0) g/dL Urine Color (Yellow) Urine Appearance (Clear) Urine pH (4.6-8.0) Ur Specific [place] (1.005-1.030) Urine Protein (Negative) Urine Glucose (UA) (Negative) mg/dL Urine Ketones (Negative) Urine Blood (Negative) Urine Nitrite (Negative) Urine Bilirubin (Negative) Urine Urobilinogen (0.2) mg/dL Ur Leukocyte Esterase (Negative) U Hyaline Cast (Auto) (0-2) /LPF Urine Microscopic RBC (0-5) /HPF Urine Microscopic WBC (0-5) /HPF Ur Epithelial Cells (None Seen) /HPF Urine Bacteria (None Seen) /HPF Urine Culture Reflexed (NO) Influenza Type A Ag (NEGATIVE) Influenza Type B Ag (NEGATIVE) RSV (PCR) (Negative) SARS-CoV-2 (PCR) (NEGATIVE) - Progress Progress: improved Medical Desision Making - Independent Historian Additional History obtained from: Child - Risk of complications Low Risk: Low risk of morbidity from additional dx testing or treatment - Departure Departure Disposition: Home Clinical Impression: Hypertension Condition: Stable Critical Care Time: No Referrals: JENELLE BIRMINGHAM MD [Primary Care Provider] - Follow up/PCP as directed Instructions: Malignant Hypertension (DC) Prescriptions: Metoprolol Tartrate 25 mg [Lopressor 25MG Tab] 25 mg PO BID 30 Days #60 tab
[2022-05-19] MEDS ORDERED: NORVASC 5 MG PO ONE (18:22)
[2022-05-19] MEDS ORDERED: CLONIDINE 0.1 MG TABLET PO ONE ×3 (18:23→19:59)
[2022-05-19 18:41] LABS: Absolute Neutrophil Ct (ANC) 3.36 x10^3/uL (1.4-6.9); BASOPHIL % 0.5 % (0.0-0.4); Basophil (Absolute #) 0.03 x10^3/uL (0-0.4); Eosinophil % 3.4 % (0.00-5.0); Eosinophil (Absolute #) 0.19 x10^3/uL (0-0.5); Hematocrit 30.1 % (35-47); Hemoglobin 9.4 g/dL (12.0-16.0); IMMATURE GRAN # 0.01 x10^3u/L (0.00-0.03); IMMATURE GRAN % 0.2 % (0.00-0.4); Lymphocyte (Absolute #) 1.64 x10^3/uL (1.0-4.6); Lymphocytes % 29.1 % (24.0-44.0); Mean Cell Volume 104.9 fL (78-100); Mean Corpuscular Hemoglobin 32.8 pg (26-32); Mean Corpuscular Hgb Concent. 31.2 g/dL (32-36); Mean Platelet Volume 9.2 fL (7.5-11.0); Monocyte (Absolute #) 0.41 x10^3/uL (0.0-1.3); Monocytes % 7.3 % (0.0-12.0); Neutrophil % 59.5 % (36.0-66.0); Platelet Count 164 x10^3/uL (150-450); Red Blood Count 2.87 x10^6/uL (4.1-5.4); Red Cell Distribution Width 12.4 % (11.5-14.0); White Blood Count 5.6 x10^3/uL (4.0-10.5)
[2022-05-19] MEDS ORDERED: CLONIDINE 0.1 MG TABLET ONE ×3 (18:42→20:26)
[2022-05-19 18:51] LABS: ANION GAP 10.2 MEQ/L (5-15); BILIRUBIN,TOTAL 0.2 mg/dL (0.2-1.3); Calcium 8.1 mg/dL (8.4-10.2); Creatinine 1 1.54 mg/dL (0.52-1.04); EST GLOMERULAR FILTRATION RATE 34.9 ML/MIN; Potassium 4.8 mmol/L (3.5-5.1); Total Protein 5.4 g/dL (6.3-8.2)
[2022-05-19 19:06] LABS: Appearance Clear (Clear); Bacteria Many /HPF (None Seen); Bilirubin Negative (Negative); Blood Negative (Negative); Epithelial Cells Rare /HPF (None Seen); Glucose, Urine Negative (Negative); Hyaline Casts NONE SEEN /LPF (0-2); Ketones Negative (Negative); Leukocyte Esterase Negative (Negative); Nitrite Positive (Negative); Protein,Urine Dip Negative (Negative); RBC 0-2 /HPF (0-5); Specific Gravity 1.015 (1.005-1.030); Urobilinogen 0.2 mg/dL (0.2)
[2022-05-19 19:08] LABS: ADD URINE CULTURE? YES (NO)
[2022-05-19] MEDS ORDERED: Lopressor 25MG Tab PO ONE (20:07)
[2022-05-19 20:40] LABS: INFLUENZA A NEGATIVE (NEGATIVE); INFLUENZA B NEGATIVE (NEGATIVE); RESPIRATORY SYNCTIAL VIRUS NEGATIVE (Negative); SARS-CoV-2 Xpert Express NEGATIVE (NEGATIVE)
[2022-05-19] MEDS ORDERED: Lopressor 25MG Tab ONE (21:13)
[2022-05-19] MEDS ORDERED: Lopressor 50 MG ONE (21:15)
[2022-05-19 21:21] VITALS: O2SAT 99
[2022-05-19 21:22] VITALS: BP 176/71; PULSE 54
== END 2022-05-19 21:26 | disposition home or self-care (01) ==
LOC: ED 17:44
DX: I10 Essential (primary) hypertension (principal); R51.9 Headache, unspecified; Z79.899 Other long term (current) drug therapy; Z20.828 Contact with and (suspected) exposure to other viral communicable diseases
CPT/HCPCS: 0241U; 36415; 80053; 81001; 84484; 85025; 87077; 87086; 87186; 93005; 99283; A9270-GY

== ENCOUNTER 2022-06-23 17:58 | Emergency (ER) | payer MEDICARE, BC ==
--- NOTE | 2022-06-23 18:04 | ERPHSYRPT ---
- History of Present Illness Time Seen by Provider: 06/23/22 18:04 Source: patient, family (Additional history obtained from the patient's daughter) Exam Limitations: no limitations Physician History: This is a 77-year-old white female patient of Dr. Birmingham and presents with left forearm redness, warmth. Patient has very sensitive skin. She does have a history of hypertension. She has not injured the area. Is very localized. Patient has no chest pain or shortness of breath. Timing/Duration: yesterday Quality: itchy Severity: mild Location: extremities (Right anterior forearm) Possible Causes: other (Cellulitis) Associated Symptoms: denies symptoms Allergies/Adverse Reactions: naproxen [From Naprosyn] Allergy (Mild, Verified 06/23/22 18:04) Rash fluticasone furoate [From Trelegy Ellipta] Adverse Reaction (Severe, Verified 06/23/22 18:04) Anaphylactic Reaction umeclidinium [From Trelegy Ellipta] Adverse Reaction (Severe, Verified 06/23/22 18:04) Anaphylactic Reaction vilanterol [From Trelegy Ellipta] Adverse Reaction (Severe, Verified 06/23/22 18:04) Anaphylactic Reaction adhesive tape Adverse Reaction (Mild, Verified 06/23/22 18:04) BLISTERS lisinopril Adverse Reaction (Verified 06/23/22 18:04) Anaphylactic Reaction Home Medications: Ferrous Sulfate [Iron] 325 mg PO DAILY 09/02/18 [History] Vit C/E/Zn/Coppr/Lutein/Zeaxan [Preservision Areds 2 Softgel] 2 cap PO BID 09/02/18 [History] Cyanocobalamin (Vitamin B-12) [Cyanocobalamin Injection] 1,000 mcg IJ UD 02/06/21 [History] Multivitamin 1 each PO DAILY 02/06/21 [History] PANTOPRAZOLE 40 mg Tablet [Protonix 40MG Tablet] 40 mg PO BID 08/29/21 [History] Hx Tetanus, Diphtheria Vaccination/Date Given: Yes Hx Influenza Vaccination/Date Given: Yes Hx Pneumococcal Vaccination/Date Given: Yes Travel Risk - International Travel Have you traveled outside of the country in past 3 weeks: No - Coronavirus Screening Are you exhibiting any of the following symptoms?: No Close contact with a COVID-19 positive Pt in past 14-21 Days: No - Vaccine Status Have you recieved a Covid-19 vaccination: Yes Fruit Raiser: Moderna - Vaccination Dates Date of 2cond Vaccination (if applicable): unknown - Review of Systems Constitutional: No Symptoms Eyes: No Symptoms Ears, Nose, & Throat: No Symptoms Respiratory: No Symptoms Cardiac: No Symptoms Abdominal/Gastrointestinal: No Symptoms Genitourinary Symptoms: No Symptoms Musculoskeletal: No Symptoms Skin: Cellulitis (Left anterior forearm), Other (No past.) Neurological: No Symptoms Psychological: No Symptoms Endocrine: No Symptoms Hematologic/Lymphatic: No Symptoms Immunological/Allergic: No Symptoms All Other Systems: Reviewed and Negative - Past Medical History Pertinent Past Medical History: Yes Neurological History: TIA ENT History: Cataracts Cardiac History: Hypertension Respiratory History: Asthma Endocrine Medical History: No Pertinent History Musculoskeletal History: Osteoarthritis GI Medical History: Hernia, Polyps History: No Pertinent History Psycho-Social History: Anxiety, Depression Female Reproductive Disorders: Breast Cancer Other Medical History: Heart attack is disagreed on by different doctors. hx of anemia. Cholecystectomy, Hysterectomy, Mastectomy with reconstruction, Gastric bypass. - Past Surgical History Past Surgical History: Yes Neuro Surgical History: No Pertinent History Cardiac: Cardiac Catheterization Respiratory: No Pertinent History Gastrointestinal: Cholecystectomy, Hernia Repair Genitourinary: No Pertinent History Musculoskeletal: Orthopedic Surgery Female Surgical History: Hysterectomy, Mastectomy Other Surgical History: barriactric surgery. neck'C5,C6 fusion. - Social History Smoking Status: Never smoker Exposure to second hand smoke: No Drug Use: none Patient Lives Alone: No - Nursing Vital Signs Nursing Vital Signs: Initial Vital Signs Temperature 98.1 F 06/23/22 18:05 Pulse Rate 64 06/23/22 18:05 Respiratory Rate 18 06/23/22 18:05 Blood Pressure 169/75 06/23/22 18:05 O2 Sat by Pulse Oximetry 96 06/23/22 18:05 Pain Scale Pain Intensity 0 - Physical Exam General Appearance: no apparent distress, alert, anxiety Eye Exam: PERRL/EOMI, eyes nml inspection Ears, Nose, Throat Exam: normal ENT inspection, moist mucous membranes Neck Exam: normal inspection, non-tender, supple, full range of motion Respiratory Exam: normal breath sounds, lungs clear, airway intact, No chest tenderness, No respiratory distress Cardiovascular Exam: regular rate/rhythm, normal heart sounds, normal peripheral pulses Gastrointestinal/Abdomen Exam: soft, normal bowel sounds, No tenderness Pelvic Exam: not done Rectal Exam: not done Back Exam: normal inspection, normal range of motion, No CVA tenderness Extremity Exam: normal range of motion, pelvis stable, inflammation (Localized area of cellulitis left anterior forearm) Neurologic Exam: alert, oriented x 3, cooperative, 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-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 nml as tested, normal mood/affect, nml cerebellar function, nml station & gait, sensation nml Skin Exam: other (See above extremity portion) Lymphatic Exam: No adenopathy SpO2 Interpretation: normal O2 Delivery: Room Air - Course Nursing assessment & vital signs reviewed: Yes Ordered Tests: Medication Summary Generic Name Dose Route Start Last Admin Trade Name Freq PRN Reason Stop Dose Admin Ceftriaxone Sodium 1,000 mg 06/23/22 18:21 Ceftriaxone Sodium 1000 Mg Inj Vial IM 06/23/22 18:22 STAT ONE - Progress Progress: unchanged Progress Note: 06/23/22 18:26 This patient's medical issue is 1 of low complexity. The level of complexity in the work-up performed is based on the past medical history, review of the patient's medication, review of the patient's drug allergies, history of present illness and physical findings on examination. No work-up is necessary. Patient has what appears to be cellulitis of her left anterior forearm. The area is encircled by the nurse as instructed by me. Patient is given an intramuscular dose of Rocephin 1 g. We will send a prescription of Levaquin 500 mg orally once a day for 7 days to the pharmacy of the patient's via computer. Counseled pt/family regarding: diagnosis, need for follow-up Medical Desision Making - Independent Historian Additional History obtained from: Child - Discussion of managment Agreed on:: Treatment plan, need for follow-up - Risk of complications The pt has a mod risk of morbidity or mortality based on: Need for prescription drug management - Departure Departure Disposition: Home Clinical Impression: Cellulitis of left forearm Condition: Stable Critical Care Time: No Referrals: JENELLE BIRMINGHAM MD [Primary Care Provider] - Follow up/PCP as directed Additional Instructions: Drink plenty fluids. Take your medication as prescribed. Make sure you keep the skin of your arms moist with unscented lotion twice a day. Take your antibiotics as prescribed. Follow-up with your primary care provider in the next 3 to 5 days for further evaluation management. Prescriptions: Levofloxacin [Levaquin 500 MG Tablet] 500 mg PO DAILY #7 tablet
[2022-06-23 18:13] VITALS: BP 169/75; PULSE 64; O2SAT 96
[2022-06-23] MEDS ORDERED: Rocephin 1000 MG INJ IM ONE (18:21)
[2022-06-23] MEDS ORDERED: Rocephin 1000 MG INJ ONE (18:31)
[2022-06-23] MEDS ORDERED: XYLOCAINE 1% HCL 20 ML MDV ONE (18:31)
== END 2022-06-23 18:56 | disposition home or self-care (01) ==
LOC: ED 17:58
DX: L03.114 Cellulitis of left upper limb (principal); M79.632 Pain in left forearm; I10 Essential (primary) hypertension; Z79.899 Other long term (current) drug therapy
CPT/HCPCS: 96372; 99282; J0696

== ENCOUNTER 2022-07-31 14:30 | Emergency (ER) | payer MEDICARE, BC ==
--- NOTE | 2022-07-31 14:37 | ERPHSYRPT ---
- History of Present Illness Time Seen by Provider: 07/31/22 14:37 Source: patient Exam Limitations: no limitations Physician History: This is a 77-year-old white female patient of Dr. Birmingham who has a history of hypertension and TIAs in the past. Patient states that she had noticed her blood pressure was rising last evening but felt it may be related that she had not taken her nighttime medicine yet. Therefore she took her metoprolol last night and then went to bed. She woke up this morning with a 4 out of 10 global headache. There were no visual changes. She denies chest pain. She denies shortness of breath. She has no abdominal pain. Her blood pressure was again elevated this morning and she took her metoprolol and then a second dose of it and the blood pressure readings were still elevated despite her treatment. Patient did forget to take her torsemide. Patient also has a history of anxiety, asthma and anemia. She has had a cardiac catheterization in the past but there has been no documentation of coronary artery disease. Timing/Duration: today Severity: mild Associated Symptoms: headaches, No abdominal pain, No shortness of breath, No chest pain Allergies/Adverse Reactions: naproxen [From Naprosyn] Allergy (Mild, Verified 07/31/22 14:36) Rash fluticasone furoate [From Trelegy Ellipta] Adverse Reaction (Severe, Verified 07/31/22 14:36) Anaphylactic Reaction umeclidinium [From Trelegy Ellipta] Adverse Reaction (Severe, Verified 07/31/22 14:36) Anaphylactic Reaction vilanterol [From Trelegy Ellipta] Adverse Reaction (Severe, Verified 07/31/22 14:36) Anaphylactic Reaction adhesive tape Adverse Reaction (Mild, Verified 07/31/22 14:36) BLISTERS lisinopril Adverse Reaction (Verified 07/31/22 14:36) Anaphylactic Reaction Home Medications: Ferrous Sulfate [Iron] 325 mg PO DAILY 09/02/18 [History] Vit C/E/Zn/Coppr/Lutein/Zeaxan [Preservision Areds 2 Softgel] 2 cap PO BID 09/02/18 [History] Cyanocobalamin (Vitamin B-12) [Cyanocobalamin Injection] 1,000 mcg IJ UD 02/06/21 [History] Multivitamin 1 each PO DAILY 02/06/21 [History] PANTOPRAZOLE 40 mg Tablet [Protonix 40MG Tablet] 40 mg PO BID 08/29/21 [History] Hx Tetanus, Diphtheria Vaccination/Date Given: Yes Hx Influenza Vaccination/Date Given: Yes Hx Pneumococcal Vaccination/Date Given: Yes Travel Risk - International Travel Have you traveled outside of the country in past 3 weeks: No - Coronavirus Screening Are you exhibiting any of the following symptoms?: No Close contact with a COVID-19 positive Pt in past 14-21 Days: No - Vaccine Status Have you recieved a Covid-19 vaccination: Yes City Constable: Moderna - Vaccination Dates Date of 2cond Vaccination (if applicable): unknown - Review of Systems Constitutional: No Symptoms Eyes: No Symptoms Ears, Nose, & Throat: No Symptoms Respiratory: No Symptoms Cardiac: No Symptoms Abdominal/Gastrointestinal: No Symptoms Genitourinary Symptoms: No Symptoms Musculoskeletal: No Symptoms Skin: No Symptoms Neurological: Headache Psychological: No Symptoms Endocrine: No Symptoms Hematologic/Lymphatic: No Symptoms Immunological/Allergic: No Symptoms All Other Systems: Reviewed and Negative - Past Medical History Pertinent Past Medical History: Yes Neurological History: TIA ENT History: Cataracts Cardiac History: Hypertension Respiratory History: Asthma Endocrine Medical History: No Pertinent History Musculoskeletal History: Osteoarthritis GI Medical History: Hernia, Polyps History: No Pertinent History Psycho-Social History: Anxiety, Depression Female Reproductive Disorders: Breast Cancer Other Medical History: Heart attack is disagreed on by different doctors. hx of anemia. Cholecystectomy, Hysterectomy, Mastectomy with reconstruction, Gastric bypass. - Past Surgical History Past Surgical History: Yes Neuro Surgical History: No Pertinent History Cardiac: Cardiac Catheterization Respiratory: No Pertinent History Gastrointestinal: Cholecystectomy, Hernia Repair Genitourinary: No Pertinent History Musculoskeletal: Orthopedic Surgery Female Surgical History: Hysterectomy, Mastectomy Other Surgical History: barriactric surgery. neck'C5,C6 fusion. - Social History Smoking Status: Never smoker Exposure to second hand smoke: No Drug Use: none Patient Lives Alone: No - Nursing Vital Signs Nursing Vital Signs: Initial Vital Signs Temperature 98.0 F 07/31/22 14:38 Pulse Rate 59 L 07/31/22 14:38 Respiratory Rate 18 07/31/22 14:38 Blood Pressure 198/79 07/31/22 14:38 O2 Sat by Pulse Oximetry 99 07/31/22 14:38 Pain Scale Pain Intensity 4 - Physical Exam General Appearance: no apparent distress, alert, anxiety Eye Exam: PERRL/EOMI, eyes nml inspection Ears, Nose, Throat Exam: normal ENT inspection, moist mucous membranes Neck Exam: normal inspection, non-tender, supple, full range of motion Respiratory Exam: normal breath sounds, lungs clear, airway intact, No chest tenderness, No respiratory distress Cardiovascular Exam: regular rate/rhythm, normal heart sounds, normal peripheral pulses Gastrointestinal/Abdomen Exam: soft, normal bowel sounds, No tenderness Pelvic Exam: not done Rectal Exam: not done Back Exam: normal inspection, normal range of motion, No CVA tenderness, No ve rtebral tenderness Extremity Exam: normal inspection, normal range of motion, pelvis stable Neurologic Exam: alert, oriented x 3, cooperative, 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 Patient has prolonged RI interval.) Ordered Tests: Active Orders 24 hr Category Date Time Status Steel Roller STAT Care 07/31/22 14:58 Active IV Insertion STAT Care 07/31/22 14:58 Active Pulse Oximetry (ED) STAT Care 07/31/22 14:58 Active HEAD WITHOUT CONTRAST [CT] Stat Exams 07/31/22 14:58 Completed CBC W DIFF Stat Lab 07/31/22 16:19 Completed CMP Stat Lab 07/31/22 16:19 Completed UA W/RFX UR CULTURE Stat Lab 07/31/22 16:19 Completed Medication Summary Discontinued Medications Generic Name Dose Route Start Last Admin Trade Name Freq PRN Reason Stop Dose Admin Hydralazine HCl 10 mg 07/31/22 15:31 07/31/22 15:59 Hydralazine Hcl 20 Mg/Ml Vial IV 07/31/22 15:32 10 mg STAT ONE Administration Hydralazine HCl Confirm 07/31/22 15:37 Hydralazine Hcl 20 Mg/Ml Vial Administered 07/31/22 15:38 Dose 20 mg .ROUTE .SocialSmack ONE Lab/Rad Data: Laboratory Result Diagrams 07/31/22 16:19 07/31/22 16:19 Laboratory Results 07/31/22 07/31/22 07/31/22 Range/Units 16:19 16:19 16:19 WBC 5.4 (4.0-10.5) x10^3/uL RBC 3.19 L (4.1-5.4) x10^6/uL Hgb 10.3 L (12.0-16.0) g/dL Hct 32.4 L (35-47) % MCV 101.6 H (78-100) fL MCH 32.3 H (26-32) pg MCHC 31.8 L (32-36) g/dL RDW 12.8 (11.5-14.0) % Plt Count 163 (150-450) x10^3/uL MPV 9.3 (7.5-11.0) fL Gran % 55.2 (36.0-66.0) % Immature Gran % (Auto) 0.2 (0.00-0.4) % Nucleat RBC Rel Count 0.0 (0.00-0.1) % Eos # (Auto) 0.22 (0-0.5) x10^3/uL Immature Gran # (Auto) 0.01 (0.00-0.03) x10^3u/L Absolute Lymphs (auto) 1.67 (1.0-4.6) x10^3/uL Absolute Monos (auto) 0.46 (0.0-1.3) x10^3/uL Absolute Nucleated RBC 0.00 (0.00-0.01) x10^3u/L Lymphocytes % 31.2 (24.0-44.0) % Monocytes % 8.6 (0.0-12.0) % Eosinophils % 4.1 (0.00-5.0) % Basophils % 0.7 (0.0-0.4) % Absolute Granulocytes 2.96 (1.4-6.9) x10^3/uL Basophils # 0.04 (0-0.4) x10^3/uL Sodium 141 (137-145) mmol/L Potassium 4.3 (3.5-5.1) mmol/L Chloride 114 H (98-107) mmol/L Carbon Dioxide 22 (22-30) mmol/L Anion Gap 10.2 (5-15) MEQ/L BUN 27 H (7-17) mg/dL Creatinine 1.21 H (0.52-1.04) mg/dL Estimated GFR 46.1 ML/MIN Glucose 85 (74-106) mg/dL Calcium 8.5 (8.4-10.2) mg/dL Total Bilirubin 0.30 (0.2-1.3) mg/dL AST 33 (14-36) U/L ALT 26 (0-35) U/L Alkaline Phosphatase 128 H (38-126) U/L Serum Total Protein 5.9 L (6.3-8.2) g/dL Albumin 3.3 L (3.5-5.0) g/dL Urine Color Yellow (Yellow) Urine Appearance Clear (Clear) Urine pH 5.5 (4.6-8.0) Ur Specific [place] 1.010 (1.005-1.030) Urine Protein Negative (Negative) Urine Glucose (UA) Negative (Negative) mg/dL Urine Ketones Negative (Negative) Urine Blood Negative (Negative) Urine Nitrite Negative (Negative) Urine Bilirubin Negative (Negative) Urine Urobilinogen 0.2 (0.2) mg/dL Ur Leukocyte Esterase Negative (Negative) U Hyaline Cast (Auto) NONE SEEN (0-2) /LPF Urine Microscopic RBC 0-2 (0-5) /HPF Urine Microscopic WBC 0-2 (0-5) /HPF Ur Epithelial Cells Rare (None Seen) /HPF Urine Bacteria None Seen (None Seen) /HPF Urine Culture Reflexed NO (NO) - Progress Progress: improved, re-examined Progress Note: 07/31/22 17:00 CT scan of head without contrast shows a nonacute senile brain. This was interpreted by the radiologist and I reviewed the impression 07/31/22 17:03 This patient's medical issue is 1 of moderate complexity. The level complexity and the work-up performed is based on the review of the patient's past medical history, review of the patient's medication list, review of the patient's drug allergy list, history present illness and physical findings on examination. This patient's work-up includes intravenous line placement, 10 mg intravenous hydralazine, CT scan of the head, CBC, CMP urinalysis and twelve-lead EKG. Patient responded well to the hydralazine dropping her systolic blood pressure from 198 down to 157. Patient's headache resolved. Patient has no chest pain or abdominal pain. Patient denies shortness of breath. I did place a call to her primary care doctor, Dr. Birmingham. I reviewed the patient's medication list, history of present illness complaint physical findings and result work-up. He does not feel that the patient needs to be admitted in the hospital. I do not either. He stated that the patient used to be on hydralazine and we will add hydralazine 25 mg orally 3 times a day. Patient is to call his office tomorrow to make arrange for follow-up appointment within the next 3 to 5 days. I will have her keep a daily log of morning noon and night blood pressure readings on the new, additional medication. He wants her to continue the metoprolol and the torsemide. Discussed with .: Matilda Counseled pt/family regarding: lab results, diagnosis, need for follow-up, rad results Medical Desision Making - Independent Historian Additional History obtained from: M[facility] nurse, Juice [employer] Team Member/EMT - Discussion of managment Care discussed with:: PCP Agreed on:: Treatment plan Will see patient: In office - Diagnostic Testing Diagnostic test were ordered, analyzed, and reviewed by me: Yes Radiological Interpretation: Reviewed by me, Teleradiologist Report - Risk of complications The pt has a mod risk of morbidity or mortality based on: Need for prescription drug management - Departure Departure Disposition: Extended Care Facility Clinical Impression: Hypertensive urgency Condition: Stable Critical Care Time: Yes Critical Care Time(excluding separately billable procedures): Critical 30-74 mins (40 minutes) Referrals: JENELLE BIRMINGHAM MD [Primary Care Provider] - Follow up/PCP as directed Additional Instructions: Take your medication as prescribed. Continue your other blood pressure med ication as prescribed. In addition, we will add hydralazine to your blood pressure control regimen. Call Dr. Birmingham's office tomorrow morning to make arrangements for follow-up appointment in the next 3 days. Make a daily morning noon and night log of your blood pressure readings from the next 3 to 5 days and bring those readings with you to your follow-up appointment with your primary care provider. Prescriptions: HydrALAzine HCL 25 MG TAB [Apresoline 25 MG TABLET] 25 mg PO TID #30 tablet
[2022-07-31 14:44] VITALS: O2SAT 99
[2022-07-31 15:29] VITALS: BP 200/77; PULSE 55
[2022-07-31] MEDS ORDERED: APRESOLINE 20 MG/ML INJ IV ONE (15:31)
[2022-07-31] MEDS ORDERED: APRESOLINE 20 MG/ML INJ ONE (15:37)
--- NOTE | 2022-07-31 16:24 | XRAY ---
Indication: Headache. Multiple contiguous axial images obtained through the head without contrast. Comparison: February 27, 2022 Again age-appropriate global atrophy and mild periventricular degenerative micro-ischemia bilaterally. No acute intracranial hemorrhage, abnormal extra-axial fluid collection, or mass effect. Fourth ventricle is midline without hydrocephalus. Ferreira-white matter differentiation preserved. Bony calvarium intact again with incidental hyperostosis frontalis interna. Visualized paranasal sinuses and mastoid air cells are clear. Impression: Continued nonacute senile brain.
[2022-07-31 16:56] LABS: Absolute Neutrophil Ct (ANC) 2.96 x10^3/uL (1.4-6.9); BASOPHIL % 0.7 % (0.0-0.4); Basophil (Absolute #) 0.04 x10^3/uL (0-0.4); Eosinophil % 4.1 % (0.00-5.0); Eosinophil (Absolute #) 0.22 x10^3/uL (0-0.5); Hematocrit 32.4 % (35-47); Hemoglobin 10.3 g/dL (12.0-16.0); IMMATURE GRAN # 0.01 x10^3u/L (0.00-0.03); IMMATURE GRAN % 0.2 % (0.00-0.4); Lymphocyte (Absolute #) 1.67 x10^3/uL (1.0-4.6); Lymphocytes % 31.2 % (24.0-44.0); Mean Cell Volume 101.6 fL (78-100); Mean Corpuscular Hemoglobin 32.3 pg (26-32); Mean Corpuscular Hgb Concent. 31.8 g/dL (32-36); Mean Platelet Volume 9.3 fL (7.5-11.0); Monocyte (Absolute #) 0.46 x10^3/uL (0.0-1.3); Monocytes % 8.6 % (0.0-12.0); Neutrophil % 55.2 % (36.0-66.0); Platelet Count 163 x10^3/uL (150-450); Red Blood Count 3.19 x10^6/uL (4.1-5.4); Red Cell Distribution Width 12.8 % (11.5-14.0); White Blood Count 5.4 x10^3/uL (4.0-10.5)
[2022-07-31 17:04] LABS: Appearance Clear (Clear); Bacteria None Seen /HPF (None Seen); Bilirubin Negative (Negative); Blood Negative (Negative); Epithelial Cells Rare /HPF (None Seen); Glucose, Urine Negative (Negative); Hyaline Casts NONE SEEN /LPF (0-2); Ketones Negative (Negative); Leukocyte Esterase Negative (Negative); Nitrite Negative (Negative); Ph 5.5 (4.6-8.0); Protein,Urine Dip Negative (Negative); RBC 0-2 /HPF (0-5); Urobilinogen 0.2 mg/dL (0.2); WBC 0-2 /HPF (0-5)
[2022-07-31 17:05] LABS: ADD URINE CULTURE? NO (NO)
[2022-07-31 17:13] LABS: ALBUMIN 3.3 g/dL (3.5-5.0); ANION GAP 10.2 MEQ/L (5-15); BILIRUBIN,TOTAL 0.3 mg/dL (0.2-1.3); Calcium 8.5 mg/dL (8.4-10.2); Creatinine 1 1.21 mg/dL (0.52-1.04); EST GLOMERULAR FILTRATION RATE 46.1 ML/MIN; Potassium 4.3 mmol/L (3.5-5.1); Total Protein 5.9 g/dL (6.3-8.2)
== END 2022-07-31 17:36 | disposition home or self-care (01) ==
LOC: ED 14:30
DX: I16.0 Hypertensive urgency (principal); I10 Essential (primary) hypertension; R51.9 Headache, unspecified; Z79.899 Other long term (current) drug therapy
CPT/HCPCS: 36000; 36415; 70450; 80053; 81001; 85025; 93041; 94760; 96374; 99284; 99291; J0360

== ENCOUNTER 2022-08-01 08:26 | Emergency (ER) | payer MEDICARE, BC ==
[2022-08-01] MEDS ORDERED: CLONIDINE 0.1 MG TABLET PO ONE (08:46)
[2022-08-01] MEDS ORDERED: CLONIDINE 0.1 MG TABLET ONE (08:55)
[2022-08-01] MEDS ORDERED: Zofran 4 MG/2 ML VIAL IV ONE (09:07)
[2022-08-01] MEDS ORDERED: SUBLIMAZE 100 MCG/2 ML IV ONE (09:07)
--- NOTE | 2022-08-01 09:13 | ERPHSYRPT ---
- History of Present Illness Source: patient, other (Daughter) Exam Limitations: other (Poor historian) Patient Subjective Stated Complaint: pt here for a headache for a couple days, she was seen yesterday for headache and htn , was placed on new medication Triage Nursing Assessment: pt alert, arrived per wc , resp easy, skin w/d/p. no edema Physician History: 77 yo WF who was seen yesterday in ER for PETERSEN/elevated BP presents again for global headache which she rates as 8/10 and sharp. She has nausea wo vomiting/focal weakness/fever/dyspnea/chest pain/cough. Pt does have coryza/chills. She has a PMH of HTN/CVA. Timing/Duration: yesterday Quality: sharpness Head Pain Location: global Severity of Pain-Max: severe Severity of Pain-Current: severe Recent Head Trauma: no recent headache/trauma Modifying Factors: Improves With: other (Nothing makes the pain better or worse) Associated Symptoms: denies symptoms Previous symptoms: same symptoms as today Allergies/Adverse Reactions: naproxen [From Naprosyn] Allergy (Mild, Verified 08/01/22 08:41) Rash fluticasone furoate [From Trelegy Ellipta] Adverse Reaction (Severe, Verified 08/01/22 08:41) Anaphylactic Reaction umeclidinium [From Trelegy Ellipta] Adverse Reaction (Severe, Verified 08/01/22 08:41) Anaphylactic Reaction vilanterol [From Trelegy Ellipta] Adverse Reaction (Severe, Verified 08/01/22 08:41) Anaphylactic Reaction adhesive tape Adverse Reaction (Mild, Verified 08/01/22 08:41) BLISTERS lisinopril Adverse Reaction (Verified 08/01/22 08:41) Anaphylactic Reaction Home Medications: Ferrous Sulfate [Iron] 325 mg PO DAILY 09/02/18 [History] Vit C/E/Zn/Coppr/Lutein/Zeaxan [Preservision Areds 2 Softgel] 2 cap PO BID 09/02/18 [History] Cyanocobalamin (Vitamin B-12) [Cyanocobalamin Injection] 1,000 mcg IJ UD 02/06/21 [History] Multivitamin 1 each PO DAILY 02/06/21 [History] PANTOPRAZOLE 40 mg Tablet [Protonix 40MG Tablet] 40 mg PO BID 08/29/21 [History] HydrALAzine HCL 25 MG TAB [Apresoline 25 MG TABLET] 25 mg PO TID 08/01/22 [History] Hx Tetanus, Diphtheria Vaccination/Date Given: Yes Hx Influenza Vaccination/Date Given: Yes Hx Pneumococcal Vaccination/Date Given: Yes Immunizations Up to Date: Yes Travel Risk - International Travel Have you traveled outside of the country in past 3 weeks: No - Coronavirus Screening Are you exhibiting any of the following symptoms?: No Symptoms: Shortness of Breath - Vaccine Status Have you recieved a Covid-19 vaccination: Yes Rod Buster Helper: Moderna - Vaccination Dates Date of 2cond Vaccination (if applicable): unknown - Review of Systems Constitutional: No Symptoms, Chills Eyes: No Symptoms Ears, Nose, & Throat: No Symptoms Respiratory: No Symptoms Cardiac: No Symptoms Abdominal/Gastrointestinal: No Symptoms Genitourinary Symptoms: No Symptoms Musculoskeletal: No Symptoms Skin: No Symptoms Neurological: No Symptoms, Headache Psychological: No Symptoms Endocrine: No Symptoms Hematologic/Lymphatic: No Symptoms Immunological/Allergic: No Symptoms - Past Medical History Pertinent Past Medical History: Yes Neurological History: TIA ENT History: Cataracts Cardiac History: Hypertension Respiratory History: Asthma Endocrine Medical History: No Pertinent History Musculoskeletal History: Osteoarthritis GI Medical History: Hernia, Polyps History: No Pertinent History Psycho-Social History: Anxiety, Depression Female Reproductive Disorders: Breast Cancer Other Medical History: Heart attack is disagreed on by different doctors. hx of anemia. Cholecystectomy, Hysterectomy, Mastectomy with reconstruction, Gastric bypass. - Past Surgical History Past Surgical History: Yes Neuro Surgical History: No Pertinent History Cardiac: Cardiac Catheterization Respiratory: No Pertinent History Gastrointestinal: Cholecystectomy, Hernia Repair Genitourinary: No Pertinent History Musculoskeletal: Orthopedic Surgery Female Surgical History: Hysterectomy, Mastectomy Other Surgical History: barriactric surgery. neck'C5,C6 fusion. - Social History Smoking Status: Never smoker Exposure to second hand smoke: No Drug Use: none Patient Lives Alone: No - Nursing Vital Signs Nursing Vital Signs: Initial Vital Signs Temperature 97.0 F 08/01/22 08:43 Pulse Rate 130 H 08/01/22 08:43 Respiratory Rate 18 08/01/22 08:43 Blood Pressure 200/81 08/01/22 08:43 O2 Sat by Pulse Oximetry 100 08/01/22 08:43 Pain Scale Pain Intensity 0 - Physical Exam General Appearance: no apparent distress Eye Exam: PERRL/EOMI, eyes nml inspection Ears, Nose, Throat Exam: normal ENT inspection, TMs normal, pharynx normal, moist mucous membranes Neck Exam: normal inspection, non-tender, supple, full range of motion, No meningismus, No mass, No Brudzinski, No Kernig's, No carotid bruit Respiratory Exam: normal breath sounds, lungs clear, airway intact Cardiovascular Exam: tachycardia, capillary refill <2 sec, No murmur Gastrointestinal/Abdominal Exam: soft, normal bowel sounds, No tenderness Back Exam: normal inspection, normal range of motion Extremity Exam: normal inspection, normal range of motion Mental Status Exam: alert, oriented x 3, 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 bulk 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 Exam: normal hearing, normal speech, PERRL Coordination/Gait Exam: normal cerebellar function Motor/Sensory Exam: no motor deficit, no sensory deficit, no pronator drift, negative Babinski's sign Skin Exam: normal color, warm, dry, No rash Lymphatic Exam: No adenopathy SpO2 Interpretation: normal SpO2: 100 O2 Delivery: Room Air - Course Nursing assessment & vital signs reviewed: Yes EKG Interpreted by Me: RATE (Sinus anel/Rate 58/Normal QT-QTc/Tall R wave V2/Normal Twaves/No acute ST segment changes) - CT Exams Head CT Interpretation: Discussed w/radiologist Ordered Tests: Active Orders 24 hr Category Date Time Status EKG-ER Only STAT Care 08/01/22 09:05 Completed CHEST 1 VIEW (PORTABLE) Stat Exams 08/01/22 09:05 Completed HEAD WITHOUT CONTRAST [CT] Stat Exams 08/01/22 08:38 Completed CBC W DIFF Stat Lab 08/01/22 09:20 Completed CMP Stat Lab 08/01/22 09:20 Completed PROTIME WITH INR Stat Lab 08/01/22 09:20 Completed PTT Stat Lab 08/01/22 09:20 Completed TROPONIN Q4H Lab 08/01/22 09:20 Completed TROPONIN Q4H Lab 08/01/22 13:15 Ordered TROPONIN Q4H Lab 08/01/22 17:15 Ordered Medication Summary Discontinued Medications Generic Name Dose Route Start Last Admin Trade Name Freq PRN Reason Stop Dose Admin Clonidine 0.2 mg 08/01/22 08:46 08/01/22 08:57 Clonidine Hcl 0.1 Mg Tablet PO 08/01/22 08:47 0.2 mg STAT ONE Administration Clonidine Confirm 08/01/22 08:55 Clonidine Hcl 0.1 Mg Tablet Administered 08/01/22 08:56 Dose 0.2 mg .ROUTE .STK-MED ONE Fentanyl Citrate 25 mcg 08/01/22 09:07 08/01/22 09:18 Fentanyl Citrate 100 Mcg/2 Ml* Vial IV 08/01/22 09:08 25 mcg STAT ONE Administration Fentanyl Citrate Confirm 08/01/22 09:18 Fentanyl Citrate 100 Mcg/2 Ml* Vial Administered 08/01/22 09:19 Dose 100 mcg .ROUTE .STK-MED ONE Ondansetron HCl 4 mg 08/01/22 09:07 08/01/22 09:18 Ondansetron Hcl 4 Mg/2 Ml Vial IV 08/01/22 09:08 4 mg STAT ONE Administration Ondansetron HCl Confirm 08/01/22 09:17 Ondansetron Hcl 4 Mg/2 Ml Vial Administered 08/01/22 09:18 Dose 4 mg .ROUTE .STK-MED ONE Lab/Rad Data: Laboratory Result Diagrams 08/01/22 09:20 08/01/22 09:20 Laboratory Results 08/01/22 08/01/22 08/01/22 Range/Units 09:25 09:20 09:20 WBC (4.0-10.5) x10^3/uL RBC (4.1-5.4) x10^6/uL Hgb (12.0-16.0) g/dL Hct (35-47) % MCV (78-100) fL MCH (26-32) pg MCHC (32-36) g/dL RDW (11.5-14.0) % Plt Count (150-450) x10^3/uL MPV (7.5-11.0) fL Gran % (36.0-66.0) % Immature Gran % (Auto) (0.00-0.4) % Nucleat RBC Rel Count (0.00-0.1) % Eos # (Auto) (0-0.5) x10^3/uL Immature Gran # (Auto) (0.00-0.03) x10^3u/L Absolute Lymphs (auto) (1.0-4.6) x10^3/uL Absolute Monos (auto) (0.0-1.3) x10^3/uL Absolute Nucleated RBC (0.00-0.01) x10^3u/L Lymphocytes % (24.0-44.0) % Monocytes % (0.0-12.0) % Eosinophils % (0.00-5.0) % Basophils % (0.0-0.4) % Absolute Granulocytes (1.4-6.9) x10^3/uL Basophils # (0-0.4) x10^3/uL PT 10.5 (9.4-12.5) SECONDS INR 0.96 (0.8-3.0) APTT 26.8 (25.1-36.5) SECONDS Sodium (137-145) mmol/L Potassium (3.5-5.1) mmol/L Chloride (98-107) mmol/L Carbon Dioxide (22-30) mmol/L Anion Gap (5-15) MEQ/L BUN (7-17) mg/dL Creatinine (0.52-1.04) mg/dL Estimated GFR ML/MIN Glucose (74-106) mg/dL Calcium (8.4-10.2) mg/dL Total Bilirubin (0.2-1.3) mg/dL AST (14-36) U/L ALT (0-35) U/L Alkaline Phosphatase (38-126) U/L Troponin I < 0.012 (0.000-0.034) ng/mL Serum Total Protein (6.3-8.2) g/dL Albumin (3.5-5.0) g/dL Influenza Type A Ag NEGATIVE (NEGATIVE) Influenza Type B Ag NEGATIVE (NEGATIVE) RSV (PCR) NEGATIVE (NEGATIVE) SARS-CoV-2 (PCR) NEGATIVE (NEGATIVE) 08/01/22 08/01/22 Range/Units 09:20 09:20 WBC 6.2 (4.0-10.5) x10^3/uL RBC 3.41 L (4.1-5.4) x10^6/uL Hgb 10.9 L (12.0-16.0) g/dL Hct 34.7 L (35-47) % MCV 101.8 H (78-100) fL MCH 32.0 (26-32) pg MCHC 31.4 L (32-36) g/dL RDW 13.1 (11.5-14.0) % Plt Count 175 (150-450) x10^3/uL MPV 9.6 (7.5-11.0) fL Gran % 74.5 H (36.0-66.0) % Immature Gran % (Auto) 0.3 (0.00-0.4) % Nucleat RBC Rel Count 0.0 (0.00-0.1) % Eos # (Auto) 0.11 (0-0.5) x10^3/uL Immature Gran # (Auto) 0.02 (0.00-0.03) x10^3u/L Absolute Lymphs (auto) 1.07 (1.0-4.6) x10^3/uL Absolute Monos (auto) 0.37 (0.0-1.3) x10^3/uL Absolute Nucleated RBC 0.00 (0.00-0.01) x10^3u/L Lymphocytes % 17.2 L (24.0-44.0) % Monocytes % 5.9 (0.0-12.0) % Eosinophils % 1.8 (0.00-5.0) % Basophils % 0.3 (0.0-0.4) % Absolute Granulocytes 4.64 (1.4-6.9) x10^3/uL Basophils # 0.02 (0-0.4) x10^3/uL PT (9.4-12.5) SECONDS INR (0.8-3.0) APTT (25.1-36.5) SECONDS Sodium 140 (137-145) mmol/L Potassium 3.8 (3.5-5.1) mmol/L Chloride 111 H (98-107) mmol/L Carbon Dioxide 21 L (22-30) mmol/L Anion Gap 12.0 (5-15) MEQ/L BUN 31 H (7-17) mg/dL Creatinine 1.40 H (0.52-1.04) mg/dL Estimated GFR 39.0 ML/MIN Glucose 116 H (74-106) mg/dL Calcium 8.7 (8.4-10.2) mg/dL Total Bilirubin 0.30 (0.2-1.3) mg/dL AST 33 (14-36) U/L ALT 27 (0-35) U/L Alkaline Phosphatase 131 H (38-126) U/L Troponin I (0.000-0.034) ng/mL Serum Total Protein 6.3 (6.3-8.2) g/dL Albumin 3.5 (3.5-5.0) g/dL Influenza Type A Ag (NEGATIVE) Influenza Type B Ag (NEGATIVE) RSV (PCR) (NEGATIVE) SARS-CoV-2 (PCR) (NEGATIVE) - Progress Progress: improved Progress Note: 08/01/22 12:10 Nursing note and vital signs reviewed No food or housing insecurities noted Additional history per daughter Serial neuro exams WNL 08/01/22 12:11 BP treated effectively w 0.2 po clonidine Headache abated w 25mcg IV Fentanyl/4mg IV Zofran Pt discharged in stable condition 08/01/22 12:13 Pt advised to f/u w Dr. Birmingham for better blood pressure control Counseled pt/family regarding: lab results, diagnosis, need for follow-up, rad results Medical Desision Making - Independent Historian Additional History obtained from: Child - Diagnostic Testing Radiological Interpretation: Reviewed by me, Discussed w/ radiologist - Risk of complications The pt has a mod risk of morbidity or mortality based on: Need for prescription drug management - Departure Departure Disposition: Home Clinical Impression: Hypertension, Headache Condition: Stable Critical Care Time: No Referrals: JENELLE BIRMINGHAM MD [Primary Care Provider] - Follow up/PCP as directed Instructions: High Blood Pressure (DC), Headache, Adult (DC) Additional Instructions: Follow up with Dr. Birmingham [facility] Continue current medications Return to ER for worsening pain/Focal weakness/Temperature greater than 100.5
[2022-08-01] MEDS ORDERED: Zofran 4 MG/2 ML VIAL ONE (09:17)
[2022-08-01] MEDS ORDERED: SUBLIMAZE 100 MCG/2 ML ONE (09:18)
--- NOTE | 2022-08-01 09:26 | XRAY ---
Indication: Headache. Multiple contiguous axial images obtained through the head without contrast. Comparison: One day earlier. Stable age-appropriate global atrophy and mild periventricular degenerative micro-ischemia. No acute intracranial hemorrhage, abnormal extra-axial fluid collection, or mass effect. Fourth ventricle is midline without hydrocephalus. Ferreira-white matter differentiation preserved. Bony calvarium intact again with hyperostosis frontalis interna. Visualized paranasal sinuses and mastoid air cells are clear. Impression: No change compared ER CT exam one day earlier. Continue nonacute senile brain.
[2022-08-01 09:31] LABS: Absolute Neutrophil Ct (ANC) 4.64 x10^3/uL (1.4-6.9); BASOPHIL % 0.3 % (0.0-0.4); Basophil (Absolute #) 0.02 x10^3/uL (0-0.4); Eosinophil % 1.8 % (0.00-5.0); Eosinophil (Absolute #) 0.11 x10^3/uL (0-0.5); Hematocrit 34.7 % (35-47); Hemoglobin 10.9 g/dL (12.0-16.0); IMMATURE GRAN # 0.02 x10^3u/L (0.00-0.03); IMMATURE GRAN % 0.3 % (0.00-0.4); Lymphocyte (Absolute #) 1.07 x10^3/uL (1.0-4.6); Lymphocytes % 17.2 % (24.0-44.0); Mean Cell Volume 101.8 fL (78-100); Mean Corpuscular Hgb Concent. 31.4 g/dL (32-36); Mean Platelet Volume 9.6 fL (7.5-11.0); Monocyte (Absolute #) 0.37 x10^3/uL (0.0-1.3); Monocytes % 5.9 % (0.0-12.0); Neutrophil % 74.5 % (36.0-66.0); Platelet Count 175 x10^3/uL (150-450); Red Blood Count 3.41 x10^6/uL (4.1-5.4); Red Cell Distribution Width 13.1 % (11.5-14.0); White Blood Count 6.2 x10^3/uL (4.0-10.5)
[2022-08-01 09:45] LABS: ALBUMIN 3.5 g/dL (3.5-5.0); BILIRUBIN,TOTAL 0.3 mg/dL (0.2-1.3); Calcium 8.7 mg/dL (8.4-10.2); Creatinine 1 1.4 mg/dL (0.52-1.04); Potassium 3.8 mmol/L (3.5-5.1); Total Protein 6.3 g/dL (6.3-8.2)
[2022-08-01 09:50] LABS: INR 0.96 (0.8-3.0); PROTIME 10.5 SECONDS (9.4-12.5); PTT 26.8 SECONDS (25.1-36.5)
--- NOTE | 2022-08-01 09:51 | XRAY ---
Indication: Lethargy. Comparison: February 27, 2022 Portable chest remains clear again with incidental right lung calcified granuloma. Heart not enlarged again with subcarinal calcific nodes. Bony thorax intact again with osteopenia, mild degenerative changes, cervical fusion hardware, and surgical clips overlying left chest. Impression: Continued nonacute chest with chronic features.
[2022-08-01 10:18] LABS: INFLUENZA A NEGATIVE (NEGATIVE); INFLUENZA B NEGATIVE (NEGATIVE); RESPIRATORY SYNCTIAL VIRUS NEGATIVE (NEGATIVE); SARS-CoV-2 Xpert Express NEGATIVE (NEGATIVE)
[2022-08-01 10:50] VITALS: BP 109/64; PULSE 58
[2022-08-01 12:13] VITALS: O2SAT 100
== END 2022-08-01 11:03 | disposition home or self-care (01) ==
LOC: ED 08:26
DX: I10 Essential (primary) hypertension (principal); R51.9 Headache, unspecified; R11.0 Nausea; Z79.899 Other long term (current) drug therapy; Z20.828 Contact with and (suspected) exposure to other viral communicable diseases; Z86.73 Personal history of transient ischemic attack (TIA), and cerebral infarction without residual deficits
CPT/HCPCS: 0241U; 36000; 36415; 70450; 71045; 80053; 84484; 85025; 85610; 85730; 93005; 96374; 96375; 99284; J2405; J3010; A9270-GY

== ENCOUNTER 2023-07-24 17:07 | Emergency (ER) | payer MEDICARE, BC ==
--- NOTE | 2023-07-24 17:21 | ERPHSYRPT ---
- History of Present Illness Time Seen by Provider: 07/24/23 17:20 Historian: patient Exam Limitations: no limitations Physician History: This is a 78-year-old white female patient of Dr. 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 She is very uncomfortable. There is no radiation of this discomfort into her neck or jaw or into her arms. Patient had a similar episode recently and was transferred to [facility] where she declined a cardiac catheterization and wanted to "try medications first." Patient arrives to the emergency department and a twelve-lead EKG was performed at 1719 which shows a heart rate of 76 bpm but also the computer readout of ST elevation in the anterior leads. Patient denies being short of breath. Presents emergency this is not as and so many different note waiting when he wants otherwise he was nursing is reducing she is that he said she needed to transfer definitely if she did that first troponin is back we do not have that yet right who is okay so he is not reading now okay great thank you. This patient has history of hypertension, TIAs, anxiety, depression and osteoarthritis. She is also had a gastric bypass in the past. Patient is refusing aspirin secondary to history of gastric bypass Timing/Duration: today Activities at Onset: none Quality: aching, pressure Location: substernal, central Chest Pain Radiation: no radiation Severity of Pain-Max: moderate Severity of Pain-Current: moderate Modifying Factors: Improves With: nothing Associated Symptoms: denies symptoms Prior Chest Pain/Cardiac Workup: cardiac cath, recently seen/treated, recent hospitalization Nitro Today/Relief: no nitro taken today Aspirin Treatment Today: no aspirin today Allergies/Adverse Reactions: naproxen [From Naprosyn] Allergy (Mild, Verified 07/24/23 17:23) Rash fluticasone furoate [From Trelegy Ellipta] Adverse Reaction (Severe, Verified 07/24/23 17:23) Anaphylactic Reaction umeclidinium [From Trelegy Ellipta] Adverse Reaction (Severe, Verified 07/24/23 17:23) Anaphylactic Reaction vilanterol [From Trelegy Ellipta] Adverse Reaction (Severe, Verified 07/24/23 17:23) Anaphylactic Reaction adhesive tape Adverse Reaction (Mild, Verified 07/24/23 17:23) BLISTERS lisinopril Adverse Reaction (Verified 07/24/23 17:23) Anaphylactic Reaction Home Medications: Ferrous Sulfate [Iron] 325 mg PO DAILY 09/02/18 [History] Vit C/E/Zn/Coppr/Lutein/Zeaxan [Preservision Areds 2 Softgel] 2 cap PO BID 09/02/18 [History] Cyanocobalamin (Vitamin B-12) [Cyanocobalamin Injection] 1,000 mcg IJ UD 02/06/21 [History] Multivitamin 1 each PO DAILY 02/06/21 [History] PANTOPRAZOLE 40 mg Tablet [Protonix 40MG Tablet] 40 mg PO BID 08/29/21 [History] HydrALAzine HCL 25 MG TAB [Apresoline 25 MG TABLET] 25 mg PO TID 08/01/22 [History] Hx Tetanus, Diphtheria Vaccination/Date Given: Yes Hx Influenza Vaccination/Date Given: Yes Hx Pneumococcal Vaccination/Date Given: Yes Travel Risk - International Travel Have you traveled outside of the country in past 3 weeks: No - Emerging Infectious Disease Are you exhibiting symptoms associated with any current EIDs: No - Review of Systems Constitutional: Weakness Eyes: No Symptoms Ears, Nose, & Throat: No Symptoms Respiratory: No Symptoms Cardiac: Chest Pain Abdominal/Gastrointestinal: No Symptoms Genitourinary Symptoms: No Symptoms Musculoskeletal: No Symptoms Skin: No Symptoms Neurological: No Symptoms Psychological: No Symptoms Endocrine: No Symptoms Hematologic/Lymphatic: No Symptoms Immunological/Allergic: No Symptoms All Other Systems: Reviewed and Negative - Past Medical History Pertinent Past Medical History: Yes Neurological History: TIA ENT History: Cataracts Cardiac History: Hypertension Respiratory History: Asthma Endocrine Medical History: No Pertinent History Musculoskeletal History: Osteoarthritis GI Medical History: Hernia, Polyps History: No Pertinent History Psycho-Social History: Anxiety, Depression Female Reproductive Disorders: Breast Cancer Other Medical History: Heart attack is disagreed on by different doctors. hx of anemia. Cholecystectomy, Hysterectomy, Mastectomy with reconstruction, Gastric bypass. - Past Surgical History Past Surgical History: Yes Neuro Surgical History: No Pertinent History Cardiac: Cardiac Catheterization Respiratory: No Pertinent History Gastrointestinal: Cholecystectomy, Hernia Repair Genitourinary: No Pertinent History Musculoskeletal: Orthopedic Surgery Female Surgical History: Hysterectomy, Mastectomy Other Surgical History: barriactric surgery. neck'C5,C6 fusion. - Social History Smoking Status: Never smoker Exposure to second hand smoke: No Drug Use: none Patient Lives Alone: No - Nursing Vital Signs Nursing Vital Signs: Initial Vital Signs Pulse Rate 66 07/24/23 17:07 Respiratory Rate 14 07/24/23 17:07 Blood Pressure 128/74 07/24/23 17:07 O2 Sat by Pulse Oximetry 98 07/24/23 17:07 Pain Scale Pain Intensity 0 - Physical Exam SpO2: 98 - Course Nursing assessment & vital signs reviewed: Yes EKG Interpreted by Me: RATE (76), Sinus Rhythm, NORMAL AXIS, NORMAL INTERVALS, Other (There are peaked T waves and it appears to show brisk upslope from the QRS to the T wave. The T wave appears to be peaked. The computer reads as ST elevation consider anterior injury) Ordered Tests: Active Orders 24 hr Category Date Time Status Supervisor Press Room STAT Care 07/24/23 17:19 Active EKG-ER Only STAT Care 07/24/23 17:19 Active IV Insertion STAT Care 07/24/23 17:19 Active CBC W DIFF Stat Lab 07/24/23 17:20 Completed CMP Stat Lab 07/24/23 17:20 Completed D-DIMER QUANTITATIVE Stat Lab 07/24/23 17:20 Completed MAG [MAGNESIUM] Stat Lab 07/24/23 18:17 Completed NT PRO BNPII Stat Lab 07/24/23 17:20 Completed PTT Stat Lab 07/24/23 17:20 Received TROPONIN Q4H Lab 07/24/23 17:20 Completed TROPONIN Q4H Lab 07/24/23 21:30 Ordered TROPONIN Q4H Lab 07/25/23 01:30 Ordered Medication Summary Generic Name Dose Route Start Last Admin Trade Name Freq PRN Reason Stop Dose Admin Nitroglycerin/Dextrose 250 mls @ 0.9 mls/hr 07/24/23 17:53 07/24/23 17:56 Ntg 0.2mg/Ml In D5w Glass IV 08/23/23 17:52 3 mcg/min .Q24H PRN 0.9 mls/hr CHEST PAIN Administration Protocol 3 MCG/MIN Sodium Chloride 1,000 mls @ 50 mls/hr 07/24/23 18:00 07/24/23 17:56 Sodium Chloride 0.9% 1000 Ml IV 08/23/23 17:59 50 mls/hr .Q20H TONJA Administration Heparin Sodium/Dextrose 25,000 units in 250 mls @ 9.936 mls/hr 07/24/23 18:30 07/24/23 18:32 Heparin 25,000 Units/D5w: Use Order Set Herrera IV 08/23/23 18:29 12 units/kg/hr .Q24H TONJA 9.936 mls/hr Administration Protocol 12 UNITS/KG/HR Discontinued Medications Generic Name Dose Route Start Last Admin Trade Name Dom PRN Reason Stop Dose Admin Aspirin 324 mg 07/24/23 17:19 07/24/23 17:39 Aspirin 81 Mg Tab.Chew PO 07/24/23 17:20 Not Given STAT ONE Heparin Sodium (Beef Lung) 5,000 unit 07/24/23 18:02 07/24/23 18:31 Heparin 5000 Units/0.5 Ml 5,000 Unit/0.5 Ml Syr IV 07/24/23 18:03 5,000 unit STAT ONE Administration Heparin Sodium (Beef Lung) Confirm 07/24/23 18:24 Heparin 5000 Units/0.5 Ml 5,000 Unit/0.5 Ml Syr Administered 07/24/23 18:25 Dose 5,000 unit .ROUTE .STK-MED ONE Sodium Chloride Confirm 07/24/23 17:46 Sodium Chloride 0.9% 1000 Ml Administered 07/24/23 17:47 Dose 1,000 mls @ ud .ROUTE .STK-MED ONE Nitroglycerin/Dextrose Confirm 07/24/23 17:47 Ntg 0.2mg/Ml In D5w Glass Administered 07/24/23 17:48 Dose 250 mls @ ud IV .STK-MED ONE Lab/Rad Data: Laboratory Result Diagrams 07/24/23 17:20 07/24/23 17:20 Laboratory Results 07/24/23 07/24/23 07/24/23 Range/Units 18:17 17:20 17:20 WBC (4.0-10.5) x10^3/uL RBC (4.1-5.4) x10^6/uL Hgb (12.0-16.0) g/dL Hct (35-47) % MCV (78-100) fL MCH (26-32) pg MCHC (32-36) g/dL RDW (11.5-14.0) % Plt Count (150-450) x10^3/uL MPV (7.5-11.0) fL Gran % (36.0-66.0) % Immature Gran % (Auto) (0.00-0.4) % Nucleat RBC Rel Count (0.00-0.1) % Eos # (Auto) (0-0.5) x10^3/uL Immature Gran # (Auto) (0.00-0.03) x10^3u/L Absolute Lymphs (auto) (1.0-4.6) x10^3/uL Absolute Monos (auto) (0.0-1.3) x10^3/uL Absolute Nucleated RBC (0.00-0.01) x10^3u/L Lymphocytes % (24.0-44.0) % Monocytes % (0.0-12.0) % Eosinophils % (0.00-5.0) % Basophils % (0.0-0.4) % Absolute Granulocytes (1.4-6.9) x10^3/uL Basophils # (0-0.4) x10^3/uL D-Dimer 0.87 H* (0.0-0.50) mg/L Sodium (135-145) mmol/L Potassium (3.5-5.1) mmol/L Chloride (98-107) mmol/L Carbon Dioxide (22-30) mmol/L Anion Gap (5-15) MEQ/L BUN (7-17) mg/dL Creatinine (0.52-1.04) mg/dL Estimated GFR ML/MIN Glucose (74-106) mg/dL Calcium (8.4-10.2) mg/dL Magnesium 1.7 (1.6-2.3) mg/dL Total Bilirubin (0.2-1.3) mg/dL AST (14-36) U/L ALT (0-35) U/L Alkaline Phosphatase (38-126) U/L Troponin I < 0.012 (0.000-0.033) ng/mL NT-Pro-B Natriuret Pep 369 (<300) pg/mL Serum Total Protein (6.3-8.2) g/dL Albumin (3.5-5.0) g/dL 07/24/23 07/24/23 Range/Units 17:20 17:20 WBC 6.7 (4.0-10.5) x10^3/uL RBC 3.03 L (4.1-5.4) x10^6/uL Hgb 10.0 L (12.0-16.0) g/dL Hct 30.5 L (35-47) % MCV 100.7 H (78-100) fL MCH 33.0 H (26-32) pg MCHC 32.8 (32-36) g/dL RDW 12.7 (11.5-14.0) % Plt Count 202 (150-450) x10^3/uL MPV 9.2 (7.5-11.0) fL Gran % 58.5 (36.0-66.0) % Immature Gran % (Auto) 0.3 (0.00-0.4) % Nucleat RBC Rel Count 0.0 (0.00-0.1) % Eos # (Auto) 0.22 (0-0.5) x10^3/uL Immature Gran # (Auto) 0.02 (0.00-0.03) x10^3u/L Absolute Lymphs (auto) 2.13 (1.0-4.6) x10^3/uL Absolute Monos (auto) 0.40 (0.0-1.3) x10^3/uL Absolute Nucleated RBC 0.00 (0.00-0.01) x10^3u/L Lymphocytes % 31.6 (24.0-44.0) % Monocytes % 5.9 (0.0-12.0) % Eosinophils % 3.3 (0.00-5.0) % Basophils % 0.4 (0.0-0.4) % Absolute Granulocytes 3.93 (1.4-6.9) x10^3/uL Basophils # 0.03 (0-0.4) x10^3/uL D-Dimer (0.0-0.50) mg/L Sodium 140 (135-145) mmol/L Potassium 4.7 (3.5-5.1) mmol/L Chloride 121 H (98-107) mmol/L Carbon Dioxide 9 L* (22-30) mmol/L Anion Gap 14.5 (5-15) MEQ/L BUN 47 H (7-17) mg/dL Creatinine 1.93 H (0.52-1.04) mg/dL Estimated GFR 26.5 ML/MIN Glucose 132 H (74-106) mg/dL Calcium 8.9 (8.4-10.2) mg/dL Magnesium (1.6-2.3) mg/dL Total Bilirubin 0.20 (0.2-1.3) mg/dL AST 23 (14-36) U/L ALT 19 (0-35) U/L Alkaline Phosphatase 110 (38-126) U/L Troponin I (0.000-0.033) ng/mL NT-Pro-B Natriuret Pep (<300) pg/mL Serum Total Protein 6.1 L (6.3-8.2) g/dL Albumin 3.6 (3.5-5.0) g/dL - Progress Progress: re-examined Air Movement: good Progress Note: 07/24/23 18:12 My medical decision making and the assignment of high complexity to this patient's medical issue is based on review of the patient's past medical history, review of the patient's medication list, review of patient drug allergy list, history present illness and physical findings on examination. The workup in this patient includes placement of intravenous line, twelve-lead EKG, BNP, CBC, CMP, D-dimer level, magnesium level, troponin level. We made a stat call to patient's pipe fitter welding, Dr. Crystal. Differential diagnosis includes electrolyte abnormality, arrhythmia, myocardial infarction. I reviewed the twelve-lead EKG with Dr. Crystal. He received the initial twelve- lead EKG and does see the my concern of the risk upslope of the asked to peak of the T wave especially in V2 lead. He recommends starting nitroglycerin and repeating the twelve-lead EKG and await the troponin levels. Repeat twelve-lead EKG was performed at approximately 1732. The heart rate is now 65 bpm with normal sinus rhythm and the findings of brisk upslope from asked to the peak of T wave is persistent. I spoke with Dr. Crystal again following this twelve-lead EKG. He had called me back. I reported the findings. He stated to start heparin drip as well. Third twelve-lead EKG was performed at 1800 on 07/24/2023 which shows a heart rate of 60 bpm and normal sinus rhythm. There is borderline prolonged VT interval and again the brisk upslope of the S to the peak of the T wave is present and most pronounced in lead V2. 07/24/23 18:49 I also interpreted the fourth twelve-lead EKG that was performed at 1839 on 07/24/2023. It shows normal sinus rhythm at a heart rate of 62 bpm. Normal axis deviation, normal QRS and normal interval. Acute TC is 410. The anterior leads now shows less drastic upslope. The [facility] transfer center auto accepted this patient. Dr. Yeung is the accepting physician. Dr. Crystal, the patient's pipe fitter welding is aware that this patient is likely coming to their facility. Blood Culture(s) Obtained: No Antibiotics given: No Counseled pt/family regarding: lab results, diagnosis, need for follow-up Medical Desision Making - Independent Historian Additional History obtained from: Family - Diagnostic Testing Diagnostic test were ordered, analyzed, and reviewed by me: Yes - Risk of complications The pt has a high risk of morbidity or mortality based on: Decision regarding hospitilization or escalation of hosp level of care - Departure Departure Disposition: Transfer Clinical Impression: Chest pain, ST segment changes on electrocardiogram, Elevated d-dimer Condition: Stable Critical Care Time: Yes Critical Care Time(excluding separately billable procedures): Critical 30-74 mins (45) Referrals: JENELLE BIRMINGHAM MD [Primary Care Provider] - Follow up/PCP as directed
[2023-07-24 17:29] LABS: Absolute Neutrophil Ct (ANC) 3.93 x10^3/uL (1.4-6.9); BASOPHIL % 0.4 % (0.0-0.4); Basophil (Absolute #) 0.03 x10^3/uL (0-0.4); Eosinophil % 3.3 % (0.00-5.0); Eosinophil (Absolute #) 0.22 x10^3/uL (0-0.5); Hematocrit 30.5 % (35-47); IMMATURE GRAN # 0.02 x10^3u/L (0.00-0.03); IMMATURE GRAN % 0.3 % (0.00-0.4); Lymphocyte (Absolute #) 2.13 x10^3/uL (1.0-4.6); Lymphocytes % 31.6 % (24.0-44.0); Mean Cell Volume 100.7 fL (78-100); Mean Corpuscular Hgb Concent. 32.8 g/dL (32-36); Mean Platelet Volume 9.2 fL (7.5-11.0); Monocytes % 5.9 % (0.0-12.0); Neutrophil % 58.5 % (36.0-66.0); Platelet Count 202 x10^3/uL (150-450); Red Blood Count 3.03 x10^6/uL (4.1-5.4); Red Cell Distribution Width 12.7 % (11.5-14.0); White Blood Count 6.7 x10^3/uL (4.0-10.5)
[2023-07-24] MEDS: BABY ASPIRIN 81 MG CHEW PO ONE (17:39)
[2023-07-24 17:42] LABS: ALBUMIN 3.6 g/dL (3.5-5.0); ANION GAP 14.5 MEQ/L (5-15); BILIRUBIN,TOTAL 0.2 mg/dL (0.2-1.3); Calcium 8.9 mg/dL (8.4-10.2); Creatinine 1 1.93 mg/dL (0.52-1.04); EST GLOMERULAR FILTRATION RATE 26.5 ML/MIN; Potassium 4.7 mmol/L (3.5-5.1); Total Protein 6.1 g/dL (6.3-8.2)
[2023-07-24] MEDS ORDERED: Sodium Chloride 0.9% 1000 ML 1,000 ML ONE (17:46)
[2023-07-24] MEDS ORDERED: Ntg 0.2MG/Ml in D5W GLASS*** 250 ML IV ONE (17:47)
[2023-07-24 17:54] LABS: NT PRO BNPII 369 pg/mL (<300); TROPONIN < 0.012 ng/mL (0.000-0.033)
[2023-07-24] MEDS: Sodium Chloride 0.9% 1000 ML 1,000 ML IV SCH (17:56)
[2023-07-24] MEDS: Ntg 0.2MG/Ml in D5W GLASS*** 250 ML IV PRN (17:56)
[2023-07-24] MEDS ORDERED: HEPARIN 5000 UNITS/0.5 ML (HIGH RISK MED) ONE (18:24)
[2023-07-24] MEDS ORDERED: Heparin 25,000 units/D5W: USE ORDER SET PROTO 25,000 UNITS/250 ML BAG IV ONE (18:28)
[2023-07-24] MEDS: HEPARIN 5000 UNITS/0.5 ML (HIGH RISK MED) IV ONE (18:31)
[2023-07-24] MEDS: Heparin 25,000 units/D5W: USE ORDER SET PROTO 25,000 UNITS/250 ML BAG IV SCH (18:32)
[2023-07-24 20:16] VITALS: O2SAT 99
[2023-07-24 21:24] VITALS: BP 155/58; PULSE 76; RESP 15
== END 2023-07-24 21:49 | disposition short-term general hospital (02) ==
LOC: ED 17:07
DX: R07.9 Chest pain, unspecified (principal); R94.31 Abnormal electrocardiogram [ECG] [EKG]; R79.1 Abnormal coagulation profile; I10 Essential (primary) hypertension; Z79.899 Other long term (current) drug therapy; Z86.73 Personal history of transient ischemic attack (TIA), and cerebral infarction without residual deficits
CPT/HCPCS: 36000; 36415; 80053; 83735; 83880; 84484; 85025; 85379; 85730; 93005; 93041; 96374; 96375; 99285; 99291; J1644

== ENCOUNTER 2023-09-20 08:02 | Emergency (ER) | payer MEDICARE, BC ==
[2023-09-20 08:18] VITALS: TEMP 98.1
--- NOTE | 2023-09-20 08:42 | ERPHSYRPT ---
- History of Present Illness Time Seen by Provider: 09/20/23 08:25 Source: patient Exam Limitations: no limitations Patient Subjective Stated Complaint: SOB Triage Nursing Assessment: Patient ambulated back to ED and transferred self to bed. Patient A+O X3. Patient's skin pink, warm and dry. Patient complains of cough with increased SOB since Thursday. Patient states she has intermittent pain when coughing. Patient states she has non productive cough. Lungs clear a/p alondra. Patient denies N/V or diarrhea. Physician History: Since about 6 hours ago pt c/o shortness of air, a non-productive cough and mid chest pain only when coughing; denies fever, headache, abdominal pain, nausea. Allergies/Adverse Reactions: naproxen [From Naprosyn] Allergy (Mild, Verified 09/20/23 08:19) Rash fluticasone furoate [From Trelegy Ellipta] Adverse Reaction (Severe, Verified 09/20/23 08:19) Anaphylactic Reaction umeclidinium [From Trelegy Ellipta] Adverse Reaction (Severe, Verified 09/20/23 08:19) Anaphylactic Reaction vilanterol [From Trelegy Ellipta] Adverse Reaction (Severe, Verified 09/20/23 0 8:19) Anaphylactic Reaction adhesive tape Adverse Reaction (Mild, Verified 09/20/23 08:19) BLISTERS lisinopril Adverse Reaction (Verified 09/20/23 08:19) Anaphylactic Reaction Home Medications: Ferrous Sulfate [Iron] 325 mg PO DAILY 09/02/18 [History] Vit C/E/Zn/Coppr/Lutein/Zeaxan [Preservision Areds 2 Softgel] 2 cap PO BID 09/02/18 [History] Cyanocobalamin (Vitamin B-12) [Cyanocobalamin Injection] 1,000 mcg IJ UD 02/06/21 [History] Multivitamin 1 each PO DAILY 02/06/21 [History] PANTOPRAZOLE 40 mg Tablet [Protonix 40MG Tablet] 40 mg PO BID 08/29/21 [H istory] HydrALAzine HCL 25 MG TAB [Apresoline 25 MG TABLET] 25 mg PO DAILY 08/01/22 [History] Hx Tetanus, Diphtheria Vaccination/Date Given: Yes Hx Influenza Vaccination/Date Given: Yes Hx Pneumococcal Vaccination/Date Given: Yes Immunizations Up to Date: Yes Travel Risk - International Travel Have you traveled outside of the country in past 3 weeks: No - Emerging Infectious Disease Are you exhibiting symptoms associated with any current EIDs: No - Review of Systems Constitutional: No Fever Respiratory: Cough, Dyspnea Cardiac: Chest Pain Abdominal/Gastrointestinal: No Abdominal Pain, No Nausea Neurological: No Headache - Past Medical History Pertinent Past Medical History: Yes Neurological History: TIA ENT History: Cataracts Cardiac History: Hypertension Respiratory History: Asthma Endocrine Medical History: No Pertinent History Musculoskeletal History: Osteoarthritis GI Medical History: Hernia, Polyps History: No Pertinent History Psycho-Social History: Anxiety, Depression Female Reproductive Disorders: Breast Cancer Other Medical History: Heart attack is disagreed on by different doctors. hx of anemia. Cholecystectomy, Hysterectomy, Mastectomy with reconstruction, Gastric bypass. - Past Surgical History Past Surgical History: Yes Neuro Surgical History: No Pertinent History Cardiac: Cardiac Catheterization Respiratory: No Pertinent History Gastrointestinal: Cholecystectomy, Hernia Repair Genitourinary: No Pertinent History Musculoskeletal: Orthopedic Surgery Female Surgical History: Hysterectomy, Mastectomy Other Surgical History: barriactric surgery. neck'C5,C6 fusion. - Social History Smoking Status: Never smoker Exposure to second hand smoke: No Drug Use: none Patient Lives Alone: No - Social Determinants of Health Will the patient participate in the screening: Yes Do you worry about a steady place to live?: No Do you have any problems with any of the following?: No known problems In the past 12 months,have you had to go without utilities?: No Transportation Issues: No Has anyone in your support network made you feel unsafe?: No Have you or anyone in your house had to go without enough: No - Nursing Vital Signs Nursing Vital Signs: Initial Vital Signs Temperature 98.1 F 09/20/23 08:13 Pulse Rate 62 09/20/23 08:13 Respiratory Rate 15 09/20/23 08:13 Blood Pressure 158/61 09/20/23 08:13 O2 Sat by Pulse Oximetry 100 09/20/23 08:13 Pain Scale Pain Intensity 0 - Physical Exam General Appearance: alert Eye Exam: eyes nml inspection Ears, Nose, Throat Exam: hearing grossly normal, normal pharynx Neck Exam: normal inspection Respiratory Exam: other (bronchial B.S. over all yoder) Cardiovascular/Chest Exam: normal heart sounds Abdominal/Gastrointestinal Exam: normal bowel sounds Extremity Exam: No pedal edema Neurologic Exam: alert, cooperative Skin Exam: warm, dry SpO2 Interpretation: normal SpO2: 100 O2 Delivery: Room Air - Course Nursing assessment & vital signs reviewed: Yes EKG Interpreted by Me: RATE ([id number]), Sinus Rhythm, Left Marion Deviation, Other (QTc = 403) - Radiology Exams Chest X-ray Interpretation: Interpreted by me, No Pneumonia Ordered Tests: Active Orders 24 hr Category Date Time Status EKG-ER Only STAT Care 09/20/23 08:41 Active IV Insertion STAT Care 09/20/23 11:15 Active CHEST 2 VIEWS (PA AND LAT) Stat Exams 09/20/23 08:40 Taken BMP Stat Lab 09/20/23 09:00 Completed CBC W DIFF Stat Lab 09/20/23 09:00 Completed D-DIMER QUANTITATIVE Stat Lab 09/20/23 09:00 Completed MAGNESIUM Stat Lab 09/20/23 09:00 Completed TROPONIN Q4H Lab 09/20/23 09:00 Completed VENOUS BLOOD GAS Stat Lab 09/20/23 08:40 Completed Respiratory Therapy Assessment DAILY RT 09/20/23 09:14 Active Medication Summary Generic Name Dose Route Start Last Admin Trade Name Freq PRN Reason Stop Dose Admin Sodium Chloride 1,000 mls @ 100 mls/hr 09/20/23 10:15 09/20/23 11:47 Sodium Chloride 0.9% 1000 Ml IV 10/20/23 10:14 100 mls/hr .Q10H TONJA Administration Discontinued Medications Generic Name Dose Route Start Last Admin Trade Name Freq PRN Reason Stop Dose Admin Albuterol Sulfate 2.5 mg 09/20/23 08:39 09/20/23 08:53 Albuterol Sulfate 2.5 Mg/3 Ml Neb IH 09/20/23 08:40 2.5 mg STAT ONE Administration Albuterol Sulfate Confirm 09/20/23 08:52 Albuterol Sulfate 2.5 Mg/3 Ml Neb Administered 09/20/23 08:53 Dose 2.5 mg IH .STK-MED ONE Lab/Rad Data: Laboratory Result Diagrams 09/20/23 09:00 09/20/23 09:00 Laboratory Results 09/20/23 09/20/23 09/20/23 Range/Units 11:26 09:00 09:00 WBC (3.98-10.04) x10^3/uL RBC (3.93-5.22) x10^6/uL Hgb (11.2-15.7) g/dL Hct (34.1-44.9) % MCV (79.4-94.8) fL MCH (25.6-32.2) pg MCHC (32.2-35.5) g/dL RDW (11.7-14.4) % Plt Count (182-369) x10^3/uL MPV (9.4-12.3) fL Gran % (34.0-71.1) % Immature Gran % (Auto) (0.001-0.429) % Nucleat RBC Rel Count (0.00-0.2) % Eos # (Auto) (0.04-0.36) x10^3/uL Immature Gran # (Auto) (0.001-0.031) x10^3u/L Absolute Lymphs (auto) (1.18-3.74) x10^3/uL Absolute Monos (auto) (0.24-0.86) x10^3/uL Absolute Nucleated RBC (0.00-0.012) x10^3u/L Lymphocytes % (19.3-51.7) % Monocytes % (4.7-12.5) % Eosinophils % (0.7-5.8) % Basophils % (0.1-1.2) % Absolute Granulocytes (1.56-6.13) x10^3/uL Basophils # (0.01-0.08) x10^3/uL D-Dimer 0.62 H* (0.0-0.50) mg/L pO2/FiO2 Ratio % VBG pH (7.32-7.42) VBG pCO2 at Pat Temp (42-55) mm/Hg VBG pO2 at Pat Temp (25-40) mm/Hg VBG HCO3 (22-28) meq/L VBG O2 Sat (Joyce) (95-100) VBG Base Excess (-2.0-2.0) VBG Hemoglobin VBG Carboxyhemoglobin (0.0-6.9) % T HGB POC Potassium (3.5-5.1) Sodium (135-145) mmol/L Potassium (3.5-5.1) mmol/L Chloride (98-107) mmol/L Carbon Dioxide (22-30) mmol/L Anion Gap (5-15) MEQ/L BUN (7-17) mg/dL Creatinine (0.52-1.04) mg/dL Estimated GFR ML/MIN Glucose (74-106) mg/dL Calcium (8.4-10.2) mg/dL Magnesium (1.6-2.3) mg/dL Troponin I < 0.012 (0.000-0.033) ng/mL Influenza Type A Ag NEGATIVE (NEGATIVE) Influenza Type B Ag NEGATIVE (NEGATIVE) RSV (PCR) NEGATIVE (NEGATIVE) SARS-CoV-2 (PCR) POSITIVE A (NEGATIVE) 09/20/23 09/20/23 09/20/23 Range/Units 09:00 09:00 08:40 WBC 3.5 L (3.98-10.04) x10^3/uL RBC 2.64 L (3.93-5.22) x10^6/uL Hgb 8.7 L (11.2-15.7) g/dL Hct 27.6 L (34.1-44.9) % MCV 104.5 H (79.4-94.8) fL MCH 33.0 H (25.6-32.2) pg MCHC 31.5 L (32.2-35.5) g/dL RDW 13.7 (11.7-14.4) % Plt Count 137 L (182-369) x10^3/uL MPV 8.8 L (9.4-12.3) fL Gran % 78.1 H (34.0-71.1) % Immature Gran % (Auto) 0.3 (0.001-0.429) % Nucleat RBC Rel Count 0.0 (0.00-0.2) % Eos # (Auto) 0.11 (0.04-0.36) x10^3/uL Immature Gran # (Auto) 0.01 (0.001-0.031) x10^3u/L Absolute Lymphs (auto) 0.36 L (1.18-3.74) x10^3/uL Absolute Monos (auto) 0.26 (0.24-0.86) x10^3/uL Absolute Nucleated RBC 0.00 (0.00-0.012) x10^3u/L Lymphocytes % 10.3 L (19.3-51.7) % Monocytes % 7.5 (4.7-12.5) % Eosinophils % 3.2 (0.7-5.8) % Basophils % 0.6 (0.1-1.2) % Absolute Granulocytes 2.72 (1.56-6.13) x10^3/uL Basophils # 0.02 (0.01-0.08) x10^3/uL D-Dimer (0.0-0.50) mg/L pO2/FiO2 Ratio 21.0 % VBG pH 7.30 L (7.32-7.42) VBG pCO2 at Pat Temp 27 L (42-55) mm/Hg VBG pO2 at Pat Temp 28 (25-40) mm/Hg VBG HCO3 13.3 L* (22-28) meq/L VBG O2 Sat (Joyce) 60.1 L (95-100) VBG Base Excess -11.9 L (-2.0-2.0) VBG Hemoglobin 8.8 VBG Carboxyhemoglobin 3.2 (0.0-6.9) % T HGB POC Potassium 4.4 (3.5-5.1) Sodium 141 (135-145) mmol/L Potassium 4.3 (3.5-5.1) mmol/L Chloride 122 H (98-107) mmol/L Carbon Dioxide 12 L* (22-30) mmol/L Anion Gap 11.0 (5-15) MEQ/L BUN 32 H (7-17) mg/dL Creatinine 1.59 H (0.52-1.04) mg/dL Estimated GFR 33.5 ML/MIN Glucose 91 (74-106) mg/dL Calcium 8.8 (8.4-10.2) mg/dL Magnesium 1.9 (1.6-2.3) mg/dL Troponin I (0.000-0.033) ng/mL Influenza Type A Ag (NEGATIVE) Influenza Type B Ag (NEGATIVE) RSV (PCR) (NEGATIVE) SARS-CoV-2 (PCR) (NEGATIVE) - Progress Progress: unchanged Discussed with : Other (Spoke with & discussed pt with Dr. Tobias(Hospitalist)([id number]) who accpeted pt for transfer to [facility] in [place] as a direct admission.) Counseled pt/family regarding: lab results, diagnosis, rad results Medical Desision Making - Diagnostic Testing Diagnostic test were ordered, analyzed, and reviewed by me: Yes Radiological Interpretation: Interpreted by me - Departure Departure Disposition: Transfer ([facility] in [place]) Clinical Impression: Bronchitis, Chest pain, Dyspnea, Elevated d-dimer, Anemia, COVID-19 Condition: Stable Critical Care Time: No Referrals: JENELLE BIRMINGHAM MD [Primary Care Provider] - Follow up/PCP as directed
[2023-09-20] MEDS ORDERED: PROVENTIL 2.5 MG/3 ML NEB IH ONE (08:52)
[2023-09-20] MEDS: PROVENTIL 2.5 MG/3 ML NEB IH ONE (08:53)
[2023-09-20 09:04] LABS: Absolute Neutrophil Ct (ANC) 2.72 x10^3/uL (1.56-6.13); BASOPHIL % 0.6 % (0.1-1.2); Basophil (Absolute #) 0.02 x10^3/uL (0.01-0.08); Eosinophil % 3.2 % (0.7-5.8); Eosinophil (Absolute #) 0.11 x10^3/uL (0.04-0.36); Hematocrit 27.6 % (34.1-44.9); Hemoglobin 8.7 g/dL (11.2-15.7); IMMATURE GRAN # 0.01 x10^3u/L (0.001-0.031); IMMATURE GRAN % 0.3 % (0.001-0.429); Lymphocyte (Absolute #) 0.36 x10^3/uL (1.18-3.74); Lymphocytes % 10.3 % (19.3-51.7); Mean Cell Volume 104.5 fL (79.4-94.8); Mean Corpuscular Hgb Concent. 31.5 g/dL (32.2-35.5); Mean Platelet Volume 8.8 fL (9.4-12.3); Monocyte (Absolute #) 0.26 x10^3/uL (0.24-0.86); Monocytes % 7.5 % (4.7-12.5); Neutrophil % 78.1 % (34.0-71.1); Platelet Count 137 x10^3/uL (182-369); Red Blood Count 2.64 x10^6/uL (3.93-5.22); Red Cell Distribution Width 13.7 % (11.7-14.4); White Blood Count 3.5 x10^3/uL (3.98-10.04)
[2023-09-20 09:10] LABS: VBG BASE EXCESS -11.9 (-2.0-2.0); VBG CARBOXYHEMOGLOBIN 3.2 % T HGB (0.0-6.9); VBG HCO3- 13.3 meq/L (22-28); VBG HEMOGLOBIN 8.8; VBG O2 SATURATION 60.1 (95-100); VBG POTASSIUM 4.4 (3.5-5.1); VBG pH 7.3 (7.32-7.42)
[2023-09-20 09:27] LABS: Calcium 8.8 mg/dL (8.4-10.2); Creatinine 1 1.59 mg/dL (0.52-1.04); EST GLOMERULAR FILTRATION RATE 33.5 ML/MIN; MAGNESIUM 1.9 mg/dL (1.6-2.3); Potassium 4.3 mmol/L (3.5-5.1)
[2023-09-20] MEDS: Sodium Chloride 0.9% 1000 ML 1,000 ML IV SCH (11:47)
[2023-09-20] MEDS ORDERED: Sodium Chloride 0.9% 1000 ML 1,000 ML ONE (11:47)
[2023-09-20 12:07] LABS: INFLUENZA A NEGATIVE (NEGATIVE); INFLUENZA B NEGATIVE (NEGATIVE); RESPIRATORY SYNCTIAL VIRUS NEGATIVE (NEGATIVE)
[2023-09-20 12:08] LABS: SARS-CoV-2 Xpert Express POSITIVE (NEGATIVE)
[2023-09-20 14:59] VITALS: BP 147/62; PULSE 71; RESP 17; O2SAT 98
--- NOTE | 2023-09-20 18:43 | XRAY ---
Indication: Chest pain. Dyspnea. Comparison: February 03, 2023 PA/lateral chest again hyperinflated and clear with incidental right midlung calcified granuloma. Heart not enlarged again with small mediastinal calcified nodes. Bony thorax intact again with osteopenia, mild degenerative changes, and lower cervical fusion hardware. Impression: Continued nonacute hyperinflated chest with chronic features.
== END 2023-09-20 15:04 | disposition short-term general hospital (02) ==
LOC: ED 08:02
DX: U07.1 COVID-19 (principal); J40 Bronchitis, not specified as acute or chronic; R07.9 Chest pain, unspecified; R06.00 Dyspnea, unspecified; D64.9 Anemia, unspecified; R79.1 Abnormal coagulation profile; R05.9 Cough, unspecified; I10 Essential (primary) hypertension; Z79.899 Other long term (current) drug therapy
CPT/HCPCS: 0241U; 36000; 36415; 71046; 80048; 82805; 83735; 84484; 85025; 85379; 93005; 94640; 99285; J7609; A9270-GY

== ENCOUNTER 2024-01-05 14:38 | Observation (INO) | payer MEDICARE, BC ==
[2024-01-05 15:43] LABS: Absolute Neutrophil Ct (ANC) 3.67 x10^3/uL (1.56-6.13); BASOPHIL % 0.6 % (0.1-1.2); Basophil (Absolute #) 0.03 x10^3/uL (0.01-0.08); Eosinophil % 2.4 % (0.7-5.8); Eosinophil (Absolute #) 0.13 x10^3/uL (0.04-0.36); Hematocrit 31.4 % (34.1-44.9); Hemoglobin 10.1 g/dL (11.2-15.7); IMMATURE GRAN # 0.01 x10^3u/L (0.001-0.031); IMMATURE GRAN % 0.2 % (0.001-0.429); Lymphocyte (Absolute #) 1.14 x10^3/uL (1.18-3.74); Lymphocytes % 21.1 % (19.3-51.7); Mean Cell Volume 100.6 fL (79.4-94.8); Mean Corpuscular Hemoglobin 32.4 pg (25.6-32.2); Mean Corpuscular Hgb Concent. 32.2 g/dL (32.2-35.5); Monocyte (Absolute #) 0.43 x10^3/uL (0.24-0.86); Monocytes % 7.9 % (4.7-12.5); Neutrophil % 67.8 % (34.0-71.1); Platelet Count 159 x10^3/uL (182-369); Red Blood Count 3.12 x10^6/uL (3.93-5.22); Red Cell Distribution Width 13.2 % (11.7-14.4); White Blood Count 5.4 x10^3/uL (3.98-10.04)
[2024-01-05 16:09] LABS: ALBUMIN 3.6 g/dL (3.5-5.0); BILIRUBIN,TOTAL 0.3 mg/dL (0.2-1.3); Calcium 8.7 mg/dL (8.4-10.2); Creatinine 1 1.96 mg/dL (0.52-1.04); Potassium 4.4 mmol/L (3.5-5.1)
--- NOTE | 2024-01-05 16:33 | ERPHSYRPT ---
- History of Present Illness Time Seen by Provider: 01/05/24 14:45 Source: patient Exam Limitations: no limitations Patient Subjective Stated Complaint: Pt states "I have pain in my chest that comes and goes. It started this morning and is on the right side." Triage Nursing Assessment: Pt presented alert and oriented X 3, skin pwd. Pt ambulates with an upright steady gait, able to speak in clear full sentences. Pt resting comfortably on the bed. Physician History: 78-year-old female presents to emergency department for evaluation of intermittent chest pain. Patient reports a sharp pain on the right side of her chest that happens intermittently throughout the day. Symptoms have been ongoing. No associated nausea vomiting or diaphoresis. No specific worsening improving factors. Patient denies a history of the same. Patient taken 81 mg aspirin this morning. She is also on Plavix. Patient voices no other complaints or concerns at this time. Portions of this note were created with voice recognition technology. There may be grammatical, spelling, punctuation or sound alike errors Timing/Duration: today Severity: moderate Associated Symptoms: denies symptoms Allergies/Adverse Reactions: naproxen [From Naprosyn] Allergy (Mild, Verified 09/20/23 08:19) Rash fluticasone furoate [From Trelegy Ellipta] Adverse Reaction (Severe, Verified 09/20/23 08:19) Anaphylactic Reaction umeclidinium [From Trelegy Ellipta] Adverse Reaction (Severe, Verified 09/20/23 08:19) Anaphylactic Reaction vilanterol [From Trelegy Ellipta] Adverse Reaction (Severe, Verified 09/20/23 08:19) Anaphylactic Reaction adhesive tape Adverse Reaction (Mild, Verified 09/20/23 08:19) BLISTERS lisinopril Adverse Reaction (Verified 09/20/23 08:19) Anaphylactic Reaction Home Medications: Ferrous Sulfate [Iron] 325 mg PO DAILY 09/02/18 [History] Vit C/E/Zn/Coppr/Lutein/Zeaxan [Preservision Areds 2 Softgel] 2 cap PO BID 09/02/18 [History] Cyanocobalamin (Vitamin B-12) [Cyanocobalamin Injection] 1,000 mcg IJ UD 02/06/21 [History] Multivitamin 1 each PO DAILY 02/06/21 [History] PANTOPRAZOLE 40 mg Tablet [Protonix 40MG Tablet] 40 mg PO BID 08/29/21 [History] HydrALAzine HCL 25 MG TAB [Apresoline 25 MG TABLET] 100 mg PO BID 08/01/22 [History] Amlodipine Besylate 5 mg [Norvasc 5 mg] 5 mg PO DAILY 01/05/24 [History] Aspirin EC 81 mg [Ecotrin 81 mg] 81 mg PO DAILY 01/05/24 [History] Clopidogrel Bisulfate [Clopidogrel] 75 mg PO DAILY 01/05/24 [History] Hx Tetanus, Diphtheria Vaccination/Date Given: Yes Hx Influenza Vaccination/Date Given: Yes Hx Pneumococcal Vaccination/Date Given: Yes Immunizations Up to Date: No Travel Risk - International Travel Have you traveled outside of the country in past 3 weeks: No - Emerging Infectious Disease Are you exhibiting symptoms associated with any current EIDs: No - Review of Systems Constitutional: No Symptoms, No Fever, No Chills Eyes: No Symptoms Ears, Nose, & Throat: No Symptoms Respiratory: No Symptoms, No Cough, No Dyspnea Cardiac: No Symptoms, No Chest Pain, No Edema, No Syncope Abdominal/Gastrointestinal: No Symptoms, No Abdominal Pain, No Nausea, No Vomiting, No Diarrhea Genitourinary Symptoms: No Symptoms, No Dysuria Musculoskeletal: No Symptoms, No Back Pain, No Neck Pain Skin: No Symptoms, No Rash Neurological: No Symptoms, No Dizziness, No Focal Weakness, No Sensory Changes Psychological: No Symptoms Endocrine: No Symptoms Hematologic/Lymphatic: No Symptoms Immunological/Allergic: No Symptoms All Other Systems: Reviewed and Negative - Past Medical History Pertinent Past Medical History: Yes Neurological History: TIA ENT History: Cataracts Cardiac History: Hypertension Respiratory History: Asthma Endocrine Medical History: No Pertinent History Musculoskeletal History: Osteoarthritis GI Medical History: Hernia, Polyps History: No Pertinent History Psycho-Social History: Anxiety, Depression Female Reproductive Disorders: Breast Cancer Other Medical History: Heart attack is disagreed on by different doctors. hx of anemia. Cholecystectomy, Hysterectomy, Mastectomy with reconstruction, Gastric bypass. - Past Surgical History Past Surgical History: Yes Neuro Surgical History: No Pertinent History Cardiac: Cardiac Catheterization Respiratory: No Pertinent History Gastrointestinal: Cholecystectomy, Hernia Repair Genitourinary: No Pertinent History Musculoskeletal: Orthopedic Surgery Female Surgical History: Hysterectomy, Mastectomy Other Surgical History: barriactric surgery. neck'C5,C6 fusion. - Social History Smoking Status: Never smoker Exposure to second hand smoke: No Drug Use: none Patient Lives Alone: No - Social Determinants of Health Will the patient participate in the screening: Yes Do you worry about a steady place to live?: No Do you have any problems with any of the following?: No known problems In the past 12 months,have you had to go without utilities?: No Transportation Issues: No Has anyone in your support network made you feel unsafe?: No Have you or anyone in your house had to go without enough: No - Nursing Vital Signs Nursing Vital Signs: Initial Vital Signs Pulse Rate 66 01/05/24 14:36 Respiratory Rate 6 L 01/05/24 14:36 Blood Pressure 202/77 01/05/24 14:36 O2 Sat by Pulse Oximetry 98 01/05/24 14:36 Pain Scale Pain Intensity 0 - Physical Exam General Appearance: no apparent distress, alert Eye Exam: PERRL/EOMI, eyes nml inspection Ears, Nose, Throat Exam: normal ENT inspection, TMs normal, pharynx normal, moist mucous membranes Neck Exam: normal inspection, non-tender, supple, full range of motion Respiratory Exam: normal breath sounds, lungs clear, No respiratory distress Cardiovascular Exam: regular rate/rhythm, normal heart sounds, normal peripheral pulses Gastrointestinal/Abdomen Exam: soft, normal bowel sounds, No tenderness, No mass Back Exam: normal inspection, normal range of motion, No CVA tenderness, No vertebral tenderness Extremity Exam: normal inspection, normal range of motion, pelvis stable Neurologic Exam: alert, oriented x 3, cooperative, normal mood/affect, nml cerebellar function, nml station & gait, sensation nml, No motor deficits Skin Exam: normal color, warm, dry, No rash Lymphatic Exam: No adenopathy SpO2 Interpretation: normal SpO2: 98 O2 Delivery: Room Air - Course Nursing assessment & vital signs reviewed: Yes EKG Interpreted by Me: RATE (76), Sinus Rhythm, NORMAL AXIS, NORMAL INTERVALS, NORMAL QRS - Radiology Exams Chest X-ray Interpretation: Teleradiologist Report (Nonacute chest with chronic features) Ordered Tests: Active Orders 24 hr Category Date Time Status Drum Builder STAT Care 01/05/24 15:16 Active EKG-ER Only STAT Care 01/05/24 15:16 Active IV Insertion STAT Care 01/05/24 15:16 Active Pulse Oximetry (ED) STAT Care 01/05/24 15:16 Active CHEST 1 VIEW (PORTABLE) Stat Exams 01/05/24 15:16 Completed CBC W DIFF Stat Lab 01/05/24 15:40 Completed CMP Stat Lab 01/05/24 15:40 Completed NT PRO BNPII Stat Lab 01/05/24 15:40 Completed TROPONIN Q4H Lab 01/05/24 15:40 Completed TROPONIN Q4H Lab 01/05/24 17:41 Completed TROPONIN Q4H Lab 01/05/24 23:30 Ordered UA W/RFX UR CULTURE Stat Lab 01/05/24 17:10 Completed Transfer Order Routine Transfer 01/05/24 Ordered Lab/Rad Data: Laboratory Result Diagrams 01/05/24 15:40 01/05/24 15:40 Laboratory Results 01/05/24 01/05/24 01/05/24 Range/Units 17:41 17:10 15:40 WBC (3.98-10.04) x10^3/uL RBC (3.93-5.22) x10^6/uL Hgb (11.2-15.7) g/dL Hct (34.1-44.9) % MCV (79.4-94.8) fL MCH (25.6-32.2) pg MCHC (32.2-35.5) g/dL RDW (11.7-14.4) % Plt Count (182-369) x10^3/uL MPV (9.4-12.3) fL Gran % (34.0-71.1) % Immature Gran % (Auto) (0.001-0.429) % Nucleat RBC Rel Count (0.00-0.2) % Eos # (Auto) (0.04-0.36) x10^3/uL Immature Gran # (Auto) (0.001-0.031) x10^3u/L Absolute Lymphs (auto) (1.18-3.74) x10^3/uL Absolute Monos (auto) (0.24-0.86) x10^3/uL Absolute Nucleated RBC (0.00-0.012) x10^3u/L Lymphocytes % (19.3-51.7) % Monocytes % (4.7-12.5) % Eosinophils % (0.7-5.8) % Basophils % (0.1-1.2) % Absolute Granulocytes (1.56-6.13) x10^3/uL Basophils # (0.01-0.08) x10^3/uL Sodium (135-145) mmol/L Potassium (3.5-5.1) mmol/L Chloride (98-107) mmol/L Carbon Dioxide (22-30) mmol/L Anion Gap (5-15) MEQ/L BUN (7-17) mg/dL Creatinine (0.52-1.04) mg/dL Estimated GFR ML/MIN Glucose (74-106) mg/dL Calcium (8.4-10.2) mg/dL Total Bilirubin (0.2-1.3) mg/dL AST (14-36) U/L ALT (0-35) U/L Alkaline Phosphatase (38-126) U/L Troponin I < 0.012 < 0.012 (0.000-0.033) ng/mL NT-Pro-B Natriuret Pep (<300) pg/mL Serum Total Protein (6.3-8.2) g/dL Albumin (3.5-5.0) g/dL Urine Color Yellow (Yellow) Urine Appearance Clear (Clear) Urine pH 5.0 (4.6-8.0) Ur Specific [place] 1.010 (1.005-1.030) Urine Protein Negative (Negative) Urine Glucose (UA) Negative (Negative) mg/dL Urine Ketones Negative (Negative) Urine Blood Negative (Negative) Urine Nitrite Negative (Negative) Urine Bilirubin Negative (Negative) Urine Urobilinogen 0.2 (0.2) mg/dL Ur Leukocyte Esterase Negative (Negative) U Hyaline Cast (Auto) NONE SEEN (0-2) /LPF Urine Microscopic RBC 0-2 (0-5) /HPF Urine Microscopic WBC 0-2 (0-5) /HPF Ur Epithelial Cells None Seen (None Seen) /HPF Urine Bacteria None Seen (None Seen) /HPF Urine Culture Reflexed NO (NO) 01/05/24 01/05/24 Range/Units 15:40 15:40 WBC 5.4 (3.98-10.04) x10^3/uL RBC 3.12 L (3.93-5.22) x10^6/uL Hgb 10.1 L (11.2-15.7) g/dL Hct 31.4 L (34.1-44.9) % MCV 100.6 H (79.4-94.8) fL MCH 32.4 H (25.6-32.2) pg MCHC 32.2 (32.2-35.5) g/dL RDW 13.2 (11.7-14.4) % Plt Count 159 L (182-369) x10^3/uL MPV 9.0 L (9.4-12.3) fL Gran % 67.8 (34.0-71.1) % Immature Gran % (Auto) 0.2 (0.001-0.429) % Nucleat RBC Rel Count 0.0 (0.00-0.2) % Eos # (Auto) 0.13 (0.04-0.36) x10^3/uL Immature Gran # (Auto) 0.01 (0.001-0.031) x10^3u/L Absolute Lymphs (auto) 1.14 L (1.18-3.74) x10^3/uL Absolute Monos (auto) 0.43 (0.24-0.86) x10^3/uL Absolute Nucleated RBC 0.00 (0.00-0.012) x10^3u/L Lymphocytes % 21.1 (19.3-51.7) % Monocytes % 7.9 (4.7-12.5) % Eosinophils % 2.4 (0.7-5.8) % Basophils % 0.6 (0.1-1.2) % Absolute Granulocytes 3.67 (1.56-6.13) x10^3/uL Basophils # 0.03 (0.01-0.08) x10^3/uL Sodium 142 (135-145) mmol/L Potassium 4.4 (3.5-5.1) mmol/L Chloride 116 H (98-107) mmol/L Carbon Dioxide 17 L (22-30) mmol/L Anion Gap 13.0 (5-15) MEQ/L BUN 37 H (7-17) mg/dL Creatinine 1.96 H (0.52-1.04) mg/dL Estimated GFR 26.0 ML/MIN Glucose 89 (74-106) mg/dL Calcium 8.7 (8.4-10.2) mg/dL Total Bilirubin 0.30 (0.2-1.3) mg/dL AST 30 (14-36) U/L ALT 22 (0-35) U/L Alkaline Phosphatase 116 (38-126) U/L Troponin I (0.000-0.033) ng/mL NT-Pro-B Natriuret Pep 1060 (<300) pg/mL Serum Total Protein 6.0 L (6.3-8.2) g/dL Albumin 3.6 (3.5-5.0) g/dL Urine Color (Yellow) Urine Appearance (Clear) Urine pH (4.6-8.0) Ur Specific [place] (1.005-1.030) Urine Protein (Negative) Urine Glucose (UA) (Negative) mg/dL Urine Ketones (Negative) Urine Blood (Negative) Urine Nitrite (Negative) Urine Bilirubin (Negative) Urine Urobilinogen (0.2) mg/dL Ur Leukocyte Esterase (Negative) U Hyaline Cast (Auto) (0-2) /LPF Urine Microscopic RBC (0-5) /HPF Urine Microscopic WBC (0-5) /HPF Ur Epithelial Cells (None Seen) /HPF Urine Bacteria (None Seen) /HPF Urine Culture Reflexed (NO) - Progress Progress: improved Progress Note: 78-year-old female with a history of hypertension chronic kidney disease TIA presents to our ED for evaluation of chest pain. Physical exam unremarkable. Troponin negative x 2. EKG reveals a sinus rhythm rate of 76. No acute findings. No active chest pain at this time. No nitroglycerin administered. Due to kidney disease aspirin withheld. Patient reports she cannot have aspirin due to gastric surgery. Case discussed with Dr. Harris at 7:[address] Harris accepts admission to observation at 7:16 PM. Plan of care discussed with patient. She agrees to admission [facility] for further evaluation and treatment. Portions of this note were created with voice recognition technology. There may be grammatical, spelling, punctuation or sound alike errors Complexity of problem addressed is moderate acute complicated no critical care time. Complex data reviewed analyzes extensive. Test ordered chest reviewed results analyzed correlated clinically with history and physical examination. Management discussed with hospitalist will except admission to observation. Risk of complication and or risk of morbidity/mortality patient management is high. Patient requires hospitalization for further evaluation and treatment. Vital stable. Time spent to admit patient approximately 15 minutes. Plan of care established for shared decision making. No social determinants of health present to impede follow-up. Portions of this note were created with voice recognition technology. There may be grammatical, spelling, punctuation or sound alike errors 01/05/24 19:22 Counseled pt/family regarding: diagnosis, need for follow-up - Departure Departure Disposition: Observation Clinical Impression: Chest pain, ACS (acute coronary syndrome), Macrocytic anemia, Chronic renal insufficiency Condition: Stable Critical Care Time: No Referrals: JENELLE BIRMINGHAM MD [Primary Care Provider] - Follow up/PCP as directed
--- NOTE | 2024-01-05 16:50 | XRAY ---
Indication: Chest pain. Comparison: September 20, 2023 Portable chest less inflated again demonstrating normal heart and lungs with incidental mediastinal/right lung calcified granulomas. Bony thorax intact again with osteopenia, degenerative changes, cervical fusion, and left breast surgical clips. Impression: Continued nonacute chest with chronic features.
[2024-01-05 17:19] LABS: Appearance Clear (Clear); Bacteria None Seen /HPF (None Seen); Bilirubin Negative (Negative); Blood Negative (Negative); Epithelial Cells None Seen /HPF (None Seen); Glucose, Urine Negative (Negative); Hyaline Casts NONE SEEN /LPF (0-2); Ketones Negative (Negative); Leukocyte Esterase Negative (Negative); Nitrite Negative (Negative); Protein,Urine Dip Negative (Negative); RBC 0-2 /HPF (0-5); Urobilinogen 0.2 mg/dL (0.2); WBC 0-2 /HPF (0-5)
[2024-01-05] MEDS ORDERED: TYLENOL 325 MG PO PRN (20:26)
[2024-01-05] MEDS ORDERED: Protonix 40MG Tablet ONE (20:34)
[2024-01-05] MEDS ORDERED: Apresoline 25 MG TABLET ONE (20:34)
[2024-01-05] MEDS ORDERED: ECOTRIN 81 MG PO ONE (20:34)
[2024-01-05] MEDS: ECOTRIN 81 MG PO SCH (20:37)
[2024-01-05] MEDS: Apresoline 25 MG TABLET PO SCH (20:38)
[2024-01-05] MEDS: Protonix 40MG Tablet PO SCH (20:38)
--- NOTE | 2024-01-05 20:57 | PCM.HP ---
History of Present Illness - Chief Complaint Chief Complaint: chest pain Date: 01/05/24 History of Present Illness: is a 78 year old female with h/o CKD3, HTN, and recent TIA, who presents with chest pain. Patient reports onset this morning of intermittent, d ull/aching, right-sided chest pain, worse with ambulation and relieved by rest, associated with dyspnea. She denies nausea, numbness, or diaphoresis. She had previously had left-sided chest pain about six months ago; was reuled out for ACS at that time, and had a LHC that showed no obstructive CAD. Currently she is feeling improved, no current chest pain or dyspnea. She doesn't smoke, and has family history of both parents with CAD but at advanced ages. - Review of Systems All Other Systems: Reviewed and Negative Medications & Allergies Home Medications: Home Medication List Cyanocobalamin (Vitamin B-12) [Cyanocobalamin Injection] 1,000 mcg IJ UD 02/06/21 [History Confirmed 01/05/24] Multivitamin 1 each PO DAILY 02/06/21 [History Confirmed 01/05/24] PANTOPRAZOLE 40 mg Tablet [Protonix 40MG Tablet] 40 mg PO BID 08/29/21 [History Confirmed 01/05/24] HydrALAzine HCL 25 MG TAB [Apresoline 25 MG TABLET] 100 mg PO BID 08/01/22 [History Confirmed 01/05/24] Amlodipine Besylate 5 mg [Norvasc 5 mg] 5 mg PO DAILY 01/05/24 [History Confirmed 01/05/24] Aspirin EC 81 mg [Ecotrin 81 mg] 81 mg PO HS 01/05/24 [History Confirmed 01/05/24] Clopidogrel Bisulfate [Clopidogrel] 75 mg PO DAILY 01/05/24 [History Confirmed 01/05/24] Allergies/Adverse Reactions: Allergies Allergy/AdvReac Type Severity Reaction Status Date / Time naproxen [From Naprosyn] Allergy Mild Rash Verified 09/20/23 08:19 fluticasone furoate AdvReac Severe Anaphylactic Verified 09/20/23 08:19 [From Trelegy Ellipta] Reaction umeclidinium AdvReac Severe Anaphylactic Verified 09/20/23 08:19 [From Trelegy Ellipta] Reaction vilanterol AdvReac Severe Anaphylactic Verified 09/20/23 08:19 [From Trelegy Ellipta] Reaction adhesive tape AdvReac Mild Verified 09/20/23 08:19 lisinopril AdvReac Anaphylactic Verified 09/20/23 08:19 Reaction - Past Medical History Past Medical History: Yes Neurological History: TIA ENT History: Cataracts, Macular Degeneration Cardiac History: Hypertension Respiratory History: Asthma Endocrine Medical History: No Pertinent History Musculoskelatal History: Osteoarthritis GI Medical History: Hernia, Polyps History: No Pertinent History Pyscho-Social History: Anxiety, Depression Reproductive Disorders: Breast Cancer Comment: Heart attack is disagreed on by different doctors. hx of anemia. Cholecystectomy, Hysterectomy, Mastectomy with reconstruction, Gastric bypass. - Past Surgical History Past Surgical History: Yes Neuro Surgical History: No Pertinent History Cardiac History: Cardiac Catheterization Respiratory Surgery: No Pertinent History GI Surgical History: Cholecystectomy, Hernia Repair Genitourinary Surgical Hx: No Pertinent History Musculskeletal Surgical Hx: Orthopedic Surgery Female Surgical History: Hysterectomy, Mastectomy Other Surgical History: barriactric surgery - 2015[facility]. neck'C5,C6 fusion. Significant Family History: heart disease (non-premature) - Social History Smoking Status: Never smoker Exposure to second hand smoke: No Alcohol: None Drug Use: none - Social Determinants of Health Will the patient participate in the screening: Yes Do you worry about a steady place to live?: No Do you have any problems with any of the following?: No known problems In the past 12 months,have you had to go without utilities?: No Have you or anyone in your house had to go without enough: No Transportation Issues: No Has anyone in your support network made you feel unsafe?: No - Physical Exam Vital Signs: Vital Signs - 24 hr Temp Pulse Resp BP BP Pulse Ox 01/05/24 19:26 98 01/05/24 17:00 97 01/05/24 16:50 96 01/05/24 16:40 98 01/05/24 16:30 98 01/05/24 16:20 98 01/05/24 16:10 98 01/05/24 16:02 98 01/05/24 15:45 163/66 98 01/05/24 15:29 98 01/05/24 15:23 60 18 152/62 98 01/05/24 15:22 64 17 98 01/05/24 15:20 67 16 98 01/05/24 15:10 68 7 L 97 01/05/24 15:02 66 3 L 98 01/05/24 14:39 98.3 F 76 18 99 01/05/24 14:36 66 6 L 98 General Appearance: no apparent distress Neurologic Exam: alert, oriented x 3 Eye Exam: eyes nml inspection Ears, Nose, Throat Exam: normal ENT inspection Neck Exam: normal inspection Respiratory Exam: normal breath sounds, lungs clear, No respiratory distress Cardiovascular Exam: regular rate/rhythm, No murmur, No edema Gastrointestinal/Abdomen Exam: No tenderness, No distention Extremity Exam: normal inspection, normal range of motion Skin Exam: normal color, No rash Results - Labs Lab/Micro Results: Lab Results-Last 24 Hours 01/05/24 01/05/24 01/05/24 Range/Units 15:40 15:40 15:40 WBC 5.4 (3.98-10.04) x10^3/uL RBC 3.12 L (3.93-5.22) x10^6/uL Hgb 10.1 L (11.2-15.7) g/dL Hct 31.4 L (34.1-44.9) % MCV 100.6 H (79.4-94.8) fL MCH 32.4 H (25.6-32.2) pg MCHC 32.2 (32.2-35.5) g/dL RDW 13.2 (11.7-14.4) % Plt Count 159 L (182-369) x10^3/uL MPV 9.0 L (9.4-12.3) fL Gran % 67.8 (34.0-71.1) % Immature Gran % (Auto) 0.2 (0.001-0.429) % Nucleat RBC Rel Count 0.0 (0.00-0.2) % Eos # (Auto) 0.13 (0.04-0.36) x10^3/uL Immature Gran # (Auto) 0.01 (0.001-0.031) x10^3u/L Absolute Lymphs (auto) 1.14 L (1.18-3.74) x10^3/uL Absolute Monos (auto) 0.43 (0.24-0.86) x10^3/uL Absolute Nucleated RBC 0.00 (0.00-0.012) x10^3u/L Lymphocytes % 21.1 (19.3-51.7) % Monocytes % 7.9 (4.7-12.5) % Eosinophils % 2.4 (0.7-5.8) % Basophils % 0.6 (0.1-1.2) % Absolute Granulocytes 3.67 (1.56-6.13) x10^3/uL Basophils # 0.03 (0.01-0.08) x10^3/uL Sodium 142 (135-145) mmol/L Potassium 4.4 (3.5-5.1) mmol/L Chloride 116 H (98-107) mmol/L Carbon Dioxide 17 L (22-30) mmol/L Anion Gap 13.0 (5-15) MEQ/L BUN 37 H (7-17) mg/dL Creatinine 1.96 H (0.52-1.04) mg/dL Estimated GFR 26.0 ML/MIN Glucose 89 (74-106) mg/dL Calcium 8.7 (8.4-10.2) mg/dL Total Bilirubin 0.30 (0.2-1.3) mg/dL AST 30 (14-36) U/L ALT 22 (0-35) U/L Alkaline Phosphatase 116 (38-126) U/L Troponin I < 0.012 (0.000-0.033) ng/mL NT-Pro-B Natriuret Pep 1060 (<300) pg/mL Serum Total Protein 6.0 L (6.3-8.2) g/dL Albumin 3.6 (3.5-5.0) g/dL Urine Color (Yellow) Urine Appearance (Clear) Urine pH (4.6-8.0) Ur Specific [place] (1.005-1.030) Urine Protein (Negative) Urine Glucose (UA) (Negative) mg/dL Urine Ketones (Negative) Urine Blood (Negative) Urine Nitrite (Negative) Urine Bilirubin (Negative) Urine Urobilinogen (0.2) mg/dL Ur Leukocyte Esterase (Negative) U Hyaline Cast (Auto) (0-2) /LPF Urine Microscopic RBC (0-5) /HPF Urine Microscopic WBC (0-5) /HPF Ur Epithelial Cells (None Seen) /HPF Urine Bacteria (None Seen) /HPF Urine Culture Reflexed (NO) 01/05/24 01/05/24 Range/Units 17:10 17:41 WBC (3.98-10.04) x10^3/uL RBC (3.93-5.22) x10^6/uL Hgb (11.2-15.7) g/dL Hct (34.1-44.9) % MCV (79.4-94.8) fL MCH (25.6-32.2) pg MCHC (32.2-35.5) g/dL RDW (11.7-14.4) % Plt Count (182-369) x10^3/uL MPV (9.4-12.3) fL Gran % (34.0-71.1) % Immature Gran % (Auto) (0.001-0.429) % Nucleat RBC Rel Count (0.00-0.2) % Eos # (Auto) (0.04-0.36) x10^3/uL Immature Gran # (Auto) (0.001-0.031) x10^3u/L Absolute Lymphs (auto) (1.18-3.74) x10^3/uL Absolute Monos (auto) (0.24-0.86) x10^3/uL Absolute Nucleated RBC (0.00-0.012) x10^3u/L Lymphocytes % (19.3-51.7) % Monocytes % (4.7-12.5) % Eosinophils % (0.7-5.8) % Basophils % (0.1-1.2) % Absolute Granulocytes (1.56-6.13) x10^3/uL Basophils # (0.01-0.08) x10^3/uL Sodium (135-145) mmol/L Potassium (3.5-5.1) mmol/L Chloride (98-107) mmol/L Carbon Dioxide (22-30) mmol/L Anion Gap (5-15) MEQ/L BUN (7-17) mg/dL Creatinine (0.52-1.04) mg/dL Estimated GFR ML/MIN Glucose (74-106) mg/dL Calcium (8.4-10.2) mg/dL Total Bilirubin (0.2-1.3) mg/dL AST (14-36) U/L ALT (0-35) U/L Alkaline Phosphatase (38-126) U/L Troponin I < 0.012 (0.000-0.033) ng/mL NT-Pro-B Natriuret Pep (<300) pg/mL Serum Total Protein (6.3-8.2) g/dL Albumin (3.5-5.0) g/dL Urine Color Yellow (Yellow) Urine Appearance Clear (Clear) Urine pH 5.0 (4.6-8.0) Ur Specific [place] 1.010 (1.005-1.030) Urine Protein Negative (Negative) Urine Glucose (UA) Negative (Negative) mg/dL Urine Ketones Negative (Negative) Urine Blood Negative (Negative) Urine Nitrite Negative (Negative) Urine Bilirubin Negative (Negative) Urine Urobilinogen 0.2 (0.2) mg/dL Ur Leukocyte Esterase Negative (Negative) U Hyaline Cast (Auto) NONE SEEN (0-2) /LPF Urine Microscopic RBC 0-2 (0-5) /HPF Urine Microscopic WBC 0-2 (0-5) /HPF Ur Epithelial Cells None Seen (None Seen) /HPF Urine Bacteria None Seen (None Seen) /HPF Urine Culture Reflexed NO (NO) - Radiology Impressions Radiology Exams & Impressions: Radiology Procedures Category Date Time Status CHEST 1 VIEW (PORTABLE) Stat Exams 01/05/24 15:16 Completed CXR - no infiltrate, effusion, or edema (images reviewed) Assessment/Plan (1) Chest pain Current Visit: Yes Status: Acute Assessment & Plan: 78-year-old woman with history of CKD stage III, hypertension, and recent TIA, who presents with chest pain. ## Right-sided chest pain atypical location, but has typical pain induced by exertion or relieved by rest, associated with dyspnea. Patient's main risk factors for ACS are her age and her recent TIA, suggesting underlying vasculopathy. However, her first 2 troponins are negative and her EKG is unrevealing. Chest x-ray does not show any alternate explanations for her chest pain. Pain is not reproducible on palpation or with movement to suggest musculoskeletal in nature. Place in observation Monitor on telemetry Follow serial troponins If after overnight monitoring, there is no further activity on forensic technician for change in troponins, can have patient follow-up with her supervisor [employer] in [place] to see if there is need for further risk stratification, given that patient had a normal coronary catheterization done 6 months ago ## Hypertension blood pressure elevated on arrival, but that was in the setting of acute chest pain. Per patient, her supervisor [employer] increased her hydralazine dosing and put her on amlodipine today for her elevated blood pressure. Start new prescription of antihypertensives: Hydralazine 100 mg p.o. BID, amlodipine 5 mg p.o. daily ## CKD stage III likely secondary to hypertensive nephropathy. Review of recent labs suggest that her baseline creatinine was between 1.6 and 2, so she is currently at her baseline. Patient is currently not on an SHAHID inhibitor or ARB because of anaphylaxis to lisinopril. Follow BMP ## Recent TIA noted on December 18. She is still within her initial 3-week window of dual antiplatelet therapy after her initial incident. Continue Plavix 75 mg and aspirin 81 mg CODE STATUS: Full code Diet: Regular Prophylaxis: No pharmacologic prophylaxis (Curtis risk score is only one) Dispo: Place in observation, expect patient will be able to go home tomorrow after overnight monitoring Code(s): R07.9 - CHEST PAIN, UNSPECIFIED Telemedicine Encounter - Telemedicine Encounter Telemedicine Encounter: "The entirety of this encounter was performed via Telemedicine" This visit was performed using real-time audio and video connection between my location and thepatients locationwith the assistance of a surrogateat the patients location. Written or verbal consent was obtained from the patient/guardian to perform this visit usingthe [facility]cine technology. Any patient questions regarding the telemedicine interaction were answered.
[2024-01-06 03:39] VITALS: RESP 16
--- NOTE | 2024-01-06 05:33 | PCM.NOTE ---
Date and Time: 01/06/24527 Subjective Assessment: HPI: is a 78 year old female with h/o CKD3, HTN, and recent TIA who presented to ED 01/05/24 with complaints of dull/aching intermittent chest pain that had started that morning. Associated shortness of breath. She had previously had left-sided chest pain about six months ago; was reuled out for ACS at that time, and had a LHC that showed no obstructive CAD. Main risk factors for ACS include her age and her recent TIA, suggesting underlying vasculopathy. Troponins x 3 negative. EKG unrevealing. CXR with no acute findings. Pain is not reproducible on palpation or with movement to suggest musculoskeletal in nature. Patient admitted for observation. Objective Data Vital Signs: Vital Signs - 24 hr Temp Pulse Resp BP BP Pulse Ox 01/06/24 03:38 98.1 F 59 L 16 128/59 94 L 01/05/24 23:29 98.6 F 76 17 119/58 95 01/05/24 20:00 98.2 F 65 18 190/82 95 01/05/24 19:26 98 01/05/24 17:00 97 01/05/24 16:50 96 01/05/24 16:40 98 01/05/24 16:30 98 01/05/24 16:20 98 01/05/24 16:10 98 01/05/24 16:02 98 01/05/24 15:45 163/66 98 01/05/24 15:29 98 01/05/24 15:23 60 18 152/62 98 01/05/24 15:22 64 17 98 01/05/24 15:20 67 16 98 01/05/24 15:10 68 7 L 97 01/05/24 15:02 66 3 L 98 01/05/24 14:39 98.3 F 76 18 202/77 99 01/05/24 14:36 66 6 L 202/77 98 Pain Assessment - Last Documented Pain Intensity 0 Intake and Output: Intake & Output 01/03/24 01/04/24 01/05/24 01/06/24 11:59 11:59 11:59 11:59 Intake Total 340 Balance 340 Weight 86.5 kg Lab Results: Lab Results-Last 24 Hours 01/05/24 01/05/24 01/05/24 Range/Units 15:40 15:40 15:40 WBC 5.4 (3.98-10.04) x10^3/uL RBC 3.12 L (3.93-5.22) x10^6/uL Hgb 10.1 L (11.2-15.7) g/dL Hct 31.4 L (34.1-44.9) % MCV 100.6 H (79.4-94.8) fL MCH 32.4 H (25.6-32.2) pg MCHC 32.2 (32.2-35.5) g/dL RDW 13.2 (11.7-14.4) % Plt Count 159 L (182-369) x10^3/uL MPV 9.0 L (9.4-12.3) fL Gran % 67.8 (34.0-71.1) % Immature Gran % (Auto) 0.2 (0.001-0.429) % Nucleat RBC Rel Count 0.0 (0.00-0.2) % Eos # (Auto) 0.13 (0.04-0.36) x10^3/uL Immature Gran # (Auto) 0.01 (0.001-0.031) x10^3u/L Absolute Lymphs (auto) 1.14 L (1.18-3.74) x10^3/uL Absolute Monos (auto) 0.43 (0.24-0.86) x10^3/uL Absolute Nucleated RBC 0.00 (0.00-0.012) x10^3u/L Lymphocytes % 21.1 (19.3-51.7) % Monocytes % 7.9 (4.7-12.5) % Eosinophils % 2.4 (0.7-5.8) % Basophils % 0.6 (0.1-1.2) % Absolute Granulocytes 3.67 (1.56-6.13) x10^3/uL Basophils # 0.03 (0.01-0.08) x10^3/uL Sodium 142 (135-145) mmol/L Potassium 4.4 (3.5-5.1) mmol/L Chloride 116 H (98-107) mmol/L Carbon Dioxide 17 L (22-30) mmol/L Anion Gap 13.0 (5-15) MEQ/L BUN 37 H (7-17) mg/dL Creatinine 1.96 H (0.52-1.04) mg/dL Estimated GFR 26.0 ML/MIN Glucose 89 (74-106) mg/dL Calcium 8.7 (8.4-10.2) mg/dL Total Bilirubin 0.30 (0.2-1.3) mg/dL AST 30 (14-36) U/L ALT 22 (0-35) U/L Alkaline Phosphatase 116 (38-126) U/L Troponin I < 0.012 (0.000-0.033) ng/mL NT-Pro-B Natriuret Pep 1060 (<300) pg/mL Serum Total Protein 6.0 L (6.3-8.2) g/dL Albumin 3.6 (3.5-5.0) g/dL Urine Color (Yellow) Urine Appearance (Clear) Urine pH (4.6-8.0) Ur Specific [place] (1.005-1.030) Urine Protein (Negative) Urine Glucose (UA) (Negative) mg/dL Urine Ketones (Negative) Urine Blood (Negative) Urine Nitrite (Negative) Urine Bilirubin (Negative) Urine Urobilinogen (0.2) mg/dL Ur Leukocyte Esterase (Negative) U Hyaline Cast (Auto) (0-2) /LPF Urine Microscopic RBC (0-5) /HPF Urine Microscopic WBC (0-5) /HPF Ur Epithelial Cells (None Seen) /HPF Urine Bacteria (None Seen) /HPF Urine Culture Reflexed (NO) 01/05/24 01/05/24 01/05/24 Range/Units 17:10 17:41 23:48 WBC (3.98-10.04) x10^3/uL RBC (3.93-5.22) x10^6/uL Hgb (11.2-15.7) g/dL Hct (34.1-44.9) % MCV (79.4-94.8) fL MCH (25.6-32.2) pg MCHC (32.2-35.5) g/dL RDW (11.7-14.4) % Plt Count (182-369) x10^3/uL MPV (9.4-12.3) fL Gran % (34.0-71.1) % Immature Gran % (Auto) (0.001-0.429) % Nucleat RBC Rel Count (0.00-0.2) % Eos # (Auto) (0.04-0.36) x10^3/uL Immature Gran # (Auto) (0.001-0.031) x10^3u/L Absolute Lymphs (auto) (1.18-3.74) x10^3/uL Absolute Monos (auto) (0.24-0.86) x10^3/uL Absolute Nucleated RBC (0.00-0.012) x10^3u/L Lymphocytes % (19.3-51.7) % Monocytes % (4.7-12.5) % Eosinophils % (0.7-5.8) % Basophils % (0.1-1.2) % Absolute Granulocytes (1.56-6.13) x10^3/uL Basophils # (0.01-0.08) x10^3/uL Sodium (135-145) mmol/L Potassium (3.5-5.1) mmol/L Chloride (98-107) mmol/L Carbon Dioxide (22-30) mmol/L Anion Gap (5-15) MEQ/L BUN (7-17) mg/dL Creatinine (0.52-1.04) mg/dL Estimated GFR ML/MIN Glucose (74-106) mg/dL Calcium (8.4-10.2) mg/dL Total Bilirubin (0.2-1.3) mg/dL AST (14-36) U/L ALT (0-35) U/L Alkaline Phosphatase (38-126) U/L Troponin I < 0.012 < 0.012 (0.000-0.033) ng/mL NT-Pro-B Natriuret Pep (<300) pg/mL Serum Total Protein (6.3-8.2) g/dL Albumin (3.5-5.0) g/dL Urine Color Yellow (Yellow) Urine Appearance Clear (Clear) Urine pH 5.0 (4.6-8.0) Ur Specific [place] 1.010 (1.005-1.030) Urine Protein Negative (Negative) Urine Glucose (UA) Negative (Negative) mg/dL Urine Ketones Negative (Negative) Urine Blood Negative (Negative) Urine Nitrite Negative (Negative) Urine Bilirubin Negative (Negative) Urine Urobilinogen 0.2 (0.2) mg/dL Ur Leukocyte Esterase Negative (Negative) U Hyaline Cast (Auto) NONE SEEN (0-2) /LPF Urine Microscopic RBC 0-2 (0-5) /HPF Urine Microscopic WBC 0-2 (0-5) /HPF Ur Epithelial Cells None Seen (None Seen) /HPF Urine Bacteria None Seen (None Seen) /HPF Urine Culture Reflexed NO (NO) Radiology Exams: Radiology Procedures Category Date Time Status CHEST 1 VIEW (PORTABLE) Stat Exams 01/05/24 15:16 Completed Assessment/Plan (1) Right-sided chest pain Current Visit: Yes Status: Acute Assessment & Plan: -atypical -tele -trops negative x 3 -EKG unrevealing -normal cardiac cath 6 months ago -Follows with cardiology in [place] Code(s): R07.9 - CHEST PAIN, UNSPECIFIED (2) HTN (hypertension) Current Visit: Yes Status: Acute Assessment & Plan: -Stable -Recent changes to her BP meds- will continue with hydralazin 100mg bid and amlodipine 5mg daily Code(s): I10 - ESSENTIAL (PRIMARY) HYPERTENSION (3) CKD (chronic kidney disease) Current Visit: Yes Status: Acute Assessment & Plan: -baseline creat 1.6-2 -at baseline -monitor renal/lytes -avoid nephrotoxic meds Code(s): N18.9 - CHRONIC KIDNEY DISEASE, UNSPECIFIED (4) TIA (transient ischemic attack) Current Visit: Yes Status: Acute Assessment & Plan: -recent - December 19, 2023 -continue plavix and aspirin CODE STATUS: Full code Diet: Regular Prophylaxis: No pharmacologic prophylaxis (Curtis risk score is only one) Dispo: Place in observation, expect patient will be able to go home tomorrow after overnight monitoring Code(s): G45.9 - TRANSIENT CEREBRAL ISCHEMIC ATTACK, UNSPECIFIED
[2024-01-06 06:03] LABS: Hematocrit 27.7 % (34.1-44.9); Mean Cell Volume 100.4 fL (79.4-94.8); Mean Corpuscular Hemoglobin 32.6 pg (25.6-32.2); Mean Corpuscular Hgb Concent. 32.5 g/dL (32.2-35.5); Mean Platelet Volume 9.5 fL (9.4-12.3); Platelet Count 149 x10^3/uL (182-369); Red Blood Count 2.76 x10^6/uL (3.93-5.22); Red Cell Distribution Width 13.3 % (11.7-14.4); White Blood Count 4.3 x10^3/uL (3.98-10.04)
[2024-01-06 06:18] LABS: ANION GAP 12.3 MEQ/L (5-15); Calcium 8.5 mg/dL (8.4-10.2); Creatinine 1 1.87 mg/dL (0.52-1.04); EST GLOMERULAR FILTRATION RATE 27.6 ML/MIN; Potassium 4.4 mmol/L (3.5-5.1)
[2024-01-06] MEDS: Zofran 4 MG/2 ML VIAL IV PRN (10:26)
[2024-01-06] MEDS: PLAVIX Tablet PO SCH (10:57)
[2024-01-06] MEDS: NORVASC 5 MG PO SCH (10:57)
--- NOTE | 2024-01-06 11:52 | PCM.DS ---
Discharge Summary Date of Admission: 01/05/24 19:38 Date of Discharge: 01/06/24 Admitting Physician: VANGIE RICHARDS MD Primary Care Provider: VINNIE,JENELLE Allergies Allergies naproxen [From Naprosyn] Allergy (Mild, Verified 09/20/23 08:19) Rash fluticasone furoate [From Trelegy Ellipta] Adverse Reaction (Severe, Verified 09/20/23 08:19) Anaphylactic Reaction umeclidinium [From Trelegy Ellipta] Adverse Reaction (Severe, Verified 09/20/23 08:19) Anaphylactic Reaction vilanterol [From Trelegy Ellipta] Adverse Reaction (Severe, Verified 09/20/23 08:19) Anaphylactic Reaction adhesive tape Adverse Reaction (Mild, Verified 09/20/23 08:19) BLISTERS lisinopril Adverse Reaction (Verified 09/20/23 08:19) Anaphylactic Reaction Hospital Summary - Hospital Course Hospital Course: is a 78 year old female with h/o CKD3, HTN, and recent TIA who presented to ED 01/05/24 with complaints of dull/aching intermittent chest pain that had started that morning. Associated shortness of breath. She had previously had left-sided chest pain about six months ago; was reuled out for ACS at that time, and had a LHC that showed no obstructive CAD. Main risk factors for ACS include her age and her recent TIA, suggesting underlying vasculopathy. Troponins x 3 negative. EKG unrevealing. CXR with no acute findings. Pain is not reproducible on palpation or with movement to suggest musculoskeletal in nature. Patient admitted for observation. Repeat EKG with no changes. CP has resolved. We have scheduled an appt with Dr. Serrato in [place] (cardiology) for follow up. Patient is agreeable to plan and stable for discharge. Discharge Note New Diagnosis: cp New Medications: zofran Follow Up: PCP/cardiology Latest Assessment & Plan (1) Right-sided chest pain Current Visit: Yes Status: Acute Assessment & Plan: -atypical -tele -trops negative x 3 -EKG unrevealing x 2 -normal cardiac cath 6 months ago -Follows with cardiology in [place] Code(s): R07.9 - CHEST PAIN, UNSPECIFIED (2) HTN (hypertension) Current Visit: Yes Status: Acute Assessment & Plan: -Stable -Recent changes to her BP meds- will continue with hydralazin 100mg bid and amlodipine 5mg daily Code(s): I10 - ESSENTIAL (PRIMARY) HYPERTENSION (3) CKD (chronic kidney disease) Current Visit: Yes Status: Acute Assessment & Plan: -baseline creat 1.6-2 -at baseline -monitor renal/lytes -avoid nephrotoxic meds Code(s): N18.9 - CHRONIC KIDNEY DISEASE, UNSPECIFIED (4) TIA (transient ischemic attack) Current Visit: Yes Status: Acute Assessment & Plan: -recent - December 19, 2023 -continue plavix and aspirin I spent 35 minutes [id number] with the patient on the day of discharge performing discharge exam, discussing hospital stay and discharge instructions with patient and caregivers, preparation of discharge records, prescriptions & referral forms and addressing any questions/concerns the patient had as documented above. - Vitals & Intake/Output Vital Signs: Vital Signs Temperature 97.7 F 01/06/24 06:58 Pulse Rate 76 01/06/24 09:51 Respiratory Rate 16 01/06/24 06:58 Blood Pressure 144/64 01/06/24 09:51 O2 Sat by Pulse Oximetry 97 01/06/24 06:58 Intake & Output: Intake & Output 01/03/24 01/04/24 01/05/24 01/06/24 11:59 11:59 11:59 11:59 Intake Total 580 Balance 580 Weight 86.5 kg - Lab Result Diagrams: 01/06/24 05:54 01/06/24 05:54 Lab Results-Last 24 Hrs: Lab Results-Last 24 Hours 01/05/24 01/05/24 01/05/24 Range/Units 15:40 15:40 15:40 WBC 5.4 (3.98-10.04) x10^3/uL RBC 3.12 L (3.93-5.22) x10^6/uL Hgb 10.1 L (11.2-15.7) g/dL Hct 31.4 L (34.1-44.9) % MCV 100.6 H (79.4-94.8) fL MCH 32.4 H (25.6-32.2) pg MCHC 32.2 (32.2-35.5) g/dL RDW 13.2 (11.7-14.4) % Plt Count 159 L (182-369) x10^3/uL MPV 9.0 L (9.4-12.3) fL Gran % 67.8 (34.0-71.1) % Immature Gran % (Auto) 0.2 (0.001-0.429) % Nucleat RBC Rel Count 0.0 (0.00-0.2) % Eos # (Auto) 0.13 (0.04-0.36) x10^3/uL Immature Gran # (Auto) 0.01 (0.001-0.031) x10^3u/L Absolute Lymphs (auto) 1.14 L (1.18-3.74) x10^3/uL Absolute Monos (auto) 0.43 (0.24-0.86) x10^3/uL Absolute Nucleated RBC 0.00 (0.00-0.012) x10^3u/L Lymphocytes % 21.1 (19.3-51.7) % Monocytes % 7.9 (4.7-12.5) % Eosinophils % 2.4 (0.7-5.8) % Basophils % 0.6 (0.1-1.2) % Absolute Granulocytes 3.67 (1.56-6.13) x10^3/uL Basophils # 0.03 (0.01-0.08) x10^3/uL Sodium 142 (135-145) mmol/L Potassium 4.4 (3.5-5.1) mmol/L Chloride 116 H (98-107) mmol/L Carbon Dioxide 17 L (22-30) mmol/L Anion Gap 13.0 (5-15) MEQ/L BUN 37 H (7-17) mg/dL Creatinine 1.96 H (0.52-1.04) mg/dL Estimated GFR 26.0 ML/MIN Glucose 89 (74-106) mg/dL Calcium 8.7 (8.4-10.2) mg/dL Total Bilirubin 0.30 (0.2-1.3) mg/dL AST 30 (14-36) U/L ALT 22 (0-35) U/L Alkaline Phosphatase 116 (38-126) U/L Troponin I < 0.012 (0.000-0.033) ng/mL NT-Pro-B Natriuret Pep 1060 (<300) pg/mL Serum Total Protein 6.0 L (6.3-8.2) g/dL Albumin 3.6 (3.5-5.0) g/dL Urine Color (Yellow) Urine Appearance (Clear) Urine pH (4.6-8.0) Ur Specific [place] (1.005-1.030) Urine Protein (Negative) Urine Glucose (UA) (Negative) mg/dL Urine Ketones (Negative) Urine Blood (Negative) Urine Nitrite (Negative) Urine Bilirubin (Negative) Urine Urobilinogen (0.2) mg/dL Ur Leukocyte Esterase (Negative) U Hyaline Cast (Auto) (0-2) /LPF Urine Microscopic RBC (0-5) /HPF Urine Microscopic WBC (0-5) /HPF Ur Epithelial Cells (None Seen) /HPF Urine Bacteria (None Seen) /HPF Urine Culture Reflexed (NO) 01/05/24 01/05/24 01/05/24 Range/Units 17:10 17:41 23:48 WBC (3.98-10.04) x10^3/uL RBC (3.93-5.22) x10^6/uL Hgb (11.2-15.7) g/dL Hct (34.1-44.9) % MCV (79.4-94.8) fL MCH (25.6-32.2) pg MCHC (32.2-35.5) g/dL RDW (11.7-14.4) % Plt Count (182-369) x10^3/uL MPV (9.4-12.3) fL Gran % (34.0-71.1) % Immature Gran % (Auto) (0.001-0.429) % Nucleat RBC Rel Count (0.00-0.2) % Eos # (Auto) (0.04-0.36) x10^3/uL Immature Gran # (Auto) (0.001-0.031) x10^3u/L Absolute Lymphs (auto) (1.18-3.74) x10^3/uL Absolute Monos (auto) (0.24-0.86) x10^3/uL Absolute Nucleated RBC (0.00-0.012) x10^3u/L Lymphocytes % (19.3-51.7) % Monocytes % (4.7-12.5) % Eosinophils % (0.7-5.8) % Basophils % (0.1-1.2) % Absolute Granulocytes (1.56-6.13) x10^3/uL Basophils # (0.01-0.08) x10^3/uL Sodium (135-145) mmol/L Potassium (3.5-5.1) mmol/L Chloride (98-107) mmol/L Carbon Dioxide (22-30) mmol/L Anion Gap (5-15) MEQ/L BUN (7-17) mg/dL Creatinine (0.52-1.04) mg/dL Estimated GFR ML/MIN Glucose (74-106) mg/dL Calcium (8.4-10.2) mg/dL Total Bilirubin (0.2-1.3) mg/dL AST (14-36) U/L ALT (0-35) U/L Alkaline Phosphatase (38-126) U/L Troponin I < 0.012 < 0.012 (0.000-0.033) ng/mL NT-Pro-B Natriuret Pep (<300) pg/mL Serum Total Protein (6.3-8.2) g/dL Albumin (3.5-5.0) g/dL Urine Color Yellow (Yellow) Urine Appearance Clear (Clear) Urine pH 5.0 (4.6-8.0) Ur Specific [place] 1.010 (1.005-1.030) Urine Protein Negative (Negative) Urine Glucose (UA) Negative (Negative) mg/dL Urine Ketones Negative (Negative) Urine Blood Negative (Negative) Urine Nitrite Negative (Negative) Urine Bilirubin Negative (Negative) Urine Urobilinogen 0.2 (0.2) mg/dL Ur Leukocyte Esterase Negative (Negative) U Hyaline Cast (Auto) NONE SEEN (0-2) /LPF Urine Microscopic RBC 0-2 (0-5) /HPF Urine Microscopic WBC 0-2 (0-5) /HPF Ur Epithelial Cells None Seen (None Seen) /HPF Urine Bacteria None Seen (None Seen) /HPF Urine Culture Reflexed NO (NO) 01/06/24 01/06/24 Range/Units 05:54 05:54 WBC 4.3 (3.98-10.04) x10^3/uL RBC 2.76 L (3.93-5.22) x10^6/uL Hgb 9.0 L (11.2-15.7) g/dL Hct 27.7 L (34.1-44.9) % MCV 100.4 H (79.4-94.8) fL MCH 32.6 H (25.6-32.2) pg MCHC 32.5 (32.2-35.5) g/dL RDW 13.3 (11.7-14.4) % Plt Count 149 L (182-369) x10^3/uL MPV 9.5 (9.4-12.3) fL Gran % (34.0-71.1) % Immature Gran % (Auto) (0.001-0.429) % Nucleat RBC Rel Count (0.00-0.2) % Eos # (Auto) (0.04-0.36) x10^3/uL Immature Gran # (Auto) (0.001-0.031) x10^3u/L Absolute Lymphs (auto) (1.18-3.74) x10^3/uL Absolute Monos (auto) (0.24-0.86) x10^3/uL Absolute Nucleated RBC (0.00-0.012) x10^3u/L Lymphocytes % (19.3-51.7) % Monocytes % (4.7-12.5) % Eosinophils % (0.7-5.8) % Basophils % (0.1-1.2) % Absolute Granulocytes (1.56-6.13) x10^3/uL Basophils # (0.01-0.08) x10^3/uL Sodium 142 (135-145) mmol/L Potassium 4.4 (3.5-5.1) mmol/L Chloride 115 H (98-107) mmol/L Carbon Dioxide 18 L (22-30) mmol/L Anion Gap 12.3 (5-15) MEQ/L BUN 37 H (7-17) mg/dL Creatinine 1.87 H (0.52-1.04) mg/dL Estimated GFR 27.6 ML/MIN Glucose 81 (74-106) mg/dL Calcium 8.5 (8.4-10.2) mg/dL Total Bilirubin (0.2-1.3) mg/dL AST (14-36) U/L ALT (0-35) U/L Alkaline Phosphatase (38-126) U/L Troponin I (0.000-0.033) ng/mL NT-Pro-B Natriuret Pep (<300) pg/mL Serum Total Protein (6.3-8.2) g/dL Albumin (3.5-5.0) g/dL Urine Color (Yellow) Urine Appearance (Clear) Urine pH (4.6-8.0) Ur Specific [place] (1.005-1.030) Urine Protein (Negative) Urine Glucose (UA) (Negative) mg/dL Urine Ketones (Negative) Urine Blood (Negative) Urine Nitrite (Negative) Urine Bilirubin (Negative) Urine Urobilinogen (0.2) mg/dL Ur Leukocyte Esterase (Negative) U Hyaline Cast (Auto) (0-2) /LPF Urine Microscopic RBC (0-5) /HPF Urine Microscopic WBC (0-5) /HPF Ur Epithelial Cells (None Seen) /HPF Urine Bacteria (None Seen) /HPF Urine Culture Reflexed (NO) - Radiology Exams Ordered Rad Exams-Entire Visit: Radiology Procedures Category Date Time Status CHEST 1 VIEW (PORTABLE) Stat Exams 01/05/24 15:16 Completed - Procedures and Test Procedures and Tests throughout Hospitalization: Therapy Orders & Screens 01/06/24 07:46 EKG ROUTINE Comment: Diagnosis: chest pain Discharge Exam General Appearance: no apparent distress Neurologic Exam: alert, oriented x 3, cooperative Eye Exam: PERRL Ears, Nose, Throat Exam: normal ENT inspection Neck Exam: normal inspection Respiratory Exam: normal breath sounds, lungs clear Cardiovascular Exam: regular rate/rhythm, normal heart sounds Gastrointestinal/Abdomen Exam: soft, normal bowel sounds Pelvic Exam: deferred Rectal Exam: deferred Back Exam: normal inspection Extremity Exam: normal inspection Skin Exam: normal color Final Diagnosis/Problem List - Final Discharge Diagnosis/Problem (1) Right-sided chest pain Current Visit: Yes Status: Resolved Code(s): R07.9 - CHEST PAIN, UNSPECIFIED (2) HTN (hypertension) Current Visit: Yes Status: Chronic Code(s): I10 - ESSENTIAL (PRIMARY) HYPERTENSION (3) CKD (chronic kidney disease) Current Visit: Yes Status: Chronic Code(s): N18.9 - CHRONIC KIDNEY DISEASE, UNSPECIFIED (4) TIA (transient ischemic attack) Current Visit: Yes Status: Chronic Code(s): G45.9 - TRANSIENT CEREBRAL ISCHEMIC ATTACK, UNSPECIFIED - Discharge Discharge Date: 01/06/24 Disposition: Home, Self-Care Condition: Stable Prescriptions: New Ondansetron ODT 4 MG [Zofran Odt 4 mg] 4 mg PO Q6HPRN PRN #30 tab PRN Reason: Nausea Continue Multivitamin 1 each PO DAILY Cyanocobalamin (Vitamin B-12) [Cyanocobalamin Injection] 1,000 mcg IJ UD PANTOPRAZOLE 40 mg Tablet [Protonix 40MG Tablet] 40 mg PO BID HydrALAzine HCL 25 MG TAB [Apresoline 25 MG TABLET] 100 mg PO BID Clopidogrel Bisulfate [Clopidogrel] 75 mg PO DAILY Aspirin EC 81 mg [Ecotrin 81 mg] 81 mg PO HS Amlodipine Besylate 5 mg [Norvasc 5 mg] 5 mg PO DAILY Instructions: Chest Pain, Adult ED Additional Instructions: Appt with Dr.Sujoy Arelis MD with [facility] [place] [place] has been pushed up sooner for January 08, 2024 @ 10:15 a.m. and patient will see Helene Duncan NP for . Follow up with: JENELLE BIRMINGHAM MD [Primary Care Provider] - Forms: Discharge Instructions
[2024-01-06 12:14] VITALS: BP 137/65; PULSE 60; TEMP 98.2; O2SAT 95
== END 2024-01-06 15:10 | disposition home or self-care (01) ==
LOC: ED 14:38 → MED SURG 19:38
PROVIDERS: ADMIT Internal Medicine; ATTEND Internal Medicine
DX: R07.9 Chest pain, unspecified (principal); I12.9 Hypertensive chronic kidney disease with stage 1 through stage 4 chronic kidney disease, or unspecified chronic kidney disease; N18.30 Chronic kidney disease, stage 3 unspecified; G45.9 Transient cerebral ischemic attack, unspecified; Z79.899 Other long term (current) drug therapy; Z85.3 Personal history of malignant neoplasm of breast; Z79.01 Long term (current) use of anticoagulants
CPT/HCPCS: 36000; 36415; 71045; 80048; 80053; 81001; 83880; 84484; 85025; 85027; 93005; 93041; 94760; 99285; Q3014; 93268; J2405; A9270-GY; G0378

== ENCOUNTER 2024-12-25 21:05 | Emergency (ER) | payer MEDICARE, BC ==
--- NOTE | 2024-12-25 21:15 | ERPHSYRPT ---
- History of Present Illness Time Seen by Provider: 12/25/24 21:15 Historian: patient Exam Limitations: no limitations Physician History: Patient presents with 2-day history of weakness. On her way into the emergency room she endorsed a very brief episode of chest pain. She denies cough, congestion or swelling. No fevers. She denies any urinary symptoms. Prior Chest Pain/Cardiac Workup: no prior chest pain Nitro Today/Relief: no nitro taken today Aspirin Treatment Today: 81 mg x 4, provided by ED Allergies/Adverse Reactions: naproxen [From Naprosyn] Allergy (Mild, Verified 12/25/24 21:18) Rash fluticasone furoate [From Trelegy Ellipta] Adverse Reaction (Severe, Verified 12/25/24 21:18) Anaphylactic Reaction umeclidinium [From Trelegy Ellipta] Adverse Reaction (Severe, Verified 12/25/24 21:18) Anaphylactic Reaction vilanterol [From Trelegy Ellipta] Adverse Reaction (Severe, Verified 12/25/24 21:18) Anaphylactic Reaction adhesive tape Adverse Reaction (Mild, Verified 12/25/24 21:18) BLISTERS lisinopril Adverse Reaction (Verified 12/25/24 21:18) Anaphylactic Reaction Home Medications: Cyanocobalamin (Vitamin B-12) [Cyanocobalamin Injection] 1,000 mcg IJ UD 02/06/21 [History] Multivitamin 1 each PO DAILY 02/06/21 [History] PANTOPRAZOLE 40 mg Tablet [Protonix 40MG Tablet] 40 mg PO BID 08/29/21 [History] HydrALAzine HCL 25 MG TAB [Apresoline 25 MG TABLET] 100 mg PO BID 08/01/22 [History] Amlodipine Besylate 5 mg [Norvasc 5 mg] 5 mg PO DAILY 01/05/24 [History] Aspirin EC 81 mg [Ecotrin 81 mg] 81 mg PO HS 01/05/24 [History] Clopidogrel Bisulfate [Clopidogrel] 75 mg PO DAILY 01/05/24 [History] Hx Tetanus, Diphtheria Vaccination/Date Given: Yes Hx Influenza Vaccination/Date Given: Yes Hx Pneumococcal Vaccination/Date Given: Yes Travel Risk - Emerging Infectious Disease Are you exhibiting symptoms associated with any current EIDs: No - Review of Systems All Other Systems: Reviewed and Negative - Past Medical History Pertinent Past Medical History: Yes Neurological History: TIA ENT History: Cataracts, Macular Degeneration Cardiac History: Hypertension Respiratory History: Asthma Endocrine Medical History: No Pertinent History Musculoskeletal History: Osteoarthritis GI Medical History: Hernia, Polyps History: No Pertinent History Psycho-Social History: Anxiety, Depression Female Reproductive Disorders: Breast Cancer Other Medical History: Heart attack is disagreed on by different doctors. hx of anemia. Cholecystectomy, Hysterectomy, Mastectomy with reconstruction, Gastric bypass. - Past Surgical History Past Surgical History: Yes Neuro Surgical History: No Pertinent History Cardiac: Cardiac Catheterization Respiratory: No Pertinent History Gastrointestinal: Cholecystectomy, Hernia Repair Genitourinary: No Pertinent History Musculoskeletal: Orthopedic Surgery Female Surgical History: Hysterectomy, Mastectomy Other Surgical History: barriactric surgery - 2015ish. neck'C5,C6 fusion. Significant Family History: heart disease (non-premature) - Social History Smoking Status: Never smoker Exposure to second hand smoke: No Drug Use: none - Social Determinants of Health Will the patient participate in the screening: Yes Do you worry about a steady place to live?: No In the past 12 months,have you had to go without utilities?: No Transportation Issues: No Has anyone in your support network made you feel unsafe?: No Have you or anyone in your house had to go w/o enough food: No - Nursing Vital Signs Nursing Vital Signs: Initial Vital Signs Temperature 97.9 F 12/25/24 21:18 Pulse Rate 78 12/25/24 21:18 Respiratory Rate 18 12/25/24 21:18 Blood Pressure 140/75 12/25/24 21:18 O2 Sat by Pulse Oximetry 99 12/25/24 21:18 Pain Scale Pain Intensity 0 - Physical Exam General Appearance: no apparent distress Ears, Nose, Throat Exam: normal ENT inspection Neck Exam: normal inspection, non-tender, supple, full range of motion Respiratory Exam: normal breath sounds, lungs clear, airway intact, No respiratory distress Cardiovascular Exam: regular rate/rhythm, normal heart sounds, capillary refill <2 sec Gastrointestinal/Abdomen Exam: soft, normal bowel sounds, No tenderness Extremity Exam: No swelling Neurologic Exam: alert, oriented x 3, cooperative Skin Exam: normal color, warm, dry, No rash SpO2 Interpretation: normal O2 Delivery: Room Air - Course Nursing assessment & vital signs reviewed: Yes EKG Interpreted by Me: RATE (81), Sinus Rhythm, NORMAL ST-T, Other (NC 210, LVH) Ordered Tests: Active Orders 24 hr Category Date Time Status Linseed Oil Boiler STAT Care 12/25/24 21:21 Completed EKG-ER Only STAT Care 12/25/24 21:20 Completed IV Insertion STAT Care 12/25/24 21:20 Completed cath [Cath for Specimen-Straight] STAT Care 12/25/24 22:32 Completed CHEST 1 VIEW (PORTABLE) Stat Exams 12/25/24 21:21 Taken BMP Stat Lab 12/26/24 01:02 Completed CBC W DIFF Stat Lab 12/25/24 21:35 Completed CMP Stat Lab 12/25/24 21:35 Completed CULTURE,URINE Stat Lab 12/25/24 22:33 Received D-DIMER QUANTITATIVE Stat Lab 12/25/24 21:35 Completed Folate (Folic Acid) Stat Lab 12/25/24 21:50 Completed NT PRO BNPII Stat Lab 12/25/24 21:35 Completed TROPONIN Q4H Lab 12/25/24 21:35 Completed TROPONIN Q4H Lab 12/25/24 23:15 Completed TSH, 3RD Generation Stat Lab 12/25/24 21:35 Completed UA W/RFX UR CULTURE Stat Lab 12/25/24 22:33 Completed VENOUS BLOOD GAS Stat Lab 12/25/24 22:12 Completed Vitamin B12 Stat Lab 12/25/24 21:50 Completed Medication Summary Discontinued Medications Generic Name Dose Route Start Last Admin Trade Name Freq PRN Reason Stop Dose Admin Aspirin 324 mg 12/25/24 21:20 12/25/24 21:51 Aspirin 81 Mg Tab.Chew PO 12/25/24 21:21 Not Given STAT ONE Aspirin 243 mg 12/25/24 21:50 12/25/24 21:53 Aspirin 81 Mg Tab.Chew PO 12/25/24 21:51 243 mg STAT ONE Administration Aspirin Confirm 12/25/24 21:52 Aspirin 81 Mg Tab.Chew Administered 12/25/24 21:53 Dose 243 mg .ROUTE .STK-MED ONE Fluconazole 150 mg 12/25/24 22:37 12/25/24 22:55 Fluconazole 150 Mg Tablet PO 12/25/24 22:38 Not Given STAT ONE Fluconazole Confirm 12/25/24 22:49 Fluconazole 100 Mg Tablet Administered 12/25/24 22:50 Dose 200 mg .ROUTE .STK-MED ONE Fluconazole 200 mg 10/20/25 10:00 12/25/24 22:56 Fluconazole 100 Mg Tablet PO 01/25/25 09:59 200 mg DAILY TONJA Administration Sodium Chloride 1,000 mls @ 999 mls/hr 12/25/24 23:39 12/26/24 00:50 Sodium Chloride 0.9% 1000 Ml IV 12/26/24 00:39 Infused .Q1H1M STA Infusion Sodium Chloride Confirm 12/25/24 23:50 Sodium Chloride 0.9% 1000 Ml Administered 12/25/24 23:51 Dose 1,000 mls @ ud .ROUTE .[facility] Lab/Rad Data: Laboratory Result Diagrams 12/25/24 21:35 12/26/24 01:02 Laboratory Results 12/26/24 12/25/24 12/25/24 Range/Units 01:02 23:15 22:33 WBC (3.98-10.04) x10^3/uL RBC (3.93-5.22) x10^6/uL Hgb (11.2-15.7) g/dL Hct (34.1-44.9) % MCV (79.4-94.8) fL MCH (25.6-32.2) pg MCHC (32.2-35.5) g/dL RDW (11.7-14.4) % Plt Count (182-369) x10^3/uL MPV (9.4-12.3) fL Gran % (34.0-71.1) % Immature Gran % (Auto) (0.001-0.429) % Nucleat RBC Rel Count (0.00-0.2) % Eos # (Auto) (0.04-0.36) x10^3/uL Immature Gran # (Auto) (0.001-0.031) x10^3u/L Absolute Lymphs (auto) (1.18-3.74) x10^3/uL Absolute Monos (auto) (0.24-0.86) x10^3/uL Absolute Nucleated RBC (0.00-0.012) x10^3u/L Lymphocytes % (19.3-51.7) % Monocytes % (4.7-12.5) % Eosinophils % (0.7-5.8) % Basophils % (0.1-1.2) % Absolute Granulocytes (1.56-6.13) x10^3/uL Basophils # (0.01-0.08) x10^3/uL D-Dimer (0.0-0.50) mg/L pO2/FiO2 Ratio % VBG pH (7.32-7.42) VBG pCO2 at Pat Temp (42-55) mm/Hg VBG pO2 at Pat Temp (25-40) mm/Hg VBG HCO3 (22-28) meq/L VBG O2 Sat (Joyce) (95-100) VBG Base Excess (-2.0-2.0) VBG Hemoglobin VBG Carboxyhemoglobin (0.0-6.9) % T HGB POC Potassium (3.5-5.1) Sodium 139 (135-145) mmol/L Potassium 3.9 (3.5-5.1) mmol/L Chloride 120 H (98-107) mmol/L Carbon Dioxide 13 L* (22-30) mmol/L Anion Gap 10.8 (5-15) MEQ/L BUN 35 H (7-17) mg/dL Creatinine 1.57 H (0.52-1.04) mg/dL Estimated GFR 33.8 ML/MIN Glucose 80 (74-106) mg/dL Hemoglobin A1c (4.5-6.0) % Calcium 8.2 L (8.4-10.2) mg/dL Total Bilirubin (0.2-1.3) mg/dL AST (14-36) U/L ALT (0-35) U/L Alkaline Phosphatase (38-126) U/L Troponin I < 0.012 (0.000-0.033) ng/mL NT-Pro-B Natriuret Pep (<300) pg/mL Serum Total Protein (6.3-8.2) g/dL Albumin (3.5-5.0) g/dL Vitamin B12 (239-931) pg/mL Folic Acid (2.76 - >20) ng/mL Free T4 (0.78-2.19) ng/dL TSH 3rd Generation (0.470-4.680) mIU/L Urine Color Yellow (Yellow) Urine Appearance Clear (Clear) Urine pH 5.5 (4.6-8.0) Ur Specific [facility] 1.020 (1.005-1.030) Urine Protein Trace A (Negative) Urine Glucose (UA) Negative (Negative) mg/dL Urine Ketones Trace A (Negative) Urine Blood Negative (Negative) Urine Nitrite Negative (Negative) Urine Bilirubin Negative (Negative) Urine Urobilinogen 1.0 A (0.2) mg/dL Ur Leukocyte Esterase Negative (Negative) U Hyaline Cast (Auto) NONE SEEN (0-2) /LPF Urine Microscopic RBC 0-2 (0-5) /HPF Urine Microscopic WBC 0-2 (0-5) /HPF Ur Epithelial Cells None Seen (None Seen) /HPF Urine Bacteria None Seen (None Seen) /HPF Urine Yeast (Budding) Few A (None Seen) /HPF Urine Culture Reflexed ORDERED SEPARATELY (NO) 12/25/24 12/25/24 12/25/24 Range/Units 22:12 21:50 21:50 WBC (3.98-10.04) x10^3/uL RBC (3.93-5.22) x10^6/uL Hgb (11.2-15.7) g/dL Hct (34.1-44.9) % MCV (79.4-94.8) fL MCH (25.6-32.2) pg MCHC (32.2-35.5) g/dL RDW (11.7-14.4) % Plt Count (182-369) x10^3/uL MPV (9.4-12.3) fL Gran % (34.0-71.1) % Immature Gran % (Auto) (0.001-0.429) % Nucleat RBC Rel Count (0.00-0.2) % Eos # (Auto) (0.04-0.36) x10^3/uL Immature Gran # (Auto) (0.001-0.031) x10^3u/L Absolute Lymphs (auto) (1.18-3.74) x10^3/uL Absolute Monos (auto) (0.24-0.86) x10^3/uL Absolute Nucleated RBC (0.00-0.012) x10^3u/L Lymphocytes % (19.3-51.7) % Monocytes % (4.7-12.5) % Eosinophils % (0.7-5.8) % Basophils % (0.1-1.2) % Absolute Granulocytes (1.56-6.13) x10^3/uL Basophils # (0.01-0.08) x10^3/uL D-Dimer (0.0-0.50) mg/L pO2/FiO2 Ratio 21.0 % VBG pH 7.32 (7.32-7.42) VBG pCO2 at Pat Temp 30 L (42-55) mm/Hg VBG pO2 at Pat Temp 70 H (25-40) mm/Hg VBG HCO3 15.5 L* (22-28) meq/L VBG O2 Sat (Joyce) 94.1 L (95-100) VBG Base Excess -9.5 L (-2.0-2.0) VBG Hemoglobin 10.3 VBG Carboxyhemoglobin 4.3 (0.0-6.9) % T HGB POC Potassium 4.1 (3.5-5.1) Sodium (135-145) mmol/L Potassium (3.5-5.1) mmol/L Chloride (98-107) mmol/L Carbon Dioxide (22-30) mmol/L Anion Gap (5-15) MEQ/L BUN (7-17) mg/dL Creatinine (0.52-1.04) mg/dL Estimated GFR ML/MIN Glucose (74-106) mg/dL Hemoglobin A1c 4.58 (4.5-6.0) % Calcium (8.4-10.2) mg/dL Total Bilirubin (0.2-1.3) mg/dL AST (14-36) U/L ALT (0-35) U/L Alkaline Phosphatase (38-126) U/L Troponin I (0.000-0.033) ng/mL NT-Pro-B Natriuret Pep (<300) pg/mL Serum Total Protein (6.3-8.2) g/dL Albumin (3.5-5.0) g/dL Vitamin B12 > 1000 H (239-931) pg/mL Folic Acid 11.6 (2.76 - >20) ng/mL Free T4 (0.78-2.19) ng/dL TSH 3rd Generation (0.470-4.680) mIU/L Urine Color (Yellow) Urine Appearance (Clear) Urine pH (4.6-8.0) Ur Specific [facility] (1.005-1.030) Urine Protein (Negative) Urine Glucose (UA) (Negative) mg/dL Urine Ketones (Negative) Urine Blood (Negative) Urine Nitrite (Negative) Urine Bilirubin (Negative) Urine Urobilinogen (0.2) mg/dL Ur Leukocyte Esterase (Negative) U Hyaline Cast (Auto) (0-2) /LPF Urine Microscopic RBC (0-5) /HPF Urine Microscopic WBC (0-5) /HPF Ur Epithelial Cells (None Seen) /HPF Urine Bacteria (None Seen) /HPF Urine Yeast (Budding) (None Seen) /HPF Urine Culture Reflexed (NO) 12/25/24 12/25/24 12/25/24 Range/Units 21:35 21:35 21:35 WBC (3.98-10.04) x10^3/uL RBC (3.93-5.22) x10^6/uL Hgb (11.2-15.7) g/dL Hct (34.1-44.9) % MCV (79.4-94.8) fL MCH (25.6-32.2) pg MCHC (32.2-35.5) g/dL RDW (11.7-14.4) % Plt Count (182-369) x10^3/uL MPV (9.4-12.3) fL Gran % (34.0-71.1) % Immature Gran % (Auto) (0.001-0.429) % Nucleat RBC Rel Count (0.00-0.2) % Eos # (Auto) (0.04-0.36) x10^3/uL Immature Gran # (Auto) (0.001-0.031) x10^3u/L Absolute Lymphs (auto) (1.18-3.74) x10^3/uL Absolute Monos (auto) (0.24-0.86) x10^3/uL Absolute Nucleated RBC (0.00-0.012) x10^3u/L Lymphocytes % (19.3-51.7) % Monocytes % (4.7-12.5) % Eosinophils % (0.7-5.8) % Basophils % (0.1-1.2) % Absolute Granulocytes (1.56-6.13) x10^3/uL Basophils # (0.01-0.08) x10^3/uL D-Dimer (0.0-0.50) mg/L pO2/FiO2 Ratio % VBG pH (7.32-7.42) VBG pCO2 at Pat Temp (42-55) mm/Hg VBG pO2 at Pat Temp (25-40) mm/Hg VBG HCO3 (22-28) meq/L VBG O2 Sat (Joyce) (95-100) VBG Base Excess (-2.0-2.0) VBG Hemoglobin VBG Carboxyhemoglobin (0.0-6.9) % T HGB POC Potassium (3.5-5.1) Sodium (135-145) mmol/L Potassium (3.5-5.1) mmol/L Chloride (98-107) mmol/L Carbon Dioxide (22-30) mmol/L Anion Gap (5-15) MEQ/L BUN (7-17) mg/dL Creatinine (0.52-1.04) mg/dL Estimated GFR ML/MIN Glucose (74-106) mg/dL Hemoglobin A1c (4.5-6.0) % Calcium (8.4-10.2) mg/dL Total Bilirubin (0.2-1.3) mg/dL AST (14-36) U/L ALT (0-35) U/L Alkaline Phosphatase (38-126) U/L Troponin I 0.019 (0.000-0.033) ng/mL NT-Pro-B Natriuret Pep 747 (<300) pg/mL Serum Total Protein (6.3-8.2) g/dL Albumin (3.5-5.0) g/dL Vitamin B12 (239-931) pg/mL Folic Acid (2.76 - >20) ng/mL Free T4 1.19 (0.78-2.19) ng/dL TSH 3rd Generation (0.470-4.680) mIU/L Urine Color (Yellow) Urine Appearance (Clear) Urine pH (4.6-8.0) Ur Specific [facility] (1.005-1.030) Urine Protein (Negative) Urine Glucose (UA) (Negative) mg/dL Urine Ketones (Negative) Urine Blood (Negative) Urine Nitrite (Negative) Urine Bilirubin (Negative) Urine Urobilinogen (0.2) mg/dL Ur Leukocyte Esterase (Negative) U Hyaline Cast (Auto) (0-2) /LPF Urine Microscopic RBC (0-5) /HPF Urine Microscopic WBC (0-5) /HPF Ur Epithelial Cells (None Seen) /HPF Urine Bacteria (None Seen) /HPF Urine Yeast (Budding) (None Seen) /HPF Urine Culture Reflexed (NO) 12/25/24 12/25/24 12/25/24 Range/Units 21:35 21:35 21:35 WBC (3.98-10.04) x10^3/uL RBC (3.93-5.22) x10^6/uL Hgb (11.2-15.7) g/dL Hct (34.1-44.9) % MCV (79.4-94.8) fL MCH (25.6-32.2) pg MCHC (32.2-35.5) g/dL RDW (11.7-14.4) % Plt Count (182-369) x10^3/uL MPV (9.4-12.3) fL Gran % (34.0-71.1) % Immature Gran % (Auto) (0.001-0.429) % Nucleat RBC Rel Count (0.00-0.2) % Eos # (Auto) (0.04-0.36) x10^3/uL Immature Gran # (Auto) (0.001-0.031) x10^3u/L Absolute Lymphs (auto) (1.18-3.74) x10^3/uL Absolute Monos (auto) (0.24-0.86) x10^3/uL Absolute Nucleated RBC (0.00-0.012) x10^3u/L Lymphocytes % (19.3-51.7) % Monocytes % (4.7-12.5) % Eosinophils % (0.7-5.8) % Basophils % (0.1-1.2) % Absolute Granulocytes (1.56-6.13) x10^3/uL Basophils # (0.01-0.08) x10^3/uL D-Dimer 0.45 (0.0-0.50) mg/L pO2/FiO2 Ratio % VBG pH (7.32-7.42) VBG pCO2 at Pat Temp (42-55) mm/Hg VBG pO2 at Pat Temp (25-40) mm/Hg VBG HCO3 (22-28) meq/L VBG O2 Sat (Joyce) (95-100) VBG Base Excess (-2.0-2.0) VBG Hemoglobin VBG Carboxyhemoglobin (0.0-6.9) % T HGB POC Potassium (3.5-5.1) Sodium 139 (135-145) mmol/L Potassium 3.8 (3.5-5.1) mmol/L Chloride 117 H (98-107) mmol/L Carbon Dioxide 13 L* (22-30) mmol/L Anion Gap 13.2 (5-15) MEQ/L BUN 39 H (7-17) mg/dL Creatinine 1.64 H (0.52-1.04) mg/dL Estimated GFR 32.1 ML/MIN Glucose 158 H (74-106) mg/dL Hemoglobin A1c (4.5-6.0) % Calcium 8.4 (8.4-10.2) mg/dL Total Bilirubin < 0.10 L (0.2-1.3) mg/dL AST 26 (14-36) U/L ALT 20 (0-35) U/L Alkaline Phosphatase 116 (38-126) U/L Troponin I (0.000-0.033) ng/mL NT-Pro-B Natriuret Pep (<300) pg/mL Serum Total Protein 5.5 L (6.3-8.2) g/dL Albumin 3.3 L (3.5-5.0) g/dL Vitamin B12 (239-931) pg/mL Folic Acid (2.76 - >20) ng/mL Free T4 (0.78-2.19) ng/dL TSH 3rd Generation 0.862 (0.470-4.680) mIU/L Urine Color (Yellow) Urine Appearance (Clear) Urine pH (4.6-8.0) Ur Specific [facility] (1.005-1.030) Urine Protein (Negative) Urine Glucose (UA) (Negative) mg/dL Urine Ketones (Negative) Urine Blood (Negative) Urine Nitrite (Negative) Urine Bilirubin (Negative) Urine Urobilinogen (0.2) mg/dL Ur Leukocyte Esterase (Negative) U Hyaline Cast (Auto) (0-2) /LPF Urine Microscopic RBC (0-5) /HPF Urine Microscopic WBC (0-5) /HPF Ur Epithelial Cells (None Seen) /HPF Urine Bacteria (None Seen) /HPF Urine Yeast (Budding) (None Seen) /HPF Urine Culture Reflexed (NO) 12/25/24 Range/Units 21:35 WBC 3.9 L (3.98-10.04) x10^3/uL RBC 3.06 L (3.93-5.22) x10^6/uL Hgb 10.1 L (11.2-15.7) g/dL Hct 31.4 L (34.1-44.9) % MCV 102.6 H (79.4-94.8) fL MCH 33.0 H (25.6-32.2) pg MCHC 32.2 (32.2-35.5) g/dL RDW 12.7 (11.7-14.4) % Plt Count 142 L (182-369) x10^3/uL MPV 8.9 L (9.4-12.3) fL Gran % 67.7 (34.0-71.1) % Immature Gran % (Auto) 0.3 (0.001-0.429) % Nucleat RBC Rel Count 0.0 (0.00-0.2) % Eos # (Auto) 0.18 (0.04-0.36) x10^3/uL Immature Gran # (Auto) 0.01 (0.001-0.031) x10^3u/L Absolute Lymphs (auto) 0.80 L (1.18-3.74) x10^3/uL Absolute Monos (auto) 0.25 (0.24-0.86) x10^3/uL Absolute Nucleated RBC 0.00 (0.00-0.012) x10^3u/L Lymphocytes % 20.5 (19.3-51.7) % Monocytes % 6.4 (4.7-12.5) % Eosinophils % 4.6 (0.7-5.8) % Basophils % 0.5 (0.1-1.2) % Absolute Granulocytes 2.64 (1.56-6.13) x10^3/uL Basophils # 0.02 (0.01-0.08) x10^3/uL D-Dimer (0.0-0.50) mg/L pO2/FiO2 Ratio % VBG pH (7.32-7.42) VBG pCO2 at Pat Temp (42-55) mm/Hg VBG pO2 at Pat Temp (25-40) mm/Hg VBG HCO3 (22-28) meq/L VBG O2 Sat (Joyce) (95-100) VBG Base Excess (-2.0-2.0) VBG Hemoglobin VBG Carboxyhemoglobin (0.0-6.9) % T HGB POC Potassium (3.5-5.1) Sodium (135-145) mmol/L Potassium (3.5-5.1) mmol/L Chloride (98-107) mmol/L Carbon Dioxide (22-30) mmol/L Anion Gap (5-15) MEQ/L BUN (7-17) mg/dL Creatinine (0.52-1.04) mg/dL Estimated GFR ML/MIN Glucose (74-106) mg/dL Hemoglobin A1c (4.5-6.0) % Calcium (8.4-10.2) mg/dL Total Bilirubin (0.2-1.3) mg/dL AST (14-36) U/L ALT (0-35) U/L Alkaline Phosphatase (38-126) U/L Troponin I (0.000-0.033) ng/mL NT-Pro-B Natriuret Pep (<300) pg/mL Serum Total Protein (6.3-8.2) g/dL Albumin (3.5-5.0) g/dL Vitamin B12 (239-931) pg/mL Folic Acid (2.76 - >20) ng/mL Free T4 (0.78-2.19) ng/dL TSH 3rd Generation (0.470-4.680) mIU/L Urine Color (Yellow) Urine Appearance (Clear) Urine pH (4.6-8.0) Ur Specific [facility] (1.005-1.030) Urine Protein (Negative) Urine Glucose (UA) (Negative) mg/dL Urine Ketones (Negative) Urine Blood (Negative) Urine Nitrite (Negative) Urine Bilirubin (Negative) Urine Urobilinogen (0.2) mg/dL Ur Leukocyte Esterase (Negative) U Hyaline Cast (Auto) (0-2) /LPF Urine Microscopic RBC (0-5) /HPF Urine Microscopic WBC (0-5) /HPF Ur Epithelial Cells (None Seen) /HPF Urine Bacteria (None Seen) /HPF Urine Yeast (Budding) (None Seen) /HPF Urine Culture Reflexed (NO) - Progress Progress: improved Air Movement: good Progress Note: This patient presents with chest pain, with symptoms suggestive of noncardiac chest pain. History without high risk features (e.g., not substernal, no exertional component, not relieved with rest ). Exam without evidence of volume overload. EKG without signs of active ischemia. HEART score: 3. Given the timing of pain to ER presentation, plan to send 2 troponins to evaluate for NSTEMI. Presentation not consistent with acute PE (normal DD), pneumothorax, thoracic arotic dissection, cardiac effusion or tamponade. Plan: labs, troponin, EKG, CXR, ASA, UA pain control, serial reassessment NS bolus given after BNP resulted Given Fluconazole for fungal UTI. Trop neg x 2, EKG wnl CXR unremarkable Cr back to baseline after NS bolus Follow up with PCP this week for further evaluation. Blood Culture(s) Obtained: No Antibiotics given: No Counseled pt/family regarding: lab results, diagnosis, need for follow-up, rad results Medical Desision Making - Diagnostic Testing Diagnostic test were ordered, analyzed, and reviewed by me: Yes Radiological Interpretation: Interpreted by me - Risk of complications The pt has a mod risk of morbidity or mortality based on: Need for prescription drug management - Departure Departure Disposition: Home Clinical Impression: JUDIE (acute kidney injury), Megaloblastic anemia, Hyperglycemia, Yeast cystitis Condition: Stable Critical Care Time: No Referrals: JENELLE BIRMINGHAM MD [Primary Care Provider, [facility]] - Follow up/PCP as directed Instructions: Chest Pain (DC)
[2024-12-25 21:23] VITALS: TEMP 97.9
[2024-12-25 21:40] LABS: BASOPHIL % 0.5 % (0.1-1.2); Basophil (Absolute #) 0.02 x10^3/uL (0.01-0.08); Eosinophil (Absolute #) 0.18 x10^3/uL (0.04-0.36); Hematocrit 31.4 % (34.1-44.9); Hemoglobin 10.1 g/dL (11.2-15.7); IMMATURE GRAN # 0.01 x10^3u/L (0.001-0.031); IMMATURE GRAN % 0.3 % (0.001-0.429); Lymphocyte (Absolute #) 0.80 x10^3/uL (1.18-3.74); Mean Corpuscular Hemoglobin 33.0 pg (25.6-32.2); Mean Corpuscular Hgb Concent. 32.2 g/dL (32.2-35.5); Monocyte (Absolute #) 0.25 x10^3/uL (0.24-0.86); NUCLEATED RBC # 0.00 x10^3u/L (0.00-0.012); NUCLEATED RBC % 0.0 % (0.00-0.2); Platelet Count 142 x10^3/uL (182-369); Red Blood Count 3.06 x10^6/uL (3.93-5.22); White Blood Count 3.9 x10^3/uL (3.98-10.04)
[2024-12-25] MEDS: BABY ASPIRIN 81 MG CHEW PO ONE ×2 (21:51→21:53)
[2024-12-25] MEDS ORDERED: BABY ASPIRIN 81 MG CHEW ONE (21:52)
[2024-12-25 21:53] LABS: Creatinine 1 1.64 mg/dL (0.52-1.04); EST GLOMERULAR FILTRATION RATE 32.1 ML/MIN; Potassium 3.8 mmol/L (3.5-5.1); Total Protein 5.5 g/dL (6.3-8.2)
[2024-12-25 21:54] LABS: Calcium 8.4 mg/dL (8.4-10.2); Glucose 158 mg/dL (74-106); SGOT/AST 26 U/L (14-36); SGPT/ALT 20 U/L (0-35)
[2024-12-25 22:02] LABS: Carbon Dioxide 13 mmol/L (22-30)
[2024-12-25 22:15] LABS: VBG BASE EXCESS -9.5 (-2.0-2.0); VBG CARBOXYHEMOGLOBIN 4.3 % T HGB (0.0-6.9); VBG FIO2 21.0 %; VBG HCO3- 15.5 meq/L (22-28); VBG HEMOGLOBIN 10.3; VBG O2 SATURATION 94.1 (95-100); VBG PCO2 30.0 mm/Hg (42-55); VBG PO2 70.0 mm/Hg (25-40); VBG POTASSIUM 4.1 (3.5-5.1)
[2024-12-25 22:45] LABS: Glucose, Urine Negative (Negative); Protein,Urine Dip Trace (Negative); RBC 0-2 /HPF (0-5); WBC 0-2 /HPF (0-5)
[2024-12-25] MEDS ORDERED: Diflucan 100 MG ONE (22:49)
[2024-12-25] MEDS: DIFLUCAN PO ONE (22:55)
[2024-12-25] MEDS: Diflucan 100 MG PO SCH (22:56)
[2024-12-26 01:08] VITALS: BP 180/73; PULSE 67; RESP 16; O2SAT 99
[2024-12-26 01:19] LABS: Calcium 8.2 mg/dL (8.4-10.2); Creatinine 1 1.57 mg/dL (0.52-1.04); EST GLOMERULAR FILTRATION RATE 33.8 ML/MIN; Glucose 80.0 mg/dL (74-106); Potassium 3.9 mmol/L (3.5-5.1)
[2024-12-26 01:21] LABS: Carbon Dioxide 13.0 mmol/L (22-30)
--- NOTE | 2024-12-26 08:50 | XRAY ---
Indication: Chest pain. Comparison: January 05, 2024 Portable chest again demonstrates normal heart and lungs with incidental mediastinal/right lung calcified granulomas. Bony thorax intact again with osteopenia, degenerative changes, cervical fusion, and left breast surgical clips. No new/acute findings.
== END 2024-12-26 01:50 | disposition home or self-care (01) ==
LOC: ED 21:05
DX: N17.9 Acute kidney failure, unspecified (principal); D53.1 Other megaloblastic anemias, not elsewhere classified; R73.9 Hyperglycemia, unspecified; B37.41 Candidal cystitis and urethritis; R53.1 Weakness; R07.9 Chest pain, unspecified; I10 Essential (primary) hypertension; Z79.02 Long term (current) use of antithrombotics/antiplatelets; Z79.899 Other long term (current) drug therapy
CPT/HCPCS: 36415; 71045; 80048; 80053; 81001; 82607; 82746; 82805; 83036; 83880; 84439; 84443; 84484; 85025; 85379; 87086; 93005; 93041; 96360; 99285; P9612

== ENCOUNTER 2025-02-10 21:15 | Emergency (ER) | payer MEDICARE, BC ==
[2025-02-10 21:36] VITALS: TEMP 97.8
--- NOTE | 2025-02-10 21:40 | ERPHSYRPT ---
- History of Present Illness Time Seen by Provider: 02/10/25 21:40 Source: patient Exam Limitations: no limitations Patient Subjective Stated Complaint: . Triage Nursing Assessment: . Physician History: Patient presents to the ER with symptoms of sinus infection. She was recently started on azithromycin at the end of the week and is not improving. She denies shortness of breath productive cough or chest pain. No fevers. Patient has sore throat and ear pain. Allergies/Adverse Reactions: naproxen [From Naprosyn] Allergy (Mild, Verified 02/10/25 21:31) Rash fluticasone furoate [From Trelegy Ellipta] Adverse Reaction (Severe, Verified 02/10/25 21:31) Anaphylactic Reaction umeclidinium [From Trelegy Ellipta] Adverse Reaction (Severe, Verified 02/10/25 21:31) Anaphylactic Reaction vilanterol [From Trelegy Ellipta] Adverse Reaction (Severe, Verified 02/10/25 21:31) Anaphylactic Reaction adhesive tape Adverse Reaction (Mild, Verified 02/10/25 21:31) BLISTERS lisinopril Adverse Reaction (Verified 02/10/25 21:31) Anaphylactic Reaction Home Medications: PANTOPRAZOLE 40 mg Tablet [Protonix 40MG Tablet] 40 mg PO DAILY 08/29/21 [History] HydrALAzine HCL 25 MG TAB [Apresoline 25 MG TABLET] 50 mg PO TID 08/01/22 [History] Albuterol 2.5 mg/3 ml Neb [Proventil 2.5 mg/3 ml Neb] 1 neb IH DAILY PRN PRN 02/10/25 [History] Amlodipine Besylate 5 mg [Norvasc 5 mg] 5 mg PO DAILY 02/10/25 [History] Aspirin EC 81 mg [Ecotrin 81 mg] 81 mg PO DAILY 02/10/25 [History] Azithromycin 250 mg [Zithromax 250 MG TABLET] 250 mg PO ZPACK 02/10/25 [History] Cholecalciferol (Vitamin D3) [Vitamin D] 5,000 unit PO DAILY 02/10/25 [History] Clonidine HCl 0.1 mg [Clonidine 0.1 mg Tablet] 0.2 mg PO DAILY PRN PRN 02/10/25 [History] Ferrous Gluconate [Iron] 65 mg PO DAILY 02/10/25 [History] Sodium Bicarbonate 650 mg PO TID 02/10/25 [History] Hx Tetanus, Diphtheria Vaccination/Date Given: Yes Hx Influenza Vaccination/Date Given: Yes Hx Pneumococcal Vaccination/Date Given: Yes Immunizations Up to Date: Yes Travel Risk - International Travel Have you traveled outside of the country in past 3 weeks: No - Emerging Infectious Disease Are you exhibiting symptoms associated with any current EIDs: Yes Symptoms: Cough: New Onset, Headaches/Body Aches/, Shortness of Breath - Review of Systems All Other Systems: Reviewed and Negative - Past Medical History Pertinent Past Medical History: Yes Neurological History: TIA ENT History: Cataracts, Macular Degeneration Cardiac History: Hypertension Respiratory History: Asthma Endocrine Medical History: No Pertinent History Musculoskeletal History: Osteoarthritis GI Medical History: Hernia, Polyps History: No Pertinent History Psycho-Social History: Anxiety, Depression Female Reproductive Disorders: Breast Cancer Other Medical History: Heart attack is disagreed on by different doctors. hx of anemia. Cholecystectomy, Hysterectomy, Mastectomy with reconstruction, Gastric bypass. - Past Surgical History Past Surgical History: Yes Neuro Surgical History: No Pertinent History Cardiac: Cardiac Catheterization Respiratory: No Pertinent History Gastrointestinal: Cholecystectomy, Hernia Repair Genitourinary: No Pertinent History Musculoskeletal: Orthopedic Surgery Female Surgical History: Hysterectomy, Mastectomy Other Surgical History: barriactric surgery - 2015ish. neck'C5,C6 fusion. Significant Family History: heart disease (non-premature) - Social History Smoking Status: Never smoker Exposure to second hand smoke: No Drug Use: none - Social Determinants of Health Will the patient participate in the screening: Yes Do you worry about a steady place to live?: No Do you have any problems with any of the following?: No known problems In the past 12 months,have you had to go without utilities?: No Transportation Issues: No Has anyone in your support network made you feel unsafe?: No Have you or anyone in your house had to go w/o enough food: No - Nursing Vital Signs Nursing Vital Signs: Initial Vital Signs Pulse Rate 64 02/10/25 21:30 Respiratory Rate 18 02/10/25 21:30 Blood Pressure 140/72 02/10/25 21:30 O2 Sat by Pulse Oximetry 97 02/10/25 21:30 Pain Scale Pain Intensity 3 - Physical Exam General Appearance: no apparent distress Ears, Nose, Throat Exam: normal ENT inspection, TMs normal, pharyngeal erythema Neck Exam: normal inspection, non-tender, supple, full range of motion Respiratory Exam: normal breath sounds, lungs clear, airway intact, No respiratory distress Cardiovascular Exam: regular rate/rhythm, normal heart sounds, capillary refill <2 sec SpO2 Interpretation: normal SpO2: 96 O2 Delivery: Room Air - Course Nursing assessment & vital signs reviewed: Yes Ordered Tests: Active Orders 24 hr Category Date Time Status IV Insertion ROUTINE Care 02/10/25 21:50 Completed Pulse Oximetry (ED) STAT Care 02/10/25 21:50 Completed CHEST 2 VIEWS (PA AND LAT) Stat Exams 02/10/25 21:51 Completed CBC W DIFF Stat Lab 02/10/25 23:00 Completed CMP Stat Lab 02/10/25 23:00 Completed PROCALCITONIN Stat Lab 02/10/25 23:00 Completed Medication Summary Discontinued Medications Generic Name Dose Route Start Last Admin Trade Name Faustoq PRN Reason Stop Dose Admin Methylprednisolone Sodium 0 mg 02/10/25 21:51 02/10/25 23:13 Succinate 125 mg/ Sterile IV 02/10/25 21:52 Not Given Water 2 ml STAT ONE Doxycycline Hyclate 100 mg 02/10/25 21:53 02/10/25 22:46 Doxycycline Hyclate 100 Mg Tablet PO 02/10/25 21:54 100 mg STAT ONE Administration Doxycycline Hyclate Confirm 02/10/25 22:41 Doxycycline Hyclate 100 Mg Tablet Administered 02/10/25 22:42 Dose 100 mg .ROUTE .STK-MED ONE Guaifenesin/Dextromethorphan 10 ml 02/10/25 21:51 02/10/25 23:00 Guaifenesin/D-Methorphan Hb 118 Ml Syrup PO 02/10/25 21:52 10 ml STAT ONE Administration Sodium Chloride 1,000 mls @ 999 mls/hr 02/10/25 21:51 02/10/25 23:13 Sodium Chloride 0.9% 1000 Ml IV 02/10/25 22:51 Not Given .Q1H1M STA Prednisone 60 mg 02/10/25 22:39 02/10/25 22:45 Prednisone 20 Mg Tablet PO 03/12/25 22:38 60 mg DAILY TONJA Administration Prednisone Confirm 02/10/25 22:41 Prednisone 20 Mg Tablet Administered 02/10/25 22:42 Dose 60 mg .ROUTE .STK-MED ONE Lab/Rad Data: Laboratory Result Diagrams 02/10/25 23:00 02/10/25 23:00 Laboratory Results 02/10/25 02/10/25 02/10/25 Range/Units 23:00 23:00 23:00 WBC 3.2 L (3.98-10.04) x10^3/uL RBC 3.16 L (3.93-5.22) x10^6/uL Hgb 10.2 L (11.2-15.7) g/dL Hct 32.1 L (34.1-44.9) % MCV 101.6 H (79.4-94.8) fL MCH 32.3 H (25.6-32.2) pg MCHC 31.8 L (32.2-35.5) g/dL RDW 13.2 (11.7-14.4) % Plt Count 126 L (182-369) x10^3/uL MPV 9.5 (9.4-12.3) fL Gran % 61.4 (34.0-71.1) % Immature Gran % (Auto) 0.3 (0.001-0.429) % Nucleat RBC Rel Count 0.0 (0.00-0.2) % Eos # (Auto) 0.23 (0.04-0.36) x10^3/uL Immature Gran # (Auto) 0.01 (0.001-0.031) x10^3u/L Absolute Lymphs (auto) 0.65 L (1.18-3.74) x10^3/uL Absolute Monos (auto) 0.34 (0.24-0.86) x10^3/uL Absolute Nucleated RBC 0.00 (0.00-0.012) x10^3u/L Lymphocytes % 20.2 (19.3-51.7) % Monocytes % 10.6 (4.7-12.5) % Eosinophils % 7.2 H (0.7-5.8) % Basophils % 0.3 (0.1-1.2) % Absolute Granulocytes 1.97 (1.56-6.13) x10^3/uL Basophils # 0.01 (0.01-0.08) x10^3/uL Sodium 135 (135-145) mmol/L Potassium 4.3 (3.5-5.1) mmol/L Chloride 110 H (98-107) mmol/L Carbon Dioxide 17 L (22-30) mmol/L Anion Gap 13.4 (5-15) MEQ/L BUN 30 H (7-17) mg/dL Creatinine 1.66 H (0.52-1.04) mg/dL Estimated GFR 31.4 ML/MIN Glucose 90 (74-106) mg/dL Calcium 9.0 (8.4-10.2) mg/dL Total Bilirubin 0.40 (0.2-1.3) mg/dL AST 30 (14-36) U/L ALT 20 (0-35) U/L Alkaline Phosphatase 134 H (38-126) U/L Serum Total Protein 6.4 (6.3-8.2) g/dL Albumin 3.7 (3.5-5.0) g/dL Procalcitonin 0.094 H (0.030-0.080) ng/mL Influenza Type A Ag (NEGATIVE) Influenza Type B Ag (NEGATIVE) RSV (PCR) (NEGATIVE) SARS-CoV-2 (PCR) (NEGATIVE) Group A Strep Antibody (NEGATIVE) 02/10/25 02/10/25 Range/Units 22:24 22:24 WBC (3.98-10.04) x10^3/uL RBC (3.93-5.22) x10^6/uL Hgb (11.2-15.7) g/dL Hct (34.1-44.9) % MCV (79.4-94.8) fL MCH (25.6-32.2) pg MCHC (32.2-35.5) g/dL RDW (11.7-14.4) % Plt Count (182-369) x10^3/uL MPV (9.4-12.3) fL Gran % (34.0-71.1) % Immature Gran % (Auto) (0.001-0.429) % Nucleat RBC Rel Count (0.00-0.2) % Eos # (Auto) (0.04-0.36) x10^3/uL Immature Gran # (Auto) (0.001-0.031) x10^3u/L Absolute Lymphs (auto) (1.18-3.74) x10^3/uL Absolute Monos (auto) (0.24-0.86) x10^3/uL Absolute Nucleated RBC (0.00-0.012) x10^3u/L Lymphocytes % (19.3-51.7) % Monocytes % (4.7-12.5) % Eosinophils % (0.7-5.8) % Basophils % (0.1-1.2) % Absolute Granulocytes (1.56-6.13) x10^3/uL Basophils # (0.01-0.08) x10^3/uL Sodium (135-145) mmol/L Potassium (3.5-5.1) mmol/L Chloride (98-107) mmol/L Carbon Dioxide (22-30) mmol/L Anion Gap (5-15) MEQ/L BUN (7-17) mg/dL Creatinine (0.52-1.04) mg/dL Estimated GFR ML/MIN Glucose (74-106) mg/dL Calcium (8.4-10.2) mg/dL Total Bilirubin (0.2-1.3) mg/dL AST (14-36) U/L ALT (0-35) U/L Alkaline Phosphatase (38-126) U/L Serum Total Protein (6.3-8.2) g/dL Albumin (3.5-5.0) g/dL Procalcitonin (0.030-0.080) ng/mL Influenza Type A Ag NEGATIVE (NEGATIVE) Influenza Type B Ag NEGATIVE (NEGATIVE) RSV (PCR) NEGATIVE (NEGATIVE) SARS-CoV-2 (PCR) NEGATIVE (NEGATIVE) Group A Strep Antibody NOT DETECTED (NEGATIVE) - Progress Progress: improved Air Movement: good Progress Note: This patient presents with symptoms suspicious for likely bacterial sinusitis. Differential includes bacterial pneumonia, sinusitis, allergic rhinitis. Do not suspect underlying cardiopulmonary process. I considered, but think unlikely, dangerous causes of this patients symptoms to include ACS, CHF or COPD exacerbations, pneumonia, pneumothorax. Patient is nontoxic appearing and not in need of emergent medical intervention. Plan: change abx to Doxycycline, reassurance, reassessment, over the counter medications, discharge with PCP followup Blood Culture(s) Obtained: No Antibiotics given: Yes Counseled pt/family regarding: lab results, diagnosis, need for follow-up, rad results Medical Desision Making - Diagnostic Testing Diagnostic test were ordered, analyzed, and reviewed by me: Yes Radiological Interpretation: Interpreted by me - Risk of complications The pt has a mod risk of morbidity or mortality based on: Need for prescription drug management - Departure Departure Disposition: Home Clinical Impression: Sinusitis Condition: Stable Critical Care Time: No Referrals: JENELLE BIRMINGHAM MD [Primary Care Provider, [facility]] - Follow up/PCP as directed Instructions: Sinusitis in adults Prescriptions: Doxycycline Hyclate 100 mg PO BID 7 Days #13 tablet predniSONE [Prednisone] 50 mg PO DAILY 4 Days #4 tablet
[2025-02-10 22:30] VITALS: PULSE 61
[2025-02-10] MEDS ORDERED: DELTASONE 20 MG ONE (22:41)
[2025-02-10] MEDS: DELTASONE 20 MG PO SCH (22:45)
[2025-02-10] MEDS: Robitussin-Dm Syrup PO ONE (23:00)
[2025-02-10 23:03] LABS: BASOPHIL % 0.3 % (0.1-1.2); Basophil (Absolute #) 0.01 x10^3/uL (0.01-0.08); Eosinophil (Absolute #) 0.23 x10^3/uL (0.04-0.36); Hematocrit 32.1 % (34.1-44.9); Hemoglobin 10.2 g/dL (11.2-15.7); IMMATURE GRAN # 0.01 x10^3u/L (0.001-0.031); IMMATURE GRAN % 0.3 % (0.001-0.429); Lymphocyte (Absolute #) 0.65 x10^3/uL (1.18-3.74); Mean Corpuscular Hemoglobin 32.3 pg (25.6-32.2); Mean Corpuscular Hgb Concent. 31.8 g/dL (32.2-35.5); Monocyte (Absolute #) 0.34 x10^3/uL (0.24-0.86); NUCLEATED RBC # 0.00 x10^3u/L (0.00-0.012); NUCLEATED RBC % 0.0 % (0.00-0.2); Platelet Count 126 x10^3/uL (182-369); Red Blood Count 3.16 x10^6/uL (3.93-5.22); White Blood Count 3.2 x10^3/uL (3.98-10.04)
[2025-02-10 23:04] VITALS: BP 176/58; RESP 14; O2SAT 96
[2025-02-10 23:08] LABS: INFLUENZA A NEGATIVE (NEGATIVE); INFLUENZA B NEGATIVE (NEGATIVE); RESPIRATORY SYNCTIAL VIRUS NEGATIVE (NEGATIVE); SARS-CoV-2 Xpert Express NEGATIVE (NEGATIVE)
[2025-02-10] MEDS: solu-MEDROL 125 MG, Sterile H2O 10 ml 2 ML IV ONE (23:13)
[2025-02-10 23:19] LABS: Calcium 9.0 mg/dL (8.4-10.2); Creatinine 1 1.66 mg/dL (0.52-1.04); EST GLOMERULAR FILTRATION RATE 31.4 ML/MIN; Glucose 90.0 mg/dL (74-106); Potassium 4.3 mmol/L (3.5-5.1); SGOT/AST 30.0 U/L (14-36); SGPT/ALT 20.0 U/L (0-35); Total Protein 6.4 g/dL (6.3-8.2)
[2025-02-10 23:25] LABS: Carbon Dioxide 17.0 mmol/L (22-30)
--- NOTE | 2025-02-11 07:52 | XRAY ---
Indication: Cough. Comparison: December 25, 2024. PA/lateral chest again hyperinflated and clear with incidental small mediastinal/right lung calcified granulomas. Heart not enlarged. Bony thorax intact again with osteopenia, degenerative changes, cervical fusion, and left breast surgical clips. Impression: Continued nonacute hyperinflated chest with chronic features.
== END 2025-02-10 23:55 | disposition home or self-care (01) ==
LOC: ED 21:15
DX: J32.9 Chronic sinusitis, unspecified (principal); J02.9 Acute pharyngitis, unspecified; I10 Essential (primary) hypertension; Z79.52 Long term (current) use of systemic steroids; Z79.899 Other long term (current) drug therapy